=== PATIENT | female | born 1945 | race Caucasian/White ===

== ENCOUNTER → 2017-10-23 15:15 | Outpatient (CLI) | payer MEDICARE, SELFPAY ==
--- NOTE | 2017-10-23 15:27 | XR_ITS ---
XR chest 2V HISTORY: ITS.REASON: HTN ORDERING PHYSICIAN: DARSHAN Verduzco PATIENT AGE: 72 years COMPARISON: None available FINDINGS: The cardiomediastinal silhouette and pulmonary vascularity are within normal limits. Linear density is present in the left lower lobe consistent with an area of atelectasis or fibrosis. The lungs are otherwise clear. No acute bony anomalies. IMPRESSION: Mild left basilar atelectasis or fibrosis otherwise negative chest
== END ==
PROVIDERS: PCP Family Medicine; Visit Provider Physician Assistant
DX: Z01.818 Encounter for other preprocedural examination (principal)
CPT/HCPCS: 71046; 93005

== ENCOUNTER → 2017-12-09 16:06 | Outpatient (CLI) | payer MEDICARE, SELFPAY ==
--- NOTE | 2017-12-09 16:12 | NVE_ITS ---
Venous Exam Indications: 729.81 Swelling of limb. 782.3 Edema. Patient had a partial left knee replacement 1 month ago. Patient states she's done well until yesterday after physical therapy increased her exercises. She has had excessive swelling and pain since the therapy. She is currently taking 81 mg. Aspirin daily since the surgery. IMPRESSIONS 1. There is no evidence of significant Reflux. 2. Acute deep vein thrombosis involving the Left peroneal History: Swelling of the left lower extremity. Edema of the left leg. Risk factors: Hypertension. Left lower extremity venous duplex evaluation. Doppler flow study including spectral analysis, color and king scale imaging. Location: Vascular laboratory. Patient status: Outpatient. CRITICAL FINDINGS - Reported to: [facility] - Read back and verified. - 12/09/17 - 16:50 - Acute DVT seen in the PER Tables: Venous flow and imaging: + + + + Location Overall Flow properties + + + + Left common femoral Patent Normal phasicity; spontaneous; normal augmentation; compressible + + + + Left saphenofemoral Patent Compressible junction + + + + Left profunda femoral Patent Compressible + + + + Left femoral Patent Normal phasicity; spontaneous; normal augmentation; compressible + + + + Left greater saphenous Patent Normal phasicity; spontaneous; normal augmentation; compressible + + + + Left popliteal Patent Normal phasicity; spontaneous; normal augmentation; compressible + + + + Left posterior tibial Patent Compressible + + + + Left peroneal Totally occluded Noncompressible + + + + Left gastrocnemius Patent Compressible + + + + Left soleal Patent Compressible + + + + (Report amended ) Electronically signed by: Tutu Castellano [id number]
== END ==
PROVIDERS: PCP Family Medicine; Visit Provider Orthopaedic Surgery
DX: M79.605 Pain in left leg (principal); R60.0 Localized edema
CPT/HCPCS: 93971

== ENCOUNTER 2017-12-31 13:00 | Outpatient (RCR) | payer MEDICARE, SELFPAY | END 2017-12-31 13:01 | disposition home or self-care (01) | LOC: PT 13:00 | PROVIDERS: Family Provider Physician Assistant; PCP Family Medicine; Visit Provider Orthopaedic Surgery | DX: Z96.652 Presence of left artificial knee joint (principal); M25.562 Pain in left knee | CPT/HCPCS: 97010; 97014; 97016; 97033; 97110; 97140; G0283 ==

== ENCOUNTER → 2018-04-27 12:30 | Outpatient (CLI) | payer MEDICARE, SELFPAY ==
--- NOTE | 2018-04-27 12:38 | XR_ITS ---
XR chest 2V HISTORY: Chest pain and syncope ITS.REASON: SYNCOPE ORDERING PHYSICIAN: Mell Singh PATIENT AGE: 72 years COMPARISON: 10/23/2017 FINDINGS: The cardiomediastinal silhouette and pulmonary vascularity are within normal limits. The lungs are clear without infiltrates, suspicious nodules, or pleural effusions. Minimal atelectatic or fibrotic changes are present in the left lower lungs on No acute bony abnormalities. IMPRESSION: Minimal atelectasis or fibrosis in the left lower lung zone otherwise negative chest
== END ==
PROVIDERS: PCP Family Medicine; Visit Provider Nurse Practitioner Family
DX: R55 Syncope and collapse (principal)
CPT/HCPCS: 71046; 93005

== ENCOUNTER → 2018-04-28 15:51 | Outpatient (CLI) | payer MEDICARE, SELFPAY | PROVIDERS: PCP Family Medicine; Visit Provider Nurse Practitioner Family | DX: R55 Syncope and collapse (principal) | CPT/HCPCS: 93225; 93226 ==

== ENCOUNTER → 2018-05-07 09:32 | Outpatient (CLI) | payer MEDICARE, SELFPAY ==
--- NOTE | 2018-05-07 | CI_ITS ---
Cerebrovascular Exam IMPRESSIONS 1. The bilateral vertebral arteries are patent with normal antegrade flow. 2. The bilateral subclavian arteries reveal no evidence of significant stenosis. 3. Study suggests less than 20% stenosis involving the right internal carotid artery and the left internal carotid artery. 4. Tortuous internal carotid arteries, bilaterally. Carotid duplex study. Complete study and Doppler flow study including spectral analysis, color and king scale imaging. Height: Height: 160cm. Height: 63in. Weight: Weight: 68.5kg. Weight: 150.7lb. Body mass index: BMI: 26.7kg/m^2. Body surface area: BSA: 1.76m^2. Location: Vascular laboratory. Patient status: Outpatient. Findings: Right subclavian: Normal. Left subclavian: Normal. Tables: Arterial flow: + +--------+--------+ Location V sys V ed + +--------+--------+ Right CCA - proximal 79.8cm/s 20.7cm/s + +--------+--------+ Right CCA - distal 57.6cm/s 20.5cm/s + +--------+--------+ Right ECA 92.5cm/s 25.8cm/s + +--------+--------+ Right ICA - proximal 53.8cm/s 21.2cm/s + +--------+--------+ Right ICA - mid 76.6cm/s 31.8cm/s + +--------+--------+ Right ICA - distal 89.4cm/s 33.4cm/s + +--------+--------+ Right vertebral 58.4cm/s 18.7cm/s + +--------+--------+ Left CCA - proximal 102cm/s 22.1cm/s + +--------+--------+ Left CCA - distal 67.3cm/s 19.3cm/s + +--------+--------+ Left ECA 76.1cm/s 16.5cm/s + +--------+--------+ Left ICA - proximal 70cm/s 25.9cm/s + +--------+--------+ Left ICA - mid 88.8cm/s 32.5cm/s + +--------+--------+ Left ICA - distal 82.7cm/s 29.8cm/s + +--------+--------+ Left vertebral 43.2cm/s 11.4cm/s + +--------+--------+ Velocity ratios: + + + + + + Right, V sys Right, V ed Left, V sys Left, V ed + + + + + + Max ICA/dist CCA 1.55 1.63 1.32 1.68 + + + + + + (Report amended ) Electronically signed by: Tutu Castellano [id number]
--- NOTE | 2018-05-07 10:28 | CT_ITS ---
CT head/brain wo/w con HISTORY: ITS.REASON: SYNCOPE ORDERING PHYSICIAN: Sathish Velasquez MD PATIENT AGE: 72 years COMPARISON: None TECHNIQUE: Axial images obtained without and with 100 mL of Isovue-300. Brain and bone windows reviewed. All CT scans at the facility use one or more dose reduction, viz: automated exposure control, ma/kV adjustment per patient size (including targeted exams where dose is matched to indication, i.e. head), or iterative reconstruction technique. FINDINGS: No midline shift, mass effect, intracranial hemorrhage, hydrocephalus, or extra-axial fluid collection is evident. The calvarium has an unremarkable appearance. No mastoid effusion. No sinus air-fluid levels.. Bony hypertrophic changes are present at the atlantoaxial junction anteriorly IMPRESSION: Negative CT scan of the head without and with contrast. No acute intercranial findings
== END ==
PROVIDERS: Family Provider Physician Assistant; PCP Family Medicine; Visit Provider Family Medicine
DX: R55 Syncope and collapse (principal)
CPT/HCPCS: 70470; 93880; Q9967

== ENCOUNTER → 2018-05-29 06:19 | Outpatient (CLI) | payer MEDICARE, SELFPAY ==
--- NOTE | 2018-05-29 06:21 | NM_ITS ---
History and Indications: Hypertension, hyperlipidemia, chest pain, shortness of breath and fatigue Procedure: Patient received a 0.4 mg of intravenous Lexiscan, resting heart rate was 63 bpm resting blood pressure 165/83, with Lexiscan maximum heart rate achieved was entered and 116 bpm which is less than 85% of the maximum predicted heart rate and a blood pressure 129/64. With Lexiscan patient, shortness of breath and nausea requiring intravenous Aminophyllin to reverse symptoms Electrocardiogram: Resting electrocardiogram showed sinus rhythm, with Lexiscan there is 1.[address] segment depression noted from the baseline EKG. The EKG portion of the Lexiscan Myoview is nondiagnostic. Cardiac stress and resting SPECT images: Cardiac stress and rest SPECT images were obtained using technetium 99 Myoview 32.2 mCi at stress and 10.6 mCi at rest, gated SPECT further analysis of segmental wall motion and calculation of the ejection fraction also done. Cardiac stress and rest images show uniform myocardial activity without segmental perfusion abnormality, computer derived ejection fraction is over 65% with no regional wall motion abnormality, right ventricle is normal size and contractility. Conclusion: 1. The EKG portion of the Lexiscan Myoview is nondiagnostic. 2. No scintigraphic evidence of reversible ischemia seen, computer derived ejection fraction is over 65% with no regional wall motion abnormality, right ventricle is normal size and contractility. 3. Normal Lexiscan Myoview study.
--- NOTE | 2018-05-29 06:21 | CA_ITS ---
PROCEDURE: 2-D M-mode and color Doppler study INDICATIONS FOR THE TEST: Chest pain+ COPD Heart Murmur Tobacco Smoking Palpitations Fatigue Syncope+ Edema+ Hypertension+Diabetes Mellitus Rheumatic Fever SOB+VEGA Obesity Hyperlipidemia Family History HD Additional History syncope PATIENT INFORMATION HEIGHT: 64 WEIGHT: 149 GENDER: Female B/P: 130/68 2-D/M-MODE INTERPRETATION: 2-D MEASUREMENTS OBSERVED VALUES IN CMS Right Ventricular Dimension (RVDd) 2.7 Interventricular Septum (Thickness)(IVsd) 0.7 Left Ventricular Internal Dimensions(LVIDd) 4.6 Left Ventricular Posterior Wall (Thickness)(LVPWd) 0.7 Aortic Root 2.5 Aortic Cusp Separation 2.0 Left Atrial Dimensions (LAD) 2.8 2D 1. Left atrium is mildly enlarged, left ventricle is normal size, mild qualitative concentric left ventricular hypertrophy, visually estimated ejection fraction of 55% with no regional wall motion abnormality. 2. The right atrium and right ventricle are normal size and contractility. 3. The aortic valve is thickened and calcified, leaflet continue to display mobility. 4. The mitral and tricuspid valve are grossly normal. 5. The pulmonic valve is poorly visualized. 6. No significant pericardial effusion noted. DOPPLER INTERROGATION: Doppler interrogation of the aortic, mitral and tricuspid valvular presence of mild aortic, mild mitral and tricuspid regurgitation, tricuspid regurgitation jet velocity insufficient for calculation of the right ventricular systolic pressure, grade 1 diastolic dysfunction seen with tissue Doppler evidence of raised left atrial pressure. CONCLUSION: 1. Mildly enlarged left atrium, normal left ventricular size, mild concentric left ventricular hypertrophy, visually estimated ejection fraction 55% with no regional wall motion abnormality, grade 1 diastolic dysfunction seen with tissue Doppler evidence of raised left atrial pressure. 2. Mild aortic, mild mitral and tricuspid regurgitation 3. No significant pericardial effusion noted.
--- NOTE | 2018-05-29 08:29 | HMH.ITSHM ---
levothyroxine losartan prilosec pepcid miralax calcium
== END ==
PROVIDERS: Family Provider Physician Assistant; PCP Family Medicine; Visit Provider Internal Medicine
DX: I10 Essential (primary) hypertension (principal); R55 Syncope and collapse; R07.89 Other chest pain
CPT/HCPCS: 78452; 93017; 93306; A9502; J2785

== ENCOUNTER → 2019-03-05 08:26 | Outpatient (CLI) | payer MEDICARE, SELFPAY ==
--- NOTE | 2019-03-05 08:27 | CT_ITS ---
CT heart w calcium score INDICATION: Chest pain and fatigue ITS.REASON: d ORDERING PHYSICIAN: Kris Bethea MD PATIENT AGE: 73 years COMPARISON: None TECHNIQUE: Contrast Used: Oral Contrast: Axial images were obtained. Sagittal and coronal reformatted images are reviewed as well. All CT scans at the facility use one or more dose reduction, viz: automated exposure control, ma/kV adjustment per patient size (including targeted exams where dose is matched to indication, i.e. head), or iterative reconstruction technique. FINDINGS: Coronary artery calcium score is 0 indicating very low cardiovascular disease risk with no identifiable calcific plaque Pacemaker device is present. Atelectatic or fibrotic changes are present in both lower lobes IMPRESSION: Coronary artery calcium score 0
== END ==
PROVIDERS: PCP Family Medicine; Visit Provider Internal Medicine Cardiovascular Disease
DX: R06.02 Shortness of breath (principal)
CPT/HCPCS: 75571

== ENCOUNTER → 2019-03-18 11:39 | Outpatient (CLI) | payer MEDICARE, SELFPAY | PROVIDERS: Visit Provider Internal Medicine Cardiovascular Disease | DX: R00.2 Palpitations (principal); R42 Dizziness and giddiness; R53.83 Other fatigue | CPT/HCPCS: 36415; 83880 ==

== ENCOUNTER → 2019-08-03 11:40 | Outpatient (CLI) | payer MEDICARE, SELFPAY ==
--- NOTE | 2019-08-03 | CA_ITS ---
APPROVED REPORT Exam: Pharmacologic Technologist: Nancy Bradley Ht: 5 ft 3 in Wt: 156 lbs BSA: 1.74 m2 HR: 60 bpm BP: 135/59 mmHg Indications: Chest pain Medical History Medications: Levothyroxine,,,,, Premarin,,,,, Prilosec,,,,, BisOPROLOL,,,,, SpirOnolactone,,,,, PEPcid,,,,, Isosorb,,,,, Stress Test Details Test: LEXISCAN HR Resting HR: 67 bpm Max Heart Rate (APMHR): 148 bpm Max HR Achieved: 96 bpm Target HR (85% APMHR): 125 bpm % of APMHR: 64 Recovery HR: 72 bpm BP Resting BP: 135.0/59.0 mmHg Max BP: 135.0/59.0 mmHg Recovery BP: 121.0/63.0 mmHg ECG Clinical Exercise duration: 04:00 min Highest Stage Achieved: Exercise capacity: 1.0 METs Stress ECG Conclusion Resting ECG: Paced rhythm. Symptoms: Mild shortness of air, nausea, malaise. No chest pain. Arrhythmias/Ectopy: Occasional PAC. Occasional PVC. ST-T Changes: No significant changes. Conclusions: Unremarkable Lexiscan stress. Myoview images reported separately. Test Summary REST . . . . . . . Resting REST 03:42 . . 67 . 135/ 59 . . Stage 1 . . . . . . . Myoview Injected Stage 1 01:00 . . 77 . . . . Stage 2 01:00 . . 96 . 108/ 61 . . Stage 3 01:00 . . 86 . 121/ 61 . . Stage 4 01:00 . . 79 . 111/ 65 . Stop exercise at 04:00 RECOVERY 01:00 . . 83 . 117/ 63 . . RECOVERY 02:00 . . 78 . 135/ 66 . . RECOVERY . . . . . . . chest pressure RECOVERY 03:00 . . 74 . 135/ 66 . . RECOVERY 04:00 . . 71 . 135/ 66 . . RECOVERY 05:00 . . 71 . 121/ 63 . . RECOVERY 05:17 . . 73 . 121/ 63 . . Electronically signed by : Kris Bethea, 08/04/2019 05:53:16
--- NOTE | 2019-08-03 11:43 | NM_ITS ---
APPROVED REPORT Exam: Nuclear Stress Test Indication: chest pain, short of breath, fatigue Patient Location: Outpatient Stress Tech: Nancy Bradley NM Tech:Silvia Hutton, ARRT, RT (R)(N) Ht: 5 ft 3 in Wt: 156 lbs Bra Size: 34d HR: 60 bpm BP: 135/59 mmHg BSA: 1.74 m2 BMI: 27.6 History: chest pain, short of breath, fatigue Procedure: Patient received a 0.4 mg of intravenous Lexiscan, resting heart rate 60 bpm, resting blood pressure 135/59 mmHg, with Lexiscan maximum heart rate achived was 96 bpm which is Less than 85 % of the maximum predicted heart rate and blood pressure was 108/61 mmHg. With Lexiscan, patient denied any complaint of chest pain. Electrocardiogram Resting electrocardiogram showed sinus rhythm, with Lexiscan there is less than 1.[address] segment depression noted from the baseline EKG. The EKG portion of the Lexiscan Myoview is nondiagnostic. Cardiac Stress and Resting SPECT Images: Cardiac Stress and Resting SPECT images were obtained using technetium 99m Myoview 29.6 mCi stress and 10.66 mCi at rest. Gated SPECT with analysis of segmental wall motion and calculation of the ejection fraction also done. Cardiac stress and resting SPECT images show uniform myocardial activity without segmental perfusion abnormality, computer derived ejection fraction is over 65% with no regional wall motion abnormality, right ventricle is normal size and contractility. Conclusion: 1. The EKG portion of the Lexiscan Myoview is nondiagnostic. 2. No scintigraphic evidence of reversible ischemia seen, computer derived ejection fraction is over 65% with no regional wall motion abnormality, right ventricle is normal size and contractility. 3. Normal Lexiscan Myoview study. Electronically signed by : Kris Bethea, 08/04/2019 05:55:24
--- NOTE | 2019-08-03 12:32 | HMH.ITSHM ---
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 []SPIRONOLACTONE LEVOTHYROXINE PREMARIN BISOPROLOL ISOSORB PEPCID PRILOSEC
== END ==
PROVIDERS: PCP Family Medicine; Visit Provider Urology
DX: R07.9 Chest pain, unspecified; R06.00 Dyspnea, unspecified; I10 Essential (primary) hypertension; I48.0 Paroxysmal atrial fibrillation; Z95.0 Presence of cardiac pacemaker
CPT/HCPCS: 78452; 93017; A9502; J2785

== ENCOUNTER → 2020-03-21 16:54 | Outpatient (CLI) | payer MEDICARE, SELFPAY ==
--- NOTE | 2020-03-21 16:59 | XR_ITS ---
PROCEDURE: XR SHOULDER RT MIN 2V CLINICAL INDICATION: PAIN IN RT SHOULDER COMPARISON: [id number] VIEWS from 01/19/2013 FINDINGS: No fracture or dislocation. No lytic or blastic change. There is normal mineralization. The joint spaces are well-preserved. No significant degenerative/arthritic changes. No erosive changes evident. Other findings:There is an old right 4th rib fracture. IMPRESSION: Negative right shoulder Dictated by: Tutu Castellano MD 03/21/2020 17:47 Electronically signed by Tutu Castellano MD in [place] 03/21/2020 17:47
== END ==
PROVIDERS: PCP Family Medicine; Visit Provider Family Medicine
DX: M25.511 Pain in right shoulder (principal)
CPT/HCPCS: 73030

== ENCOUNTER → 2020-05-19 12:01 | Outpatient (CLI) | payer MEDICARE, SELFPAY ==
[2020-05-19 13:49] LABS: Chloride 103 mmol/L (98-107)
[2020-05-19 13:50] LABS: Potassium 5.1 mmoL/L (3.5-5.1); Sodium 139 mmol/L (136-145)
[2020-05-19 13:52] LABS: Blood Urea Nitrogen 25 mg/dl (7-17); Estimated Glomerular Filt Rate 61 ml/min (>60); GFR (African American) 74 ML/MIN (>60)
[2020-05-19 13:53] LABS: Anion Gap 12.1 mEq/L (5-15); Calcium 10.1 mg/dl (8.4-10.2); Carbon Dioxide 29 mmol/L (22.0-30.0); Glucose 116 mg/dl (74-100)
== END ==
PROVIDERS: Visit Provider Nurse Practitioner Family
DX: I10 Essential (primary) hypertension (principal); I48.0 Paroxysmal atrial fibrillation; I83.93 Asymptomatic varicose veins of bilateral lower extremities; R06.02 Shortness of breath; R60.9 Edema, unspecified; Z95.0 Presence of cardiac pacemaker
CPT/HCPCS: 36415; 80048

== ENCOUNTER 2020-06-19 09:00 | Outpatient (RCR) | payer MEDICARE, SELFPAY ==
--- NOTE | 2020-04-10 13:48 | HMH.OTEV ---
PHYSICIAN CERTIFICATION: I certify the specified therapy services for Bing Carol Lee are required, authorized, and reviewed every 30 days.
== END 2020-06-19 09:05 | disposition home or self-care (01) ==
LOC: OT 09:00
PROVIDERS: PCP Family Medicine; Visit Provider Family Medicine
DX: M25.511 Pain in right shoulder (principal)
CPT/HCPCS: 97010; 97034; 97110; 97140; 97164; 97165; 97530

== ENCOUNTER → 2020-07-03 11:30 | Outpatient (POV) | payer MEDICARE, SELFPAY | PROVIDERS: Visit Provider Nurse Practitioner Family | DX: Z00.00 Encounter for general adult medical examination without abnormal findings (principal) ==

== ENCOUNTER → 2020-08-05 10:23 | Outpatient (CLI) | payer MEDICARE, SELFPAY ==
[2020-08-05 12:45] LABS: Coronavirus 19 IgG Antibody Negative (Negative); Coronavirus 19 IgM Antibody Negative (Negative)
== END ==
PROVIDERS: Visit Provider Internal Medicine Gastroenterology
DX: Z01.818 Encounter for other preprocedural examination (principal); Z12.11 Encounter for screening for malignant neoplasm of colon; K59.00 Constipation, unspecified; Z13.810 Encounter for screening for upper gastrointestinal disorder; K21.9 Gastro-esophageal reflux disease without esophagitis
CPT/HCPCS: 36415; 86328

== ENCOUNTER 2020-08-07 08:50 | Day surgery (SDC) | payer MEDICARE, SELFPAY ==
[2020-08-01 11:07] VITALS: BMI 30.1
[2020-08-07] VITALS (8 sets, daily range): BP systolic 102–150; BP diastolic 59–85; PULSE 60–79; RESP 18; TEMP 36.3–36.4; O2SAT 97–99
--- NOTE | 2020-08-07 09:34 | HMH.ANESCL ---
[facility] Anesthesia Checklist - Patient Identification Patient Identification: Arm Band - Structural Data Admitted From: Home Planned Operative Procedure/s: egd/colonoscopy Consent for Planned Operative Procedure(s) Verified: Yes Verified Documents: Surgical Consent, History and Physical - NPO Status Verified Time NPO: 00:00 - Additional verifications Anesthesia Reactions: No - Airway Assessment C-Spine Mobility Assessed: Yes (mp2) TMJ Mobility Assessed: Yes Dentition: Good Dentition - Neurological Assessment Level of Consciousness: Awake, Alert - Anesthesia Plan Anesthesia Risk discussed: Yes Anesthesia Plan: Verified ASA Class: III Anesthesia Type: MAC [facility] History I have reviewed the patient's past medical history: Yes Medical History: Reports:: Anxiety, Atrial Fibrillation, Gastroesophageal Reflux Disease(GERD), Hyperlipidemia, Hypertension, Internal Pacemaker, Palpitations Denies:: Cancer, Diabetes Mellitus Type 1, Diabetes Mellitus Type 2, Lung Disease, MRSA, Seizures *Have you ever received a pneumonia vaccine?: No *Have you received a flu vaccine this season?: Yes Other Medical History: Reports: Hypothyroidism Anesthesia experience/problems:: nac Laterality Cases: Left: Arthroscopy Knee, Bilateral: Lumpectomy Other Surgeries: Yes: Appendectomy, Cancer Surgery, , Hernia Repair, Pacemaker, Other Amputation: No Fractures: No - *Social History Last grade of school completed: High school graduate Smoking Status: Never smoker Alcohol Intake: never Alcohol Intake Frequency:: holidays/special occasions only Substance Use Type: denies use *Occupational Status:: retired Housing: house Household Members: spouse *Travel in the last 8 weeks: None Family Hx:: Cancer
--- NOTE | 2020-08-07 10:05 | HMH.PROC ---
[facility] Procedure Note Procedure Note:: Upper Endoscopy Procedure Report: Esophagogastroduodenoscopy with cold biopsies Endoscopost: Crow Burden II, MD Referring Physician: Zeke Echevarria MD Date of Procedure: August 07, 2020 Equipment: Olympus GIF 180 standard upper endoscope Sedation: MAC sedation Indications: Mrs. Howard is a 74-year-old female with a long history of functional dyspepsia. She continues to have some bloating, belching, gassiness and right upper quadrant abdominal pain. She has some generalized abdominal discomfort. She was placed on Reglan and did have improvement but not complete resolution. The patient does take Pepcid and esomeprazole. Her ultrasound of the gallbladder in April 2019 was unremarkable. Procedure: Prior to the procedure, a history and physical exam was performed, and patient's medications and allergies were reviewed. The risks, benefits and alternatives of the sedation and procedure were discussed with the patient. All questions were answered and informed consent was obtained. The patient was brought to the procedure room. Patient identification and proposed procedure were verified by the physician and the nurse. The patient was placed in a left lateral decubitus position and the scope was passed under direct vision. Throughout the procedure, the patient's blood pressure, pulse, and oxygen saturations were monitored continuously. The upper GI endoscopy was accomplished without difficulty. The patient tolerated the procedure well. Findings: The scope was passed directly into the upper esophagus and advanced to the third portion of the duodenum. The post bulbar duodenum and duodenal bulb were normal with normal mucosa and conniventes. The scope was withdrawn through a normal duodenal bulb and pylorus into the stomach. There was mild reactive gastropathy of the antrum and mild chronic gastritis of the body and fundus of the stomach. The remainder of the antrum, body and fundus of the stomach were grossly normal. Upon retroflexion there was a very small 1 to 2 cm hiatal hernia. 2 biopsies were taken in the antrum and along the lesser curvature for histology to rule out gastritis and/or H pylori. The scope was then withdrawn into the esophagus. There was no evidence of reflux esophagitis or Schatzki's ring. There was a serrated Z-line and biopsies were taken at the GE junction. The remainder of the esophageal mucosa was normal. Impression: 1. Nonerosive GERD 2. Mild linear reactive gastropathy and mild chronic gastritis Plan: I will follow-up the biopsies. I do feel that she has chronic functional dyspepsia and functional bowel disease. We will discuss additional treatment options. I will proceed with colonoscopy.
--- NOTE | 2020-08-07 10:09 | P.PCN_ITS ---
[facility] Procedure Note Procedure Note:: Colonoscopy Procedure Report: Colonoscopy Endoscopist: Crow Burden II, MD Referring physician: Zeke Echevarria MD Date of Procedure: August 07, 2020 Equipment: Olympus 180 variable stiffness pediatric colonoscope Sedation: MAC sedation Indication: Mrs. Howard is a 74-year-old female with pencil thin bowel movements and obstipation/incomplete defecation. She also has some right upper quadrant abdominal pain. The patient has had some chronic bloating and dyspepsia. Both her mother and father had colon cancer. Her last colonoscopy was between 5 and 10 years ago. She reports no rectal bleeding or weight loss. Her ultrasound of the gallbladder was essentially normal. She does take combined MiraLAX plus Metamucil. Procedure: Prior to the procedure, a history and physical exam was performed, and patient's medications and allergies were reviewed. The risks, benefits and alternatives of the sedation and procedure were discussed with the patient. All questions were answered and informed consent was obtained. The patient was brought to the procedure room. Patient identification and proposed procedure were verified by the physician and the nurse. The patient was placed in a left lateral decubitus position and the scope was passed under direct vision. Throughout the procedure, the patient's blood pressure, pulse, and oxygen saturations were monitored continuously. The colonoscopy was accomplished without difficulty. The patient tolerated the procedure well. Findings: On digital rectal examination there was normal rectal tone. There were no external hemorrhoids. The colonoscope was introduced through the anal canal to the rectum and advanced to the cecum. The ileocecal valve and appendiceal orifice were identified. The scope was advanced a short distance into the ileum which appeared grossly normal. The scope was then withdrawn into the colon. The cecum, ascending and transverse colon and mucosa were grossly normal. There appeared to be some angulation at the hepatic flexure suggestive of a hepatic flexure syndrome. There were scattered diverticuli throughout the descending and sigmoid colon (LEFT colon). The rectum itself was normal. Upon retroflexion within the rectum there were grade 1 internal hemorrhoids. The preparation was excellent throughout with [place] Preparation Score of 9. The cecal time was 10 minutes. Impression: 1. Left-sided diverticulosis 2. Grade 1 internal hemorrhoids 3. 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 We will discuss additional treatment options. I would also consider doing a HIDA scan of the gallbladder. Based upon her strong family history of colon cancer, I would recommend repeat surveillance colonoscopy again in 5 years.
== END 2020-08-07 11:31 | disposition home or self-care (01) ==
LOC: OUTP 08:51
PROVIDERS: PCP Family Medicine; Visit Provider Internal Medicine Gastroenterology
PROC: 0DJ08ZZ Inspection of Upper Intestinal Tract, Via Natural or Artificial Opening Endoscopic (ICD-10-PCS; CPT 43235; principal; 2020-08-07 10:00)
DX: K21.9 Gastro-esophageal reflux disease without esophagitis (principal); K31.9 Disease of stomach and duodenum, unspecified; K29.50 Unspecified chronic gastritis without bleeding; E03.9 Hypothyroidism, unspecified; I10 Essential (primary) hypertension; E78.5 Hyperlipidemia, unspecified; Z95.0 Presence of cardiac pacemaker; I48.91 Unspecified atrial fibrillation; R00.2 Palpitations
CPT/HCPCS: 43239; 88305

== ENCOUNTER 2021-01-05 11:30 | Inpatient (IN) | payer MEDICARE, SELFPAY ==
[2021-01-05] VITALS (26 sets, daily range): BP systolic 75–138; BP diastolic 45–83; PULSE 66–91; RESP 14–20; TEMP 35.9–36.8; O2SAT 92–100; BMI 29.2; BMI 30.1; BMI 31.6
--- NOTE | 2021-01-05 | IR_ITS ---
APPROVED REPORT Patient Location: Emergent Machine Heel Seat Laster: KARIS Jenkins RT (R) PROCEDURES Left heart catheterization Left ventriculogram Selective coronary INDICATION Acute anteroseptal ST elevation myocardial infarction Informed consent was obtained prior to the procedure. COMPLICATIONS NONE Estimated Blood Loss: LESS THAN 10 ML TECHNIQUE One percent lidocaine used to anesthetize the right anterior aspect of the wrist. The right radial artery was accessed via the Seldinger technique. A 6 Citizen Of [place] sheath was placed in the right radial artery. 2.5 mg of verapamil, 800 mcg of nitroglycerin, 1mg Lidocaine and 5000 U Heparin were given through the arterial sheath. The Poppa catheter was also used to perform left heart catheterization, left ventriculogram and selective coronary angiogram. At the end of the procedure the sheath was removed good hemostasis was achieved using Traclet band, patient was transferred to the postop holding area in stable condition. ANGIOGRAPHIC RESULTS The left main artery Normal The left anterior descending artery Is proximally normal and has a mid vessel myocardial bridge which compresses to 80% during systole with remaining vessel normal The circumflex artery Is dominant and gives rise to a large ramus intermedius which is widely patent. The circumflex artery itself is widely patent tortuous consistent with hypertensive heart disease but otherwise normal The right coronary artery Nondominant vestigial and normal The YEAGER ventriculogram reveals Normal 65% The left ventricular end-diastolic pressure 10 to 15 mmHg IMPRESSION Widely patent coronary arteries which are tortuous and consistent with hypertensive heart disease Myocardial bridge involving the mid LAD which is clinically irrelevant at this time and not contributing to patient's symptoms Normal ejection fraction Normal to borderline elevated LVEDP PLAN 1. Patient has an unusual EKG with ST elevation in 2 contiguous leads accompanied by reciprocal change. Given the normal LV gram and widely patent coronary arteries I see no ischemic myocardial process which explains the EKG abnormality. It is possible that a pulmonary embolism can produce RV strain and mimic similar EKG abnormalities. Because of this I would recommend obtaining a CT PA gram now to determine if pulmonary embolism is the etiology for the chest pain and the EKG abnormalities 2. While it is unusual for myocarditis to produce such EKG abnormalities it is nevertheless possible. I would recommend continued troponin levels to determine if these increase. If so this would be more suggestive of myocarditis 3. The myocardial bridge can be treated with beta-blockers or verapamil or diltiazem. 4. Patient should be admitted overnight and monitored for serial troponin levels to make sure myocarditis is not the etiology 5. Echocardiogram should be obtained today 6. I discussed the case with Dr. Echevarria and he agrees with the preliminary plan for CT-PA gram Electronically signed by : Capo Mckeon, 01/05/2021 12:22:11
--- NOTE | 2021-01-05 | IR_ITS ---
APPROVED REPORT Patient Location: Emergent Silver Brazer: KARIS Trent RT (R) PROCEDURES Right femoral venous access Catheter placement in the main pulmonary artery Bilateral pulmonary artery angiography Right mainstem pulmonary artery embolectomy/thrombectomy Post embolectomy/thrombectomy catheter placement in the right pulmonary artery Right pulmonary artery selective angiogram INDICATION Submassive pulmonary embolism, RV???LV ratio greater than 1.0, RV strain, Hypoxemia Informed consent was obtained prior to the procedure. COMPLICATIONS NONE TECHNIQUE 1% lidocaine used anesthetize the right groin the right femoral vein was accessed via the Salinger technique and a 6 Citizen Of [place] sheath was placed in the right femoral vein. A pigtail catheter was advanced into the pulmonary artery and pulmonary artery angiography was performed. Following this therapeutic heparin was administered giving a therapeutic ACT and the 6 Citizen [place] sheath was exchanged for a 100 cm 12 Citizen [place] sheath. With the wire in the right pulmonary artery the sheath was advanced into the main pulmonary artery and the pigtail catheter remained which allowed advancement of the sheath into the right mainstem pulmonary artery. A [employer] CAT 12 aspiration catheter was advanced and multiple large emboli were retrieved. Following this the 5 Citizen [place] pigtail catheter was placed back into the right mainstem pulmonary artery and angiography demonstrated significant improvement with less thrombus and better perfusion of the right pulmonary arterial tree. After achieving excellent angiographic results Z stitch was placed into the right groin and the sheath was removed combined with manual pressure. Patient was transferred to the postop holding area in stable condition ANGIOGRAPHIC RESULTS The right main pulmonary artery has a large thrombus impeding greater than 60% of the entire vessel. At the end of the procedure most of the thrombus has been removed with significant distal improvement in arterial flow IMPRESSION Submassive pulmonary embolism involving the right mainstem of the pulmonary artery Successful thrombectomy reducing the large thrombus burden to less than 10% PLAN 1. Xarelto 15 mg twice daily for 3 weeks then Xarelto 20 mg daily thereafter 2. Supportive care 3. Venous Dopplers will be obtained 4. Monitor patient on telemetry Electronically signed by : Capo Mckeon, 01/05/2021 16:33:55
--- NOTE | 2021-01-05 11:24 | ECG_ITS ---
APPROVED REPORT Exam: Resting ECG HR:85 bpm ECG Measurements Heart Rate 85 AXES TX 194 P 67 QRSd 94 QRS 13 QT 356 T 29 QTc 423 Conclusion Normal sinus rhythm Septal infarct, age undetermined Abnormal ECG Electronically signed by : Dane Thomas, 01/07/2021 20:31:30
--- NOTE | 2021-01-05 11:36 | PC.NURSE ---
stemi alert called
--- NOTE | 2021-01-05 11:44 | HMH.EDGENADL ---
ED Disposition Clinical Impression: STEMI (ST elevation myocardial infarction) Qualifiers: Involved coronary artery: unspecified coronary artery Qualified Code(s): I21.3 - ST elevation (STEMI) myocardial infarction of unspecified site Disposition: Still a Patient Condition on Discharge: Serious - Critical Care Critical Care Time: No Attestation: On , the high probability of a clinically significant, sudden or life threatening deterioration of the following system(s) required my full and direct attention, intervention and personal management. The time I documented below is in addition to time spent performing reported procedures but includes the following listed in this critical care notation. Medical Decision Making - Medical Records Medical records reviewed: Yes: I reviewed the patient's medical records. MR Comment: Reviewed prior stress test results x2, normal in 2018 in 2019 - Hermes Inquiry Pt receiving controlled substance: Yes Hermes was queried for this patient: Yes Risks and benefits of using a controlled substance: were not discussed with pt by me Vital Signs: 01/05/21 11:32 01/05/21 11:59 Temperature 98.2 F 98.3 F Temperature Source Oral Oral Pulse Rate 80 Pulse Rate [Right] 87 Respiratory Rate 16 16 Blood Pressure 138/83 Blood Pressure [Right Arm] 133/83 Blood Pressure Mean [Right Arm] 99 Blood Pressure Source Automatic Cuff Blood Pressure Source [Right Arm] Automatic Cuff Blood Pressure Position Sitting Blood Pressure Position [Right Arm] Sitting 02 Sat by Pulse Oximetry 97 Oxygen Delivery Method Room Air Room Air - Lab Data Lab Results 01/05/21 11:35: WBC 5.4, RBC 4.30, Hgb 13.6, Hct 42.1, MCV 97.8, MCH 31.6 H, MCHC 32.3, RDW 13.2, Plt Count 162, MPV 7.1 L, Neut % (Auto) 65.2, Lymph % (Auto) 27.5, [place]oux % (Auto) 5.9, Eos % (Auto) 0.7, Baso % (Auto) 0.7, Neut # (Auto) 3.5, Lymph # (Auto) 1.5, [place]oux # (Auto) 0.3, Eos # (Auto) 0.0, Baso # (Auto) 0.0 01/05/21 11:35: Sodium 139, Potassium 3.4 L, Chloride 104, Carbon Dioxide 25, Anion Gap 13.4, BUN 28 H, Creatinine 1.10 H, Estimated Creat Clear 55, Estimated GFR 49 L, Est GFR ( Amer) 59, Glucose 162 H, Calcium 10.1 Result diagrams: 01/05/21 11:35 01/05/21 11:35 Orders (Tests/Meds): ED MEDICATIONS Generic Name Dose Route Start Last Admin Trade Name Freq PRN Reason Stop Dose Admin Fentanyl Citrate 25 mcg 01/05/21 11:45 01/05/21 11:57 Fentanyl 100mcg/2ml Vial IV 01/06/21 11:45 75 mcg Q3MINP PRN Administration Moderate to Severe Pain Fentanyl Citrate 50 mcg 01/05/21 11:45 Fentanyl 100mcg/2ml Vial IV 01/06/21 11:45 Q3MINP PRN Moderate to Severe Pain Fentanyl Citrate 25 mcg 01/05/21 11:45 Fentanyl 250mcg/5ml Vial IV 01/06/21 11:45 Q3MINP PRN Moderate to Severe Pain Fentanyl Citrate 50 mcg 01/05/21 11:45 Fentanyl 250mcg/5ml Vial IV 01/06/21 11:45 Q3MINP PRN Moderate to Severe Pain Flumazenil 0.2 mg 01/05/21 11:45 Flumazenil 0.1mg/Ml 5ml Vial IV 01/05/21 23:00 NEEDED PRN Sedation Heparin Sodium (Porcine) 10,000 unit 01/05/21 11:45 01/05/21 11:56 Heparin 1,000 Units/Ml 10ml Vial (Nurse Midwife/Clinical Instructor) IV 01/05/21 15:45 8,000 unit NEEDED PRN Administration Emergency Box Caretaker Sodium Chloride 1,000 mls @ 25 mls/hr 01/05/21 11:45 01/05/21 11:55 Sod Chlor 0.9% 1000ml Bag IV 01/06/21 11:45 25 mls/hr .Q25H CHELSEA Administration Midazolam HCl 1 mg 01/05/21 11:45 Midazolam 2mg/2ml Vial IV 01/06/21 11:45 Q3MINP PRN Sedation Midazolam HCl 1 mg 01/05/21 11:45 01/05/21 11:57 Midazolam Hcl 1mg/1ml 5ml Vial IV 01/06/21 11:45 3 mg Q3MINP PRN Administration Sedation Naloxone HCl 0.4 mg 01/05/21 11:45 Naloxone 0.4mg/Ml Vial IV 01/06/21 11:45 Q5MINP PRN Decreased Respirations Nitroglycerin 800 mcg 01/05/21 11:45 01/05/21 11:55 Nitroglycerin 800mcg/8ml Syr (Nurse Midwife/Clinical Instructor) IV 01/06/21 11:45 8
--- NOTE | 2021-01-05 11:50 | HMH.CNCARD ---
History of Present Illness Consult date: 01/05/21 Requesting physician: Greg Echevarria Consult reason: chest pain Chief complaint: STEMI Additional Medical History:: 1. PPM, 12/2018, for symptomatic bradycardia 2. PAF, no A/C, monitoring by PPM 3. HTN A. Echo, 2018, 1. Mildly enlarged left atrium, normal left ventricular size, mild concentric left ventricular hypertrophy, visually estimated ejection fraction 55% with no regional wall motion abnormality, grade 1 diastolic dysfunction seen with tissue Doppler evidence of raised left atrial pressure. 2. Mild aortic, mild mitral and tricuspid regurgitation 3. No significant pericardial effusion noted 4. HLD, on statin 5. Anxiety 6. GERD 7. Chest pain, [address] coronary calcium score was 0, 03/2019. B. Reynaldo myoview, 08/2019, no ischemia, EF 65% C. EGD/colonoscopy, 08/2020, nonerosive GERD, diverticulosis, internal hemorrhoids. History of present illness: 75 yo WF seen in ER for onset of SS CP with radiation to left arm with SOA, Nausea and diaphoresis that started 30-40 mins ago [place] to first [place]. EKG in ER shows ST elevation in leads I and II that is new compared to prior EKG's dated 10/2019 and 07/2019. Pt taken to factory laborer after getting ASA, Brilinta and morphine. [facility] History Medical History: Reports:: Anxiety, Atrial Fibrillation, Gastroesophageal Reflux Disease(GERD), Hyperlipidemia, Hypertension, Internal Pacemaker, Palpitations Denies:: Cancer, Diabetes Mellitus Type 1, Diabetes Mellitus Type 2, Lung Disease, MRSA, Seizures *Have you ever received a pneumonia vaccine?: Yes *Have you received a flu vaccine this season?: Yes Other Medical History: Reports: Hypothyroidism Laterality Cases: Left: Arthroscopy Knee, Bilateral: Lumpectomy Other Surgeries: Yes: Appendectomy, Cancer Surgery, , Hernia Repair, Pacemaker, Other Amputation: No Fractures: No - *Social History Smoking Status: Never smoker Alcohol Intake: never Alcohol Intake Frequency:: holidays/special occasions only Substance Use Type: denies use *Occupational Status:: retired Housing: house Household Members: spouse *Travel in the last 8 weeks: [facility] - Psychiatric History Pschychiatric History:: Reports:: Anxiety Family Hx:: Cancer Meds Home Medications Medication Instructions Recorded Confirmed Type conjugated estrogens 0.625 mg/gram 1 applic VAGINAL WEEKLY g 05/18/18 08/01/20 History vaginal cream glucosamine-chondroitin 250 mg-200 1 tab PO DAILY tab 05/18/18 08/01/20 History mg tablet levothyroxine 75 mcg tablet 75 mcg PO DAILY 05/18/18 08/01/20 History polyethylene glycol 3350 17 1 dose PO DAILY g 05/18/18 08/01/20 History gram/dose oral powder psyllium husk 3.4 gram/5.4 gram 1 tbsp PO DAILY 05/18/18 08/01/20 History oral powder vitamin B complex 1 tab PO DAILY 05/18/18 08/01/20 History zgwbaushhfvc-qnkmepel-rniaaa tablet 1 tab PO DAILY 05/19/18 08/01/20 History calcium carbonate 600 mg calcium 600 mg PO DAILY tab 02/14/20 08/01/20 History (1,500 mg) tablet esomeprazole magnesium 40 mg 40 mg PO DAILY 05/22/20 08/01/20 History capsule,delayed release Celecoxib 200 mg PO DAILY 08/01/20 08/01/20 History Vit D3-Vit K/Berberine/Hops 1 each PO DAILY 08/01/20 08/01/20 History [Ostera Tablet] bisoprolol fumarate 5 mg tablet 5 mg PO DAILY #90 tab 08/22/20 Rx spironolactone 25 mg tablet See Rx Instructions .ROUTE 10/16/20 Rx .COMPLEX #90 tablet Allergies Allergy/AdvReac Type Severity Reaction Status Date / Time soybean Allergy Unknown CHEST PAIN Verified 08/21/20 13:24 [From SOYBEAN (FOOD/DRUG)] clarithromycin AdvReac Mild NA-NAUSEA/V Verified 08/21/20 13:24 OMITING From SOYBEAN (FOOD/DRUG) Allergy Unknown CHEST PAIN Uncoded 08/21/20 13:24 Exam Vital signs and Labs for Last 24 Hours: Temp Pulse Resp BP Pulse Ox 98.2 F 87 16 133/83 97 01/05/21 11:32 01/05/21 11:32 01/05/21 11:3
--- NOTE | 2021-01-05 11:50 | PC.NURSE ---
Pt presents to ED c/o left sided chest pain with pain radiating down into her left arm, advises it started around 11am. EKG obtained immediately and taken to Dr. Wells. Dr. Wells transmitted EKG to Dr. Mckeon who advised pt was a STEMI alert. STEMI alert called at [id number], crash cart moved to room 6 and pads placed on patient, clothing removed, STEMI report filled out and signed procedure consent. 20G IV in the left AC and pt medicated per Dr. Mckeon/ orders. Heike De Los Santos RN, Mariah Haile RN and DARSHAN Denis arrived at patient bedside and report was given to Heike Gonzalez RN. Pt taken to micro lab analyst by micro lab analyst staff @ [phone]
[2021-01-05 11:52] LABS: Basophils % 0.7 % (0.1-2.0); Eosinophils % 0.7 % (0.1-12.0); Hematocrit 42.1 % (37.0-47.0); Hemoglobin 13.6 g/dL (12.2-16.2); Lymphocytes # 1.5 K/mm3 (0.7-4.5); Lymphocytes % 27.5 % (10-50); Mean Corpuscular HGB Conc 32.3 g/dL (31.8-35.4); Mean Corpuscular Hemoglobin 31.6 pg (27.0-31.2); Mean Corpuscular Volume 97.8 fl (81-99); Mean Platelet Volume 7.1 fl (7.4-10.4); Monocytes # 0.3 K/mm3 (0.1-1.0); Monocytes % 5.9 % (1.7-9.3); Neutrophils # 3.5 K/mm3 (1.8-7.8); Neutrophils % 65.2 % (37.0-80.0); Platelet Count 162 K/mm3 (142-424); Red Cell Distribution Width 13.2 % (11.5-17.5); White Blood Count 5.4 K/mm3 (4.8-10.8)
[2021-01-05 11:55] LABS: Chloride 104 mmol/L (98-107); Sodium 139 mmol/L (136-145)
[2021-01-05 11:56] LABS: Potassium 3.4 mmoL/L (3.5-5.1)
[2021-01-05 11:58] LABS: Blood Urea Nitrogen 28 mg/dl (7-17); Creatinine Clearance Estimated 55 mL/min (50-200); Estimated Glomerular Filt Rate 49 ml/min (>60); GFR (African American) 59 ML/MIN (>60)
[2021-01-05 11:59] LABS: Anion Gap 13.4 mEq/L (5-15); Calcium 10.1 mg/dl (8.4-10.2); Carbon Dioxide 25 mmol/L (22.0-30.0); Glucose 162 mg/dl (74-100)
--- NOTE | 2021-01-05 12:10 | CT_ITS ---
PROCEDURE: CT ANGIO CHEST CLINCIAL INDICATION: chest pain, SOA COMPARISON: No exams were available for comparison TECHNIQUE: IV Contrast: 70ML Isovue 370 Axial images obtained with sagittal and coronal reformats. All CT scans at the facility use one or more dose reduction, viz: automated exposure control, ma/kV adjustment per patient size (including targeted exams where dose is matched to indication, i.e. head), or iterative reconstruction technique. FINDINGS: HEART AND MEDIASTINAL STRUCTURES: There is a large right pulmonary embolus beginning in the right main pulmonary artery distally extending into both upper and lower lobe branches with the large embolus burden. Smaller pulmonary emboli are present in the left upper lobe, lingula and left lower lobe. The RV/LV ratio is greater than 1. There is also mild prominence of the main pulmonary artery with a pulmonary artery aortic ratio greater than 1. No significant reflux of contrast into the inferior vena cava. LUNGS AND PLEURAL SPACES: There is biapical pleural thickening/scarring. Atelectatic changes are present in the lung bases and in the superior segment of the left lower lobe and left upper lobe posteriorly. 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 ADDITIONAL FINDINGS: 10 mm nodule in the right breast superiorly. Nonemergent mammogram and ultrasound suggested. IMPRESSION: 1. Large burden acute pulmonary embolus right more extensive than left with findings suggesting right ventricular strain. 2. Bilateral atelectatic changes. 3. 10 mm nodule of the right breast. Nonemergent mammogram and ultrasound suggested. 4. 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
[2021-01-05 12:32] LABS: Troponin I 0.01 ng/ml (0.00-0.034)
[2021-01-05 12:37] LABS: Coronavirus 19 IgG Antibody Positive (Negative); Coronavirus 19 IgM Antibody Negative (Negative)
[2021-01-05 13:07] LABS: CATHL Activated Clotting Time 287 SEC (74-125)
--- NOTE | 2021-01-05 14:33 | HMH.HP ---
*Admission Date: 01/05/21 *Chief complaint: Chest pain *History of present illness: Ms. Howard is a 75yo female with a history of HTN, HLP, Paroxysmal Afib, PPM, Hypothyroidism and GERD. She presented to the [facility] ED earlier today with substernal chest pain radiating into her left arm accompanied by shortness of breath, nausea, and diaphoresis that had begun while playing golf thirty minutes prior to her arrival. In the ER, she was seen by cardiology DARSHAN Amin and prior cardiac imaging was reviewed including CT of the coronary arteries done in 2019 with calcium score of 0 and Lexiscan Myoview from 2019 which showed no ischemia and EF of 65%. Nevertheless, her EKG showed new ST elevation in leads I and II when compared to old studies and she was transported emergently to the senior cytogenetics laboratory director after receiving ASA, Brilinta, and morphine. Left heart catheterization revealed widely patent coronaries with evidence of hypertensive heart disease and an insignificant myocardial bridge. After discussion with Dr. Echevarria, it was felt her symptoms may have been related to GERD, however, CT angio of the chest was ordered to evaluate for PE. Findings of the Chest CTA are as follows: 1. Large burden acute pulmonary embolus right more extensive than left with findings suggesting right ventricular strain. 2. Bilateral atelectatic changes. 3. 10 mm nodule of the right breast with nonemergent mammogram and ultrasound suggested. 4. 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 At the time of this writing, the patient is off the floor for emergent embolectomy. [facility] History I have reviewed the patient's past medical history: Yes Medical History: Reports:: Anxiety, Arrhythmia, Atrial Fibrillation, Gastroesophageal Reflux Disease(GERD), Hyperlipidemia, Hypertension, Internal Pacemaker, Palpitations Denies:: Cancer, Diabetes Mellitus Type 1, Diabetes Mellitus Type 2, Lung Disease, MRSA, Seizures *Have you ever received a pneumonia vaccine?: Yes *Have you received a flu vaccine this season?: Yes Other Medical History: Reports: Arthritis, Cataracts, Hypothyroidism Laterality Cases: Left: Arthroscopy Knee, Bilateral: Cataract (2013), Lumpectomy Other Surgeries: Yes: Appendectomy, Cancer Surgery, , Hernia Repair, Pacemaker, Other Amputation: No Fractures: No - *Social History Smoking Status: Never smoker Alcohol Intake: never Alcohol Intake Frequency:: holidays/special occasions only Substance Use Type: denies use *Occupational Status:: retired Housing: house Household Members: spouse *Travel in the last 8 weeks: Inside the [place] - Psychiatric History Pschychiatric History:: Reports:: Anxiety Family Hx:: Cancer Review of Systems - Review of Systems Review of systems:: unable to obtain per ED and cardiology reports as patient is currently off the floor - *Cardiovascular Reports chest pain, Reports excessive sweating, Reports shortness of breath, Reports radiating jaw, neck or arm pain - *Respiratory Reports shortness of breath - *Gastrointestinal Reports nausea Meds Home Medications Medication Instructions Recorded Confirmed Type conjugated estrogens 0.625 mg/gram 1 applic VAGINAL WEEKLY g 05/18/18 08/01/20 History vaginal cream glucosamine-chondroitin 250 mg-200 1 tab PO DAILY tab 05/18/18 08/01/20 History mg tablet levothyroxine 75 mcg tablet 75 mcg PO DAILY 05/18/18 08/01/20 History polyethylene glycol 3350 17 1 dose PO DAILY g 05/18/18 08/01/20 History gram/dose oral powder psyllium husk 3.4 gram/5.4 gram 1 tbsp PO DAILY 05/18/18 08/01/20 History oral powder vitamin B complex 1 tab PO DAILY 05/18/18 08/01/20 History flpgbsbwhevq-lkdrgnnp-jwzhlh tablet 1 tab PO DAILY 05/19/18 08/01/20 History calcium carbonate 600 mg calcium 600 mg PO DAILY tab 02/14/20 08/01/20 History (1,500 mg) tablet esomeprazole magnesium 40 mg 40 mg PO DAILY 05/22/20 08/01/20 History capsule,delayed release Celecoxib 200 mg PO DAILY
--- NOTE | 2021-01-05 15:32 | P.CONPHA_ITS ---
[facility] Pharmacy VTE Monitoring - Patient Demographics Admission date: 01/05/21 Report Date: 01/05/21 Time: 15:32 Allergies/Adverse Reactions: Patient Allergies soybean [From SOYBEAN (FOOD/DRUG)] Allergy (Unknown, Verified 08/21/20 13:24) CHEST PAIN clarithromycin Adverse Reaction (Mild, Verified 08/21/20 13:24) NA-NAUSEA/VOMITING From SOYBEAN (FOOD/DRUG) Allergy (Unknown, Uncoded 08/21/20 13:24) CHEST PAIN Height: 1.6 m Weight: 80.938 kg Patient Problems: Current Active Problems (Last Updated 05/13/19 @ 15:10 by Veronica Walters RN) STEMI (ST elevation myocardial infarction) (Acute) Hyperlipidemia (Acute) Chest pain (Acute) HTN (hypertension) (Chronic) Cardiac pacemaker in situ (Chronic) PAF (paroxysmal atrial fibrillation) (Chronic) - VTE Risk Labs: VTE Related Lab Results Hgb 13.6 g/dL (12.2-16.2) 01/05/21 11:35 Hct 42.1 % (37.0-47.0) 01/05/21 11:35 Plt Count 162 K/mm3 (142-424) 01/05/21 11:35 BUN 28 mg/dl (7-17) H 01/05/21 11:35 Creatinine 1.10 mg/dl (0.52-1.04) H 01/05/21 11:35 Estimated Creat Clear 55 mL/min (50-200) 01/05/21 11:35 Was VTE Risk Assessment Performed: Yes VTE Score: 2 VTE Risk Level: Very Low Risk Clinical Trial Participant: No - Prophylaxis VTE Prophylaxis Ordered?: Yes Types of VTE Prophylaxis: TEDS Knee High
--- NOTE | 2021-01-05 16:38 | SUR.PHASEII ---
silver dollar sized hematoma rt wrist. pushed out and pressure held. hemostasis achieved. tegaderm and gauze applied to wrist
--- NOTE | 2021-01-05 17:31 | XR_ITS ---
PROCEDURE INFORMATION: Exam: XR Chest Exam date and time: 01/05/2021 5:31 PM Age: 75 years old Clinical indication: Condition or disease; Prior surgery; Surgery date: Post-operative (0-2 days); Patient HX: Post pe, heart cath today; Additional info: Post pe, hemoptysis TECHNIQUE: Imaging protocol: XR of the chest. Views: 1 view. COMPARISON: CT ANGIO CHEST 01/05/2021 12:47 PM FINDINGS: Tubes, catheters and devices: Dual lead left-sided cardiac pacemaker. Lungs: There is consolidation in the superior right lower lobe concerning for pneumonia. In the left lower lobe there is atelectasis versus pneumonia. Pleural spaces: Unremarkable. No pleural effusion. No pneumothorax. Heart/Mediastinum: Unremarkable. No cardiomegaly. Bones/joints: Unremarkable. IMPRESSION: There is consolidation in the superior right lower lobe concerning for pneumonia.
--- NOTE | 2021-01-05 17:35 | CA_ITS ---
APPROVED REPORT Bilateral Lower Extremity Venous Study for DVT. Twisting Press Operator: DENISE Indications Venous Insufficiency PE Risk Factors S/p thrombectomy, PE Vein Imaging CFV (R): compressive, spontaneous, phasic, augmentation SFJ (R): compressive, spontaneous, phasic, augmentation FEM (R): compressive, spontaneous, phasic, augmentation POP (R): compressive, spontaneous, phasic, augmentation DFV (R): compressive, spontaneous, phasic, augmentation PTV (R): compressive, spontaneous, phasic, augmentation GSV (R): compressive, spontaneous, phasic, augmentation Peroneals (R):compressive, spontaneous, phasic, augmentation GAS (R): compressive, spontaneous, phasic, augmentation CFV (L): compressive, spontaneous, phasic, augmentation SFJ (L): compressive, spontaneous, phasic, augmentation FEM (L): compressive, spontaneous, phasic, augmentation POP (L): compressive, spontaneous, phasic, augmentation DFV (L): compressive, spontaneous, phasic, augmentation PTV (L): compressive, spontaneous, phasic, augmentation GSV (L): compressive, spontaneous, phasic, augmentation Peroneals (L):Non-Compressible, Absent Flow GAS (L): compressive, spontaneous, phasic, augmentation Findings The left Peroneal Veins are dilated with soft echoes and is non-compressible. Color flow duplex of the left lower extremity demonstrates acuteocclusive DVT involving the following Veins: Peroneal. No evidence of DVT or superficial thrombophlebitis in the veins scanned of the right lower extremity. Conclusion DVT of the left peroneal vein. Critical Notification Critical Value: Yes Physician Notified Date: 01/06/2021 Time: 10:20 Physician Name: Linda Response Time: 2min Report Read Back Electronically signed by : Jennifer Salas, 01/10/2021 16:48:07
--- NOTE | 2021-01-05 19:30 | PC.NURSE ---
RT groin catheterization site stich removed at 1814. Pt immediately started bleeding and manual pressure was applied. Manual pressure was held until 1919 and a new dressing was applied. Sandbag in place. Dressing is currently C/D/I.
[2021-01-06] VITALS (16 sets, daily range): BP systolic 80–152; BP diastolic 45–70; PULSE 60–87; RESP 14–23; TEMP 36.6–37; O2SAT 93–98; BMI 30.9
--- NOTE | 2021-01-06 01:26 | PC.NURSE ---
PT REQUESTING PAIN MEDICATION AT THIS TIME FOR PAIN IN HER R HAND AND WRIST. AREA BRUISED AND +2 EDEMA PRESENT. AREA ELEVATED. NO BLEEDING TO R WRIST. CHANGED PRESSURE DRESSING TO R GROIN SITE AT THIS TIME. 1 SAND BAG APPLIED. WILL CONTINUE TO MONITOR.
--- NOTE | 2021-01-06 03:55 | PC.NURSE ---
REMOVED SAND BAG AT THIS TIME. NO BLEEDING NOTED TO R GROIN SITE. PT REPORTING NO PAIN AT THIS TIME. RESTING IN BED, WILL CONTINUE TO MONITOR.
--- NOTE | 2021-01-06 04:22 | PC.NURSE ---
A&OX4. PT REMOVED FROM O2 EARLY ON IN SHIFT, BUT WAS PUT BACK ON AFTER FALLING ASLEEP. MOVING PT TO RA AT THIS TIME. 02 94%. PT ONLY C/O THIS SHIFT HAS BEEN PAIN IN R HAND/WRIST. TX WITH PRN MED PER OCT. ON REASSESSMENT, PT STATED SHE HAS NO MORE PAIN. R WRIST SITE HAS HAD NO MORE BLEEDING. NO MORE BLEEDING PRESENT TO R GROIN SITE AT THIS TIME. PRESSURE DX CDI. PT STAYED FLAT UNTIL AFTER 1999. PT HAS HAD NO C/O SOA/NA/VO. PT BP HAS REMAINED ON THE LOWER SIDE T/O SHIFT. PT IS ASYMPTOMATIC. NO OTHER C/O AT THIS TIME. VSS WILL CONTINUE TO MONITOR.
[2021-01-06 05:56] LABS: Basophils % 0.3 % (0.1-2.0); Eosinophils % 0.3 % (0.1-12.0); Hematocrit 30.4 % (37.0-47.0); Lymphocytes # 0.8 K/mm3 (0.7-4.5); Lymphocytes % 17.5 % (10-50); Mean Corpuscular Hemoglobin 30.6 pg (27.0-31.2); Mean Corpuscular Volume 98.4 fl (81-99); Mean Platelet Volume 7.8 fl (7.4-10.4); Monocytes # 0.3 K/mm3 (0.1-1.0); Monocytes % 5.9 % (1.7-9.3); Neutrophils # 3.4 K/mm3 (1.8-7.8); Neutrophils % 75.9 % (37.0-80.0); Platelet Count 130 K/mm3 (142-424); Red Blood Count 3.09 M/mm3 (4.20-5.40); Red Cell Distribution Width 13.4 % (11.5-17.5); White Blood Count 4.4 K/mm3 (4.8-10.8)
[2021-01-06 06:03] LABS: Hemoglobin 9.4 g/dL (12.2-16.2)
[2021-01-06 06:16] LABS: Anion Gap 4.3 mEq/L (5-15); Blood Urea Nitrogen 20 mg/dl (7-17); Carbon Dioxide 25 mmol/L (22.0-30.0); Chloride 112 mmol/L (98-107); Creatinine Clearance Estimated 62 mL/min (50-200); Estimated Glomerular Filt Rate 70 ml/min (>60); GFR (African American) 85 ML/MIN (>60); Glucose 124 mg/dl (74-100); Potassium 5.3 mmoL/L (3.5-5.1); Sodium 136 mmol/L (136-145)
[2021-01-06 06:40] LABS: Calcium 8.5 mg/dl (8.4-10.2)
--- NOTE | 2021-01-06 07:00 | CT_ITS ---
PROCEDURE INFORMATION: Exam: CT Pelvis Without Contrast Exam date and time: 01/06/2021 7:00 AM Age: 75 years old Clinical indication: Pain; Prior surgery; Surgery date: Post-operative (0-2 days); Surgery type: Heart cath to right groin; Patient HX: Pe. PT just had a heart cath and it was performed in the right groin TECHNIQUE: Imaging protocol: Computed tomography images of the pelvis without contrast. Radiation optimization: All CT scans at this facility use at least one of these dose optimization techniques: automated exposure control; mA and/or kV adjustment per patient size (includes targeted exams where dose is matched to clinical indication); or iterative reconstruction. COMPARISON: CR [id number] HIP LT 2-3V W/PELVIS IF PERFOR 10/04/2016 11:00 AM FINDINGS: Limitations: Absence of IV contrast decreases soft tissue differentiation and sensitivity for detecting soft tissue and vascular pathology. Stomach and bowel: Visualized small bowel and colon are unremarkable. Appendix: No evidence of appendicitis. Intraperitoneal space: Unremarkable. No free air. No significant fluid collection. Lymph nodes: Unremarkable. No enlarged lymph nodes. Urinary bladder: Excreted contrast is present within the urinary bladder which is unremarkable. Reproductive: Unremarkable as visualized. Bones/joints: Unremarkable. No acute fracture. No dislocation. Soft tissues: There is subcutaneous fat stranding of the right inguinal region which extends laterally. No evidence of focal collection. There are small fat containing umbilical and left inguinal hernias. IMPRESSION: Subcutaneous fat stranding in the right inguinal region which extends laterally. No evidence of focal collection.
--- NOTE | 2021-01-06 08:00 | PC.NURSE ---
BUE edematous, R>L. RUE is tight and bruised. Took right radial dressing off. No bleeding noted and radial pulse is a 2+. Right groin site is CDI. BP 103/54 (70). Pt is A&O. Reports dizziness with movement.
--- NOTE | 2021-01-06 08:15 | PC.NURSE ---
Pt to CT scan via wheelchair with myself and commodities trader (Nery).
--- NOTE | 2021-01-06 09:10 | PC.NURSE ---
spoke to Dr. Mckeon regarding pt's POC. Reviewed all labs and vitals. He ordered to STOP 1/2NS+20K @ 75ml/hr and START NS @ 125mL/hr. Order faxed to pharmacy. Dr. Mckeon would like to speak to Dr. Echevarria today. Will notify Dr. Echevarria during rounds.
--- NOTE | 2021-01-06 13:29 | HMH.ACPN2 ---
Internal Medicine - PN: Subj *Date: 01/06/21 *Time: 13:29 Interval history: She had somewhat of a difficult night. Her catheterization sites were oozing and required continuous pressure for hours. She has had swelling of the right hand as a result of the bleeding and the pressure. Her blood pressure remained low through most the night but has improved to where her systolic is greater than 100. She showed hyperkalemia this morning and the IV fluids were changed and the p.o. potassium was discontinued. The cough and congestion that she was experiencing postprocedural have resolved thankfully. She is not coughing up blood. She is not having chest congestion. There were wheezes and rhonchi in the right upper lobe on auscultation and a chest x-ray suggested evidence of pneumonia there. I discounted this from the standpoint of these changes likely being due to the pulmonary emboli. Plus she was afebrile and there was no elevation of white count. Today her lungs are much clearer. Her heart rate is regular. Her oxygen saturations 94% on room air. And her blood pressure has improved as I stated. Her family is with her in the room this morning. Exam Vital signs and Labs for Last 24 Hours: Temp Pulse Resp BP Pulse Ox 98.4 F 70 21 101/58 L 96 01/06/21 11:35 01/06/21 12:00 01/06/21 11:35 01/06/21 11:35 01/06/21 11:35 Laboratory Results - last 24 hr 01/06/21 05:50: WBC 4.4 L, RBC 3.09 L D, Hgb 9.4 L D, Hct 30.4 L, MCV 98.4, MCH 30.6, MCHC 31.0 L, RDW 13.4, Plt Count 130 L, MPV 7.8, Neut % (Auto) 75.9, Lymph % (Auto) 17.5, [place] % (Auto) 5.9, Eos % (Auto) 0.3, Baso % (Auto) 0.3, Neut # (Auto) 3.4, Lymph # (Auto) 0.8, [place] # (Auto) 0.3, Eos # (Auto) 0.0, Baso # (Auto) 0.0 01/06/21 05:50: Sodium 136, Potassium 5.3 H D, Chloride 112 H, Carbon Dioxide 25, Anion Gap 4.3 L, BUN 20 H D, Creatinine 0.80 D, Estimated Creat Clear 62, Estimated GFR 70, Est GFR ( Amer) 85 D, Glucose 124 H D, Calcium 8.5 D I & O for Last 24 hours: Intake & Output 01/04/21 01/05/21 01/06/21 01/07/21 11:59 11:59 11:59 11:59 Intake Total 814 / 814 Output Total 0 / 0 Balance 814 / 814 Weight 170 lb 174 lb 7 oz Microbiology Reports for the Last 24 Hours: Microbiology 01/05/21 12:22 Nasopharyngeal Coronavirus COVID-19 PCR - Final - Constitutional no acute distress - *Routine HEENT Exam Head: Present: normocephalic Eye: Present: PERRL ENT: Present: mucous membranes moist - *Routine Neck Exam Present: supple. Absent: JVD - *Routine Respiratory Exam Present: CTA bilaterally - *Routine Cardiovascular Exam Present: RRR - *Routine Abdominal Exam Present: soft, other (eccymosis of groin) - *Routine Extremities Exam Present: pulses intact. Absent: edema - *Routine Neurological Exam Present: alert, oriented X3 Assessment and Plan (1) STEMI (ST elevation myocardial infarction) Status: Acute Qualifiers: Involved coronary artery: unspecified coronary artery Qualified Code(s): I21.3 - ST elevation (STEMI) myocardial infarction of unspecified site Category: Medical Code(s): I21.3 - ST elevation (STEMI) myocardial infarction of unspecified site (2) Hyperlipidemia Status: Acute Category: Medical Code(s): E78.5 - Hyperlipidemia, unspecified (3) Chest pain Status: Acute Qualifiers: Chest pain type: unspecified Qualified Code(s): R07.9 - Chest pain, unspecified Category: Medical Code(s): R07.9 - Chest pain, unspecified (4) Cardiac pacemaker in situ Status: Chronic Category: Medical Code(s): Z95.0 - Presence of cardiac pacemaker (5) HTN (hypertension) Status: Chronic Qualifiers: Hypertension type: essential hypertension Qualified Code(s): I10 - Essential (primary) hypertension Category: Medical Code(s): I10 - Essential (primary) hypertension (6) PAF (paroxysmal atrial fibrillation) Status: Chronic Category: Medical Code(s): I48.0 -
--- NOTE | 2021-01-06 15:25 | P.CONPHA_ITS ---
[facility] VTE Monitoring - Patient Demographics Admission date: 01/06/21 Report Date: 01/06/21 Time: 15:25 Allergies/Adverse Reactions: Patient Allergies soybean [From SOYBEAN (FOOD/DRUG)] Allergy (Unknown, Verified 08/21/20 13:24) CHEST PAIN clarithromycin Adverse Reaction (Mild, Verified 08/21/20 13:24) NA-NAUSEA/VOMITING From SOYBEAN (FOOD/DRUG) Allergy (Unknown, Uncoded 08/21/20 13:24) CHEST PAIN Height: 1.6 m Weight: 79.124 kg Patient Problems: Current Active Problems (Last Updated 05/13/19 @ 15:10 by Veronica Walters RN) STEMI (ST elevation myocardial infarction) (Acute) Hyperlipidemia (Acute) Chest pain (Acute) HTN (hypertension) (Chronic) Cardiac pacemaker in situ (Chronic) PAF (paroxysmal atrial fibrillation) (Chronic) - VTE Risk Labs: VTE Related Lab Results Hgb 9.4 g/dL (12.2-16.2) L D 01/06/21 05:50 Hct 30.4 % (37.0-47.0) L 01/06/21 05:50 Plt Count 130 K/mm3 (142-424) L 01/06/21 05:50 BUN 20 mg/dl (7-17) H D 01/06/21 05:50 Creatinine 0.80 mg/dl (0.52-1.04) D 01/06/21 05:50 Estimated Creat Clear 62 mL/min (50-200) 01/06/21 05:50 Was VTE Risk Assessment Performed: Yes VTE Score: 2 VTE Risk Level: Very Low Risk Clinical Trial Participant: No - Prophylaxis Types of VTE Prophylaxis: Pharmacological (XARELTO) Location of Applied Device: Not Applicable
[2021-01-07] VITALS (8 sets, daily range): BP systolic 94–138; BP diastolic 52–68; PULSE 60–80; RESP 16–20; TEMP 36.6–36.9; O2SAT 94–99; BMI 30.9
[2021-01-07 06:13] LABS: Anion Gap 4.9 mEq/L (5-15); Blood Urea Nitrogen 14 mg/dl (7-17); Calcium 8.4 mg/dl (8.4-10.2); Carbon Dioxide 25 mmol/L (22.0-30.0); Chloride 113 mmol/L (98-107); Creatinine Clearance Estimated 62 mL/min (50-200); Estimated Glomerular Filt Rate 70 ml/min (>60); GFR (African American) 85 ML/MIN (>60); Glucose 113 mg/dl (74-100); Potassium 3.9 mmoL/L (3.5-5.1); Sodium 139 mmol/L (136-145)
[2021-01-07 06:14] LABS: Basophils % 0.2 % (0.1-2.0); Eosinophils # 0.1 K/mm3 (0.0-0.4); Eosinophils % 1.7 % (0.1-12.0); Hematocrit 26.5 % (37.0-47.0); Hemoglobin 8.9 g/dL (12.2-16.2); Lymphocytes # 1.2 K/mm3 (0.7-4.5); Lymphocytes % 33.3 % (10-50); Mean Corpuscular HGB Conc 33.6 g/dL (31.8-35.4); Mean Corpuscular Hemoglobin 32.4 pg (27.0-31.2); Mean Corpuscular Volume 96.4 fl (81-99); Mean Platelet Volume 7.9 fl (7.4-10.4); Monocytes # 0.2 K/mm3 (0.1-1.0); Monocytes % 6.4 % (1.7-9.3); Neutrophils # 2.1 K/mm3 (1.8-7.8); Neutrophils % 58.4 % (37.0-80.0); Platelet Count 118 K/mm3 (142-424); Red Blood Count 2.75 M/mm3 (4.20-5.40); Red Cell Distribution Width 14.1 % (11.5-17.5); White Blood Count 3.6 K/mm3 (4.8-10.8)
--- NOTE | 2021-01-07 07:27 | PC.NURSE ---
REPORT GIVEN TO SIMON.
--- NOTE | 2021-01-07 08:04 | PC.NURSE ---
Pt is A&Ox4 and has ambulated to the BR with staff SBA and tolerated well. She has denied any pain. DSG to R wrist and R groin is CDI. Swelling to BUE, R>L. Dense bruising from fingers to upper arm on Right, scattered bruising to left. SBP has been 94-114 and maps >65 t/o shift. Lungs CTA, sao2 93-97% on room air. IVF continue to PIV.
--- NOTE | 2021-01-07 08:33 | HMH.ACPN2 ---
Internal Medicine - PN: Subj *Date: 01/07/21 *Time: 08:44 Interval history: Patient apparently was admitted with a possible stemi but had an acute sub massive PE and underwent an embolectomy. No note is available for that procedure at this time. Patient has extensive swelling and bruising in both arms and her groin. She has not had a bowel movement during this admission. Exam Vital signs and Labs for Last 24 Hours: Temp Pulse Resp BP Pulse Ox 98.5 F 67 18 110/67 96 01/07/21 04:00 01/07/21 06:00 01/07/21 06:00 01/07/21 06:00 01/07/21 06:00 Laboratory Results - last 24 hr 01/07/21 05:25: WBC 3.6 L, RBC 2.75 L, Hgb 8.9 L, Hct 26.5 L, MCV 96.4, MCH 32.4 H, MCHC 33.6, RDW 14.1, Plt Count 118 L, MPV 7.9, Neut % (Auto) 58.4, Lymph % (Auto) 33.3, [place] % (Auto) 6.4, Eos % (Auto) 1.7, Baso % (Auto) 0.2, Neut # (Auto) 2.1, Lymph # (Auto) 1.2, [place] # (Auto) 0.2, Eos # (Auto) 0.1, Baso # (Auto) 0.0 01/07/21 05:25: Sodium 139, Potassium 3.9 D, Chloride 113 H, Carbon Dioxide 25, Anion Gap 4.9 L, BUN 14 D, Creatinine 0.80, Estimated Creat Clear 62, Estimated GFR 70, Est GFR ( Amer) 85, Glucose 113 H, Calcium 8.4 Vital Signs - 24 hr 01/06/21 10:00 01/06/21 11:35 01/06/21 12:00 Temperature 98.4 F Pulse Rate 70 Pulse Rate [Apical] Pulse Rate [Left Brachial] 67 68 Respiratory Rate 17 21 Blood Pressure [Left Arm] 106/59 L 101/58 L 02 Sat by Pulse Oximetry 96 96 01/06/21 14:00 01/06/21 16:00 01/06/21 18:00 Temperature 98 F Pulse Rate Pulse Rate [Apical] Pulse Rate [Left Brachial] 71 63 72 Respiratory Rate 23 23 18 Blood Pressure [Left Arm] 96/59 L 94/45 L 96/67 L 02 Sat by Pulse Oximetry 95 96 97 01/06/21 19:45 01/06/21 20:00 01/06/21 22:00 Temperature 98.1 F Pulse Rate 70 Pulse Rate [Apical] 87 Pulse Rate [Left Brachial] 68 Respiratory Rate 19 20 Blood Pressure [Left Arm] 105/55 L 114/45 L 02 Sat by Pulse Oximetry 95 95 01/07/21 00:00 01/07/21 02:00 01/07/21 02:06 Temperature 98.4 F Pulse Rate 70 Pulse Rate [Apical] Pulse Rate [Left Brachial] 68 64 Respiratory Rate 16 18 Blood Pressure [Left Arm] 108/54 L 110/56 L 02 Sat by Pulse Oximetry 94 L 94 L 94 L 01/07/21 04:00 01/07/21 06:00 Temperature 98.5 F Pulse Rate 60 Pulse Rate [Apical] Pulse Rate [Left Brachial] 63 67 Respiratory Rate 19 18 Blood Pressure [Left Arm] 94/53 L 110/67 02 Sat by Pulse Oximetry 94 L 96 I & O for Last 24 hours: Intake & Output 01/04/21 01/05/21 01/06/21 01/07/21 23:59 23:59 23:59 23:59 Intake Total 0 / 0 1963 Output Total 0 / 0 Balance 0 / 0 1963 Weight 178 lb 7 oz 174 lb 7 oz 174 lb 7.087 oz - Constitutional no acute distress - *Routine HEENT Exam Head: Present: normocephalic Eye: Present: EOMI ENT: Present: mucous membranes moist - *Routine Neck Exam Present: supple. Absent: lymphadenopathy - *Routine Respiratory Exam Present: CTA bilaterally - *Routine Cardiovascular Exam Present: RRR - *Routine Abdominal Exam Present: soft, normoactive bowel sounds. Absent: tenderness - *Routine Extremities Exam Present: edema, pulses intact, normal capillary refill. Absent: cyanosis, clubbing Comments: extensive edema and ecchymoses in both upper extremities, no lower leg edema - *Routine Skin Exam Present: warm. Absent: rash - *Routine Neurological Exam Present: alert, oriented X3 Assessment and Plan (1) Pulmonary embolism Status: Acute Category: Medical Code(s): I26.99 - Other pulmonary embolism without acute cor pulmonale (2) Hyperlipidemia Status: Acute Category: Medical Code(s): E78.5 - Hyperlipidemia, unspecified (3) Chest pain Status: Acute Qualifiers: Chest pain type: unspecified Qualified Code(s): R07.9 - Chest pain, unspecified Category: Medical Code(s): R07.9 - Chest pain, unspecified (4) Cardiac pacemaker in situ Status: Chronic Category: Medical Code(s
--- NOTE | 2021-01-07 09:15 | PC.NURSE ---
Pt taken out of step down and transferred to med surg per Dr. Acevedo. Dressing taken off of right radial cath site. No bleeding noted. Right hand continues with edema but better than yesterday. She is gaining more mobility with less pain of right hand. Right groin site with bruising. No dressing noted to right groin. Encouraged to increase mobility today. All monitors taken off. MIVF changed to D51/2NS+20K @ 75mL/hr per Dr. Acevedo. Pt states that she is not allergic to soy beans as stated in her chart. Notified dietary and will fix allergy section.
--- NOTE | 2021-01-07 10:42 | PC.NURSE ---
pt had small BM. Stool sample sent to lab for occult blood.
[2021-01-07 11:01] LABS: Occult Blood,Stool Negative (Negative)
--- NOTE | 2021-01-07 11:01 | PC.NURSE ---
pt coughed up what appears to be a blood clot. Specimen is about the size of a faraz, is dark red/maroon in color, and is sticky. No tiffanie red blood noted.
--- NOTE | 2021-01-07 22:46 | PC.NURSE ---
She is A&Ox4. She has 2+ edema in her right hand. Her right hand is bruised along with bruising on bilateral extremities. There are blisters present on her RFA. Right groin is bruised. She ambulates independently with steady gait. She denies pain. Voids per BR. Her urine is yellow, clear.
[2021-01-08 04:00] VITALS: BP 143/72; PULSE 76; RESP 17; TEMP 36.6; O2SAT 96
[2021-01-08 05:00] VITALS: BMI 30.7
[2021-01-08 07:24] LABS: Anion Gap 8.3 mEq/L (5-15); Blood Urea Nitrogen 8 mg/dl (7-17); Calcium 8.9 mg/dl (8.4-10.2); Carbon Dioxide 21 mmol/L (22.0-30.0); Chloride 114 mmol/L (98-107); Creatinine Clearance Estimated 61 mL/min (50-200); Estimated Glomerular Filt Rate 70 ml/min (>60); GFR (African American) 85 ML/MIN (>60); Glucose 136 mg/dl (74-100); Potassium 4.3 mmoL/L (3.5-5.1); Sodium 139 mmol/L (136-145)
--- NOTE | 2021-01-08 07:46 | HMH.PNCARD ---
Subjective Date: 01/08/21 Time: 07:46 Principal diagnosis: PE Interval history: 75-year-old white female in bed in no acute distress. The bruising and swelling of the arms of slowly improved. There are some blisters related to allergic reaction to the tape noted on the right forearm. Patient relates decrease in swelling of the right hand and is able to close her right hand around the cup today. She denies any chest pain, pressure or tightness. She is able to take deep breaths. Bilateral groins examined with good pulses with both wrists noted to have good pulses as well. Exam Vital signs and Labs for Last 24 Hours: Temp Pulse Resp BP Pulse Ox 97.9 F 76 17 143/72 H 96 01/08/21 04:00 01/08/21 04:00 01/08/21 04:00 01/08/21 04:00 01/08/21 04:00 Laboratory Results - last 24 hr 01/07/21 10:35: Stool Occult Blood Negative 01/08/21 06:58: Sodium 139, Potassium 4.3, Chloride 114 H, Carbon Dioxide 21 L, Anion Gap 8.3, BUN 8 D, Creatinine 0.80, Estimated Creat Clear 61, Estimated GFR 70, Est GFR ( Amer) 85, Glucose 136 H, Calcium 8.9 I & O for Last 24 hours: Intake & Output 01/05/21 01/06/21 01/07/21 01/08/21 11:59 11:59 11:59 11:59 Intake Total 814 / 814 2965 / 2965 2321 / 2321 Output Total 0 / 0 Balance 814 / 814 2965 / 2965 2321 / 2321 Weight 170 lb 174 lb 7 oz 174 lb 7.087 oz 173 lb - *Routine Respiratory Exam Present: CTA bilaterally - *Routine Cardiovascular Exam Present: RRR - *Routine Extremities Exam Absent: cyanosis, clubbing, edema - *Routine Neurological Exam Present: alert, oriented X3 Progress Note: A&P (1) Pulmonary embolism Status: Acute (2) Hyperlipidemia Status: Acute (3) Chest pain Status: Acute (4) Cardiac pacemaker in situ Status: Chronic (5) HTN (hypertension) Status: Chronic (6) PAF (paroxysmal atrial fibrillation) Status: Chronic (7) Anemia Status: Acute (8) Multiple ecchymoses of both upper arms Status: Acute (9) Low blood pressure Status: Acute (10) Constipation Status: Acute Assessment and Plan for All Diagnoses:: 1. Pulmonary embolism status post embolectomy. Patient reports DVT noted of the left leg on ultrasound. Continue Xarelto 15 mg twice daily for a total of 21 days and then switch to 20 mg daily thereafter lifelong. 2. Widely patent coronary arteries with insignificant myocardial bridge noted. Resume beta-lisy therapy when blood pressure stabilized. 3. Anemia related to multiple procedures and bruising. Hemoglobin trending down to 8.9 yesterday with this a.m.'s labs pending. 4. Permanent pacemaker in situ 5. Hypertension, controlled off medication over the weekend. With now blood pressure beginning to trend back up with plans to resume bisoprolol 5 mg daily. If hemoglobin remains stable and blood pressure tolerates resumption of bisoprolol then patient could be discharged home with follow-up in 1 to 2 weeks.
[2021-01-08 08:00] VITALS: BP 123/64; PULSE 79; RESP 17; TEMP 36.7; O2SAT 97
[2021-01-08 08:11] LABS: Basophils % 0.3 % (0.1-2.0); Eosinophils % 1.1 % (0.1-12.0); Hematocrit 29.7 % (37.0-47.0); Hemoglobin 9.8 g/dL (12.2-16.2); Lymphocytes # 1.1 K/mm3 (0.7-4.5); Lymphocytes % 29.9 % (10-50); Mean Corpuscular HGB Conc 33.1 g/dL (31.8-35.4); Mean Corpuscular Hemoglobin 32.1 pg (27.0-31.2); Mean Corpuscular Volume 96.8 fl (81-99); Mean Platelet Volume 7.6 fl (7.4-10.4); Monocytes # 0.2 K/mm3 (0.1-1.0); Monocytes % 6.2 % (1.7-9.3); Neutrophils # 2.2 K/mm3 (1.8-7.8); Neutrophils % 62.3 % (37.0-80.0); Platelet Count 131 K/mm3 (142-424); Red Blood Count 3.07 M/mm3 (4.20-5.40); White Blood Count 3.6 K/mm3 (4.8-10.8)
--- NOTE | 2021-01-08 08:12 | HMH.ACPN2 ---
Internal Medicine - PN: Subj *Date: 01/08/21 *Time: 08:12 Interval history: Had very little sleep last night due to moving her from one room to another. She denies chest pain and shortness of breath. She has been up to the bathroom. She is voiding QS. Bowels have moved. She is eating without difficulty. She states her right arm is better with less swelling and numbness. Right groin has had some discomfort. She is anxious to go home. 01/06/2021 CT of the abdomen and pelvis IMPRESSION: Subcutaneous fat stranding in the right inguinal region which extends laterally. No evidence of focal collection. Blood chemistries with a sodium of 139 potassium of 4.3 BUN is 8 creatinine 0.8. Venous Doppler study are pending Cardiac note for today: Status: Acute Assessment and Plan for All Diagnoses:: 1. Pulmonary embolism status post embolectomy. Patient reports DVT noted of the left leg on ultrasound. Continue Xarelto 15 mg twice daily for a total of 21 days and then switch to 20 mg daily thereafter lifelong. 2. Widely patent coronary arteries with insignificant myocardial bridge noted. Resume beta-lisy therapy when blood pressure stabilized. 3. Anemia related to multiple procedures and bruising. Hemoglobin trending down to 8.9 yesterday with this a.m.'s labs pending. 4. Permanent pacemaker in situ 5. Hypertension, controlled off medication over the weekend. With now blood pressure beginning to trend back up with plans to resume bisoprolol 5 mg daily. If hemoglobin remains stable and blood pressure tolerates resumption of bisoprolol then patient could be discharged home with follow-up in 1 to 2 weeks. Documented By: Issa Amin 01/08/21 0746 Signed By: <Electronically signed by Issa Amin> 01/08/21 0752 Exam Vital signs and Labs for Last 24 Hours: Temp Pulse Resp BP Pulse Ox 97.9 F 76 17 143/72 H 96 01/08/21 04:00 01/08/21 04:00 01/08/21 04:00 01/08/21 04:00 01/08/21 04:00 Laboratory Results - last 24 hr 01/07/21 10:35: Stool Occult Blood Negative 01/08/21 06:58: Sodium 139, Potassium 4.3, Chloride 114 H, Carbon Dioxide 21 L, Anion Gap 8.3, BUN 8 D, Creatinine 0.80, Estimated Creat Clear 61, Estimated GFR 70, Est GFR ( Amer) 85, Glucose 136 H, Calcium 8.9 I & O for Last 24 hours: Intake & Output 01/05/21 01/06/21 01/07/21 01/08/21 11:59 11:59 11:59 11:59 Intake Total 814 / 814 2965 / 2965 2321 / 2321 Output Total 0 / 0 Balance 814 / 814 2965 / 2965 2321 / 2321 Weight 170 lb 174 lb 7 oz 174 lb 7.087 oz 173 lb - Constitutional no acute distress Comments: Appears comfortable. - *Routine Respiratory Exam Present: CTA bilaterally (Anteriorly and posteriorly) - *Routine Cardiovascular Exam Present: RRR - *Routine Abdominal Exam Present: soft, normoactive bowel sounds. Absent: tenderness - *Routine Extremities Exam Present: pulses intact. Absent: edema, calf tenderness, palpable cord - *Routine Neurological Exam Present: alert, oriented X3 Assessment and Plan (1) Pulmonary embolism Status: Acute Category: Medical Code(s): I26.99 - Other pulmonary embolism without acute cor pulmonale (2) Hyperlipidemia Status: Acute Category: Medical Code(s): E78.5 - Hyperlipidemia, unspecified (3) Chest pain Status: Acute Qualifiers: Chest pain type: unspecified Qualified Code(s): R07.9 - Chest pain, unspecified Category: Medical Code(s): R07.9 - Chest pain, unspecified (4) Cardiac pacemaker in situ Status: Chronic Category: Medical Code(s): Z95.0 - Presence of cardiac pacemaker (5) HTN (hypertension) Status: Chronic Qualifiers: Hypertension type: essential hypertension Qualified Code(s): I10 - Essential (primary) hypertension Category: Medical Code(s): I10 - Essential (primary) hypertension (6) PAF (paroxysmal atrial fib
--- NOTE | 2021-01-08 08:39 | XR_ITS ---
PROCEDURE: XR CHEST 2V CLINICAL HISTORY: Pulmonary emboli post embolectomy COMPARISON: CR CXR2V XR chest 2V from 04/27/2018 CR XR CHEST 2V from 04/30/2019 CR XR CHEST PORTABLE from 01/05/[address] ANGIO CHEST from 01/05/2021 FINDINGS: Dual-chamber left subclavian transvenous pacemaker is noted. Atelectasis is noted in the left mid zone. Previously noted hazy opacity in the right mid zone persists but less distinct on the current study. No other lobar consolidation, pleural effusion pneumothorax. The cardiac size and central pulmonary vasculature within normal limits. Tortuous descending thoracic aorta is noted. Vascular calcification is noted. Visualized osseous structures are unremarkable. IMPRESSION: The right mid zone opacity is less distinct on the current study. Left mid zone atelectasis. Dictated by: Jennifer Salas 01/08/2021 12:48 Jennifer Salas in OV 01/08/2021 12:48
--- NOTE | 2021-01-08 11:18 | HMH.PHAINT ---
01/08/2021--XARELTO 15 MG BID ON MED DISCHARGE. MED WAS NOT SENT ANYWHERE PER NURSE. INSTRUCTED NURSE TO CALL DR. WYATT. NURSE DISCUSSED THIS WITH DR. WYATT'S OFFICE. OFFICE HAD GIVEN PATIENT XARELTO SAMPLES FOR THE FIRST MONTH. PATIENT WAS GIVEN A XARELTO DISCOUNT CARD WELL DURING DISCHARGE COUNSELING BY PHARMACY.
[2021-01-08 12:00] VITALS: BP 132/64; PULSE 68; RESP 17; TEMP 36.7; O2SAT 95
--- NOTE | 2021-01-09 14:32 | HMH.DCSUM ---
General - General Admission date:: 01/06/21 Discharge date: 01/08/21 HPI HPI: Ms. Howard is a 75yo female with a history of HTN, HLP, Paroxysmal Afib, PPM, Hypothyroidism and GERD. She presented to the [facility] ED earlier today with substernal chest pain radiating into her left arm accompanied by shortness of breath, nausea, and diaphoresis that had begun while playing golf thirty minutes prior to her arrival. In the ER, she was seen by cardiology DARSHAN Amin and prior cardiac imaging was reviewed including CT of the coronary arteries done in 2019 with calcium score of 0 and Lexiscan Myoview from 2019 which showed no ischemia and EF of 65%. 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 Left heart catheterization revealed widely patent coronaries with evidence of hypertensive heart disease and an insignificant myocardial bridge. After discussion with Dr. Echevarria, it was felt her symptoms may have been related to GERD, however, CT angio of the chest was ordered to evaluate for PE. Findings of the Chest CTA are as follows: 1. Large burden acute pulmonary embolus right more extensive than left with findings suggesting right ventricular strain. 2. Bilateral atelectatic changes. 3. 10 mm nodule of the right breast with nonemergent mammogram and ultrasound suggested. 4. 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 At the time of this writing, the patient is off the floor for emergent embolectomy. Hospital Course Hospital Course: After the CTA revealed pulmonary embolism, the patient underwent extraction of the pulmonary artery emboli. She was monitored on the floor and had no further chest pain. She did have a cough which was productive of bloody sputum. She was started on Xarelto and a venous duplex of the lower extremities as well as a CT of the pelvis were ordered. The pelvic CT showed subcutaneous fat stranding in the right inguinal region which extended laterally. There was no evidence of focal collection. The patient had a difficult night after her procedure. Her catheterization sites were oozing and required continuous pressure for hours. She had some swelling of the right hand as a result of the bleeding and the pressure. Her blood pressure remained low but did improve by 01/06/2021. The cough and congestion that she was experiencing post procedure did resolve. She was no longer coughing up any blood. She did have a chest x-ray which suggested a pneumonia in the right upper lobe, however this was discounted from the standpoint of the changes likely being due to her pulmonary emboli and the fact that she was afebrile with no elevated white blood cell count. Her oxygen saturations were 94% on room air. A pressure dressing was placed to the right dorsum of the hand. She continued to have extensive swelling and bruising in both arms and her groin. Her H&H was trending down, therefore this was monitored. There was a DVT noted of the left leg on ultrasound. She was continued on Xarelto 15 mg twice daily and will need this for a total of 21 days and then will need to switch to 20 mg daily thereafter lifelong. The swelling in her arm did improve and she was anxious to go home. Her H&H was repeated and her hemoglobin had improved. She was stable to be discharged home and will follow up in [address] Echevarria. Will also follow-up with cardiology. Objective Vital signs: Temp Pulse Resp BP Pulse Ox 98.0 F 68 17 132/64 95 01/08/21 12:00 01/08/21 12:00 01/08/21 12:00 01/08/21 12:00 01/08/21 12:00 Narrative: - Constitutional no acute distress - *Routine HEENT Exam Head: Present: normocephalic Eye: Present: PERRL ENT: Present: mucous membranes moist - *Routine Neck Exam Present: supple. Absent: JVD - *Routine Respiratory Exam Present: CTA bilaterally - *R
== END 2021-01-08 12:30 | disposition home or self-care (01) | DRG 164 ==
LOC: ER 11:44 → CATHLAB 11:46 → 2ND 12:29
PROVIDERS: Family Medicine; Internal Medicine; Admitting Provider Family Medicine; Emergency Provider Emergency Medicine; PCP Family Medicine; Visit Provider Family Medicine
DX: I26.99 Other pulmonary embolism without acute cor pulmonale (principal); I82.452 Acute embolism and thrombosis of left peroneal vein; I48.0 Paroxysmal atrial fibrillation; Z95.0 Presence of cardiac pacemaker; I10 Essential (primary) hypertension; Z88.8 Allergy status to other drugs, medicaments and biological substances; K59.00 Constipation, unspecified; Z79.899 Other long term (current) drug therapy; E78.5 Hyperlipidemia, unspecified; I49.5 Sick sinus syndrome
CPT/HCPCS: 36014; 36415; 37184; 71045; 71046; 71275; 72192; 75743; 80048; 82272; 84484; 85025; 85347; 86328; 93005; 93458; 93970; 96374; 99152; 99153; 99283; C1725; C1757; C1769; C1894; G0328; G0378; J1644; Q9967; U0003

== ENCOUNTER → 2021-01-31 13:54 | Outpatient (CLI) | payer MEDICARE, SELFPAY ==
--- NOTE | 2021-01-31 13:59 | US_ITS ---
PROCEDURE: US PELVIC CLINICAL INDICATION: DYSURIA COMPARISON: No exams were available for comparison FINDINGS: Transabdominal images are obtained. Uterus has an unremarkable appearance at 5 x 2 x 3 cm. Combined endometrial thickness is approximately 2 mm. The ovaries are not well demonstrated. No adnexal mass or abnormal cul-de-sacs fluid apparent. IMPRESSION: Unremarkable pelvic ultrasound. Dictated by: Tutu Castellano MD 01/31/2021 16:55 Tutu Castellano MD in OV 01/31/2021 16:55
== END ==
PROVIDERS: PCP Family Medicine; Visit Provider Family Medicine
DX: R30.0 Dysuria (principal)
CPT/HCPCS: 76856

== ENCOUNTER → 2021-03-28 09:54 | Outpatient (CLI) | payer MEDICARE, SELFPAY | PROVIDERS: PCP Family Medicine; Visit Provider Internal Medicine Pulmonary Disease | DX: R06.09 Other forms of dyspnea (principal) | CPT/HCPCS: 94060; 94618; 94726; 94729 ==

== ENCOUNTER → 2021-04-05 07:51 | Outpatient (CLI) | payer MEDICARE, SELFPAY ==
--- NOTE | 2021-04-05 07:52 | CA_ITS ---
APPROVED REPORT Bilateral Lower Extremity Venous Study for DVT. Stamping Bench Die Maker: Julieta Church RVT Indications Lower Extremity Pain: Bilateral Lower Extremity Edema: Bilateral DVT of Lower Extremity: Left Pulmonary Embolism hx of dvt/pe Past History DVT : Left Pulmonary Embolism Medications PT ON XARELTO Vein Imaging CFV (R): compressive, spontaneous, phasic, augmentation FEM (R): compressive, spontaneous, phasic, augmentation POP (R): compressive, spontaneous, phasic, augmentation PTV (R): Compressible GSV (R): Compressible Peroneals (R):Compressible GAS (R): Compressible CFV (L): compressive, spontaneous, phasic, augmentation FEM (L): compressive, spontaneous, phasic, augmentation POP (L): compressive, spontaneous, phasic, augmentation PTV (L): Compressible GSV (L): Compressible Peroneals (L):Non-Compressible GAS (L): Compressible Findings Study suggests no evidence of DVT or SVT of the right lower extremity. Study suggests DVT of the peroneal veins of the left lower extremity, unchanged from 01/06/21 study. Other deep veins of the left lower extremity are unremarkable. Conclusion Study suggests no evidence of DVT or SVT of the right lower extremity. Study suggests DVT of the peroneal veins of the left lower extremity, unchanged from 01/06/21 study. Other deep veins of the left lower extremity are unremarkable. Electronically signed by : Tutu Castellano MD 04/05/2021 16:23:04
--- NOTE | 2021-04-05 07:52 | CA_ITS ---
APPROVED REPORT EXAM: Comprehensive 2D, Doppler, and color-flow Echocardiogram Spray Drier: Julieta Church RVT Ht: 5 ft 3 in Wt: 173lbs BSA: 1.82 BP: 113/73 mmHg Indications: SOA,EDEMA,PACER,A-FIB,PALPS,GERD,HTN,HLD,HX PE 2D Dimensions LVOT 2.05 cm (M/F) 1.5-2.5 LA Volume 27.70 mL LA Volume Index 15.30 mL/m2 (M/F) 16-34 M-Mode Dimensions RVDd 2.91 cm (0.9-2.6) LA Diam 3.36 cm (1.9-4.0) LVDd 4.96 cm (3.5-5.7) Ao Diam 2.98 cm (2.0-3.7) LVDs 3.34 cm (3.5-5.7) IVSd 1.03 cm (0.6-1.1) PWd 0.89 cm (0.6-1.1) EF (Teich) 60.90% FS 32.70% EDV (Teich) 116.10 mL TAPSE 2.15 (<1.7) ESV (Teich) 45.40 mL LV Diastology E Decel Time 163.00 (160-240 msec) E/A Ratio 1.3 MED E' 7.90 (< 7 cm/sec) E'/MED E' Ratio 12.34 (>14) LAT E' 7.90 (<10 cm/sec) E/LAT E' Ratio 12.34 (>14) Aortic Valve AI PHT 580.00 ms AO Peak GR. 5.40 mmHg Mitral Valve MV E Max Yosvany. 98.00 (40-130 cm/s) MV A Velocity 77.00 (40-130 cm/s) E/A Ratio 1.26 MV Decel. Time 163.00 (160-240 ms) MV PHT 48.00 ms Pulmonary Valve PV Peak Velocity 64.00 (50-150 cm/s) Tricuspid Valve TR P. Velocity 240.00 cm/s RAP Estimate 10.00 mmHg RVSP 33.00 mmHg Left Ventricle Left atrium is mildly enlarged, left ventricle is normal size, mild concentric left ventricular hypertrophy, visually estimated ejection fraction 55% with no regional wall motion abnormality, grade 1 diastolic dysfunction seen without tissue Doppler evidence of raise left atrial pressure. Right Ventricle Right atrium and right ventricle are mildly enlarged with normal contractility, there is a pacemaker lead seen the right atrium and right ventricle. Aortic Valve Aortic valve is minimally thickened and fibrosed, there is no aortic stenosis, there is mild aortic insufficiency. Mitral Valve Mitral valve grossly normal, there is mild mitral regurgitation. Tricuspid Valve Tricuspid valve grossly normal, there is mild tricuspid regurgitation, calculated right ventricular systolic pressure is within normal range. Pulmonic Valve Pulmonic valve is poorly visualized. Great Vessels Aortic root is normal size. Inferior vena cava is normal size with normal inspiratory collapse. Pericardium No significant pericardial effusion noted. Conclusion 1. Normal left ventricular size, mild concentric left ventricular hypertrophy, visually estimated ejection fraction 55% with no regional wall motion abnormality, grade 1 diastolic dysfunction seen without tissue Doppler evidence of raise left atrial pressure. 2. Mild aortic, mild mitral and tricuspid regurgitation, calculated right ventricular systolic pressure within normal range. 3. No significant pericardial effusion noted, inferior vena cava is normal size with normal inspiratory collapse. Electronically signed by : Kris Bethea MD 04/06/2021 11:57:05
== END ==
PROVIDERS: PCP Family Medicine; Visit Provider Physician Assistant
DX: I10 Essential (primary) hypertension (principal); I26.09 Other pulmonary embolism with acute cor pulmonale; I48.0 Paroxysmal atrial fibrillation; I73.9 Peripheral vascular disease, unspecified; R06.02 Shortness of breath; R60.0 Localized edema; Z95.0 Presence of cardiac pacemaker
CPT/HCPCS: 93306; 93970

== ENCOUNTER → 2021-07-27 11:19 | Outpatient (CLI) | payer MEDICARE, SELFPAY ==
--- NOTE | 2021-07-31 13:02 | INFXCTL.NOTE ---
Notified patient via phone call, COVID-19 (+). Patient stated she was aware. Quarantine as instructed. HAI Easley
== END ==
PROVIDERS: Visit Provider Nurse Practitioner
DX: U07.1 COVID-19 (principal)
CPT/HCPCS: C9803; U0003; U0005

== ENCOUNTER → 2022-06-04 10:10 | Outpatient (CLI) | payer MEDICARE, SELFPAY ==
[2022-06-04 19:13] LABS: Alanine Aminotransferase 16 U/L (12-78); Albumin Level 3.6 g/dl (3.5-5.0); Albumin/Globulin Ratio 1.3 (1.1-1.8); Alkaline Phosphatase 98 U/L (38-126); Anion Gap 10.6 mEq/L (5-15); Aspartate Amino Transferase 25 U/L (14-36); Blood Urea Nitrogen 22 mg/dl (7-17); Carbon Dioxide 29 mmol/L (22.0-30.0); Chloride 105 mmol/L (98-107); Chol/HDL Ratio 2.5 (1-3.5); Cholesterol 187 mg/dl (140-200); Estimated Glomerular Filt Rate 70 ml/min (>60); GFR (African American) 85 ML/MIN (>60); Globulin 2.7 g/dL (1.3-3.2); Glucose 110 mg/dl (74-100); HDL Cholesterol 75 mg/dl (40-60); Potassium 4.6 mmoL/L (3.5-5.1); Sodium 140 mmol/L (136-145); Total Protein,Serum 6.3 g/dl (6.3-8.2); Triglycerides 87 mg/dl (30-150); VLDL Cholesterol 17 mg/dL (0-40)
[2022-06-04 19:22] LABS: Bilirubin,Total < 0.1 mg/dl (0.2-1.3)
[2022-06-04 19:24] LABS: Direct LDL Cholesterol 84.41 mg/dL (100-129)
== END ==
PROVIDERS: PCP Family Medicine; Visit Provider Family Medicine
DX: E78.5 Hyperlipidemia, unspecified (principal); I10 Essential (primary) hypertension
CPT/HCPCS: 80053; 80061; 84443

== ENCOUNTER → 2022-07-11 14:12 | Outpatient (CLI) | payer MEDICARE, SELFPAY ==
[2022-07-11 16:33] LABS: Blood Urea Nitrogen 21 mg/dl (7-17); Estimated Glomerular Filt Rate 61 ml/min (>60); GFR (African American) 74 ML/MIN (>60)
== END ==
PROVIDERS: PCP Family Medicine; Visit Provider Nurse Practitioner
DX: R06.02 Shortness of breath (principal)
CPT/HCPCS: 36415; 82565; 84520

== ENCOUNTER → 2022-07-12 08:15 | Outpatient (CLI) | payer MEDICARE, SELFPAY ==
--- NOTE | 2022-07-12 08:15 | CT_ITS ---
FINAL REPORT TECHNIQUE: Thin section axial CT images were performed from the lung apices to the upper abdomen after the administration of IV contrast. 3-D and MIP reconstructions performed. This study was performed with techniques to keep radiation doses as low as reasonably achievable (ALARA). Individualized dose reduction techniques using automated exposure control or adjustment of mA and/or kV according to the patient''s size were employed. CLINICAL HISTORY: near syncope/hx of PE/DVT (2020) COMPARISON: 01/05/2021 FINDINGS: The previously noted pulmonary emboli have resolved. There is no evidence for pulmonary embolism. The thoracic aorta is patent without evidence of dissection. There is no axillary adenopathy. There is no mediastinal or hilar adenopathy. The heart size is normal. There is no pleural or pericardial effusion. Lung window images demonstrate no suspicious pulmonary nodule or infiltrate. There is pleural and parenchymal scarring at the right apex well seen on images 41-44 of series 601. Limited images of the upper abdomen are unremarkable. IMPRESSION: No evidence of pulmonary embolism or aortic dissection. Reviewed, Interpreted and Dictated by Perfecto Davila MD Transcribed by Mell Gutierrez Authenticated and [facility]
== END ==
PROVIDERS: PCP Family Medicine; Visit Provider Nurse Practitioner
DX: E78.5 Hyperlipidemia, unspecified (principal); R06.02 Shortness of breath; R07.9 Chest pain, unspecified; R55 Syncope and collapse; Z86.711 Personal history of pulmonary embolism; Z86.718 Personal history of other venous thrombosis and embolism
CPT/HCPCS: 71275; Q9967

== ENCOUNTER → 2022-11-01 23:44 | Outpatient (CLI) | payer MEDICARE, SELFPAY ==
[2022-11-01 17:59] LABS: Eosinophils # 0.2 K/mm3 (0.0-0.4); Eosinophils % 4.5 % (0.1-12.0); Hematocrit 42.3 % (37.0-47.0); Hemoglobin 13.7 g/dL (12.2-16.2); Lymphocytes # 1.1 K/mm3 (0.7-4.5); Lymphocytes % 26.9 % (10-50); Mean Corpuscular HGB Conc 32.3 g/dL (31.8-35.4); Mean Corpuscular Hemoglobin 32.1 pg (27.0-31.2); Mean Corpuscular Volume 99.2 fl (81-99); Mean Platelet Volume 8.8 fl (7.4-10.4); Monocytes # 0.3 K/mm3 (0.1-1.0); Monocytes % 6.5 % (1.7-9.3); Neutrophils # 2.4 K/mm3 (1.8-7.8); Platelet Count 226 K/mm3 (142-424); Red Blood Count 4.26 M/mm3 (4.20-5.40); Red Cell Distribution Width 12.8 % (11.5-17.5)
[2022-11-01 18:46] LABS: Alanine Aminotransferase 17 U/L (12-78); Albumin Level 4.2 g/dl (3.5-5.0); Albumin/Globulin Ratio 1.6 (1.1-1.8); Alkaline Phosphatase 93 U/L (38-126); Anion Gap 10.3 mEq/L (5-15); Aspartate Amino Transferase 29 U/L (14-36); Bilirubin,Total 0.8 mg/dl (0.2-1.3); Blood Urea Nitrogen 20 mg/dl (7-17); Calcium 9.5 mg/dl (8.4-10.2); Carbon Dioxide 27 mmol/L (22.0-30.0); Chloride 105 mmol/L (98-107); Estimated Glomerular Filt Rate 54 ml/min (>60); GFR (African American) 65 ML/MIN (>60); Globulin 2.6 g/dL (1.3-3.2); Glucose 110 mg/dl (74-100); Potassium 4.3 mmoL/L (3.5-5.1); Sodium 138 mmol/L (136-145); Total Protein,Serum 6.8 g/dl (6.3-8.2)
[2022-11-01 19:16] LABS: Thyroid Stimulating Hormone 1.19 uIU/mL (0.465-4.68)
== END ==
PROVIDERS: PCP Family Medicine; Visit Provider Family Medicine
DX: I10 Essential (primary) hypertension (principal)
CPT/HCPCS: 80053; 84443; 85025

== ENCOUNTER 2023-12-01 12:45 | Outpatient (CLI) | payer MEDICARE, SELFPAY ==
--- NOTE | 2023-12-01 12:56 | XR_ITS ---
FINAL REPORT CLINICAL HISTORY: BRONCHITIS COMPARISON: 01/08/2021 FINDINGS: Two views of the chest were obtained. A left subclavian pacemaker is present. The heart size and pulmonary vascularity are within normal limits. The mediastinum is normal. There is atelectasis at the right lung base. There is no pneumothorax. The bony thorax is intact. IMPRESSION: Right lung base atelectasis. Reviewed, Interpreted and Dictated by Kush Humphreys III, MD Transcribed by Jaja Mike Authenticated and [facility]
== END 2023-12-01 23:59 ==
PROVIDERS: PCP Family Medicine; Visit Provider Family Medicine
DX: J40 Bronchitis, not specified as acute or chronic (principal)
CPT/HCPCS: 71046

== ENCOUNTER 2024-01-08 14:49 | Outpatient (CLI) | payer MEDICARE, SELFPAY ==
--- NOTE | 2024-01-08 15:03 | XR_ITS ---
FINAL REPORT CLINICAL HISTORY: PNEUMONIA COMPARISON: 12/01/2023 FINDINGS: Two views of the chest were obtained. Left subclavian pacer is present. The heart size and pulmonary vascularity are within normal limits. The mediastinum is normal. There is improved right base atelectasis. There is no pneumothorax. The bony thorax is intact. IMPRESSION: Improved right base atelectasis. Reviewed, Interpreted and Dictated by Kush Humphreys III, MD Transcribed by Bernarda Whiteside Authenticated and [facility]
== END 2024-01-08 23:59 | disposition home or self-care (01) ==
LOC: RAD 14:51
PROVIDERS: PCP Family Medicine; Visit Provider Family Medicine
DX: J18.9 Pneumonia, unspecified organism (principal)
CPT/HCPCS: 71046

== ENCOUNTER 2024-01-13 11:00 | Outpatient (RCR) | payer MEDICARE, SELFPAY ==
--- NOTE | 2023-12-10 12:12 | HMH.PTOPEV ---
PT Outpatient Evaluation Rehab PT Outpatient Evaluation Start: 12/10/23 08:01 Freq: Status: Active Protocol: Document 12/10/23 08:02 BETI (Rec: 12/10/23 09:46 BETI [id number]) E-signed By Silvia Bailey, PT Outpatient Therapy Subjective History Subjective History This is an initial evaluation for Bing Howard who presents with referral for low back strain after a bout of bronchitis. I threw out my back 2 weeks ago after a cough . Pt reports 10/10 pain with initial injury but reports she has improved significantly since (at worst 3/10). Pt reports she feels 80% better since initial injury. Pt denies having any LB imaging. Pain is right sided and extends down to R hip. Pt denies numbness or tingling down leg. Pt's goal for PT is to get rid of the pain and return to using her elliptical like she was prior to injury. PMH: Chronic GERD, Acquired hypothyroidism, History of cataract, History of vocal cord paralysis, Diastolic dysfunction, HTN (hypertension ), Cardiac pacemaker in situ, Tachycardia-bradycardia, PAF ( paroxysmal atrial fibrillation ). New diagnosis of cancer in past 12 No: 2 years cancer-free months? Chief Complaint Pain,Stiff Symptom Type Ache,Dull Symptoms Relieved By Rest/Positioning,OTC Meds, Prescription Meds Symptoms Aggravated By Sitting,Physical Activity, Walking,Sneeze/Coughing Current Functional Limitations Lifting,Housework,Standing, Sitting,Squatting,Recreation Activity,Walking Symptom Description Constant but Variable Level of pain today (0-10) 2 Pain scale - at its best (0-10) 1 Pain scale - at its worst (0-10) 3 Lumbopelvic Eval Posture Thoracic Spine Posture Standing Position Neutral Lumbar Spine Posture Standing Position Neutral Assistive device Assistive Devices None / NA Gait Observation General Gait Pattern Observation No Deviations/Normal Palapation tenderness left thoracic spinal tenderness No lumbar spinal tenderness No paraspinal tenderness No buttock tenderness No right thoracic spinal tenderness No lumbar spinal tenderness Yes: 3/4 paraspinal tenderness Yes: 3/4 buttock tenderness Yes: 3/4 Lumbar/Sacral Palpation Findings Tenderness Range of Motion Lumbar Spine Active Flexion Range of 50, tight Motion (degrees) Lumbar Spine Active Extension Range of 10, painful Motion (degrees) Left Lumbar Spine Lateral Flexion Active 15 Range of Motion (degrees) Right Lumbar Spine Lateral Flexion 15 Active Range of Motion (degrees) Lumbar Spine ROM Limitations Soft Tissue Tightness,Pain Manual Muscle Test Bilateral Knee Extension Strength Grade 4 Good Knee Flexion Strength Grade 4 Good Hip Flexion Strength Grade 4 Good Hip Abduction Strength Grade 4- Good- Hip External Rotation Strength Grade 4- Good- Special Tests Hip Piriformis Test Negative Left,Positive Right Sciatic Nerve Tension Test Negative Left,Negative Right Crossed Straight Leg Raise Test Negative Left,Negative Right True Leg Length Discrepency Test No discrepency visible Oswestry Index Section 1 Pain Intensity The pain comes and goes and is moderate Section 2 Personal Care (Washing,Dresing) change my way of washing or dressing in order to avoid pain Section 3 Lifting lifting heavy weights off the floor, but I can manage light to medium Section 4 Walking I have some pain when walking but it does not increase with distance Section 5 Sitting I can sit in my favorite chair for as long as I like Section 6 Standing I have some pain on standing, but it does not increase with time Section 7 Sleeping I get pain in bed, but it does not prevent me from sleeping well Section 8 Social Life Pain has no significant effect on my social life apart from limiting Section 9 Traveling I get extra pain while traveling, but it does not compel me to seek al Section 10 Changing Degreee of Pain My pain seems to be getting better, but improvement is slow Score and Risk Level Oswestry Sc 16 Oswestry Risk Level Moderate Disability Outpatient Therapy Assessment Impairments Problems/Impairmments Palpation Tenderness,Impaired Range of Motion,Impaired Strength,Impaired Standing, Impaired Sitting,Impaired Lifting,Impaired Bending, Subjective C/O Pain Prognosis Rehab Potential Good Clinical Impression Consistent with Diagnosis Yes Consistent with Lumbar strain Short Term Goals Number of Weeks 2 Decreased Palpation Tenderness Yes: 1/4 TTP R lumbar paraspinals Increase Range of Motion Yes: Lumbar AROM by 5 degrees in all planes (Min pain) Decrease Subjective C/O Pain Yes: 24 hour pain average of 2 /10 Patient to be Ind w/ HEP Yes Care Home Goals Number of Weeks 5 Decreased Palpation Tenderness Yes: 0/4 TTP Lumbar paraspinals (right) Increase Range of Motion Yes: WNL and painfree to improve daily functional ROM. Increase Strength Yes: BLE 5/5 to improve functional strength. Improve Oswestry Score Yes: Score reflecting minimal/ mild disability to improve QOL Decrease Subjective C/O Pain Yes: 0/10 at worst to return to PLOF without pain. Patient to be Ind w/ Advanced HEP Yes Outpatient Therapy Plan of Care Treatment Plan May Include Therapeutic Exercise Including Home Yes Exercise Program Manual Therapy Techniques Yes Neuromuscular Re-education Yes Therapeutic Activities to Return to Yes Previous Functional/Work Level ADL/Self Care Education Yes Mechanical Traction Yes Dry Needling Yes Thermal Modalities Yes Electrical Stimulation No: Pacemaker Orthotics/Bracing/Splinting Yes Massage Yes Eval/Re-Eval Yes Frequency Times per week 1-2 Duration Number of Weeks 5-6 Addendums This patient is a candidate for social No or vocational rehab? Patient/Guardian verbally acknowledges Yes understanding of treatment program and consents to further treatment? Patient/Guardian verbally acknowledges Yes understanding of diagnosis, prognosis and goals for treatment? Eval Complexity PT Charges 59984 - Moderate Complexity Shoulder/Elbow Eval Shoulder Objective Measurements Elbow Objective Measurements PHYSICIAN CERTIFICATION: I certify the specified therapy services for Bing Howard are required, authorized, and reviewed every 30 days.
== END 2024-01-13 12:05 | disposition home or self-care (01) ==
LOC: PT 11:00
PROVIDERS: Visit Provider Family Medicine
DX: M54.50 Low back pain, unspecified (principal)
CPT/HCPCS: 97010; 97110; 97140; 97163; 97164; 97535

== ENCOUNTER 2024-09-16 09:07 | Outpatient (CLI) | payer MEDICARE, SELFPAY ==
--- NOTE | 2024-09-16 09:11 | XR_ITS ---
FINAL REPORT TECHNIQUE: Bone densitometry calculations of the lumbar spine and left hip were obtained. CLINICAL HISTORY: SCREENING COMPARISON: None FINDINGS: Using L1-4, the bone mineral density of the spine is 0.850 g/cm2, corresponding to T-score of -1.8. Using the left hip, the bone mineral density of the femoral neck is 0.639 g/cm2, corresponding to a T-score of -2.5. Using the right hip, the bone mineral density of the femoral neck is 0.629 g/cm?, corresponding to a T-score of -2.0. NOTE: T-score: Standard deviation compared with peak bone mass of young adult mean. *Following the recommendations of the International Society of Bone densitometry, classification of hip BMD is based on the lower of two T-scores; total hip or femoral neck. IMPRESSION: Diminished bone mineral density of the lumbar spine and right hip consistent with osteopenia. Diminished bone mineral density of the left hip consistent with osteoporosis. Reviewed, Interpreted and Dictated by Marito Tomlinson MD Transcribed by Tena Phillips Authenticated and [facility]
== END 2024-09-16 23:59 | disposition home or self-care (01) ==
LOC: RAD 09:08
PROVIDERS: PCP Internal Medicine; Visit Provider Family Medicine
DX: M85.89 Other specified disorders of bone density and structure, multiple sites (principal)
CPT/HCPCS: 77080

== ENCOUNTER 2024-11-25 14:22 | Outpatient (CLI) | payer MEDICARE, SELFPAY ==
--- NOTE | 2024-11-25 14:27 | CA_ITS ---
APPROVED REPORT EXAM: Comprehensive 2D, Doppler, and color-flow Echocardiogram Electrical Technology Instructor: Denise Wagner, RT(R) Ht: 5 ft 3 in Wt: 149lbs BSA: 1.71 BP: 140/71 mmHg Indications: edema, HTN, palpitations, hyperlipidemia, afib, pacemaker 2D Dimensions Left Atrium 3.01 cm F: 2.7 - 3.8 LA Volume 33.10 mL LVOT 1.80 cm (M/F) 1.5-2.5 LA Volume Index 19.36 mL/m2 (M/F) 16-34 EF AP4 59.40 % GL Strain -22.0 % M-Mode Dimensions RVDd 2.86 cm (0.9-2.6) LVDd 4.79 cm (3.5-5.7) Ao Diam 2.55 cm (2.0-3.7) LVDs 3.57 cm (3.5-5.7) IVSd 0.54 cm (0.6-1.1) PWd 0.54 cm (0.6-1.1) EF (Teich) 50.20% FS 25.50% EDV (Teich) 107.00 mL ESV (Teich) 53.30 mL LV Diastology E Decel Time 178 (160-240 msec) E/A Ratio 1.0 MED E' 6.2 (>= 7 cm/sec) E'/MED E' Ratio 13.47 (<= 14) LAT E' 8.8 (>= 10 cm/sec) E/LAT E' Ratio 9.49 (<= 14) Aortic Valve LVOT Max 89.0 (70-110 cm/s) MALOU Index 0.98 cm2/m2 LVOT VTI 24.16 cm AoV Peak Yosvany. 143.0 (50-130 cm/s) AI PHT 570.00 ms AO Mean GR. 4.00 (<5 mmHg) AO VTI 36.6 (18-25 cm) MALOU (VTI) 1.68 (2.5-4.5 cm2) Mitral Valve MV E Max Yosvany. 84.0 (40-130 cm/s) MV A Velocity 85.0 (40-130 cm/s) E/A Ratio 0.98 MV Decel. Time 178 (160-240 ms) Tricuspid Valve TR P. Velocity 324.00 cm/s RAP Estimate 10.00 mmHg RVSP 51.90 mmHg Left Ventricle The left ventricle is normal size. The left ventricular systolic function is normal. The left ventricular ejection fraction is within the normal range. There is increased level thickness. There is normal LV segmental wall motion. Diastolic function is indeterminate. LVEF is 55%. Right Ventricle Right ventricle is mildly dilated. The right ventricular systolic function is normal. Atria Left atrium is mildly dilated. Right atrium is mildly dilated. There is no Doppler evidence of interatrial shunt. Aortic Valve The aortic valve is mildly thickened. Mild to moderate aortic regurgitation. There is no aortic valvular stenosis. Mitral Valve The mitral valve leaflets are mildly thickened. Mild mitral regurgitation. No evidence of mitral valve stenosis. Tricuspid Valve Tricuspid valve is grossly normal in structure and function. Mild tricuspid regurgitation. RVSP is 30-35 mmHg. Pulmonic Valve The pulmonary valve is normal in structure. Trace pulmonic regurgitation. Great Vessels The aortic root is normal in size. IVC is normal in size and collapses >50% with inspiration. Pericardium There is no pericardial effusion. Other Information Study Quality: Fair Conclusion Normal biventricular systolic function. Mild RV dilation. Mild biatrial dilation. Mild to moderate AI. Mild MR, mild TR. Electronically signed by : Kiah Hernandez MD 12/07/2024 12:23:01
== END 2024-11-25 23:59 | disposition home or self-care (01) ==
LOC: RT 14:22
PROVIDERS: PCP Internal Medicine; Visit Provider Nurse Practitioner Family
DX: I51.7 Cardiomegaly (principal); I34.0 Nonrheumatic mitral (valve) insufficiency; I35.1 Nonrheumatic aortic (valve) insufficiency; I36.1 Nonrheumatic tricuspid (valve) insufficiency; R60.0 Localized edema
CPT/HCPCS: 93306

== ENCOUNTER 2024-12-09 13:56 | Outpatient (CLI) | payer MEDICARE, SELFPAY ==
--- NOTE | 2024-12-09 14:01 | XR_ITS ---
FINAL REPORT CLINICAL HISTORY: cough, r/o pneumonia COMPARISON: 01/08/2024 FINDINGS: No acute pulmonary density is evident. There is no evidence of effusion or other pleural disease. The mediastinum has a normal appearance. A left-sided pacer is present. The cardiac silhouette is unremarkable. IMPRESSION: Unremarkable chest exam. Reviewed, Interpreted and Dictated by Marito Tomlinson MD Transcribed by Bernarda Whiteside Authenticated and [facility]
--- OUTSIDE RECORDS SUMMARY | 2024-12-09 23:31 | XMS_ITS | Continuity of Care Document ---
Author Organization [facility] GLORIA Francis HETTINGER Address [address] [place] [address] Care Team Providers Care Ship Rigger Apprentice Name Role Phone FLORA HAAS Special Education Inclusion Teacher Assessment No assessment recorded. Plan of Treatment Reminders Order Date Submit Date Provider Last Modified By Organization Details Last Modified Time Details Appointments FOLLOW UP [facility] 2024 10:30A M PATRICK HAAS PA-C Not available Not available Not available Lab None recorded . Referral None recorded . Procedures None recorded . Surgeries None recorded . Imaging None recorded . Medication Orders None recorded . Patient TargetsNo targets recorded. Patient InstructionsNo instructions recorded. Reason for Referral None Reported. Problems Name Problem SNOMED Code Status Onset Date Resolution Date Notes Provider Name and Address Organization Details Recorded Time Abdominal pain 64870553 Active 2015 From Automated Load;Provi kimi: Abena Teresa;Sta tus: Active Not Available [facility] 6 04:20:48 Gastrointe stinal tract finding Active 2015 From Automated Load;Provi kimi: Abena Teresa;Sta tus: Active Not Available [facility] 6 04:20:48 Constipati on 91028184 Active 2015 From Automated Load;Provi kimi: Abena Teresa;Sta tus: Active Not Available [facility] 6 04:20:48 Dyspareuni a 96396528 Active 2015 From Automated Load;Provi kimi: Abena Teresa;Sta tus: Active Not Available [facility] 6 04:20:48 Problem Notes None recorded. Procedures Surgical History Date Name Laterality Status Provider Name and Address Organization Details Recorded Time 10/28/19 25 DAK - Cryo AK completed [facility] 10/28/2024 11:33:12 04/22/20 24 DAK - Cryo AK completed [facility] 04/22/2024 11:24:29 04/22/20 24 Blade Biopsy w/ ED&C completed [facility] 04/22/2024 11:34:20 04/22/20 24 Destruction BN Lesions completed [facility] 04/22/2024 11:29:43 10/23/19 24 Destruction BN Lesions completed [facility] 10/23/2023 12:02:49 total knee replacement completed [facility] 10/23/2023 11:52:58 hernia repair completed [facility] 10/23/2023 11:53:06 Appendectomy completed [facility] 10/23/2023 11:53:20 resection of polyp completed [facility] 10/23/2023 11:53:29 section completed [facility] 10/23/2023 11:53:44 cataract surgery completed [facility] 10/23/2023 11:53:57 Imaging Results None recorded. Procedure Notes None recorded. Medical Equipment None Reported. Allergies Allergen ID Allergen Name Allergen Category Reaction Reaction Severity Criticality Documentation Date Start Date Code Code System Note Provider Name and Address Organization Details Recorded Time 321003 Biaxin medicatio n Not available Not available Not available 07/25/20162015 9 RxNorm Comme nt: Creat ed By: Elizabeth james Date: 2015 9:20: 52 AM; Not Available [facility] 11:15:58 787820 adhesive tape environme nt,medica tion Not available Not available Not available 10/23/2023 [address]4964 UNK [facility] 11:56:36 503466 latex environme nt,medica tion Not available Not available Not available 10/23/2023 90710 91 RxNorm Zachariah Quiñonez [facility] 11:56:40 Medications Name Sig Start Date Stop Date Status Note LastModified by Organization Details LastModified Time losartan 50 mg tablet Daily active Frequency : daily;Med ication Descripti on: losartan; Dosage:1; Route:ora l; refills:0 Not Available Not Available Not Available L-Lysine 500 mg tablet Daily active Frequency : daily;Med ication Descripti on: lysine; Dosage:1; Route:ora l; refills:0 Not Available Not Available Not Available triamcinol one acetonide 0.1 % topical cream APPLY A THIN LAYER TO THE AFFECTED AREA(S) BY TOPICAL ROUTE 2 TIMES PER DAY for 14 days then as needed for flares 2023 active Not Available Not Available Not Avai lable levothyrox ine 75 mcg tablet Daily active Frequency : daily;Med ication Descripti on: levothyro xine; Dosage:1; Route:ora l; refills:0 Not Available Not Available Not Available Idalia 180 mg tablet As needed active Duration: 30 days;Freq uency: prn;Medic ation Descripti on: fexofenad ine; Dosage:1; Route:ora l; refills:1 2; Quantity: 30 tablet Not Available Not Available Not Available omeprazole 20 mg capsule,de layed release Two times a day 2015 active Duration: 90 days;Freq uency: bid;Medic ation Descripti on: omeprazol e; Dosage:1; Route:ora l; refills:3 ; Quantity: 180 delayed release capsule Not Available Not Available Not Available hydrochlor othiazide 25 mg tablet As needed active Duration: 10 days;Freq uency: prn;Medic ation Descripti on: hydrochlo rothiazid e; Route:ora l; refills:0 ; Quantity: 30 tablet Not Available Not Available Not Available Beano tablet active Medicatio n Descripti on: alpha-D-g alactosid ase; Route:ora l; refills:0 Not Available Not Available Not Available Citrucel (sucrose) oral powder active Medicatio n Descripti on: methylcel lulose; Dosage:1 tablespoo n; Route:ora l; refills:0 Not Available Not Available Not Available New Life Vitamin For Hair tablet Daily active Frequency : daily;Med ication Descripti on: multivita min; Dosage:1; Route:ora l; refills:0 Not Available Not Available Not Available Premarin 0.625 mg/gram vaginal cream active Instructi ons: apply vaginally -weekly;A lt Frequency : as direct.;M edication Descripti on: conjugate d estrogens topical; Dosage:as directed; Route:vag inal; refills:0 ; Quantity: 1 cream with applicato r Not Available Not Available Not Available Vitamin C Daily active Frequency : daily;Med ication Descripti on: ascorbic acid; Dosage:1; Route:ora l; refills:0 Not Available Not Available Not Available Vitamin B-12 Daily active Frequency : daily;Med ication Descripti on: cyanocoba jose; Dosage:1; Route:sub lingual; refills:0 Not Available Not Available Not Available citalopram active Not Available Not Av ailable Not Available Metamucil active Not Available Not Kelly ilable Not Available bisoprolol fumarate active Not Available Not Available Not Available Miralax active Not Available Not Avail able Not Available Caltrate-6 00 Daily active Duration: 10 days;Freq uency: daily;Med ication Descripti on: calcium carbonate ; Dosage:1; Route:ora l; refills:0 ; Quantity: 30 tablet Not Available Not Available Not Available Restasis active Not Available Not Avai lable Not Available Premarin active Not Available Not Avai lable Not Available rosuvastat in active Not Available Not Available Not Available Probiotic Formula 10 billion cell(2 billion ea) capsule Daily active Frequency : daily;Med ication Descripti on: bifidobac terium-la ctobacill us; Dosage:1; Route:ora l; refills:0 Not Available Not Available Not Available Osteo Bi-Flex Daily active Frequency : daily;Med ication Descripti on: miscellan eous; Dosage:1; refills:0 Not Available Not Available Not Available Xarelto active Not Available Not Avail able Not Available Centrum Silver 0.4 mg-300 mcg-250 mcg tablet Daily active Duration: 10 days;Freq uency: daily;Med ication Descripti on: multivita min with minerals; Dosage:1; Route:ora l; refills:0 ; Quantity: 30 tablet Not Available Not Available Not Available Trelegy Ellipta active Not Available Not Available Not Available Vitals None Recorded Social History Question Answer Notes LastModified by Organizat ion Details LastModified Time Tobacco Smoking Status Never Smoker Zachariah Quiñonez [facility] 10/23/2023 11:51:19 What Is Your Level Of Alcohol Consumption? Occasional Information not available 10/23/2023 Sunscreen Use? Yes Informatio n not available 10/23/2023 Tanning Bed Use No Informati on not available 10/23/2023 What Was The Date Of Your Most Recent Tobacco Screening? 10/28/2024 [id number] Information not available 10/28/2024 Sex: Female Functional Status None recorded. Mental Status None recorded. Family History Relationship Description Onset Age of this Age Resolved Age Notes LastModified by Organization Details LastModified Time Father No current problems or disability Not available 10/03 11:51:13 Mother No current problems or disability Not available 10/03 11:51:13 Medical History Condition Response Squamous Cell Carcinoma Y Basal Cell Carcinoma Y Gynecological HistoryNo gynecological history recorded. Obstetrics History GPAL:G 0 P 0 0 0 0 Past Encounters Encounter ID Performer Location Encounter Start Date Encounter Closed Date Diagnosis/Indication Diagnosis SNOMED-CT Code Diagnosis ICD10 Code Diagnosis Note [id number] DARSHAN NEWBERRY [address] [place] [address] 10/28/2024 10:34:27 10/28/2024 11:48:38 Multiple benign melanocytic nevi [id number] D22.5 L81.4 D18.01 L82.1 The benign nature of keratoses and lentigines was discussed with the patient. Sun protection with SPF 30 broad spectrum sunscreen and protective gear discussed. Look for physical lisy sunscreens with at least SPF 30 containing zinc oxide or titanium dioxide as active ingredient . Recommend monthly self examinatio ns and yearly full skin examinatio n with a dermatolog y provider. Recommend yearly eye exam. Recommend OTC Vitamin D supplement . Patient instructed to call if any suspicious lesions are noted. History of malignant neoplasm of skin [id number] Z85.828 L90.5 The scar is clear with no evidence of recurrence .Cont to monitor for any changes. Actinic keratosis 007 L57.0 The nature of the diagnosis was explained. Pre-cancer ous.Will treat with LN2.F/u if treated lesions persist. 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 Due to a pinching of a nerve. Health Concerns Section Related Observation LastModified by Organization Detai ls LastModified Time None Recorded Concern Status LastModified by Organization Details LastModified Time None Recorded Payers Encounter Date Sequence Insurance Name Policy Number Policy Aparicio Covered Member ID Aparicio Member ID Guarantor Name 10/28/2024 1 MEDICARE-[place] (MEDICARE) Bing Howard [id number] Bing Howard 10/28/2024 2 [facility] (MEDICARE SUPPLEMENT) Bing Howard [id number] Bing Howard Notes Date Note Type Note Provider Name and Address Organization Details Recorded Time 10/28/2024 text/html FBSE6 monthshx [facility] (multiple sites)reports: Id like my back checked, and a place under my L arm. DARSHAN NEWBERRY [address], [place], [address], [facility] 10/28/2024 12:43:57 OBGyn Episode No OBEpisode recorded.
--- OUTSIDE RECORDS SUMMARY | 2024-12-09 23:31 | XMS_ITS ---
Author Organization Unknown TREATMENT PLAN [facility] Start Date Provider Encounter for Check-up [id number] [facility]
--- OUTSIDE RECORDS SUMMARY | 2024-12-09 23:31 | XMS_ITS | Data Portability ---
Author Organization [facility] DEISY FrancisS [place] CLOSED Address [address] [facility] [address] [place] [address] Care Team Providers Care Director Oracle Retail Name Role Phone FLORA HAAS Wire Stitcher Machine Assessment No assessment recorded. Plan of Treatment Reminders Order Date Submit Date Provider Last Modified By Organization Details Last Modified Time Details Appointments FOLLOW UP FORMERLY [facility], [facility] 2024 10:30A M PATRICK HAAS PA-C Not available Not available Not available Lab surgical pathology study 2023 024 [facility], [address] [place] [address], [id number], 04/23/2024 15:52:40 Referral None recorded. Procedures None recorded. Surgeries None recorded. Imaging None recorded. Medication Orders triamcino lone acetonide 0.1 % topical cream 2023 024 [id number], [address] [facility] [address] [place], [place], [id number], 10/23/2023 12:35:25 Patient TargetsNo targets recorded. Patient InstructionsNo instructions recorded. Reason for Referral None Reported. Results Created Date Observation Date Name Description Value Unit Range Abnormal Flag Note LastModifiedBy Organization Detail LastModifiedTime Result Notes None recorded. Problems Name Problem SNOMED Code Status Onset Date Resolution Date Notes Provider Name and Address Organization Details Recorded Time Abdominal pain 98590812 Active 2015 From Automated Load;Provi kimi: Abena Teresa;Sta tus: Active Not Available [facility] 6 04:20:48 Gastrointe stinal tract finding Active 2015 From Automated Load;Provi kimi: Abena Teresa;Sta tus: Active Not Available [facility] 6 04:20:48 Constipati on 59634856 Active 2015 From Automated Load;Provi kimi: Abena Teresa;Sta tus: Active Not Available [facility] 6 04:20:48 Dyspareuni a 53825038 Active 2015 From Automated Load;Provi kimi: Abena Teresa;Sta tus: Active Not Available [facility] 6 04:20:48 Problem Notes None recorded. Procedures Surgical History Date Name Laterality Status Provider Name and Address Organization Details Recorded Time 10/28/19 DAK - Cryo AK completed [facility] 10/28/2024 11:33:12 04/22/20 24 DAK - Cryo AK completed [facility] 04/22/2024 11:24:29 04/22/20 24 Blade Biopsy w/ ED&C completed [facility] 04/22/2024 11:34:20 04/22/20 24 Destruction BN Lesions [facility] 04/22/2024 11:29:43 10/23/19 24 Destruction BN Lesions completed Lisa Gale [facility] 10/23/2023 12:02:49 total knee replacement completed [facility] 10/23/2023 11:52:58 hernia repair completed [facility] 10/23/2023 11:53:06 Appendectomy completed [facility] 10/23/2023 11:53:20 resection of polyp completed [facility] 10/23/2023 11:53:29 section completed [facility] 10/23/2023 11:53:44 cataract surgery completed [facility] 10/23/2023 11:53:57 Imaging Results None recorded. Procedure Notes None recorded. Medical Equipment None Reported. Allergies Allergen ID Allergen Name Allergen Category Reaction Reaction Severity Criticality Documentation Date Start Date Code Code System Note Provider Name and Address Organization Details Recorded Time 562670 Biaxin medicatio n Not available Not available Not available 07/25/2016201572 9 RxNorm Comme nt: Creat ed By: Elizabeth Morales Ayaan erika Date: 2015 9:20: 52 AM; Not Available [facility] 6 11:15:58 443628 adhesive tape environme nt,medica tion Not available Not available Not available 10/23/2023 62084 UNK [facility] 11:56:36 190900 latex environme nt,medica tion Not available Not available Not available 10/23/2023 53335 91 RxNorm [facility] 11:56:40 Medications Name Sig Start Date Stop [...] Tobacco Smoking Status Never Smoker Zachariah Quiñonez [facility] 10/23/2023 11:51:19 What Is Your Level Of Alcohol Consumption? Occasional Information not available 10/23/2023 Sunscreen Use? Yes Informatio n not available 10/23/2023 Tanning Bed Use No Informati on not available 10/23/2023 What Was The Date Of Your Most Recent Tobacco Screening? 10/28/2024 [email or web address] Information not available 10/28/2024 Sex: Female Functional [...] SNOMED-CT Code Diagnosis ICD10 Code Diagnosis Note [id number] DARSHAN NEWBERRY [address] [address] [place] [address] 10/23/2023 11:11:50 10/23/2023 12:22:10 Multiple benign melanocytic nevi 186475345 D22.5 D18.01 L82.1 L81.4 The benign nature of keratoses and lentigines was discussed with the patient.Barreto n protection with SPF 30 broadspect rum sunscreen and protective gear discussed. Look for physical lisy sunscreens with at least SPF 30 containing zinc oxide or titanium dioxide as active ingredient .Recommend monthly self examinatio ns and yearly full skin examinatio n with a dermatolog y provider.R ecommend yearly eye exam.Recom mend OTC Vitamin D supplement .Patient instructed to call if any suspicious lesions are noted. Scar 007732645 L90.5 Z85.828 Scar(s) clear with no evidence recurrence . Continue to monitor for any changes. Raised mahesh orrheic keratosis 1411942939 70732 L82.1 L29.9 Benign.Lalo l tx with LN2 since bothersome . Itching of skin 11136770 0 L29.9 The nature of the diagnosis was discussed. Pt has been using Aveeno lotion.Rx prescribed TAC 0.1% topical cream BID to AA for 14 days then PRN for flares. SE reviewed. LT use discussed. Pt to call if flares/wor sens [id number] DARSHAN NEWBERRY [address] [address] 04/22/2024 11:12:59 04/22/2024 11:53:30 Multiple benign melanocytic nevi 351046639 D22.5 L81.4 D18.01 L82.1 The benign nature of keratoses and lentigines was discussed with the patient.Barreto n protection with SPF 30 broad spectrum sunscreen and protective gear discussed. Look for physical lisy sunscreens with at least SPF 30 containing zinc oxide or titanium dioxide as active ingredient .Recommend monthly self examinatio ns and yearly full skin examinatio n with a dermatolog y provider.R ecommend yearly eye exam.Recom mend OTC Vitamin D supplement .Patient instructed to call if any suspicious lesions are noted. History of malignant neoplasm of skin 205562231 Z85.828 L90.5 The scar is clear with no evidence of recurrence .Cont to monitor for any changes. Actinic keratosis L57.0 The nature of the diagnosis was explained. Pre-cancer ous.Will treat with LN2.F/u if treated lesions persist. Inflamed s eborrheic keratosis 645521709 L82.0 R58 Benign appearing lesions.Si nce bothersome and this lesion has bled previously , will treat with LN2.Lesion s treated today may persist.F/ u if treated lesions persist. Milia 760532933 L72.0 R52 The nature of the diagnosis was discussed. Benign clogged poreWill extract lesion since this lesion is painful per pt.F/u if treated lesion persist. Neoplasm o f uncertain behavior of skin 35439519 D48.5 The etiology of lesion(s) discussed. Biopsy recommende d. ED&C performed. Will call pt with results or post to portal if benign. [id number] DARSHAN NEWBERRY [address] [address] 10/28/2024 10:34:27 10/28/2024 11:48:38 Multiple benign melanocytic nevi 296811959 D22.5 L81.4 D18.01 L82.1 The benign nature [...] noted. History of malignant neoplasm of skin 486751000 Z85.828 L90.5 The scar is clear with no evidence of recurrence .Cont to monitor for any changes. Actinic keratosis L57.0 The nature of the diagnosis was explained. Pre-cancer ous.Will treat with LN2.F/u if treated lesions persist. Notalgia paresthetica 27 9744482 G54.8 The nature of the diagnosis was discussed. Due to a pinching of a nerve. Health Concerns Section Related Observation LastModified by Organization Detai ls LastModified Time None Recorded Concern Status LastModified by Organization Details LastModified Time None Recorded Advance Directives Directive None Recorded Payers Encounter Date Sequence Insurance Name Policy Number Policy Aparicio Covered Member ID Aparicio Member ID Guarantor Name 10/23/2023 1 [place] Bing Kang Lee [id number] Bing D Lee 10/23/2023 2 [employer] OPTIONS (MEDICARE SUPPLEMENT) Bing D Lee [id number] Bing D Lee 04/22/2024 1 [place] Bing D Lee [id number] Bing D Lee 04/22/2024 2 [employer] OPTIONS (MEDICARE SUPPLEMENT) Bing D Lee [id number] Bing D Lee 10/28/2024 1 [place] Bing D Lee [id number] Bing D Lee 10/28/2024 2 [employer] OPTIONS (MEDICARE SUPPLEMENT) Bing D Lee [id number] Bing Howard Notes Date Note Type Note Provider Name and Address Organization Details Recorded Time 10/23/2023 text/html 1. FBSE6 monthshx NMSC ( multiple sites)reports: areas of nehvhgy6J have a few spotslocation: backreports: they just feel different3. MY neck is itchylocation: anterior necktx: benadryl creamreports: itchy DARSHAN NEWBERRY [address] [place], [address], [facility] 10/24/2023 09:49:07 04/22/2024 text/html FBSE6 monthshx NMSC ( multiple sites)reports: spot on mid back, R axilla DARSHAN NEWBERRY [address] [place], [address], [facility] 04/22/2024 12:04:27 10/28/2024 text/html FBSE6 monthshx NMSC (multiple sites)reports: Id like my back checked, and a place under my L arm. DARSHAN NEWBERRY [address] [place], [address], [facility] 10/28/2024 12:43:57 OBGyn Episode No OBEpisode recorded.
== END 2024-12-09 23:59 | disposition home or self-care (01) ==
LOC: RAD 13:58
PROVIDERS: PCP Family Medicine; Visit Provider Physician Assistant
DX: J40 Bronchitis, not specified as acute or chronic (principal)
CPT/HCPCS: 71046; 87070; 87205

== ENCOUNTER 2025-02-14 12:58 | Outpatient (CLI) | payer MEDICARE, SELFPAY ==
--- OUTSIDE RECORDS SUMMARY | 2024-12-09 09:15 | XMS_ITS ---
Author Organization [facility] Address [address] [facility] [address] [facility] [address] [place] [id number] Care Team Providers Care Master Control Technician Name Role Phone Nemo Echevarria Primary Care Provider Rosa Underwood [phone] Allergies Allergen (clinical drug ingredient) Drug/Non Drug [...] MG as directed orally o nce a day for 30 day(s) 12/28/2021 Active Levothyroxine Sodium 50 MCG 1 tablet in the morning on an empty stomach Orally Once a day for 30 day(s) 09/14/2024 Active Calcium 600 + [...] Medrol 4 MG as directed orally d aily for 6 days 12/09/2024 Active Albuterol Sulfate HFA 108 (90 Base) MCG/ACT 1 puff as needed Inhalation every 4 hrs, prn 12/09/2024 Active Spironolactone 25 MG 1 tab(s) Orally Onc e a day for 90 days Active Rosuvastatin Calcium 5 MG 1 tab(s) orall y every other day for 90 days Active Albuterol Sulfate HFA 108 (90 Base) MCG/ACT 1-2 puffs Inhalation every 4 hrs, prn 11/21/2023 Active Promethazine-DM 6.25-15 MG/5ML 5 ml as needed Orally every 6 hrs prn 11/29/2024 Active Esomeprazole Magnesium 40 MG 1 cap(s) Orally Once a day for 90 days Active Bisoprolol Fumarate 5 MG 1/2 tab(s) oral ly once a day for 90 days Active Citalopram Hydrobromide 10 MG 1 tablet Orally Once a day for 90 days Active Xarelto 20 MG 1 tab(s) orally once a day for 90 days Active Vital Signs Blood pressure systolic 100 mm Hg 12/10/19 25 Blood pressure diastolic 64 mm Hg 025 Heart Rate 67 /min 12/09/2024 Height 64 in 12/09/2024 Weight 145.6 lbs 12/09/2024 BMI 24.99 kg/m2 12/09/2024 Encounters Encounter Location Date Provider Diagnosis [facility] [address], [place] [id number] 12/09/2024 Rosa Underwood Bronchitis J40 and B MN 24.0-24.9, adult Z68.24 Assessments Encounter Date Diagnosis (ICD Code) Assessment Notes Treatment Notes Treatment Clinical Notes Section Notes 12/09/2024 Bronchitis (ICD-10 - J40) 12/09/2024 BMI 24.0-24.9, adult (ICD-10 - Z68.24) Plan Of Treatment Medication Medication Name Sig Start Date Stop Date Notes Benzonatate 200 MG 1 capsule Orally Thr ee times a day 12/09/2024 Medrol 4 MG as directed orally d aily for 6 days 12/09/2024 Albuterol Sulfate HFA 108 (9 0 Base) MCG/ACT 1 puff as needed Inhalation every 4 hrs, prn 12/09/2024 Next Appt Details Follow Up: via phone to repo rt test results, Reason: Provider Name:Nemo Knight er, 05/30/2025 11:45:00 AM, [address], [address], [place], [id number], Progress Notes * RUY BLANCO DDOB:1945 (79 yo F)Acc No.[id number]:12/09/2024 Progress Notes Patient: RUY CHAVEZ Provider: DARSHAN Helm :1945 A ge:79 Y S ex:Female Date:12/09/2024 Address:[address] [place] [address] , [place] [facility] Pcp:Nemo Echevarria Subjective: * Chief Complaints: * [...] D oes not appear to feel well. Ears: a uditory canals normal bilaterally, TM's WNL. Nose : n ormal, no lesions, nares patent. Sinuses : non tender bilaterally. Oral cavity : erythema without exudate on pharynx. Neck : supple, no cervical lymphadenopathy. Heart : RRR. Lungs: expiratory wheezes, no rales. ? Assessment: * Assessment: 1. B ronchitis - J40 (Primary) 2 . B MN 24.0-24.9, adult - Z68.24 ? Plan: * [...] 146 100 - 400 * Maryanne Knott Serenity 12/09/2024 2:1 6:15 PM > Provider reviewed results while patient in office. ?Imaging: CXR (Performed Date - 12/09/2024)?Normal* JackKeturah 12/13/2024 04: 43:29 PM > pt has appt on 12/14. See TE * Procedure Codes: G 2211 Complex e/[place] [address] [place], [address] CAPILLARY BLOOD DRAW, 474[address] CBC WITH AUTO DIFF, 3074F SYST BP LT 130 MM HG, 3078F DIAST BP < 80 MM HG * Follow Up: v ia phone to report test results * Billing Information: * Visit Code: 33705 Office Visit, Est Pt., Level 3. * Procedure Codes: G2211 Complex e/[place] [address] [place] [address] CAPILLARY BLOOD DRAW. 85289 CBC WITH AUTO DIFF. 3074F SYST BP LT 130 MM HG. 3078F DIAST BP < 80 MM HG. * Electronic signature of DARSHAN Flores on 02/14/2025 at 01:02 PM EDT Sign off status: Pending * Provider: DARSHAN Helm Date: 0 12/09/2024 Generated for Lorenza chen/Octaviano/eTchinitting on: 0 02/14/2025 01:02 PM EDT History and Physical Notes * HPI (History [...]
--- OUTSIDE RECORDS SUMMARY | 2024-12-14 07:30 | XMS_ITS ---
Author Organization [facility] Address [address] [facility] [address] [facility] [address] [place] [phone] Care Team Providers Care Residential Interior Designer Name Role Phone Nemo Echevarria Primary Care Provider Mckenzie Singh [phone] Allergies Allergen (clinical drug ingredient) Drug/Non Drug Allergy documented on EMR Reaction Allergy Type Onset Date Status clarithromycin Clarithromycin stomach upset Drug Allergy Active REASON FOR VISIT fu from [facility] Medications Medication SIG (Take, Route, Frequency, Duration) Notes Start Date End Date Status Spironolactone 25 MG 1 tab(s) Orally Onc e a day for 90 days Active Esomeprazole Magnesium 40 MG 1 cap(s) Orally Once a day for 90 days Active Albuterol Sulfate HFA 108 (90 Base) MCG/ACT 1-2 puffs Inhalation every 4 hrs, prn 11/21/2023 Active Promethazine-DM 6.25-15 MG/5ML 5 ml as needed Orally every 6 hrs prn 11/29/2024 Active Rosuvastatin Calcium 5 MG 1 tab(s) orall y every other day for 90 days Active Citalopram Hydrobromide 10 MG 1 tablet Orally Once a day for 90 days Active Bisoprolol Fumarate 5 MG 1/2 tab(s) oral ly once a day for 90 days Active Xarelto 20 MG 1 tab(s) orally once a day for 90 days Active Prolia 60 MG/ML as directed Subcutaneous Active Levothyroxine Sodium 50 MCG 1 tablet in the morning on an empty stomach Orally Once a day for 30 day(s) 09/14/2024 Active B-12 2500 MCG 1 tab(s) sublinguall y once a day Active Centrum Silver - 1 tab(s) orally once a day Active MiraLax DIRECTED Active Calcium 600 + Minerals 600-200 MG-UNIT 1 tab(s) orally 3 times a day Active CoQ10 200 MG as directed orally o nce a day for 30 day(s) 12/28/2021 Active Medrol 4 MG as directed orally d aily for 6 days Active Benzonatate 200 MG 1 [...] 12/14/2024 Encounters Encounter Location Date Provider Diagnosis [facility] [facility] [address] [facility] [address], [place] [phone] 12/14/2024 Mckenzie Singh Bronchitis J40 ; Hyperlipidemia, [...] directed orally d aily for 6 days Benzonatate 200 MG 1 capsule [...] Next Appt Details Follow Up: prn, Reason: Provider Name:Nemo Knight er, 05/30/2025 11:45:00 AM, [address] [facility] [address], [place], [place], [phone], Progress Notes * RUY BLANCO DDOB:1945 (79 yo F)Acc No.[id number]:12/14/2024 Patient: Richi RUY AN Provider: JITENDRA Cardoza :1945 A ge:79 Y S ex:Female Date:12/14/2024 Address:[address] [place] [address] , [place], [place] Pcp:Nemo Echevarria Subjective: * Chief Complaints: * 1 . fu from [facility]. * HPI: E NT/respiratory: 79 year old [...] Appearance: well nourished and hydrated, NAD, alert. Eyes: sclera and conjunctiva clear. Heart : RRR. Lungs: CTAB A&P. r are cough while in the office. Assessment: * Assessment: 1. B ronchitis - J40 (Primary) 2 . H yperlipidemia, unspecified hyperlipidemia type - E78.5 3 . A nxiety - F41.9 4 . A cquired hypothyroidism - E03.9 5 . B [place] 24.0-24.9, adult - Z68.24 Plan: * Treatment: * Procedure Codes: G 2211 Complex e/m visit add on, 3074F SYST BP LT 130 MM HG, 3078F DIAST BP < 80 MM HG * Follow Up: p rn * Billing Information: * Visit Code: 56108 Office Visit, Est Pt., Level 3. * Procedure Codes: G2211 Complex e/m visit add on. 3074F SYST BP LT 130 MM HG. 3078F DIAST BP < 80 MM HG. * Electronic signature of Madonna Singh APRN on 02/14/2025 at 01:02 PM EDT Sign off status: Pending * Provider: JITENDRA Cardoza Date: 0 12/14/2024 Generated for Lorenza chen/Octaviano/Hieu on: 0 02/14/2025 01:02 PM EDT History and Physical Notes * HPI (History of Present Illness) Category Sub-Category Detail Notes Category Not es ENT/respiratory cough [facility]. Pt [...]
--- OUTSIDE RECORDS SUMMARY | 2025-01-27 10:45 | XMS_ITS ---
Author Organization [facility] Address [address] [facility] 36 [facility] [address] [place] [phone] Care Team Providers Care Ibm Mainframe Systems Programmer Name Role Phone Nemo Echevarria Primary Care Provider [phone] Allergies Allergen (clinical drug ingredient) Drug/Non Drug Allergy documented on EMR Reaction Allergy Type Onset Date Status clarithromycin Clarithromycin stomach upset Drug Allergy Active Results Component Value Reference Range Notes P-Comprehensive Metabolic Pa laura (CMP) (Not yet reviewed by provider) Interpretation:satisfactory Performing Lab: Notes/Report: Test performed by [facility], [facility] [address] [place] [address] , [address], [place] [address] Manny Fountain MD, Glassware Maker Demonstrator CLIA: [id number] Sodium 139 135-145 mmol/L Potassium 4.4 3.5-5.3 [...] <0.2-1.2 mg/dL A/G Ratio 2.5 1.1-2.5 P-TSH (Not yet reviewed by jane gutierrez) Interpretation: Normal Performing Lab: Notes/Report: Test performed by [facility] [address] [place] [address] , [address], [place] [address] Manny Fountain MD, Glassware Maker Demonstrator CLIA: [id number] TSH 4.41 0.43-5.25 mU/L REASON FOR VISIT 4 months, Needs labs Medications Medication SIG (Take, Route, Frequency, Duration) Notes Start Date End Date Status Citalopram Hydrobromide 10 MG 1 tablet Orally Once a day for 90 days Active Esomeprazole Magnesium 40 MG 1 cap(s) Orally Once a day for 90 days Active Spironolactone 25 MG 1 tab(s) Orally Onc e a day for 90 days Active Bisoprolol Fumarate 5 MG 1/2 tab(s) oral ly once a day for 90 days Active Prolia 60 MG/ML as directed Subcutaneous Active Xarelto 20 MG 1 tab(s) orally once a day for 90 days Active Calcium 600 + Minerals 600-200 MG-UNIT 1 tab(s) orally 3 times a day Active MiraLax DIRECTED Active CoQ10 200 MG as directed orally o nce a day for 30 day(s) 12/28/2021 Active B-12 2500 MCG 1 tab(s) sublinguall y once a day Active Rosuvastatin Calcium 5 MG TAKE 1 TABLET BY MOUTH EVERY OTHER DAY for 90 Active Centrum Silver - 1 tab(s) orally once a day Active Levothyroxine Sodium 50 MCG TAKE 1 TABLE T BY MOUTH IN THE MORNING ON AN EMPTY STOMACH for 30 days Active Albuterol Sulfate HFA 108 (90 Base) MCG/ACT 1-2 puffs Inhalation every 4 hrs, prn 11/21/2023 Active Vital Signs Blood pressure systolic 110 mm Hg 01/28/20 25 Blood pressure diastolic 70 mm Hg 025 Heart Rate 61 /min 01/27/2025 Height 64 in 01/27/2025 Weight 148.6 lbs 01/27/2025 BMI 25.5 kg/m2 01/27/2025 Encounters Encounter Location Date Provider Diagnosis [facility] 36 [facility] [address] [place] [id number] 01/27/2025 Nemo Echevarria Acquired hypothyroid ism E03.9 ; GERD without esophagitis K21.9 ; Chronic deep vein thrombosis (DVT) of popliteal vein of left lower extremity I82.532 ; History of pulmonary embolism Z86.711 ; 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 ; [...] of pulmonary embolism (ICD-10 - Z86.711) 01/27/2025 bed bug exterminator current use of anticoagulant (ICD-10 - Z79.01) 01/27/2025 Hx of breast cancer (ICD-10 - Z85.3) 01/27/2025 Osteoporosis (ICD-10 - M81.0) 01/27/2025 BMI 25.0-25.9,adult (ICD-10 - Z68.25) Plan Of Treatment Medication Medication Name Sig Start Date Stop Date Notes Esomeprazole Magnesium 40 MG 1 cap(s) Or ally Once a day for 90 days Levothyroxine Sodium 50 MCG TAKE 1 TABLE T BY MOUTH IN THE MORNING ON AN EMPTY STOMACH for 30 days Pending Test Test Name Order Date P-Comprehensive Metabolic Panel (CMP) P-TSH 01/27/2025 Next Appt Details Follow Up: 4 Months, Reason: Provider Name:Nemo Knight er, 05/30/2025 11:45:00 AM, [address], [address], [place], [id number], Progress Notes * RUY BLANCO DDOB:1945 (79 yo F)Acc No.[id number]:01/27/2025 Progress Notes Patient: Richi RUY AN Provider: Nemo Echevarria M.D. :1945 A ge:79 Y S ex:Female Date:01/27/2025 Address:[facility] [place] [address] [id number] Subjective: * Chief Complaints: * 1 . [...] 08/07/2020. * Hospitalization/Major Diagno stic Procedure: h rakeldaleslie , chest pain 01/05/2021. * Family History: [...] General Appearance: N AD, note weight loss. HEENT: u nremarkable. Oral cavity: n o lesions, mucosa moist and WNL, no erythema. Neck: s upple, no lymphadenopathy. Chest: n ormal shape and expansion. Heart: R SR, S4 present, no ectopics. Lungs: c lear to auscultation, wheeze right clears. Abdomen: soft and nontender. Neurologic Exam: I ntact, gait normal, subtle if any cogwheeling. Bilateral tremors of the hands. Skin: n ormal, no rash. Peripheral pulses: n ormal . Back: n ormal. Extremities: n o leg edema. [...] O steoporosis - M81.0 8 . B OR 25.0-25.9,adult - Z68.25 Plan: * Treatment: Value [...] GFR by Creatinine 61 >59 - mL/min/1.73m2 ?LAB: P-TSH (Collection Date & Time - 01/27/2025 03:14 PM)?Normal* Value Reference Range T SH 4.41 0.43-5.25 - mU/L 2.?GERD without esophagitis? Refill Esomeprazole Magnesium Capsule [...] HG * Follow Up: 4 Months * Billing Information: * Visit Code: 53604 Office Visit, Est Pt., Level 4. * Procedure Codes: G2211 Complex e/[place] on. 1036F TOBACCO NON-USER. G8420 BMI<30 AND >=22 CALC & DOCU. G8783 BP SCR PRFRM RCMDD DEFIND SCR INTVL. G8752 MOST RECENT SYSTOLIC BP < 140MM HG. G8754 MOST RECENT DIASTOLIC BP < 90MM HG. * Electronic signature of Nemo Echevarria MD on 02/14/2025 at 01:02 PM EDT Sign off status: Pending * Provider: Nemo Echevarria M.D. Date: 0 01/27/2025 Generated for Lorenza chen/Octaviano/Nirmalitting on: 0 02/14/2025 01:02 PM EDT History [...]
--- OUTSIDE RECORDS SUMMARY | 2025-01-28 09:30 | XMS_ITS ---
Author Organization [facility] Address [address] [place] [address] Care Team Providers Care Curtain Stretcher Assembler Name Role Phone Miriam Akhtar Unavailable [phone] Allergies Allergen (clinical drug ingredient) Drug/Non Drug Allergy documented on EMR Reaction Allergy Type Onset Date Status Latex latex (uncoded) blister Allergy Acti ve clarithromycin Clarithromycin nausea and vomiting Drug Allergy Active Results Component Value Reference Range Notes Nereyda/Bacterial Vaginosis, BENNETT (Aptima) Reviewed date:01/31/2025 01:04:10 PM Interpretation:Negative Performing Lab:Ang MEYERS [facility] - RANDAL CLIA ID [id number], [address] [place] [address], [address], [place] [address], Director - Cliff Gracia MD Notes/Report: Bacterial Vaginosis Negative Negative The Aptima BV assay is a real time NAAT TMA assay developed for use on the automated Ponce system that detects and discriminates RNA markers from the Lactobacillus species group (L. gasseri, L. crispatus and L. jensenii), Gardnerella vaginalis, and Atopobium vaginae. The Aptima BV assay uses an algorithm for bacterial vaginosis based on detection of target organisms. Nereyda species Negative Negative The CV Assay is a real time TMA assay developed for use on the automated Ponce system that detects following Nereyda species organisms (C. albicans, C. tropicalis, C. parapsilosis, C. dubliniensis), but the assay does not differentiate among C spp. Nereyda glabrata Negative Negative REASON FOR VISIT vaginal odor Medications Medication SIG (Take, Route, Frequency, Duration) Notes Start Date End Date Status Xarelto Active Vitamin D Active Clotrimazole-Betamethasone 1-0.05 % Cream 1 application Externally Twice a day; Duration: 14 days 01/28/2025 Active Vitamin B12 Active Osteo Bi-Flex Adv Double St Active MiraLax Active Levothyroxine Sodium 500 MCG/5ML Solution 1 ml Intravenous Once a day Active Konsyl Active Spironolactone Activ e Crestor 40 MG Tablet 1 tablet Orally Onc e a day Active Centrum Silver Activ e Esomeprazole Magnesium Active Caltrate 600+D Plus Active Bisoprolol Fumarate Active CeleXA Active AZO Bladder Control/Go-Less Active Probiotic Active Social History Tobacco Use: Social History Observation Description Date Details (start date - stop date) Never Smoker NA - NA Sex Assigned At : Social History Observation Description Sex Assigned At Female Social History Drugs/Alcohol: Social Info Question Answer Notes Drugs Have you used drugs other than those for medical reasons in the past 12 months? No Alcohol Screen Did you have a drink containing alcohol in the past year? No Points 0 Interpretation Negative Tobacco Use: Social Info Question Answer Notes Tobacco Use/Smoking Are you a nonsmoker Vital Signs Blood pressure systolic 130 mm Hg 01/29/20 25 Blood pressure diastolic 78 mm Hg 025 Height 63 in 01/28/2025 Weight 148.8 lbs 01/28/2025 BMI 26.36 kg/m2 01/28/2025 Encounters Encounter Location Date Provider Diagnosis [facility] [address] [place] [id number] 01/28/2025 Miriam Akhtar Vaginal odor N94.9 and Acute vulvitis N76.2 Assessments Encounter Date Diagnosis (ICD Code) Assessment Notes Treatment Notes Treatment Clinical Notes Section Notes 01/28/2025 Vaginal odor (ICD-10 - N94.9) 01/28/2025 Acute vulvitis (ICD-10 - N76.2) Plan Of Treatment Medication Medication Name Sig Start Date Stop Date Notes Clotrimazole-Betamethasone 1-0.05 % Cream 1 application Externally Twice a day; Duration: 14 days 01/28/2025 Next Appt Details Follow Up: 1 Year,prn, Reaso n: Annual Provider Name:Miriam Akhtar, 01/30/2026 01:45:00 PM, [address] [facility] [address], [place], [address], History and Physical Notes * HPI (History of Present Illness) Category Sub-Category Detail Notes Category Not es General Health Maintenance Returns with complai nts of vaginal odor. She also complains of vulvar pruritus and irritation. She states she had antibiotics this spring for bronchitis. Examination Category Sub-Category Detail Notes Category Not es Gynecological VAGINA: atrophic, no les ions, minimal white discharge with swab obtained for BV and fungal check EXTERNAL GENITALIA: Bilateral labial mechelle thema, no lesions URETHRAL MEATUS: normal in appearance Collator Hand Collator Hand Status Collator Hand prese nt during physical exam. Name: Nemo Bro Title: MUCKER COFFERDAM Progress Notes * Bing BLANCO DDOB:1945 (79 yo F)Acc No.[id number]:01/28/2025 Progress Note Patient: Bing CHAVEZ Provider: Nancy Akhtar MD :1945 A ge:79 Y S ex:Female Date:01/28/2025 Address:[address] [place], [place] [address] Subjective: * Chief Complaints: * 1 . Vaginal odor. * HPI: G eneral Health Maintenance: Returns with complaints of vaginal odor. She also complains of vulvar pruritus and irritation. She states she had antibiotics this spring for bronchitis. 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 N o R lauro for No Menses: P erimenopausal/Menopausal * OB History: P regnancy History (GPA) Total Pregnancies 2 Vaginal Deliveries 2 G P : 2 Para: 2 * Surgical History: * Hospitalization/Major Diagno stic Procedure: * Family History: S on(s): lung cancerbasal cell cancer. M other: diagnosed with Colon cancer. F ather: diagnosed with Colon cancer. aunt-breast cancer niece, breast cancer- pos gene testing. * Social History: T obacco Use: T obacco Use/Smoking A re you a n onsmoker D rugs/Alcohol: D rugs H ave you used drugs other than those for medical reasons in the past 12 months? N o Alcohol Screen D id you have a drink containing alcohol in the past year? N o P oints 0 I nterpretation N egative * Medications: T aking AZO Bladder Control/Go-Less , Taking Bisoprolol Fumarate , Taking Caltrate 600+D Plus , Taking CeleXA , Taking Centrum Silver , Taking Crestor(Rosuvastatin Calcium) 40 MG Tablet 1 tablet Orally Once a day , Taking Esomeprazole Magnesium , Taking Konsyl , Taking Levothyroxine Sodium 500 MCG/5ML Solution 1 ml Intravenous Once a day , Taking MiraLax , Taking Osteo Bi-Flex Adv Double St , Taking Probiotic , Taking Spironolactone , Taking Vitamin B12 , Taking Vitamin D , Taking Xarelto , Discontinued Trelegy Ellipta(Ciiugyhdekz-Vztbvkxjh-Vyrdmw) 100-62.5-25 MCG/ACT Aerosol Powder Breath Activated 1 puff Inhalation Once a day , Medication List reviewed and reconciled with the patient * Allergies: C larithromycin: nausea and vomiting, latex: blister - Allergy. Objective: * Vitals: B P:130/78mm Hg, Ht: 63 in, Wt: 148.8 lbs, BMI:26.36Index. * Examination: G ynecological: EXTERNAL GENITALIA: B ilateral labial erythema, no lesions.? URETHRAL MEATUS: n ormal in appearance. VAGINA: a trophic, no lesions, minimal white discharge with swab obtained for BV and fungal check. C haperone: Collator Hand Status C haperone present during physical exam. Name: Nemo Crabtree Title: DAHLIA. Assessment: * Assessment: 1. V aginal odor - N94.9 (Primary) 2 . A cute vulvitis - N76.2 ? Plan: * Treatment: 2. O thers Start Clotrimazole-Betamethasone Cream, 1-0.05 %, 1 application, Externally, Twice a day, 14 days, 45, Refills 1. * Follow Up: 1 Year,prn (Reason: Annual) * Billing Information: * Visit Code: 18551 Office/Outpatient visit, est patient. * Procedure Codes: * Sign off status: Completed Visit Status: C HK (Check Out) true * Provider: Nancy Akhtar MD Date: 0 01/28/2025 Generated for Lorenza chen/Octaviano/Monsesmitting on: 0 02/14/2025 01:02 PM EDT
--- OUTSIDE RECORDS SUMMARY | 2025-02-14 13:03 | XMS_ITS | Data Portability ---
Author Organization [facility] Gabo gregory [facility] Address [address] [place] [address] Care Team Providers Care Client Coordinator Name Role Phone FLORA HAAS Book Publisher Assessment No assessment recorded. Plan of Treatment Reminders Order Date Submit Date Provider Last Modified By Organization Details Last Modified Time Details Appointments FOLLOW UP [facility] 2024 10:30A M PATRICK HAAS PA-C Not available Not available Not available Lab surgical pathology study 2023 024 [facility], [address] [place] [address], [phone], 04/23/2024 15:52:40 Referral None recorded. Procedures None recorded. Surgeries None recorded. Imaging None recorded. Medication Orders triamcino lone acetonide 0.1 % topical cream 2023 024 [id number], [address] [facility] [address] [place], [place], [id number], 10/23/2023 12:35:25 Patient TargetsNo targets recorded. Patient InstructionsNo instructions recorded. Reason for Referral None Reported. Results Created Date Observation Date Name Description Value Unit Range Abnormal Flag Note LastModifiedBy Organization Detail LastModifiedTime Result Notes None recorded. Problems Name Problem SNOMED Code Status Onset Date Resolution Date Notes Provider Name and Address Organization Details Recorded Time Abdominal pain 11235521 Active 2015 From Automated Load;Provi kimi: Abena Teresa;Sta tus: Active Not Available [facility] 6 04:20:48 Gastrointe stinal tract finding Active 2015 From Automated Load;Provi kimi: Abena Teresa;Sta tus: Active Not Available [facility] 6 04:20:48 Constipati on 57594478 Active 2015 From Automated Load;Provi kimi: Abena Teresa;Sta tus: Active Not Available [facility] 6 04:20:48 Dyspareuni a 70204250 Active 2015 From Automated Load;Provi kimi: Abena Teresa;Sta tus: Active Not Available [facility] 6 04:20:48 Problem Notes None recorded. Procedures Surgical History Date Name Laterality Status Provider Name and Address Organization Details Recorded Time 10/28/19 DAK - Cryo [place] [facility] 10/28/2024 11:33:12 04/22/20 24 DAK - Cryo AK completed [facility] 04/22/2024 11:24:29 04/22/20 24 Blade Biopsy w/ ED&C [place] [facility] 04/22/2024 11:34:20 04/22/20 24 Destruction BN [facility] 04/22/2024 11:29:43 10/23/19 24 Destruction BN Lesions completed Lisa Gale [facility] 10/23/2023 12:02:49 total knee replacement completed [facility] 10/23/2023 11:52:58 hernia repair completed [facility] 10/23/2023 11:53:06 Appendectomy completed [facility] 10/23/2023 11:53:20 resection of polyp completed [facility] 10/23/2023 11:53:29 section completed [facility] 10/23/2023 11:53:44 cataract surgery completed [facility] 10/23/2023 11:53:57 Imaging Results None recorded. Procedure Notes None recorded. Medical Equipment None Reported. Allergies Allergen ID Allergen Name Allergen Category Reaction Reaction Severity Criticality Documentation Date Start Date Code Code System Note Provider Name and Address Organization Details Recorded Time 815157 Biaxin medicatio n Not available Not available Not available 07/25/2016201572 9 RxNorm Comme nt: Creat ed By: Elizabeth Morales Ayaan erika Date: 2015 9:20: 52 AM; Not Available [facility] 6 11:15:58 663651 adhesive tape environme nt,medica tion Not available Not available Not available 10/23/2023 42458 UNK [facility] 11:56:36 210610 latex environme nt,medica tion Not available Not available Not available 10/23/2023 18788 91 RxNorm [facility] 11:56:40 Medications Name Sig Start Date [...] Status Never Smoker Zachariah Quiñonez [facility] 10/23/2023 11:51:19 Sunscreen Use? Yes Informatio n not available 10/23/2023 Tanning Bed Use No Informati on not available 10/23/2023 What Was The Date Of Your Most Recent Tobacco Screening? 10/28/2024 [email or web address] Information not available 10/28/2024 Sex: Female Functional Status Question Answer Note LastModified by Organizat ion Details LastModified Time What is your level of alcohol consumption? Occasional Information not available 10/23/2023 Mental Status None recorded. Family History Relationship [...] SNOMED-CT Code Diagnosis ICD10 Code Diagnosis Note [id number] [place] [place] [address] [place] [address] 10/23/2023 11:11:50 10/23/2023 12:22:10 Multiple benign melanocytic nevi 889745653 D22.5 D18.01 L82.1 L81.4 The benign nature [...] if any suspicious lesions are noted. Scar 628922358 L90.5 Z85.828 Scar(s) clear with no evidence recurrence . Continue to monitor for any changes. Raised mahesh orrheic keratosis [id number] 35123 L82.1 L29.9 Benign.Lalo l tx with LN2 since bothersome . Itching of skin 77277666 0 L29.9 The nature of the diagnosis was discussed. Pt has been using Aveeno lotion.Rx prescribed TAC 0.1% topical cream BID to AA for 14 days then PRN for flares. SE reviewed. LT use discussed. Pt to call if flares/wor sens [id number] DARSHAN [place] [address] [address] 04/22/2024 11:12:59 04/22/2024 11:53:30 Multiple benign melanocytic nevi 381933173 D22.5 L81.4 D18.01 L82.1 The benign nature [...] noted. History of malignant neoplasm of skin 318315024 Z85.828 L90.5 The scar is clear with no evidence of recurrence .Cont to monitor for any changes. Actinic keratosis 007 L57.0 The nature of the diagnosis was explained. Pre-cancer ous.Will treat with LN2.F/u if treated lesions persist. Inflamed s eborrheic keratosis 584916441 L82.0 R58 Benign appearing lesions.Si nce bothersome and this lesion has bled previously , will treat with LN2.Lesion s treated today may persist.F/ u if treated lesions persist. Milia 959216966 L72.0 R52 The nature of the diagnosis was discussed. Benign clogged poreWill extract lesion since this lesion is painful per pt.F/u if treated lesion persist. Neoplasm o f uncertain behavior of skin 17316586 D48.5 The etiology of lesion(s) discussed. Biopsy recommende d. ED&C performed. Will call pt with results or post to portal if benign. [id number] DARSHAN NEWBERRY [address] [address] 10/28/2024 10:34:27 10/28/2024 11:48:38 Multiple benign melanocytic nevi 593349549 D22.5 L81.4 D18.01 L82.1 The benign nature [...] noted. History of malignant neoplasm of skin 779622412 Z85.828 L90.5 The scar is clear with no evidence of recurrence .Cont to monitor for any changes. Actinic keratosis L57.0 The nature of the diagnosis was explained. Pre-cancer ous.Will treat with LN2.F/u if treated lesions persist. 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 Due to a pinching of a nerve. Health Concerns Section Related Observation LastModified by Organization Detai ls LastModified Time None Recorded Concern Status LastModified by Organization Details LastModified Time None Recorded Advance Directives Directive None Recorded Payers Insurance Date Sequence Insurance Name Policy Number Policy Aparicio Covered Member ID Aparicio Member ID Guarantor Name 11/01/2024 2 [employer] (MEDICARE SUPPLEMENT) Bing Howard [id number] Bing Howard 10/28/2024 1 [place] Bing Kang Lee [id number] Bing Howard Notes Date Note Type Note Provider Name and Address Organization Details Recorded Time 10/23/2023 text/html 1. FBSE6 monthshx NMSC ( multiple sites)reports: areas of bkqiiop1S have a few spotslocation: backreports: they just feel different3. MY neck is itchylocation: anterior necktx: benadryl creamreports: itchy DARSHAN NEWBERRY [address] [place], [address], [facility] 10/24/2023 09:49:07 04/22/2024 text/html FBSE6 monthshx NMSC ( multiple sites)reports: spot on mid back, R axilla DARSHAN NEWBERRY [address] [place], [address], [facility] 04/22/2024 12:04:27 10/28/2024 text/html FBSE6 monthshx NMSC (multiple sites)reports: Id like my back checked, and a place under my L arm. DARSHAN NEWBERRY [address] [place], [address], [facility] 10/28/2024 12:43:57 OBGyn Episode No OBEpisode recorded.
--- OUTSIDE RECORDS SUMMARY | 2025-02-14 13:03 | XMS_ITS | Patient Health Record ---
Author Organization [facility] Address [address] [facility] [address] [facility] [address] AARON Andrew [id number] Care Team Providers Care [employer] Clerk Name Role Phone Nemo Echevarria Primary Care Provider [phone] Mckenzie Singh Unavailable [phone] Rosa Underwood Unavailable [phone] Allergies Allergen (clinical drug ingredient) Drug/Non Drug Allergy documented on EMR Reaction Allergy Type Onset Date Status clarithromycin Clarithromycin stomach upset Drug Allergy Active Results Component Value Reference Range Notes P-TSH (Not yet reviewed by jane gutierrez) Interpretation: Normal Performing Lab: Notes/Report: Test performed by [facility] [address] [place] [address] , [address], [place] [address] Manny Fountain MD, Furnace Loader CLIA: [id number] TSH 4.41 0.43-5.25 mU/L P-Comprehensive Metabolic Pa laura (CMP) (Not yet reviewed by provider) Interpretation:satisfactory Performing Lab: Notes/Report: Test performed by [facility] [address] [place] [address] , [address], [place] [address] Manny Fountain MD, Furnace Loader CLIA: [id number] Sodium 139 135-145 mmol/L Potassium 4.4 3.5-5.3 [...] 0.7 <0.2-1.2 mg/dL A/G Ratio 2.5 1.1-2.5 Covid test (in house) Reviewed date:11/29/2024 02:51:58 PM Interpretation:neg Performing Lab: Notes/Report: neg Result: neg CBC Fingerstick (in house) Reviewed date:11/29/2024 [...] - 38 plat 104 100 - 400 Influenza Screen (in house) Reviewed date:11/29/2024 02:51:41 PM Interpretation:neg Performing Lab: Notes/Report: neg results neg CXR Reviewed date:12/13/2024 04:44:51 PM Interpretation:Normal Performing Lab: Notes/Report: Normal H-Sputum Culture with Gram Daniel juan Reviewed date:12/13/2024 11:30:27 AM Interpretation:Rare Gram Positive Cocci Performing Lab: Notes/Report: GS Gram Stain: GS <10 White Blood Cells/LPF GS <10 Epithelial Cells / LPF GS Rare Gram Positive Cocci CUSPU Normal Respiratory Cheryle CBC Fingerstick (in house) Reviewed date:12/09/2024 02:54:58 [...] - 38 plat 146 100 - 400 Antinuclear Antibodies (HANNAH) Screen Reviewed date:09/03/2024 03:16:47 PM Interpretation: Normal Performing Lab: Notes/Report: Test performed by [facility] [address] [place] [address] , [address], [place] [address] Manny Fountain MD, Furnace Loader CLIA: [id number] Antinuclear Antibodies (HANNAH) Screen Negative Negative This test is performed by Multiplex Bead Immunoassay methodology. P-Comprehensive Metabolic Pa laura (CMP) Reviewed date:09/03/2024 03:16:47 PM Interpretation:bun 25 Performing Lab: Notes/Report: Test performed by [facility] [address] , [address], [place] [address] Manny Fountain MD, Furnace Loader CLIA: [id number] Sodium 142 135-145 mmol/L Potassium 4.3 3.5-5.3 [...] Normal Performing Lab: Notes/Report: Test performed by [facility] [address] [place] [address] , [address], [place] [address] Manny Fountain MD, Furnace Loader CLIA: [id number] Creatine Kinase 66 20-180 U/L P-Sed Rate (ESR) Reviewed date:09/03/2024 03:16:47 PM Interpretation: Normal Performing Lab: Notes/Report: Test performed by [facility] [address] , [address], [place] [address] Manny Fountain MD, Furnace Loader CLIA: [id number] Erythrocyte Sedimentation Rate (ESR), Automated 14 <31 mm/hr P-TSH Reviewed date:09/03/2024 03:16:47 PM Interpretation:0.11 Performing Lab: Notes/Report: Test performed by [facility] [address] , [address], [place] [address] Manny Fountain MD, Furnace Loader CLIA: [id number] TSH 0.11 0.43-5.25 mU/L P-HANNAH Reviewed date:09/03/2024 03:16:01 PM Interpretation: Performing Lab: Notes/Report: [facility] Hip and Spine Reviewed date:09/17/2024 09:03:24 AM Interpretation:osteopenia of spine and right hip, osteoporosis left hip Performing Lab: Notes/Report: osteopenia of spine and right hip, osteoporosis left hip Dexa results osteopenia of spine and right hip, osteoporosis left hip P-Comprehensive Metabolic Pa laura (CMP) Reviewed date:03/24/2024 09:37:54 AM Interpretation:Normal Performing Lab: Notes/Report: Test performed by [facility] [address] [place] [address] , [address], [place] [address] Manny Fountain MD, Furnace Loader CLIA: [id number] Sodium 140 135-145 mmol/L Potassium 4.4 3.5-5.3 [...] <0.2-1.2 mg/dL A/G Ratio 2.4 1.1-2.5 mg/dL Medications Medication SIG (Take, Route, Frequency, Duration) Notes Start Date End Date Status Citalopram Hydrobromide 10 MG 1 tablet Orally Once a day for 90 days Active Esomeprazole Magnesium 40 MG 1 cap(s) Orally Once a day for 90 days Active Spironolactone 25 MG 1 tab(s) Orally Onc e a day for 90 days Active B-12 2500 MCG 1 tab(s) sublinguall y once a day Active Rosuvastatin Calcium 5 MG TAKE 1 TABLET BY MOUTH EVERY OTHER DAY for 90 Active Prolia 60 MG/ML as directed Subcutaneous Active Xarelto 20 MG 1 tab(s) orally once a day for 90 days Active Bisoprolol Fumarate 5 MG 1/2 tab(s) oral ly once a day for 90 days Active Levothyroxine Sodium 50 MCG TAKE 1 TABLE T BY MOUTH IN THE MORNING ON AN EMPTY STOMACH for 30 days Active Centrum Silver - 1 tab(s) orally once a day Active Albuterol Sulfate HFA 108 (90 Base) MCG/ACT 1-2 puffs Inhalation every 4 hrs, prn 11/21/2023 Active Calcium 600 + Minerals 600-200 MG-UNIT 1 tab(s) orally 3 times a day Active MiraLax DIRECTED Active CoQ10 200 MG as directed orally o nce a day for 30 day(s) 12/28/2021 Active Immunizations Vaccine Route Administration Date Status Comme nts xFluzone High Dose-private (65yr&older) Unknown 06/09/2019 Administered Prevnar (PCV13) IM Intramuscular 04/21/2020 Administered PNEUMOVAX 23 VACCINE IM Intramuscular 06/01/2012 Administe red PNEUMOVAX 23 VACCINE IM Intramuscular 10/19/2021 Administe red Hepatitis A (adult) IM Intramuscular 05/06/2019 Administer ed Fluzone High Dose (65yr and older) IM Intramuscular 06/01/2012 Administered Fluzone High Dose (65yr and older) IM Intramuscular 05/12/2014 Administered Fluzone High Dose (65yr and older) IM Intramuscular 07/06/2015 Administered Fluzone High Dose (65yr and older) Unknown 06/12/2021 Administered Fluzone High Dose (65yr and older) Unknown 05/29/2022 Administered Fluzone High Dose (65yr and older) IM Intramuscular 06/06/2023 Administered DT, 7 YEARS OR OLDER Unknown 11/03/1996 Administered COVID 19 Moderna Unknown 09/06/2020 Administered COVID 19 Moderna Unknown 10/04/2020 Administered COVID 19 Moderna Unknown 07/02/2021 Administered Problems Problem Type SNOMED Code ICD Code Onset Dates Problem Status W/U Status Risk Notes Problem Raynaud's disease (disorder) (706754553) Raynaud's syndrome (443.0) Active confirmed Problem Pain of right shoulder region (finding) (3530110615) Pain in right shoulder (M25.511) Active confirmed Problem 684565924 History of pulmo nary embolism (Z86.711) Active confirmed Problem 202244902 Hypothyroidism (acquired) (E03.9) Active confirmed Problem 16738683 Anxiety (F41.9) Active confirmed Problem 51260278 Dysuria (R30.0) Active confirmed Problem 912563841 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.01) Active confirmed Problem 11364934 Other chronic pa in (G89.29) Active confirmed Problem 3619499 Supraventricular tachycardia (I47.1) Active confirmed Problem 748797611 Encounter for immunization (Z23) Active confirmed Problem 739540029 GERD without esophagitis (K21.9) Active confirmed Problem 796487110 Acquired hypothyroidism (E03.9) Active confirmed Problem Osteoporosis (76737746) Osteoporosis (M81.0) Active confirmed Problem 74105505 Hyperlipidemia, unspecified hyperlipidemia type (E78.5) Active confirmed Problem 900361830 Hx of breast can cer (Z85.3) Active confirmed Problem 900005177 Pure hypercholesterolemia (E78.00) Active confirmed Problem Osteopenia of sondra mbar spine (M85.88) Active confirmed Problem 435934419 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) Active confirmed Problem 775566194 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 confirmed Problem 869256402 Acute saddle pul monary embolism with acute cor pulmonale (I26.02) Active confirmed Problem Osteopenia (disorder) (740138297) Osteopenia of right hip (M85.851) Active confirmed Problem 125112226 Multiple ecchymo ses of both upper arms (R58) Active confirmed Problem 709195253050434 Chronic deep vei n thrombosis (DVT) of popliteal vein of left lower extremity (I82.532) Active confirmed Problem 895197127 Carcinoma of rig ht female breast, unspecified estrogen receptor status, unspecified site of breast (C50.911) Active confirmed Vital Signs Heart Rate 61 /min 01/27/2025 Blood pressure diastolic 70 mm Hg 01/27/2025 Height 64 in 01/27/2025 Blood pressure systolic 110 mm Hg 01/27/2025 Weight 148.6 lbs 01/27/2025 BMI 25.5 kg/m2 01/27/2025 Encounters Encounter Location Date Provider Diagnosis [facility] [address] [id number] 03/22/2024 Nemo Echevarria Hypothyroidism (acqu ired) E03.9 ; History of pulmonary embolism Z86.711 ; [facility] current use of anticoagulant Z79.01 ; Hx of breast cancer Z85.3 and Anxiety F41.9 [facility] [address] [id number] 05/13/2024 Nemo Echevarria History of cardiac dysrhythmia Z86.79 ; History of pulmonary embolism Z86.711 ; [facility] current use of anticoagulant Z79.01 and Anxiety F41.9 [facility] [address] [id number] 09/02/2024 Nemo Echevarria History of pulmonary embolism Z86.711 ; [facility] current use of anticoagulant Z79.01 ; Hx of breast cancer Z85.3 ; Acquired hypothyroidism E03.9 ; Pure hypercholesterolemia E78.00 ; Generalized body aches R52 and Osteopenia, unspecified location M85.80 [facility] [address] [id number] 11/29/2024 Mckenziegraeme Singh URI (upper respiratory infection) J06.9 [facility] [address] [id number] 12/09/2024 Rosa Crowdy Bronchitis J40 and B SC 24.0-24.9, adult Z68.24 [facility] [address] [place], [place] [id number] 12/14/2024 Mckenzie Singh Bronchitis J40 ; Hyperlipidemia, unspecified hyperlipidemia type E78.5 ; Anxiety F41.9 ; Acquired hypothyroidism E03.9 and BMI 24.0-24.9, adult Z68.24 [facility] [address] [place], [place] [id number] 01/27/2025 Nemo Echevarria Acquired hypothyroid ism E03.9 ; GERD without esophagitis K21.9 ; Chronic deep vein thrombosis (DVT) of popliteal vein of left lower extremity I82.532 ; History of pulmonary embolism Z86.711 ; [facility] current use of anticoagulant Z79.01 ; Hx of breast cancer Z85.3 ; Osteoporosis M81.0 and BMI 25.0-25.9,adult Z68.25 [facility] [address] [place], [place] [id number] 09/03/2024 Nemo Echevarria [facility] [address] [place], [place] [id number] 09/16/2024 Nemo Echevarria [facility] [address] [place], [place] [id number] 09/17/2024 Nemo Echevarria [facility] [address] [place], [place] [id number] 10/20/2024 Nemo Echevarria [facility] [address] [place], [place] [id number] 10/22/2024 Nemo Echevarria [facility] [address] [place], [place] [id number] 11/09/2024 Nemo Echevarria [facility] [address] [place], [place] [id number] 11/26/2024 Nemo Echevarria [facility] [address] [place], [place] [id number] 12/13/2024 Rosa Underwood [facility] [address] [place], [place] [id number] 01/28/2025 Nemo Echevarria Assessments Encounter Date Diagnosis (ICD Code) Assessment Notes Treatment Notes Treatment Clinical Notes Section Notes 03/22/2024 History of pulmonary embolism (ICD-10 - Z86.711) 03/22/2024 Hypothyroidism (acquired) (ICD-10 - E03.9) 09/02/2024 History of pulmonary embolism (ICD-10 - Z86.711) continue current therapy 09/02/2024 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 current us e of anticoagulant (ICD-10 - Z79.01) 11/29/2024 URI (upper respirato ry infection) (ICD-10 - J06.9) WBC low but neutrophils high; will add ABX; albuterol qid until cough mush improved and q2h prn, fluids, rest, supportive measures for fever/symptom relief 12/09/2024 Bronchitis (ICD-10 - J40) 12/09/2024 BMI 24.0-24.9, adult (ICD-10 - Z68.24) 12/14/2024 Bronchitis (ICD-10 - J40) fluids, rest, supportive measures for fever/symptom relief; overall pt is better with less cough; cautioned about increasing activities around the holiday; to continue with inhaler qid for the next few days until cough is noticed to be better 12/14/2024 Hyperlipidemia, unspecified hyperlipidemia type (ICD-10 - E78.5) 01/27/2025 Acquired hypothyroid ism (ICD-10 - E03.9) 05/13/2024 History of pulmonary embolism (ICD-10 - Z86.711) 05/13/2024 History of cardiac dysrhythmia (ICD-10 - Z86.79) Emphasized hydrating before any heat exposure 05/13/2024 [facility] current us e of anticoagulant (ICD-10 - Z79.01) 01/27/2025 GERD without esophagitis (ICD-10 - K21.9) 12/14/2024 Anxiety (ICD-10 - F41.9) 03/22/2024 [facility] current us e of anticoagulant (ICD-10 - Z79.01) 09/02/2024 Hx of breast cancer (ICD-10 - Z85.3) 03/22/2024 Hx of breast cancer (ICD-10 - Z85.3) 09/02/2024 Acquired hypothyroid ism (ICD-10 - E03.9) 12/14/2024 Acquired hypothyroid ism (ICD-10 - E03.9) 01/27/2025 Chronic deep vein thrombosis (DVT) of popliteal vein of left lower extremity (ICD-10 - I82.532) 05/13/2024 Anxiety (ICD-10 - F41.9) 12/14/2024 BMI 24.0-24.9, adult (ICD-10 - Z68.24) 01/27/2025 History of pulmonary embolism (ICD-10 - Z86.711) 09/02/2024 Pure hypercholesterolemia (ICD-10 - E78.00) 03/22/2024 Anxiety (ICD-10 - F41.9) 09/02/2024 Generalized body ach es (ICD-10 - R52) 01/27/2025 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 current us e of anticoagulant (ICD-10 - Z79.01) 01/27/2025 Hx of breast cancer (ICD-10 - Z85.3) 09/02/2024 Osteopenia, unspecif ied location (ICD-10 - M85.80) 01/27/2025 Osteoporosis (ICD-10 - M81.0) 01/27/2025 BMI 25.0-25.9,adult (ICD-10 - Z68.25) Plan Of Treatment Pending Test Test Name Order Date Mammogram 03/24/2024 P-Comprehensive Metabolic Panel (CMP) P-TSH 01/27/2025 Next Appt Details Provider Name:Nemo Knight er, 05/30/2025 11:45:00 AM, [address] [facility], [address], [place], [place], [id number], Insurance Providers Payer Name Payer Address Payer Phone Subscriber Number Group Number Insured Name Patient Relationship to Insured Coverage Start Date Coverage End Date MEDICARE PART B [address] [address] A[place] Schrad[place] [id number] [phone] [id number] RUY BLANCO Self - patient is the insured [facility] [address] [place] [id number] RUY BLANCO Self - patient is the insured Medications Administered Medication Instructions Date of Administration Dosage Notes Depo- Medrol 40 mg/ml 10/04/2016 1.5 mL Dexamethasone 05/22/2005 1 mL Dexamethasone 10/21/2011 1 mL Dexamethasone 05/30/2016 1 mL Dexamethasone 10/19/2018 1 mL Dexamethasone 11/24/2023 1 mL Medical (General) History Medical History History ICD Code Hypothyroidism allergic rhinitis EGD bile gastritis, Dr. Burden 2003 Esophageal dysmotility/Functional Dyspep garrett - Dr. Burden 2010 Holter 04/2014 with variabil ity and PAC's. Subsequently saw Dr. Ballard, had 30 day monitor. No treatment recommended. Cardiolyte GXT 04/2014 without evidence o f ischemia HTN COVID 19 Pfizer vaccine Oct 2020 ArniCare cream for bruises breast cancer rt COVID 19 pos 2020 Surgical History Surgery Date(Month/Year) x2 hernia repair appendectomy lumpectomy lung inflation steroid shots in her back 12/2005 polyp removed from vocal cord 12/2007 polyp removed from vocal cord 09/2013 cataract, both eyes in JUN, 2014 Left knee meniscus repair cardiac pacemeker- 01/26/19 rt breast carcinoma resection 08/15/2021 Colonoscopy and EGD, Dr. Burden 08/07/20 20 Hospitalization History Reason Date(Month/Year) chest pain 01/05/2021 headaches
--- OUTSIDE RECORDS SUMMARY | 2025-02-14 13:04 | XMS_ITS | Patient Health Record ---
Author Organization [facility] Address [address] [place] [address] Care Team Providers Care Gym Teacher Name Role Phone Miriam Akhtar Unavailable [phone] Allergies Allergen (clinical drug ingredient) Drug/Non Drug Allergy documented on EMR Reaction Allergy Type Onset Date Status Latex latex (uncoded) blister Allergy Acti ve clarithromycin Clarithromycin nausea and vomiting Drug Allergy Active Results Component Value Reference Range Notes Nereyda/Bacterial Vaginosis, BENNETT (Aptima) Reviewed date:01/31/2025 01:04:10 PM Interpretation:Negative Performing Lab:[facility] CLIA ID [id number], [address], [address], [address] [address], Director - Cliff Gracia MD Notes/Report: Bacterial Vaginosis Negative Negative The Aptima BV assay is a real time NAAT TMA assay developed for use on the automated [place] system that detects and discriminates RNA markers from the Lactobacillus species group (L. gasseri, L. crispatus and L. jensenii), Gardnerella vaginalis, and Atopobium vaginae. The Aptima BV assay uses an algorithm for bacterial vaginosis based on detection of target organisms. Nereyda species Negative Negative The CV Assay is a real time TMA assay developed for use on the automated [place] system that detects following Nereyda species organisms (C. albicans, C. tropicalis, C. parapsilosis, C. dubliniensis), but the assay does not differentiate among C spp. Nereyda glabrata Negative Negative Reason For Referral No Information Medications Medication SIG (Take, Route, Frequency, Duration) Notes Start Date End Date Status MiraLax Active Levothyroxine Sodium 500 MCG/5ML Solution 1 ml Intravenous Once a day Active CeleXA Active Osteo Bi-Flex Adv Double St Active Crestor 40 MG Tablet 1 tablet Orally Onc e a day Active Centrum Silver Activ e Xarelto Active Konsyl Active Esomeprazole Magnesium Active AZO Bladder Control/Go-Less Active Probiotic Active Spironolactone Activ e Caltrate 600+D Plus Active Vitamin D Active Clotrimazole-Betamethasone 1-0.05 % Cream 1 application Externally Twice a day; Duration: 14 days 01/28/2025 Active Bisoprolol Fumarate Active Vitamin B12 Active Social History Tobacco Use: Social History [...] Notes Tobacco Use/Smoking Are you a nonsmoker Problems Problem Type SNOMED Code ICD Code Onset Dates Problem Status W/U Status Risk Notes Problem Heart murmur (81159250) Cardiac murmur (R01.1) 4 Active confirmed Undiagnosed cardiac murmurs Problem Personal history of primary malignant neoplasm of breast (587108416) Personal history of breast cancer (Z85.3) Active confirmed Problem Vaginal odor (735028418) Vaginal odor (N94.9) Active confirmed Vital Signs Blood pressure diastolic 78 mm Hg 01/28/2025 Height 63 in 01/28/2025 Blood pressure systolic 130 mm Hg 01/28/2025 Weight 148.8 lbs 01/28/2025 BMI 26.36 kg/m2 01/28/2025 Encounters Encounter Location Date Provider Diagnosis [facility] [address] [address] 01/28/2025 Miriam Giovana Vaginal odor N94.9 and Acute vulvitis N76.2 Assessments Encounter Date Diagnosis (ICD Code) Assessment Notes Treatment Notes Treatment Clinical Notes Section Notes 01/28/2025 Vaginal odor (ICD-10 - N94.9) 01/28/2025 Acute vulvitis (ICD-10 - N76.2) Plan Of Treatment Next Appt Details Provider Name:Miriam Akhtar, 01/30/2026 01:45:00 PM, [address], [place], [address], Insurance Providers Payer Name Payer Address Payer Phone Subscriber Number Group Number Insured Name Patient Relationship to Insured Coverage Start Date Coverage End Date [place] [address] [place] [address] [id number] Dot Howardlis Self - patient is the insured 2 AAR [address] [place], [place] [id number] Dot Howardlis Self - patient is the insured 2 Medical (General) History Medical History History ICD Code hypercholeterolemia asthma osteoporosis breast cancer 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
[2025-02-14 13:10] VITALS: BP 125/83; PULSE 67; RESP 16; TEMP 36.9; O2SAT 98
[2025-02-14] MEDS: DENOSUMAB 60 MG/ML SYRINGE SUBCUT (13:10)
== END 2025-02-14 23:59 | disposition home or self-care (01) ==
LOC: INF 12:59
PROVIDERS: PCP Family Medicine; Visit Provider Family Medicine
DX: M81.0 Age-related osteoporosis without current pathological fracture (principal)
CPT/HCPCS: 96372; J0897

== ENCOUNTER 2025-08-15 11:00 | Outpatient (CLI) | payer MEDICARE, SELFPAY ==
--- OUTSIDE RECORDS SUMMARY | 2024-03-22 08:45 | XMS_ITS ---
Author Organization [facility] Address [address] [facility] [address] [place] [id number] Care Team Providers Care Tile Inspector Name Role Phone Nemo Echevarria Primary Care Provider Allergies Allergen (clinical drug ingredient) Drug/Non Drug Allergy documented on EMR Reaction Allergy Type Onset Date Status clarithromycin Clarithromycin stomach upset Drug Allergy Active Results Component Value Reference Range Notes P-Comprehensive Metabolic Pa laura (CMP) Reviewed date:03/24/2024 09:37:54 AM Interpretation:Normal Performing Lab: Notes/Report: Test performed by [employer], [facility] [address] [place] [address] , [address], [place] [address] Manny Fountain MD, Audio Visual Aids Director CLIA: [id number] Sodium 140 135-145 mmol/L Potassium 4.4 3.5-5.3 mmol/L Chloride 104 97-108 mmol/L CO2 26 22-32 mmol/L Glucose 96 65-99 mg/dL BUN 18 8-23 mg/dL Creatinine 0.88 0.50-1.00 mg/dL Calcium 10.1 8.6-10.4 mg/dL eGFR by Creatinine 67 >59 mL/min/1.73m2 Protein 6.5 6.0-8.3 g/dL Albumin 4.6 3.5-5.3 g/dL Alkaline Phosphatase 77 35-121 IU/L ALT (SGPT) 13 <5-47 IU/L AST (SGOT) 22 <5-40 IU/L Bilirubin, Total 0.6 <0.2-1.2 mg/dL A/G Ratio 2.4 1.1-2.5 mg/dL REASON FOR VISIT 3 month check up, Needs labs, mammogram, bone density screening, & colon cancer screening Medications Medication SIG (Take, Route, Frequency, Duration) Notes Start Date End Date Status Esomeprazole Magnesium 40 MG 1 cap(s) orally once a day; Duration: 90 days Active Levothyroxine Sodium 75 MCG 1 tab(s) ora lly once a day; Duration: 90 days Active Spironolactone 25 MG 1 tab(s) Orally Onc e a day; Duration: 90 days Active Albuterol Sulfate HFA 108 (90 Base) MCG/ACT 1-2 puffs Inhalation every 4 hrs, prn 11/21/2023 Active Rosuvastatin Calcium 5 MG 1 tab(s) orall y every other day; Duration: 90 days Active MiraLax DIRECTED Active CBD OIL ORALLY Active Xarelto 20 MG 1 tab(s) orally once a day; Duration: 90 days Active CoQ10 200 MG as directed orally o nce a day; Duration: 30 day(s) 12/28/2021 Active Citalopram Hydrobromide 10 MG 1 tablet Orally Once a day; Duration: 30 day(s) 03/22/2024 Active Centrum Silver - 1 tab(s) orally once a day Active Calcium 600 + Minerals 600-200 MG-UNIT 1 tab(s) orally 3 times a day Active Bisoprolol Fumarate 5 MG 1 tab(s) orally once a day; Duration: 90 days Active B-12 2500 MCG 1 tab(s) sublinguall y once a day Active levoFLOXacin 750 MG 1 tablet Orally Once a day 01/08/2024 Active Benzonatate 200 MG 1 capsule Orally Thr ee times a day prn 11/21/2023 Active Promethazine-DM 6.25-15 MG/5ML 5 ml as needed Orally every 6 hrs as needed 11/24/2023 Active Problems Problem Type SNOMED Code ICD Code Onset Dates Problem Status W/U Status Risk Notes Problem History of malignant neoplasm of breast (121596919) Hx of breast cancer (Z85.3) Active confirmed Problem Anxiety (86364260) Anxiety (F41.9) Active confirmed Vital Signs Blood pressure systolic 110 mm Hg 03/22/20 24 Blood pressure diastolic 64 mm Hg 024 Heart Rate 66 /min 03/22/2024 Height 64 in 03/22/2024 Weight 160.6 lbs 03/22/2024 BMI 27.56 kg/m2 03/22/2024 Encounters Encounter Location Date Provider Diagnosis [facility] [address] [facility] [address] [place] [phone] 03/22/2024 Nemo Echevarria Hypothyroidism (acquired) E03.9 ; History of pulmonary embolism Z86.711 ; 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 ; Hx of breast cancer Z85.3 and Anxiety F41.9 Assessments Encounter Date Diagnosis (ICD Code) Assessment Notes Treatment Notes Treatment Clinical Notes Section Notes 03/22/2024 Hypothyroidism (acquired) (ICD-10 - E03.9) 03/22/2024 History of pulmonary embolism (ICD-10 - Z86.711) 03/22/2024 group home current use of anticoagulant (ICD-10 - Z79.01) 03/22/2024 Hx of breast cancer (ICD-10 - Z85.3) 03/22/2024 Anxiety (ICD-10 - F41.9) Plan Of Treatment Medication Medication Name Sig Start Date Stop Date Notes Citalopram Hydrobromide 10 MG 1 tablet O rally Once a day; Duration: 30 day(s) 03/22/2024 Next Appt Details Follow Up: 6 Weeks, Reason: Progress Notes * RUY BLANCO DDOB:1945 (79 yo F)Acc No.[id number]:03/22/2024 Progress Notes Patient: Richi RUY AN Provider: Nemo Echevarria M.D. :1945 A ge:78 Y S ex:Female Date:03/22/2024 Address:[address] [place] [address] [id number] Subjective: * Chief Complaints: * 1 . 3 month check up. 2. Needs labs, mammogram, bone density screening, & colon cancer screening. * HPI: E NT/respiratory: The patient is here for a follow up on Bronchitis. Pt states the cough has resolved but she does still have shortness of breath with exertion. 78 year old female presents with c/o Short of Breath. Denies : sore throat. D enies : cough. D enies : Fever.?Denies : Chest Pain. G YN: She is followed at [facility] s/p breast cancer, and has yearly check ups and mammogram. P sychology: Anxious, especially when in a car. * ROS: D ERMATOLOGY: no R fide. n o H maksim. G ASTROENTEROLOGY: no N ausea. n o V omiting. n o D iarrhea.? U ROLOGY: no D ifficulty urinating. n o B lood in urine. * Medical History: H ypothyroidism, Allergic rhinitis, EGD bile gastritis, Dr. Burden 2003, Esophageal dysmotility/Functional Dyspepsia - Dr. Burden 2010, Holter 04/2014 with variability and PAC's. Subsequently saw Dr. Ballard, had 30 day monitor. No treatment recommended., Cardiolyte GXT 04/2014 without evidence of ischemia, HTN, COVID 19 Pfizer vaccine Oct 2020, ArniCare cream for bruises, Breast cancer rt, COVID 19 pos 2020. * Surgical History: C -section x2 , hernia repair , appendectomy , lumpectomy , lung inflation , steroid shots in her back 12/2005, polyp removed from vocal cord 12/2007, polyp removed from vocal cord 09/2013, cataract, both eyes in JUN, 2014 , Left knee meniscus repair , cardiac pacemeker- 01/26/19, rt breast carcinoma resection 08/15/2021. * Hospitalization/Major Diagno stic Procedure: h eadaches , chest pain 01/05/2021. * Family History: F ather: , diagnosed with Cancer. M other: , diagnosed with Cancer. M aternal Grand Father: diagnosed with Diabetes. 3 brother(s) . 1 son(s) , 1 daughter(s) - healthy. . * Social History: C URRENT TOBACCO USE S moking Status: Patient does NOT smoke. C affeine: no. Exercise: no. Home smoke detector use: yes. Marital Status: . New since last visit: none. Occupation: yes. Past smoking status: no, Smoking status: Does not smoke. Occup. exposure: none. Recreational drug use: no. Alcohol: no. Sexually active: yes. Travel ouside [place]: yes. * Medications: T aking Benzonatate 200 MG Capsule 1 capsule Orally Three times a day prn , Taking Promethazine-DM 6.25-15 MG/5ML Syrup 5 ml as needed Orally every 6 hrs as needed , Taking levoFLOXacin 750 MG Tablet 1 tablet Orally Once a day , Taking Bisoprolol Fumarate 5 MG Tablet 1 tab(s) orally once a day , Taking B-12 2500 MCG Tablet 1 tab(s) sublingually once a day , Taking Centrum Silver - Tablet 1 tab(s) orally once a day , Taking Calcium 600 + Minerals 600-200 MG-UNIT Tablet 1 tab(s) orally 3 times a day , Taking MiraLax DIRECTED , Taking CBD OIL ORALLY , Taking CoQ10 200 MG Capsule as directed orally once a day , Taking Xarelto 20 MG Tablet 1 tab(s) orally once a day , Taking Esomeprazole Magnesium 40 MG Capsule Delayed Release 1 cap(s) orally once a day , Taking Albuterol Sulfate HFA 108 (90 Base) MCG/ACT Aerosol Solution 1-2 puffs Inhalation every 4 hrs, prn , Taking Rosuvastatin Calcium 5 MG Tablet 1 tab(s) orally every other day , Taking Levothyroxine Sodium 75 MCG Tablet 1 tab(s) orally once a day , Taking Spironolactone 25 MG Tablet 1 tab(s) Orally Once a day , Medication List reviewed and reconciled with the patient * Allergies: C larithromycin: stomach upset - Side Effects. Objective: * Vitals: W t:160.6, Temp:97.4, BP:110/64, HR:66, O2 Sat:97% on RA, Nurse:SHADY, Ht: 64, BMI:27.56. * Examination: G eneral Examination: General Appearance: N AD. H EENT: u nremarkable.?Oral cavity: n o lesions, mucosa moist and WNL, no erythema. N kellie: s upple, no lymphadenopathy. C hest: n ormal shape and expansion. H eart: R SR, S4 present. L ungs: c lear to auscultation. A bdomen: soft and nontender. N eurologic Exam: I ntact, gait normal. S kin: n ormal, no rash. P eripheral pulses: n ormal . B ack: n ormal. E xtremities: n o leg edema. Assessment: * Assessment: 1. H ypothyroidism (acquired) - E03.9 (Primary) 2 . H istory of pulmonary embolism - Z86.711 3 . L zachery term current use of anticoagulant - Z79.01 ? 4 . H x of breast cancer - Z85.3 5 . A nxiety - F41.9 ? Plan: * Treatment: Value Reference Range A /G Ratio 2.4 1.1-2.5 - mg/dL * A lbumin 4.6 3.5-5.3 - g/dL * A lkaline Phosphatase 77 35-121 - IU/L * A LT (SGPT) 13 <5-47 - IU/L * A ST (SGOT) 22 <5-40 - IU/L * B ilirubin, Total 0.6 <0.2-1.2 - mg/dL * B UN 18 8-23 - mg/dL * C alcium 10.1 8.6-10.4 - mg/dL * C hloride 104 97-108 - mmol/L * C O2 26 22-32 - mmol/L * C reatinine 0.88 0.50-1.00 - mg/dL * G lucose 96 65-99 - mg/dL * P otassium 4.4 3.5-5.3 - mmol/L * S odium 140 135-145 - mmol/L * P rotein 6.5 6.0-8.3 - g/dL * e GFR by Creatinine 67 >59 - mL/min/1.73m2 * Maryanne Knott 03/24/2024 9:3 7:44 AM > , Patient informed of normal results. 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?LAB: P-Comprehensive Metabolic Panel (CMP) (Collection Date & Time - 03/22/2024 02:00 PM)?Normal* Value Reference Range A /G Ratio 2.4 1.1-2.5 - mg/dL * A lbumin 4.6 3.5-5.3 - g/dL * A lkaline Phosphatase 77 35-121 - IU/L * A LT (SGPT) 13 <5-47 - IU/L * A ST (SGOT) 22 <5-40 - IU/L * B ilirubin, Total 0.6 <0.2-1.2 - mg/dL * B UN 18 8-23 - mg/dL * C alcium 10.1 8.6-10.4 - mg/dL * C hloride 104 97-108 - mmol/L * C O2 26 22-32 - mmol/L * C reatinine 0.88 0.50-1.00 - mg/dL * G lucose 96 65-99 - mg/dL * P otassium 4.4 3.5-5.3 - mmol/L * S odium 140 135-145 - mmol/L * P rotein 6.5 6.0-8.3 - g/dL * e GFR by Creatinine 67 >59 - mL/min/1.73m2 * Maryanne Knott 03/24/2024 9:3 7:44 AM > , Patient informed of normal results. 3.?Anxiety? Start Citalopram Hydrobromide Tablet, 10 MG, 1 tablet, Orally, Once a day, 30 day(s), 30, Refills 3.?? * Procedure Codes: 9 4760 PULSE OX * Follow Up: 6 Weeks * Images: Billing Information: * Visit Code: 74193 Office Visit, Est Pt., Level 4. * Procedure Codes: 09433 PULSE OX. * Electronic signature of Nemo Echevarria MD on 08/16/2025 at 04:56 PM EST Sign off status: Pending * Provider: Nemo Echevarria M.D. Date: 0 03/22/2024 Generated for Lorenza chen/Octaviano/eTransmitting on: 1 10/17/2024 04:56 PM EST History and Physical Notes * HPI (History of Present Illness) Category Sub-Category Detail Notes Category Not es ENT/respiratory sore throat Short of Breath Chest Pain cough Fever Examination Category Sub-Category Detail Notes Category Not es General Examination HEENT: unremarkable Heart: RSR, S4 present Lungs: clear to auscultatio n Abdomen: soft and nontender Extremities: no leg edema General Appearance: NAD Skin: normal, no rash Neurologic Exam: Intact, gait normal Neck: supple, no lymphaden opathy Oral cavity: no lesions, mucosa m oist and WNL, no erythema Peripheral pulses: normal Back: normal Chest: normal shape and exp ansion
--- OUTSIDE RECORDS SUMMARY | 2024-05-13 09:45 | XMS_ITS ---
[facility] [address] [facility] [address] [facility] [address] [place] [phone] Care Team Providers Care Motor Overhauler Name Role Phone Nemo Echevarria Primary Care Provider Allergies Allergen (clinical drug ingredient) Drug/Non Drug Allergy documented on EMR Reaction Allergy Type Onset Date Status clarithromycin Clarithromycin stomach upset Drug Allergy Active REASON FOR VISIT 6 week f/u Medications Medication SIG (Take, Route, Frequency, Duration) Notes Start Date End Date Status Xarelto 20 MG 1 tab(s) orally once a day; Duration: 90 days Active Esomeprazole Magnesium 40 MG 1 cap(s) orally once a day; Duration: 90 days Active Levothyroxine Sodium 75 MCG 1 tab(s) ora lly once a day; Duration: 90 days Active Albuterol Sulfate HFA 108 (90 Base) MCG/ACT 1-2 puffs Inhalation every 4 hrs, prn 11/21/2023 Active Rosuvastatin Calcium 5 MG 1 tab(s) orall y every other day; Duration: 90 days Active MiraLax DIRECTED Active CoQ10 200 MG as directed orally o nce a day; Duration: 30 day(s) 12/28/2021 Active Calcium 600 + Minerals 600-200 MG-UNIT 1 tab(s) orally 3 times a day Active B-12 2500 MCG 1 tab(s) sublinguall y once a day Active Centrum Silver - 1 tab(s) orally once a day Active Restasis 0.05 % 1 drop into affected eye Ophthalmic Twice a day Active Bisoprolol Fumarate 5 MG 1 tab(s) orally once a day; Duration: 90 days Active Citalopram Hydrobromide 10 MG 1 tablet Orally Once a day; Duration: 30 day(s) 03/22/2024 Active Spironolactone 25 MG 1 tab(s) Orally Onc e a day; Duration: 90 days Active Vital Signs Blood pressure systolic 112 mm Hg 05/13/20 24 Blood pressure diastolic 70 mm Hg 024 Heart Rate 63 /min 05/13/2024 Height 64 in 05/13/2024 Weight 154.6 lbs 05/13/2024 BMI 26.53 kg/m2 05/13/2024 Encounters Encounter Location Date Provider Diagnosis [facility] [address] [facility] [address] [facility] [address] [place] [id number] 05/13/2024 Nemo Echevarria History of cardiac dysrhythmia Z86.79 ; History of pulmonary embolism Z86.711 ; snf current use of anticoagulant Z79.01 and Anxiety F41.9 Assessments Encounter Date Diagnosis (ICD Code) Assessment Notes Treatment Notes Treatment Clinical Notes Section Notes 05/13/2024 History of cardiac dysrhythmia (ICD-10 - Z86.79) Emphasized hydrating before any heat exposure 05/13/2024 History of pulmonary embolism (ICD-10 - Z86.711) 05/13/2024 snf current use of anticoagulant (ICD-10 - Z79.01) 05/13/2024 Anxiety (ICD-10 - F41.9) Plan Of Treatment Treatment Notes Assessment Notes History of cardiac dysrhythmia Emphasize d hydrating before any heat exposure Next Appt Details Follow Up: 3 Months, Reason: Progress Notes * RUY BLANCO DDOB:1945 (79 yo F)Acc No.[id number]:05/13/2024 Progress Notes Patient: Richi RUY AN Provider: Nemo Echevarria M.D. :1945 A ge:78 Y S ex:Female Date:05/13/2024 Address:[address] [place] [address] , [id number] Subjective: * Chief Complaints: * 1 . 6 week f/u. * HPI: P sychology: The pt is here for a follow up on Anxiety. Pt states the citalopram is helping. Pt states her hands shake more than they used to. Pt states she has had some episodes of near syncope. C ardiology: Has cardiology appointment coming up. Still has episodes of lightheadedness. Orthostatic and also with heat. * ROS: D ERMATOLOGY: no R fide. [...] ouside [place]: yes. * Medications: T aking Restasis 0.05 % Emulsion 1 drop into affected eye Ophthalmic Twice a day , Taking Bisoprolol Fumarate 5 MG Tablet 1 tab(s) orally once a day , Taking B-12 2500 MCG Tablet 1 tab(s) sublingually once a day , Taking Centrum Silver - Tablet 1 tab(s) orally once a day , Taking Calcium 600 + Minerals 600-200 MG-UNIT Tablet 1 tab(s) orally 3 times a day , Taking MiraLax DIRECTED , Taking CoQ10 200 MG Capsule as [...] 1 tab(s) Orally Once a day , Taking Citalopram Hydrobromide 10 MG Tablet 1 tablet Orally Once a day , Discontinued Benzonatate 200 MG Capsule 1 capsule Orally Three times a day prn , Discontinued Promethazine-DM 6.25-15 MG/5ML Syrup 5 ml as needed Orally every 6 hrs as needed , Discontinued levoFLOXacin 750 MG Tablet 1 tablet Orally Once a day , Discontinued CBD OIL ORALLY , Medication List reviewed and reconciled with the patient * Allergies: C larithromycin: stomach upset - Side Effects. Objective: * Vitals: W t:154.6, Temp:97.7, BP:112/70, HR:63, Nurse:SHADY, Ht: 64, BMI:26.53. * Examination: G eneral Examination: General Appearance: N AD. H EENT: u nremarkable.?Oral cavity: n o lesions, mucosa moist and WNL, no erythema. N kellie: s upple, no lymphadenopathy. C hest: n ormal shape and expansion. H eart: R SR, S4 present, no ectopics. L ungs: c lear to auscultation. A bdomen: soft and nontender. N eurologic Exam: I ntact, gait normal, subtle if any cogwheeling. Bilateral tremors of the hands.?Skin: n ormal, no rash. P eripheral pulses: n ormal . B ack: n ormal. Extremities: n o leg edema. Assessment: * Assessment: 1. H istory of cardiac dysrhythmia - Z86.79 (Primary) 2 . H istory of pulmonary embolism - Z86.711 3 . L zachery term current use of anticoagulant - Z79.01? 4. A nxiety - F41.9 Plan: * Treatment: * Follow Up: 3 Months * Images: Billing Information: * Visit Code: 44796 Office Visit, Est Pt., Level 4. * Procedure Codes: * Electronic signature of Nemo Echevarria MD on 08/16/2025 at 04:57 PM EST Sign off status: Pending * Provider: Nemo Echevarria M.D. Date: 0 05/13/2024 Generated for Lorenza chen/Octaviano/eTransmitting on: 1 10/17/2024 04:57 PM EST History and Physical Notes * Examination Category Sub-Category Detail Notes Category Not es General Examination HEENT: unremarkable Heart: RSR, S4 present, no ectopics Lungs: clear to auscultatio n Abdomen: soft and nontender Extremities: no leg edema General Appearance: NAD Skin: normal, no rash Neurologic Exam: Intact, gait normal, subtle if any cogwheeling. Bilateral tremors of the hands Neck: supple, no lymphaden opathy Oral cavity: no lesions, mucosa m oist and WNL, no erythema Peripheral pulses: normal Back: normal Chest: normal shape and exp ansion
--- OUTSIDE RECORDS SUMMARY | 2024-09-02 09:15 | XMS_ITS ---
Author Organization [facility] Address [address] [facility] [address] [facility] [address] [place] [id number] Care Team Providers Care Brake Repairer Air Name Role Phone Nemo Echevarria Primary Care Provider Allergies Allergen (clinical drug ingredient) Drug/Non Drug Allergy documented on EMR Reaction Allergy Type Onset Date Status clarithromycin Clarithromycin stomach upset Drug Allergy Active Results Component Value Reference Range Notes P-Antinuclear Antibodies (AN A) Screen Reviewed date:09/03/2024 03:16:47 PM Interpretation: Normal Performing Lab: Notes/Report: Test performed by [facility] [address] [place], [place] [address] [place] , [address], [place] [address] Manny Fountain MD, Channel Process Plant Operator CLIA: [id number] Antinuclear Antibodies (HANNAH) Screen Negative Negative This test is performed by Multiplex Bead Immunoassay methodology. P-Comprehensive Metabolic Pa laura (CMP) Reviewed date:09/03/2024 03:16:47 PM Interpretation:bun 25 Performing Lab: Notes/Report: Test performed by [facility] [employer] [place] , [address], [place] [address] Manny Fountain MD, Channel Process Plant Operator CLIA: [id number] Sodium 142 135-145 mmol/L Potassium 4.3 3.5-5.3 [...] Normal Performing Lab: Notes/Report: Test performed by [facility] [address] [place] [address] , [place] [address] Manny Fountain MD, Channel Process Plant Operator CLIA: [id number] Creatine Kinase 66 20-180 U/L P-Sed Rate (ESR) Reviewed date:09/03/2024 03:16:47 PM Interpretation: Normal Performing Lab: Notes/Report: Test performed by [facility] [address] [place] [address] , [address], [place] [address] Manny Fountain MD, Channel Process Plant Operator CLIA: [id number] Erythrocyte Sedimentation Rate (ESR), Automated 14 <31 mm/hr P-TSH Reviewed date:09/03/2024 03:16:47 PM Interpretation:0.11 Performing Lab: Notes/Report: Test performed by [facility] [address] [place] [address] , [address], [place] [address] Manny Fountain MD, Channel Process Plant Operator CLIA: [id number] TSH 0.11 0.43-5.25 mU/L P-HANNAH Reviewed date:09/03/2024 [...] 4 hrs, prn 11/21/2023 Active Vital Signs Blood pressure systolic 130 mm Hg 09/02/19 25 Blood pressure diastolic 72 mm Hg 025 Heart Rate 61 /min 09/02/2024 Height 64 in 09/02/2024 Weight 149.2 lbs 09/02/2024 BMI 25.61 kg/m2 09/02/2024 Encounters Encounter Location Date Provider Diagnosis [facility] [address] [facility] [address] [place], [place] [id number] 09/02/2024 Nemo Echevarria History of pulmonary embolism Z86.711 ; 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 :1945 A ge:78 Y S ex:Female Date:09/02/2024 Address:[address] [place] [address] , [id number] Subjective: * Chief Complaints: * 1 . [...] hip, osteo porosis left hip * Virgie Hdz 09/03/2024 11:37: 33 AM > faxed to [facility] SchedulingMarta Christian 09/17/2024 9:03:20 AM > , See phone encounter * Labs: * L ab: P-Antinuclear Antibodies (HANNAH) Screen (Collection Date & Time - 09/02/2024 02:18 PM) N ormal Value Reference Range A ntinuclear Antibodies (HANNAH) Screen Negative Negat cece - * [facility], IT support 09/03/2024 01:10:05 : This order was created by the Interface. Marta Christian 09/03/2024 3:16:42 PM >See phone encounter * Procedure Codes: G 2211 Complex e/m visit add on * Follow Up: 4 Months * Images: Billing Information: * Visit Code: 73228 Office Visit, Est Pt., Level 4. * Procedure Codes: G2211 Complex e/m visit add on. * Electronic signature of Nemo Echevarria MD on 08/16/2025 at 04:57 PM EST Sign off status: Pending * Provider: Nemo Echevarria M.D. Date: 0 09/02/2024 Generated for Lorenza chen/Octaviano/eTransmitting on: 1 10/17/2024 [...]
--- OUTSIDE RECORDS SUMMARY | 2024-11-29 09:00 | XMS_ITS ---
Author Organization [facility] Address [address] [facility] 36 [facility] [address] [place] [id number] Care Team Providers Care Dock Attendant Name Role Phone Nemo Echevarria Primary Care Provider Mckenzie Singh [phone] Allergies Allergen (clinical drug ingredient) Drug/Non Drug Allergy documented on EMR Reaction Allergy Type Onset Date Status clarithromycin Clarithromycin stomach upset Drug Allergy Active Results Component Value Reference Range Notes Influenza Screen (in house) Reviewed date:11/29/2024 02:51:41 PM Interpretation:neg Performing Lab: Notes/Report: neg results neg CBC Fingerstick (in house) Reviewed date:11/29/2024 02:52:18 PM Interpretation: Performing Lab: Notes/Report: wbc 3.4 3.5 - 10 lym 12.5 15 - 50 mid 3.0 2 - 15 gran 84.5 35 - 80 rbc 3.80 3.5 - 5.5 hgb 12.5 11.5 - 16.5 hct 36.8 35 - 55 mcv 96.6 75 - 100 mch 32.8 25 - 35 mchc 34.0 31 - 38 plat 104 100 - 400 Covid test (in house) Reviewed date:11/29/2024 02:51:58 PM Interpretation:neg Performing Lab: Notes/Report: neg Result: neg REASON FOR VISIT possible bronchitis Medications Medication SIG (Take, Route, Frequency, Duration) Notes Start Date End Date Status Rosuvastatin Calcium 5 MG 1 tab(s) orall y every other day; Duration: 90 days Active Centrum Silver - 1 tab(s) orally once a day Active Spironolactone 25 MG 1 tab(s) Orally Onc e a day; Duration: 90 days Active B-12 2500 MCG 1 tab(s) sublinguall y once a day Active Albuterol Sulfate HFA 108 (90 Base) MCG/ACT 1-2 puffs Inhalation every 4 hrs, prn 11/21/2023 Active Zithromax Z-Jose Eduardo 250 MG 2 tab today and t hen 1 tab qd x 4 days Orally daily; Duration: 5 days 11/29/2024 Active Esomeprazole Magnesium 40 MG 1 cap(s) Orally Once a day; Duration: 90 days Active Citalopram Hydrobromide 10 MG 1 tablet Orally Once a day; Duration: 90 days Active Promethazine-DM 6.25-15 MG/5ML 5 ml as needed Orally every 6 hrs prn 11/29/2024 Active Bisoprolol Fumarate 5 MG 1/2 tab(s) oral ly once a day; Duration: 90 days Active MiraLax DIRECTED Active CoQ10 200 MG as directed orally o nce a day; Duration: 30 day(s) 12/28/2021 Active Prolia 60 MG/ML as directed Subcutaneous Active Levothyroxine Sodium 50 MCG 1 tablet in the morning on an empty stomach Orally Once a day; Duration: 30 day(s) 09/14/2024 Active Xarelto 20 MG 1 tab(s) orally once a day; Duration: 90 days Active Calcium 600 + Minerals 600-200 MG-UNIT 1 tab(s) orally 3 times a day Active Vital Signs Blood pressure systolic 90 mm Hg 11/30/19 25 Blood pressure diastolic 60 mm Hg 025 Heart Rate 154 /min 11/29/2024 Height 64 in 11/29/2024 Weight 147.8 lbs 11/29/2024 BMI 25.37 kg/m2 11/29/2024 Encounters Encounter Location Date Provider Diagnosis [facility] [address] [place] [id number] 11/29/2024 Mckenzie Singh URI (upper respirato ry infection) J06.9 Assessments Encounter Date Diagnosis (ICD Code) Assessment Notes Treatment Notes Treatment Clinical Notes Section Notes 11/29/2024 URI (upper respiratory infection) (ICD-10 - J06.9) WBC low but neutrophils high; will add ABX; albuterol qid until cough mush improved and q2h prn, fluids, rest, supportive measures for fever/symptom relief Plan Of Treatment Medication Medication Name Sig Start Date Stop Date Notes Albuterol Sulfate HFA 108 (9 0 Base) MCG/ACT 1-2 puffs Inhalation every 4 hrs, prn 11/21/2023 Zithromax Z-Jose Eduardo 250 MG 2 tab today and t hen 1 tab qd x 4 days Orally daily; Duration: 5 days 11/29/2024 Promethazine-DM 6.25-15 MG/5ML 5 ml as needed Orally every 6 hrs prn 11/29/2024 Treatment Notes Assessment Notes URI (upper respiratory infection) WBC lo w but neutrophils high; will add ABX; albuterol qid until cough mush improved and q2h prn, fluids, rest, supportive measures for fever/symptom relief Next Appt Details Follow Up: prn, Reason: Progress Notes * RUY BLANCO DDOB:1945 (79 yo F)Acc No.[id number]:11/29/2024 Progress Notes Patient: Richi RUY AN Provider: JITENDRA Cardoza :1945 A ge:79 Y S ex:Female Date:11/29/2024 Address:[address] [place] [address] Pcp:Nemo Echevarria Subjective: * Chief Complaints: * 1 . Possible bronchitis. * HPI: E NT/respiratory: 79 year old female presents with c/o sore throat. c/o cough P t is here with c/o cough and thinks she may have bronchitis. Pt sts her cough started on Friday night. c/o Fever. c/o ear pain. c/o rhinorrhea. c/o headache P t sts she has a bad headache. c/o body aches. Denies : chest congestion. D enies : smoking. eating less and drinking ; sick x 2 days. * ROS: D ERMATOLOGY: no R fide. [...] ouside US: yes. * Medications: T aking B-12 2500 MCG Tablet 1 tab(s) sublingually once a day , Taking Centrum Silver - Tablet 1 tab(s) orally once a day , Taking Calcium 600 + Minerals 600-200 MG- UNIT Tablet 1 tab(s) orally 3 times a day , Taking MiraLax DIRECTED , Taking CoQ10 200 MG Capsule as directed orally once a day , Taking Albuterol Sulfate HFA 108 (90 Base) MCG/ACT Aerosol Solution 1-2 puffs Inhalation every 4 hrs, prn , Taking Levothyroxine Sodium 50 MCG Tablet 1 tablet in the morning on an empty stomach Orally Once a day , Taking Prolia 60 MG/ML Solution Prefilled Syringe as directed Subcutaneous , Taking Xarelto 20 MG Tablet 1 tab(s) orally once a day , Taking Bisoprolol Fumarate 5 MG Tablet 1/2 tab(s) orally once a day , Taking Citalopram Hydrobromide 10 MG Tablet 1 tablet Orally Once a day , Taking Esomeprazole Magnesium 40 MG Capsule Delayed Release 1 cap(s) Orally Once a day , Taking Spironolactone 25 MG Tablet 1 tab(s) Orally Once a day , Taking Rosuvastatin Calcium 5 MG Tablet 1 tab(s) orally every other day , Medication List reviewed and reconciled with the patient * Allergies: C larithromycin: stomach upset - Side Effects. Objective: * Vitals: W t: 147.8, Temp: 99.1, BP: 90/60, HR: 154, Nurse: epifanio, Ht: 64, Repeat BP:120/80, BMI:25.37. * Examination: E NT/Respiratory: General Appearance: well nourished and hydrated, NAD, alert; appears not to feel well. E yes: sclera and conjunctiva clear. E ars: auditory canals normal bilaterally, tympanic membranes normal bilaterally. N ose : nares patent. Oral cavity : no erythema or exudate seen on pharynx. N kellie : supple, no cervical lymphadenopathy. H eart : RRR. L ungs: CTAB A&P. A bdomen : BS present, soft, nontender. Assessment: * Assessment: 1. U RI (upper respiratory infection) - J06.9 (Primary) Plan: * Treatment: * Labs: * L ab: CBC Fingerstick (in house) (Collection Date & Time - 11/29/2024) Value Reference Range w bc 3.4 3.5 - 10 * l ym 12.5 15 - 50 * m id 3.0 2 - 15 * g ran 84.5 35 - 80 * r bc 3.80 3.5 - 5.5 * h gb 12.5 11.5 - 16.5 * h ct 36.8 35 - 55 * m cv 96.6 75 - 100 * m ch 32.8 25 - 35 * m chc 34.0 31 - 38 * p lat 104 100 - 400 * Vicky Hunter 11/29/2024 02:1 9:52 PM > Provider reviewed results while patient in office.Mckenzie Singh 11/29/2024 2:52:15 PM > ?Lab: Covid test (in house) (Collection Date & Time - 11/29/2024)?neg* Value Reference Range R esult: neg * Vicky Hunter 11/29/2024 02:3 9:36 PM > Provider reviewed results while patient in office.Mckenzie Singh 11/29/2024 2:51:56 PM > ?Lab: Influenza Screen (in house) (Collection Date & Time - 11/29/2024)?neg * Value Reference Range r esults neg * Vicky Hunter 11/29/2024 02:3 9:14 PM > Provider reviewed results while patient in office.FranciscoMckenzie 11/29/2024 2:51:39 PM > * Procedure Codes: G 2211 Complex e/[place], [address] CAPILLARY BLOOD DRAW, 38321 CBC WITH AUTO DIFF, 70663 Flu Test- Nasal Swab, Modifiers: QW , 79564 COVID TEST IN HOUSE, Modifiers: QW , 3074F SYST BP LT 130 MM HG, 3079F DIAST BP 80-89 MM HG * Follow Up: p rn * Images: Billing Information: * Visit Code: 57386 Office Visit, Est Pt., Level 3. * Procedure Codes: G2211 Complex e/[place]. [address] CAPILLARY BLOOD DRAW. 87456 CBC WITH AUTO DIFF. 51067 Flu Test- Nasal Swab. Modifiers: QW 31411 COVID TEST IN HOUSE. Modifiers: QW 3074F SYST BP LT 130 MM HG. 3079F DIAST BP 80-89 MM HG. * Electronic signature of Madonna Singh APRN on 08/16/2025 at 04:55 PM EST Sign off status: Pending * Provider: JITENDRA Cardoza Date: 0 11/29/2024 Generated for Lorenza chen/Octaviano/eTransmitting on: 1 10/17/2024 04:55 PM EST History and Physical Notes * HPI (History of Present Illness) Category Sub-Category Detail Notes Category Not es ENT/respiratory sore throat eating less and drinking ; sick x 2 days ear pain cough Pt is here with c/o cough and thinks she may have bronchitis. Pt sts her cough started on Friday night Fever headache Pt sts she has a bad headache chest congestion rhinorrhea smoking body aches Examination Category Sub-Category Detail Notes Category Not es ENT/Respiratory Oral cavity : no erythema or exudate s een on pharynx Ears: auditory canals norm al bilaterally, tympanic membranes normal bilaterally Neck : supple, no cervical lymphadenopathy Heart : RRR Lungs: CTAB A&P Abdomen : BS present, soft, no ntender General Appearance: well nourished and h ydrated, NAD, alert; appears not to feel well Nose : nares patent Eyes: sclera and conjuncti va clear
--- OUTSIDE RECORDS SUMMARY | 2024-12-09 08:15 | XMS_ITS ---
Author Organization [facility] Address [address] [facility] 36 [facility] [address] [place] [phone] Care Team Providers Care Spare Hand Carding Name Role Phone Nemo Echevarria Primary Care Provider Rosa Underwood [phone] Allergies Allergen (clinical drug ingredient) Drug/Non Drug [...] days Active Vital Signs Blood pressure systolic 100 mm Hg 12/10/19 25 Blood pressure diastolic 64 mm Hg 025 Heart Rate 67 /min 12/09/2024 Height 64 in 12/09/2024 Weight 145.6 lbs 12/09/2024 BMI 24.99 kg/m2 12/09/2024 Encounters Encounter Location Date Provider Diagnosis [facility] [address] [place] [phone] 12/09/2024 Rosa Underwood Bronchitis J40 and B [place] 24.0-24.9, adult Z68.24 Assessments Encounter Date Diagnosis [...] * RUY BLANCO DDOB:1945 (79 yo F)Acc No.[id number]:12/09/2024 Progress Notes Patient: BENITO CHAVEZLIDaniel Kang Provider: DARSHAN Helm :1945 A ge:79 Y S ex:Female Date:12/09/2024 Address:[address] [place] [address] [id number] Pcp:Nemo Echevarria Subjective: * Chief Complaints: * [...] ronchitis - J40 (Primary) 2 . B VT 24.0-24.9, adult - Z68.24 ? Plan: * [...] G 2211 Complex e/[place], [address] [place], [address] CAPILLARY BLOOD DRAW, 80911 CBC WITH AUTO DIFF, 3074F SYST BP LT 130 MM HG, 3078F DIAST BP < 80 MM HG * Follow Up: v ia phone to report test results * Images: Billing Information: * Visit Code: 28058 Office Visit, Est Pt., Level 3. * Procedure Codes: G2211 Complex e/[place]. [address] [place] [address] CAPILLARY BLOOD DRAW. 84074 CBC WITH AUTO DIFF. 3074F SYST BP LT 130 MM HG. 3078F DIAST BP < 80 MM HG. * Electronic signature of DARSHAN Flores on 08/16/2025 at 04:56 PM EST Sign off status: Pending * Provider: DARSHAN Helm Date: 0 12/09/2024 Generated for Printi ng/Faisidrag/eTransmitting on: 1 10/17/2024 04:56 PM EST History [...]
--- OUTSIDE RECORDS SUMMARY | 2024-12-14 06:30 | XMS_ITS ---
Author Organization [facility] Address [address] [facility] [address] [facility] [address] [place] [id number] Care Team Providers Care Bridal Service Sales And Management Name Role Phone Nemo Echevarria Primary Care Provider [phone] Mckenzie Singh [phone] Allergies Allergen (clinical drug ingredient) Drug/Non Drug [...] every 4 hrs, prn Active Vital Signs Blood pressure systolic 112 mm Hg 12/15/19 25 Blood pressure diastolic 64 mm Hg 025 Heart Rate 76 /min 12/14/2024 Height 64 in 12/14/2024 Weight 143.6 lbs 12/14/2024 BMI 24.65 kg/m2 12/14/2024 Encounters Encounter Location Date Provider Diagnosis [facility] [address] [facility] [address] [place] [address], [place] [id number] 12/14/2024 Mckenzie Singh Bronchitis J40 ; Hyperlipidemia, [...] * RUY BLANCO DDOB:1945 (79 yo F)Acc No.[id number]:12/14/2024 Patient: Richi CLARKERUY Hinds Provider: JITENDRA Cardoza :1945 A ge:79 Y S ex:Female Date:12/14/2024 Address:[address] [place], [place] [id number] Pcp:Nemo Echevarria Subjective: * Chief Complaints: * 1 . fu from [facility]. * HPI: E NT/respiratory: 79 year old [...] cquired hypothyroidism - E03.[address] 24.0-24.9, adult - Z68.24 Plan: * Treatment: * Procedure Codes: G 2211 Complex e/m visit add on, 3074F SYST BP LT 130 MM HG, 3078F DIAST BP < 80 MM HG * Follow Up: p rn * Images: Billing Information: * Visit Code: 74441 Office Visit, Est Pt., Level 3. * Procedure Codes: G2211 Complex e/m visit add on. 3074F SYST BP LT 130 MM HG. 3078F DIAST BP < 80 MM HG. * Electronic signature of Madonna Singh APRN on 08/16/2025 at 04:56 PM EST Sign off status: Pending * Provider: JITENDRA Cardoza Date: 0 12/14/2024 Generated for Lorenza chen/Octaviano/Hieu on: 1 10/17/2024 04:56 PM EST History [...]
--- OUTSIDE RECORDS SUMMARY | 2025-01-27 09:45 | XMS_ITS ---
Author Organization [facility] Address 1210 [facility] 36 [facility] [address] [place] [phone] Care Team Providers Care Wing Mailer Machine Operator Name Role Phone Nemo Echevarria Primary Care Provider [phone] Allergies Allergen (clinical drug ingredient) Drug/Non Drug Allergy documented on EMR Reaction Allergy Type Onset Date Status clarithromycin Clarithromycin stomach upset Drug Allergy Active Results Component Value Reference Range Notes P-Comprehensive Metabolic Pa laura (CMP) Reviewed date:02/16/2025 04:30:12 PM Interpretation:satisfactory Performing Lab: Notes/Report: Test performed by [facility], [place] [address] [place] [address] , [address], [place] [address] Manny Fountain MD, Ranch Hand Livestock CLIA: [id number] Sodium 139 135-145 mmol/L Potassium 4.4 3.5-5.3 [...] Interpretation:Normal Performing Lab: Notes/Report: Test performed by [facility], [place] [address] [place] [address] , [address], [place] [address] Manny Fountain MD, Ranch [employer] CLIA: [id number] TSH 4.41 0.43-5.25 mU/L REASON FOR VISIT [...] 11/21/2023 Active Vital Signs Blood pressure systolic 110 mm Hg 01/28/20 25 Blood pressure diastolic 70 mm Hg 025 Heart Rate 61 /min 01/27/2025 Height 64 in 01/27/2025 Weight 148.6 lbs 01/27/2025 BMI 25.5 kg/m2 01/27/2025 Encounters Encounter Location Date Provider Diagnosis [facility] [address] [facility] 36 [facility] [address] [place] [phone] 01/27/2025 Nemo Echevarria Acquired hypothyroid ism E03.9 ; GERD without esophagitis K21.9 ; Chronic deep vein thrombosis (DVT) of popliteal vein of left lower extremity I82.532 ; History of pulmonary embolism Z86.711 ; publicity manager 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 :1945 A ge:79 Y S ex:Female Date:01/27/2025 Address:[address] [place] [address] [id number] Subjective: * Chief Complaints: * 1 . [...] O steoporosis - M81.0 8 . B VA 25.0-25.9,adult - Z68.25 Plan: * Treatment: Value [...] * Images: Billing Information: * Visit Code: 16995 Office Visit, Est Pt., Level 4. * [...] M.D. Date: 0 01/27/2025 Generated for Lorenza chen/Octaviano/eTransmitting on: 1 10/17/2024 [...]
--- OUTSIDE RECORDS SUMMARY | 2025-05-26 10:15 | XMS_ITS ---
Author Organization [facility] Address [address] [facility] 36 [facility] [address] [place] [phone] Care Team Providers Care Irrigation Specialist Name Role Phone Nemo Echevarria Primary Care [...] 55 Performing Lab: Notes/Report: Test performed by [facility], [facility] [address] [facility] , [address], [place] [address] Manny Fountain MD, Quality Assurance Clerk CLIA: [id number] Sodium 139 135-145 mmol/L Potassium 4.4 3.5-5.3 [...] Interpretation:Normal Performing Lab: Notes/Report: Test performed by [facility] [address] , [address], [place] [address] Manny Fountain MD, Quality Assurance Clerk CLIA: [id number] TSH 3.81 0.43-5.25 mU/L Covid test (in [...] MG/ML as directed Subcutaneous Active Vital Signs Blood pressure systolic 102 mm Hg 05/26/20 Blood pressure diastolic 60 mm Hg 025 Heart Rate 71 /min 05/26/2025 Height 64 in 05/26/2025 Weight 146.0 lbs 05/26/2025 BMI 25.06 kg/m2 05/26/2025 Encounters Encounter Location Date Provider Diagnosis [facility] [address] [facility] [address] [phone] 05/26/2025 Nemo Echevarria Upper respiratory tract infection, [...] * RUY BLANCO DDOB:1945 (79 yo F)Acc No.[id number]:05/26/2025 Progress Notes Patient: RUY CHAVEZ Provider: Nemo Echevarria M.D. :1945 A ge:79 Y S ex:Female Date:05/26/2025 Address:[address] [place] [address] [id number] Subjective: * Chief Complaints: * 1 . [...] G 2211 Complex e/[place], [address] CBC WITH AUTO DIFF, 01945 VENIPUNCT, ROUTINE*, 45778 Flu Test- Nasal Swab, Modifiers: QW , 70034 COVID TEST IN HOUSE, Modifiers: QW , 1036F TOBACCO NON-USER, 3074F SYST BP LT 130 MM HG, 3078F DIAST BP < 80 MM HG, G8399 PT W/DXA DOCUMENT OR ORDER * Preventive Medicine: Screening / Special Tests: B one mineral Density . * Follow Up: 2 Months * Images: Billing Information: * Visit Code: 23743 Office Visit, Est Pt., Level 4. * Procedure Codes: G2211 Complex e/[place]. [address] CBC WITH AUTO DIFF. 10358 VENIPUNCT, ROUTINE*. 15870 Flu Test- Nasal Swab. Modifiers: QW 45368 COVID TEST IN HOUSE. Modifiers: QW 1036F TOBACCO NON-USER. 3074F SYST BP LT 130 MM HG. 3078F DIAST BP < 80 MM HG. G8399 PT W/DXA DOCUMENT OR ORDER. * Electronic signature of Nemo Echevarria MD on 08/16/2025 at 04:57 PM EST Sign off status: Pending * Provider: Nemo Echevarria M.D. Date: 0 05/26/2025 Generated for Printi ng/Octaviano/eTransmitting on: 1 10/17/2024 04:57 PM EST History [...]
--- OUTSIDE RECORDS SUMMARY | 2025-07-22 06:15 | XMS_ITS ---
[facility] Organization [facility] Address 1210 [facility] 36 [facility] [address] [place] [phone] Care Team Providers Care Flight Kitchen Manager Name Role Phone Nemo Echevarria Primary Care Provider [phone] Allergies Allergen (clinical drug ingredient) Drug/Non Drug [...] Risk Notes Problem Chronic obstructive pulmonary disease (99785828) COPD, mild (J44.9) Active confirmed Vital Signs Blood pressure systolic 104 mm Hg 07/22/20 25 Blood pressure diastolic 70 mm Hg 025 Heart Rate 64 /min 07/22/2025 Height 64 in 07/22/2025 Weight 150.8 lbs 07/22/2025 BMI 25.88 kg/m2 07/22/2025 Encounters Encounter Location Date Provider [facility] [address] [phone] 07/22/2025 Nemo Echevarria retirement current us e [...] Notes * BELLABENITORUY DDOB:1945 (79 yo F)Acc No.[id number]:07/22/2025 Progress Notes Patient: RUY CHAVEZ Provider: Nemo Echevarria M.D. :1945 A ge:79 Y S ex:Female Date:07/22/2025 Address:[address] [place] [address] , [place] [address] Subjective: * Chief Complaints: * 1 . [...] OPD, mild - J44.9 1 0. B MN 25.0-25.9,adult - Z68.25 Plan: * Treatment: * [...] * Images: Billing Information: * Visit Code: 86424 Office Visit, Est Pt., Level 3. * [...] Date: 09/21/2024 Generated for Indirai april/Octaviano/eTransmitting on: 10/17/2024 04:57 PM EST History and Physical [...]
--- OUTSIDE RECORDS SUMMARY | 2025-08-16 16:55 | XMS_ITS | Data Portability ---
Author Organization [facility] DEISY FrnacisS VILLAS CLOSED Address [address] [facility] [address] [place] [address] Care Team Providers Care Career Services Officer Name Role Phone FLORA HAAS Vehicle Operator ZITA WYATT Primary Care Provider Assessment No assessment recorded. Plan of Treatment Reminders Order Date Submit Date Provider Last Modified By Organization Details Last Modified Time Details Appointments DERM ESTABLISH ED 2025 10:40A Dona HAAS PA-C Not available Not available Not available Lab surgical pathology study 2023 024 [facility], [address] [place], [address], 04/23/2024 15:52:40 Referral None recorded. Procedures None recorded. Surgeries None recorded. Imaging None recorded. Medication Orders triamcino lone acetonide 0.1 % topical cream 2023 024 [id number], [address] [facility] [address] [place], [place], [phone], 10/23/2023 12:35:25 Patient TargetsNo targets recorded. Patient InstructionsNo instructions recorded. Reason for Referral None Reported. Results Created Date Observation Date Name Description Value Unit Range Abnormal Flag Note LastModifiedBy Organization Detail LastModifiedTime Result Notes None recorded. Problems Name Problem SNOMED Code Status Onset Date Resolution Date Notes Provider Name and Address Organization Details Recorded Time Abdominal pain 26711408 Active 2015 From Automated Load;Provi kimi: Abena Teresa;Sta tus: Active Not Available [facility] 6 04:20:48 Gastrointe stinal tract finding Active 2015 From Automated Load;Provi kimi: Abena Teresa;Sta tus: Active Not Available [facility] 6 04:20:48 Constipati on 58211918 Active 2015 From Automated Load;Provi kimi: Abena Teresa;Sta tus: Active Not Available [facility] 6 04:20:48 Dyspareuni a 73999024 Active 2015 From Automated Load;Provi kimi: Abena Teresa;Sta tus: Active Not Available [facility] 6 04:20:48 Problem Notes None recorded. Procedures Surgical History Date Name Laterality Status Provider Name and Address Organization Details Recorded Time 10/28/19 25 DAK - [place]o [place] [facility] [place] [facility] [place]/28/2024 11:33:12 04/22/20 24 DAK - Cryo [place] [facility] [place] 04/22/2024 11:24:29 04/22/20 24 Blade Biopsy w/ ED&C [place] [facility] [place] 04/22/2024 11:34:20 04/22/20 24 Destruction BN Lesions completed [facility] 04/22/2024 11:29:43 10/23/19 24 Destruction BN Lesions completed [facility] 10/23/2023 12:02:49 total knee replacement completed [facility] 10/23/2023 11:52:58 hernia repair completed [facility] 10/23/2023 11:53:06 Appendectomy completed [facility] 10/23/2023 11:53:20 resection of polyp completed [facility] 10/23/2023 11:53:29 section completed [facility] 10/23/2023 11:53:44 cataract surgery completed [facility] 10/23/2023 11:53:57 Imaging Results None recorded. Procedure Notes None recorded. Medical Equipment None Reported. Allergies Allergen ID Allergen Name Allergen Category Reaction Reaction Severity Criticality Documentation Date Start Date Code Code System Note Provider Name and Address Organization Details Recorded Time 362218 Biaxin medicatio n Not available Not available Not available 07/25/20162015 20946 9 RxNorm Comme nt: Creat ed By: Elizabeth Bhaktaattila Kuo erika Date: 2015 9:20: 52 AM; Not Available [facility] 6 11:15:58 016870 adhesive tape environme nt,medica tion Not available Not available Not available 10/23/2023 [facility] 11:56:36 498744 latex environme nt,medica tion Not available Not available Not available 10/23/2023 83716 91 RxNorm [facility] 11:56:40 Medications Name Sig Start Date [...] Social History Question Answer Notes LastModified by [address] [employer] Details LastModified Time Tobacco Smoking Status Never Smoker Zachariah Quiñonez [facility] 10/23/2023 11:51:19 Sunscreen Use? Yes Informatio n not available 10/23/2023 Tanning Bed Use No Informati on not available 10/23/2023 What Was The Date Of Your Most Recent Tobacco Screening? 05/19/2025 Information not available 05/19/2025 Sex: Female Functional Status Question Answer Note LastModified by [employer] Details LastModified Time What is your level [...] Diagnosis SNOMED-CT Code Diagnosis ICD10 Code Diagnosis IMO Codes Diagnosis Note [id number] DARSHAN NEWBERRY [address] [address] 10/23/2023 11:11:50 10/23/2023 12:22:10 Multiple benign melanocytic nevi 957704501 D22.5 D18.01 L82.1 L81.4 The benign nature [...] if any suspicious lesions are noted. Scar 228978962 L90.5 Z85.828 Scar(s) clear with no evidence recurrence . Continue to monitor for any changes. Raised mahesh orrheic keratosis 3516758533 64031 L82.1 L29.9 Benign.Lalo l tx with LN2 since bothersome . Itching of skin 01766048 0 L29.9 The nature of the diagnosis was discussed. Pt has been using Aveeno lotion.Rx prescribed TAC 0.1% topical cream BID to AA for 14 days then PRN for flares. SE reviewed. LT use discussed. Pt to call if flares/wor sens [id number] DARSHAN NEWBERRY [address] [address] 04/22/2024 11:12:59 04/22/2024 11:53:30 Multiple benign melanocytic nevi 778342137 D22.5 L81.4 D18.01 L82.1 The benign nature [...] noted. History of malignant neoplasm of skin 697390120 Z85.828 L90.5 The scar is clear with no evidence of recurrence .Cont to monitor for any changes. Actinic keratosis 007 L57.0 The nature of the diagnosis was explained. Pre-cancer ous.Will treat with LN2.F/u if treated lesions persist. Inflamed s eborrheic keratosis 172718116 L82.0 R58 Benign appearing lesions.Si nce bothersome and this lesion has bled previously , will treat with LN2.Lesion s treated today may persist.F/ u if treated lesions persist. Milia 126644490 L72.0 R52 The nature of the diagnosis was discussed. Benign clogged poreWill extract lesion since this lesion is painful per pt.F/u if treated lesion persist. Neoplasm o f uncertain behavior of skin 97662701 D48.5 The etiology of lesion(s) discussed. Biopsy recommende d. ED&C performed. Will call pt with results or post to portal if benign. [id number] DARSHAN NEWBERRY [address] [address] 10/28/2024 10:34:27 10/28/2024 11:48:38 Multiple benign melanocytic nevi 195309889 D22.5 L81.4 D18.01 L82.1 The benign nature [...] noted. History of malignant neoplasm of skin 967855408 Z85.828 L90.5 The scar is clear with no evidence of recurrence .Cont to monitor for any changes. Actinic keratosis L57.0 The nature of the diagnosis was explained. Pre-cancer ous.Will treat with LN2.F/u if treated lesions persist. 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 Due to a pinching of a nerve. [id number] DARSHAN NEWBERRY [facility] [address] [place] [address] 05/19/2025 10:01:17 05/19/2025 11:09:11 Multiple benign melanocytic nevi 012382120 D22.5 L81.4 D18.01 L82.1 The benign nature [...] noted. History of malignant neoplasm of skin excluding melanoma 290079953 Z85.035 3840623 The scar is clear with no evidence of recurrence . Cont. to monitor for any changes. Sebaceous cyst of skin 329023711 L72.3 73212 The nature of the diagnosis was discussed. Benign clogged pore.Since bothersome , will extract lesion. Health Concerns Section Related Observation LastModified by Organization Detai ls LastModified Time None Recorded Concern Status LastModified by Organization Details LastModified Time None Recorded Advance Directives Directive None Recorded Payers Insurance Date Sequence Insurance Name Policy Number Policy Aparicio Covered Member ID Aparicio Member ID Guarantor Name 05/25/2025 2 A[employer] (MEDICARE SUPPLEMENT) Bing Howard [id number] Bing Howard 05/19/2025 1 MED[place]ARE[place] Bing Howard [id number] Bing Howard Notes Date Note Type Note Provider Name and Address Organization Details Recorded Time 10/23/2023 text/html ROS as noted in the HPI 1. FBSE6 monthshx [facility] ( multiple sites)reports: areas of daubclg0P have a few spotslocation: backreports: they just feel different3. MY neck is itchylocation: anterior necktx: benadryl creamreports: itchy DARSHAN NEWBERRY [address] [place], [address], [facility] 10/24/2023 09:49:07 04/22/2024 text/html ROS as noted in the [facility] ( multiple sites)reports: spot on mid back, R axilla DARSHAN NEWBERRY [address] [place], [address], [facility] 04/22/2024 12:04:27 10/28/2024 text/html ROS as noted in the [address] [facility] (multiple sites)reports: Id like my back checked, and a place under my L arm. DARSHAN NEWBERRY [address] [place], [address], [facility] 10/28/2024 12:43:57 05/19/2025 text/html ROS as noted in the [address] [facility] (multiple sites)spots of concern: back DARSHAN NEWBERRY [address] [place], [address], [facility] 05/19/2025 12:32:45 OBGyn Episode No OBEpisode recorded.
--- OUTSIDE RECORDS SUMMARY | 2025-08-16 16:56 | XMS_ITS | Encounter Summary ---
Author Organization [employer] ([place], [place], [place], [place], [place]) Address [address] [place] [address] Care Team Providers Care Motion Picture Cameraman Name Role Phone Greg Echevarria MD Primary Care Provider + [phone] Encounter Details Date Type Department Care Team (Late st Contact Info) Description 08/15/2021 Transcribed Document [facility] [address] [place] [address] ProviderEmma MD [address] [place] [address] Social History Tobacco Use Types Packs/Day Years Used Date Smoking Tobacco: Never Assessed Comments Unknown Sex and Gender Information Value Date Recorded Sex Assigned at Not on file Legal Sex Female 4:56 PM CDT Gender Identity Not on file Sexual Orientation Not on file documented as of this encounter Miscellaneous Notes * Cerner Conversion Note - Emam ProviderMD - 08/15/2021 8:09 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 Name: BELLA BING EVAN Cherry/Sex: 1945 Female Med Rec #: [id number] Physician: ZITA MOBLEY MD-SUR Financial #: [id number] Pt. Type: O Room/Bed: [facility] Admit/Disch: 08/15/21 05:49:00 - Institution: [facility] Main OR PACU Case Times Entry 1 In PACU I 08/15/21 08:50:00 Ready for PACU 08/15/21 09:31:00 Discharge Discharge from PACU 08/15/21 09:31:00 I Last Modified By: ZULEIKA VAN 08/15/21 09:36:18 [facility] Main OR PACU Case Times Audit 08/15/21 09:36:18 Memory Care Program Resident: ANTHONY Modifier: COLEMAM <+> 1 Ready for PACU Discharge <+> 1 Discharge from PACU I Finalized By: ZULEIKA VAN Document Signatures Signed By: ZULEIKA AVN 08/15/21 09:36 Electronically signed by Sumit Espitia Conversion Produce Department Supervisor Cerner at 12/19/2022 5:59 PM CDT documented in this encounter Plan of Treatment Upcoming Encounters Date Type Department Care Team (Late st Contact Info) Description 09/26/2025 10:30 AM EST Appointment [facility] [address] [place] [address] [address] [place] [phone] Zita Mobley MD [address] [facility] [address] [place] [address] 09/26/2025 11:30 AM EST Office Visit [facility] [address] [facility] [address] [place] [address] Zita Mobley MD [address] [place] [address] [address] [place] [address] 09/26/2025 1:30 PM EST Office Visit [facility] [address] [facility] [address] [place] [address] Porsche Sutton MD [address] [place] [address] documented as of this encounter Visit Diagnoses Not on filedocumented in this encounter Care Teams Motion Picture Cameraman Relationship Specialty Start Date End Date Greg Echevarria MD [address] [facility] [address] [place] [address] PCP - General Neurology 08/15/22 documented as of this encounter
--- OUTSIDE RECORDS SUMMARY | 2025-08-16 16:56 | XMS_ITS | Patient Health Record ---
Author Organization [facility] Address [address] [facility] [address] [place] [address] Care Team Providers Care Homicide Squad Commanding Officer Name Role Phone Miriam Akhtar Unavailable [phone] Allergies Allergen (clinical drug ingredient) Drug/Non Drug Allergy documented on EMR Reaction Allergy Type Onset Date Status Latex latex (uncoded) blister Allergy Acti ve clarithromycin Clarithromycin nausea and vomiting Drug Allergy Active Results Component Value Reference Range Notes Nereyda/Bacterial Vaginosis, BENNETT (Aptima) Reviewed date:01/31/2025 01:04:10 PM Interpretation:Negative Performing Lab:[facility] - [facility] CLIA ID [id number], [address] [facility], [address], [place] [address], Director - Cliff Gracia MD Notes/Report: Bacterial Vaginosis Negative Negative The Aptima BV assay is a real time NAAT TMA assay developed for use on the automated [place] detection of target organisms. The Aptima BV assay uses an algorithm for bacterial vaginosis based on system that detects and discriminates RNA markers from the Lactobacillus species group (L. gasseri, L. crispatus and L. jensenii), Gardnerella vaginalis, and Atopobium vaginae. Nereyda species Negative Negative The CV Assay is a real time TMA assay developed for use on the automated [place] system that detects following Nereyda species organisms [...] Problem Status W/U Status Risk Notes Problem Personal history of primary malignant neoplasm of breast (722222887) Personal history of breast cancer (Z85.3) Active confirmed Problem Vaginal odor (091254285) Vaginal odor (N94.9) Active confirmed Problem Heart murmur (79257464) Cardiac murmur (R01.1) 4 Active confirmed Undiagnosed cardiac murmurs Vital Signs Blood pressure diastolic 78 mm Hg 01/28/2025 Height 63 in 01/28/2025 Blood pressure systolic 130 mm Hg 01/28/2025 Weight 148.8 lbs 01/28/2025 BMI 26.36 kg/m2 01/28/2025 Encounters Encounter Location Date Provider Diagnosis [facility] [address] [address] 01/28/2025 Miriam Giovana Vaginal odor N94.9 and Acute vulvitis N76.2 Assessments Encounter Date Diagnosis (ICD Code) Assessment Notes Treatment Notes Treatment Clinical Notes Section Notes 01/28/2025 Vaginal odor (ICD-10 - N94.9) 01/28/2025 Acute vulvitis (ICD-10 - N76.2) Plan Of Treatment Next Appt Details Provider Name:Miriam Akhtar, 01/30/2026 01:45:00 PM, [address], [place], [address], Insurance Providers Payer Name Payer Address Payer Phone Subscriber Number Group Number Insured Name Patient Relationship to Insured Coverage Start Date Coverage End Date [place] [address] [place] [address] [id number] Dot Howardlis Self - patient is the insured 2 AAR [address] [place], [place] [id number] Dot Howardlis Self - patient is the insured 2 Medical (General) History Medical History History ICD Code hypercholeterolemia asthma osteoporosis breast cancer invasive poorl y differentiated ductal adenocarcinoma ER/NH/HER2 positive gerdI IBS hyporthyroid anxiety PE/DVT Surgical History Surgery Date(Month/Year) x 2 inflate lung hernia breast bx appendectomy polyp of vocal cord cataract bilaterally torn meniscus partial knee replacement mohs surgery pacemaker PE right lumpectomy Hospitalization History Reason Date(Month/Year) PE?DVT partial knee replacement appendectomy inflate lung childbirth
--- OUTSIDE RECORDS SUMMARY | 2025-08-16 16:56 | XMS_ITS | Referral Summary ---
Author Organization [employer] ([place], [place], [place], [place], [place]) Address [address] [place] [address] Care Team Providers Care Tub Rider Name Role Phone Greg Echevarria MD Primary Care Provider + [phone] Allergies Active Allergy Reactions Criticality Noted Date Comments Clarithromycin Nausea And Vomiting Low 08/15/2022 Latex Low 07/09/2022 Other reaction(s): Blister Tape, Occlusive Adhesive Rash Low 08/15/2022 Medications bisoprolol (ZEBETA) 5 MG tablet Take 1 tablet (5 mg total) by mouth daily. 2 Active levothyroxine (SYNTHROID, LEVOTHROID) 75 MCG tablet Take 1 tablet (75 mcg total) by mouth daily. 2 Active esomeprazole (NexIUM) 40 MG capsule Take 1 capsule (40 mg total) by mouth daily. 2 Active Xarelto 20 mg tablet Take 1 tablet (20 mg total) by mouth daily. 2 Active rosuvastatin (CRESTOR) 5 MG tablet Take 1 tablet (5 mg total) by mouth every other day. 2 Active spironolactone (ALDACTONE) 25 MG tablet Take 1 tablet (25 mg total) by mouth daily. 2 Active calcium carbonate/vitamin D3 (CALTRATE 600 + D ORAL) Take 1 tablet by mouth daily. 1 Active polyethylene glycol (GLYCOLAX) 17 gram/dose powder Take 17 g by mouth daily. 1 Active CYANOCOBALAMIN, VITAMIN B-12, ORAL Take 5,000 mcg by mouth daily. 1 Active calcium polycarbophil (KONSYL FIBER ORAL) Take by mouth daily. 1 Active Lactobacillus acidophilus (PROBIOTIC ORAL) Take 1 capsule by mouth daily. 1 Active furosemide (LASIX) 20 MG tablet Take 1 tablet (20 mg total) by mouth daily as needed. 3 Active citalopram (CeleXA) 10 MG tablet Take 1 tablet (10 mg total) by mouth daily Look-alike /Sound-alike medication . Active denosumab (Prolia) 60 mg/mL syrg Inject under the skin. 5 Active Active Problems Problem Noted Date Diagnosed Date Malignant neoplasm of upper- outer quadrant of right breast in female, estrogen receptor negative 09/27/2022 Cancer Staging:Clinical stage from 07/02/2021:Stage IIB(cT2, cN0, cM0, G3, ER-, DC-, HER2-) - Unsigned Pathologic stage from 08/15/2021:Stage IIA(pT2, pN0(sn), cM0, G3, ER-, DC-, HER2-) - Signed by Krunal Cash MD on 09/15/2023 Anxiety 08/15/2022 Asthma 08/15/2022 At risk for sleep apnea 08/15/2022 Chronic back pain 08/15/2022 Deep vein thrombosis 08/15/2022 Encounter for general adult medical examination without abnormal findings 08/15/2022 High cholesterol 08/15/2022 Hypertension 08/15/2022 Pulmonary embolus 08/15/2022 Heart murmur 02/15/2014 Immunizations Immunization Administration Dates Next Due Influenza High Dose Preservative Free IM ([id number] ) 05/29/2022,06/12/2021 Influenza, High Dose 06/09/2019 Pneumococcal Conjugate (Prevnar) 13-Valent 04/21 Pneumococcal Polysaccharide (Pneumovax) 10/19/19 22 Td 7+ years, (TDVAX) 2 Lf te tanus toxoid preservative free 11/03/1996 Social History Tobacco Use Types Packs/Day Years Used Date Smoking Tobacco: Never Passive Smoke Exposure: Never Smokeless Tobacco: Never Tobacco Cessation:Counseling Given: Not Answered Alcohol Use Standard Drinks/Week Comments Not Currently 0 (1 standard drink = 0.6 oz pur e alcohol) occassionally Social Connection and Isolation Panel Answer Date Recorded In a typical week, how many times do you talk on the phone with family, friends, or neighbors? More than three times a week 09/27/2022 How often do you get togethe r with friends or relatives? More than three times a week 09/27/2022 How often do you attend chur ch or sabianist services? 1 to 4 times per year 09/27/2022 Do you belong to any clubs o r organizations such as taoist groups, unions, fraternal or athletic groups, or school groups? No 09/27/2022 How often do you attend meet ings of the clubs or organizations you belong to? Never 09/27/2022 Are you , , di vorced, , never , or living with a partner? 09/27/2022 Overall Financial Resource Strain (CARDIA) Answe r Date Recorded How hard is it for you to pa y for the very basics like food, housing, medical care, and heating? Not hard at all 09/27/2022 Exercise Vital Sign Answer Date Recorde d On average, how many days pe r week do you engage in moderate to strenuous exercise (like a brisk walk)? 2 days 09/27/2022 On average, how many minutes do you engage in exercise at this level? 30 min 09/27/2022 Hunger Vital Sign Answer Date Recorded Within the past 12 months, y ou worried that your food would run out before you got the money to buy more. Never true 09/27/19 23 Within the past 12 months, t he food you bought just didn't last and you didn't have money to get more. Never true 09/27/2022 PRAPARE - Transportation Answer Date Re corded In the past 12 months, has l ack of transportation kept you from medical appointments or from getting medications? No 09/02 In the past 12 months, has l ack of transportation kept you from meetings, work, or from getting things needed for daily living? No 09/27/2022 Family and Community Support Answer Duglas e Recorded Help with Day to Day Activities Not on file 09/12/2023 Feeling Lonely or Isolated Not on file 09/12 Educational Attainment Answer Date Freddy rded Speak language other than Andorran at home Not on file 09/12/2023 Want help with school or training Not on file 09/12/2023 Substance Use Answer Date Recorded Used prescription meds for non-medical reasons N ot on file 09/12/2023 Used illegal drugs past 12 months Not on file 09/12/2023 Education Answer Date Recorded What is the highest level of school you have completed or the highest degree you have received? High school graduate 09/27/2022 Comments No Sex and Gender Information Value Date Recorded Sex Assigned at Not on file Legal Sex Female 4:56 PM CDT Gender Identity Not on file Sexual Orientation Not on file Occupation Industry Job Start Date Job End Date Retired Not on file Not on file Not on file Last Filed Vital Signs Vital Sign Reading Time Taken Comments Blood Pressure 119/61 03/31/2025 1:08 PM EDT Pulse 61 03/31/2025 1:08 PM EDT Temperature 36.3 C (97.4 F) 03/31/2025 1:08 PM EDT Respiratory Rate 18 03/31/2025 1:08 PM EDT Oxygen Saturation 99% 03/31/2025 1:08 PM EDT Inhaled Oxygen Concentration - - Weight 64.8 kg (142 lb 12.8 oz) 03/31/2025 1:08 PM EDT Height 160 cm (5' 3 ) 03/31/2025 1:08 PM EDT Body Mass Index 25.3 03/31/2025 1:08 PM EDT Plan of Treatment Upcoming Encounters Date Type Department Care Team (Late st Contact Info) Description 09/26/2025 10:30 AM EST Appointment [facility] [address] [place] [address] Steve Jeffery MD [address] [place] [address] [facility] [address] [place] [address] 09/26/2025 11:30 AM EST Office Visit [facility] [address] [facility] [address] [place] [address] Steve Jeffery MD [address] [place] [address] 09/26/2025 1:30 PM EST Office Visit [facility] [address] [place] [address] Porsche Sutton MD [address] [place] [address] [address] [place] [address] [place] [address] [place] [phone] Care Teams Tub Rider Relationship Specialty Start Date End Date Greg Echevarria MD [address] [facility] [address] [place] [address] PCP - General Neurology 08/15/22
--- OUTSIDE RECORDS SUMMARY | 2025-08-16 16:56 | XMS_ITS | Clinical Summary ---
Author Organization [employer] ([place], [place], [place], [place], [place]) Address [address] [place] [address] Care Team Providers Care Chestnut Tanner Name Role Phone Greg Echevarria MD Primary Care Provider + [phone] Allergies Active Allergy Reactions Criticality Noted Date [...] from 07/02/2021:Stage IIB(cT2, cN0, cM0, G3, ER-, NE-, HER2-) - Unsigned Pathologic stage from 08/15/2021:Stage IIA(pT2, pN0(sn), cM0, G3, ER-, NE-, HER2-) - Signed by Krunal Cash MD on 09/15/2023 Anxiety 08/15/2022 Asthma 08/15/2022 At risk for sleep apnea 08/15/2022 Chronic back pain 08/15/2022 Deep vein thrombosis 08/15/2022 Encounter for general adult medical examination without abnormal findings 08/15/2022 High cholesterol 08/15/2022 Hypertension 08/15/2022 Pulmonary embolus 08/15/2022 Heart murmur 02/15/2014 Immunizations Immunization Administration Dates Next Due Influenza High Dose Preservative Free IM ([id number] ) 05/29/2022,06/12/2021 Influenza, High Dose 06/09/2019 Pneumococcal Conjugate (Prevnar) 13-Valent 04/21 Pneumococcal Polysaccharide (Pneumovax) 10/19/19 22 Td 7+ years, (TDVAX) 2 Lf te tanus toxoid preservative free 11/03/1996 Family History Medical History Relation Name Comments Heart disease Brother 1 Surya Skin cancer Brother 1 Surya Arthritis Brother 2 Edvin Lung cancer Brother 3 James No Known Problem Daughter Colon cancer Father Breast cancer Maternal Aunt Cancer Maternal Grandmother Colon cancer Mother Diabetes Son Kidney cancer Son Relation Name Status Comments Brother 1 Surya Alive Brother 2 Edvin Alive Brother 3 James Daughter Alive Father Maternal Aunt Maternal Grandmother Mother Son Alive Social History Tobacco Use Types Packs/Day Years [...] often do you attend chur ch or amish services? 1 to 4 times per year 09/27/2022 Do you belong to any clubs o r organizations such as zoroastrianism groups, unions, fraternal or athletic groups, or [...] Date Freddy rded Speak language other than [place] Islander at home Not on file 09/12/2023 Want [...] Info) Description 09/26/2025 10:30 AM EST Appointment [address] [address] Steve Jeffery MD [address] [place] [address] 09/26/2025 11:30 AM EST Office Visit [facility] [address] [facility] [address] [place] [address] Steve Jeffery MD [address] [place] [address] 09/26/2025 1:30 PM EST Office Visit [facility] [address] [facility] [address] [place] [phone] Porsche Sutton MD [address] [facility] [address] [place], [place] [id number] Health Maintenance Due Date Last Done Comments Medicare Initial AWV G0438 DXA SCAN 1945 Depression Screening (12+) 1958 Hepatitis C Screening 1964 Shingles Vaccine (Zoster) (1 of 2) 1996 DTAP/TDAP/TD VACCINES (2 - T d or Tdap) 11/03/2006 11/03/1996 Respiratory Syncytial Virus (RSV) Adult or (1 - 1-dose 75+ series) 2021 Falls Risk Screening 09/01/2024 COVID-19 VACCINE ( season) 2025 07/02/2021, 10/04/2020, 09/06/2020 Influenza Vaccine (#1) 2025 2, 06/12/2021, 06/09/2019 Tobacco Cessation Counseling and Screening (12+) 03/31/2026 03/31/2025 Pneumococcal 50+ years Completed 10/19/2021, 2019 Insurance MEDICARE PART A B [facility] Care Teams Chestnut Tanner Relationship Specialty Start Date End Date Greg Echevarria MD [address] [address] PCP - General Neurology 08/15/22
--- OUTSIDE RECORDS SUMMARY | 2025-08-16 16:56 | XMS_ITS | Encounter Summary ---
Author Organization [employer] ([place], [place], [place], [place], [place]) Address [address] [place] [address] Care Team Providers Care Senior Project Controls Specialist Name Role Phone Greg Echevarria MD Primary Care Provider + [phone] Encounter Details Date Type Department Care Team (Late st Contact Info) Description 08/15/2021 Transcribed Document [facility] [address] [place] [address] ProviderEmma MD [address] [place] [address] Social History Tobacco Use Types Packs/Day Years Used Date Smoking Tobacco: Never Assessed Comments Unknown Sex and Gender Information Value Date Recorded Sex Assigned at Not on file Legal Sex Female 4:56 PM CDT Gender Identity Not on file Sexual Orientation Not on file documented as of this encounter Miscellaneous Notes * Cerner Conversion Note - Emma ProviderMD - 08/15/2021 8:09 AM CANVAS CUTTER HAND [facility]IME[facility] Main OR IntraOp Summary Primary Physician: ZITA JEFFERY MD-SUR Finalized Date/Time: 08/15/21 10:14:30 Pt. Name: BING HOWARD EVAN Cherry/Sex: 1945 Female Med Rec #: [id number] Physician: ZITA JEFFERY MD-SUR Financial #: [id number] Pt. Type: O Room/Bed: [facility] Admit/Disch: 08/15/21 05:49:00 - 08/15/21 10:02:00 Institution: [facility] [place]Op Case Attendance Entry 1 Entry 2 Entry 3 Case Attendee ZITA JEFFERY THOMAS, ELLEN, MIRIAM LOVELL PA MD-SUR Role Performed Surgeon/Proceduralist, AUGER MILL OPERATOR/Nurse Nutritional Services Host Physician payroll administrative assistant First Time In 08/15/21 07:46:00 08/15/21 07:46:00 08/15/21 07:46:00 Time Out 08/15/21 08:50:00 08/15/21 08:50:00 08/15/21 08:50:00 Procedure Breast Lumpectomy Breast Lumpectomy Breast Lumpectomy Low Moor Node Map Biop Low Moor Node Map Biop Low Moor Node Map Biop Other Attendee Superficial Wound Closed By: Last Modified By: Charmaine Schmidt RN Wellnitz, Sara, Charmaine Andrews RN 08/15/21 08:49:31 08/15/21 08:49:31 08/15/21 08:49:31 Entry 4 Entry 5 Entry 6 Case Attendee Charmaine Schmidt RN ANTROBUS, MONICA, Cat Bhatti RN TECH Role Performed Superintendent [employer], First SENIOR STRUCTURAL ENGINEER Superintendent [employer], First Time In 08/15/21 08:00:00 08/15/21 07:46:00 08/15/21 07:46:00 Time Out 08/15/21 08:50:00 08/15/21 08:50:00 08/15/21 08:00:00 Procedure Breast Lumpectomy Breast Lumpectomy Breast Lumpectomy Low Moor Node Map Biop Low Moor Node Map Biop Low Moor Node Map Biop Other Attendee BREAK Superficial Wound Closed By: Last Modified By: Charmaine Schmidt RN Wellnitz, Sara, Charmaine Andrews, NI 08/15/21 08:49:31 08/15/21 08:49:31 08/15/21 08:49:31 [facility] IntraOp Case Attendance Audit 08/15/21 08:49:31 Surgical Product Sales Consultant: STUART Modifier: STUART 1 <+> Time Out 1 <*> Procedure Breast Lumpectomy Low Moor Node Map Biop 2 <+> Time Out 2 <*> Procedure Breast Lumpectomy [place] Node Map Biop 3 <+> Time Out 3 <*> Procedure Breast Lumpectomy Low [place] Node Map Biop 4 <+> Time Out 4 <*> Procedure Breast Lumpectomy Low [place] Node Map Biop 5 <+> Time Out 5 <*> Procedure Breast Lumpectomy [place] Node Map Biop 6 <*> Procedure Breast Lumpectomy Low Moor Node Map Biop 08/15/21 08:28:19 Surgical Product Sales Consultant: STUART Modifier: STUART 4 <*> Time In 08/15/21 07:46:00 4 <*> Procedure Breast Lumpectomy Low Moor Node Map Biop <+> 6 Case Attendee <+> 6 Role Performed <+> 6 Time In <+> 6 Time Out <+> 6 Procedure <+> 6 Other Attendee 08/15/21 08:20:43 Surgical Product Sales Consultant: STUART Modifier: STUART 1 <+> Time In 1 <*> Procedure Breast Lumpectomy Low Moor Node Map Biop 2 <+> Time In 2 <*> Procedure Breast Lumpectomy Low Moor Node Map Biop 3 <+> Time In 3 <*> Procedure Breast Lumpectomy [place] Node Map Biop 4 <+> Time In 4 <*> Procedure Breast Lumpectomy [place] Node Map Biop 5 <+> Time In 5 <*> Procedure Breast Lumpectomy Low Moor Node Map Biop [facility] IntraOp Case Times Entry 1 Patient In Room Time 08/15/21 07:46:00 Out Room Time 08/15/21 08:50:00 Anesthesia Start Time 08/15/21 07:46:00 Stop Time 08/15/21 08:50:00 Anesthesia Ready 08/15/21 07:46:00 Surgery / Procedure Times Start Time 08/15/21 08:09:00 Stop Time 08/15/21 08:45:00 Last Modified By: Charmaine Schmidt RN 08/15/21 08:49:26 [facility] IntraOp Case Times Audit 08/15/21 08:49:26 Surgical Product Sales Consultant: STUART Modifier: STUART <+> 1 Out Room Time <+> 1 Stop Time 08/15/21 08:46:44 Surgical Product Sales Consultant: STUART Modifier: STUART <+> 1 Stop Time [facility] IntraOp Cautery Entry 1 ESU Identification Cautery Type Monopolar ESU ID Number [id number] ID Type Hospital Number Cautery Settings Cut Setting 30 Coag Setting 30 ESU Grounding Pad Ground Pad Type Adult Grounding Pad Site Left thigh Grounding Pad Cat Andrade RN Applied By Grounding Pad Site Intact Skin Condition Before Cautery Grounding Pad Site Unchanged Skin Condition After Cautery Last Modified By: Charmaine Schmidt RN 08/15/21 08:43:32 [facility] IntraOp Communication Entry 1 Entry 2 Communication To Family/Significant other Family/Significant other Comment porcedure start CLOSING Communication By Charmaine Schmidt RN STRIFLING, JOHN R, MD-MICHELLE Date and Time 08/15/21 08:15:00 08/15/21 08:49:00 Last Modified By: Charmaine Schmidt RN Wellnitz, Sara, RN 08/15/21 08:15:22 08/15/21 08:49:15 [facility] IntraOp Communication Audit 08/15/21 08:49:15 Surgical Product Sales Consultant: STUART Modifier: STUART <+> 2 Communication By <+> 2 Date and Time <+> 2 Communication To <+> 2 Comment [facility] IntraOp Counts Verification Entry 1 Procedure Breast Lumpectomy Low Moor Node Map Biop Count Info Count Type Sponge, Sharps Counts Verification Baseline/pre-procedure Sequence Count Results Not Applicable Counts Performed By Count Performed By ERWIN FANG, OR (Scrub) TECH Count Performed By Charmaine Schmidt, RN (RN) Last Modified By: Charmaine Schmidt RN 08/15/21 08:15:46 [facility] IntraOp Counts Final Entry 1 Procedure Breast Lumpectomy Low Moor Node Map Biop Final Count Info Count Type Sponge, Sharps Counts Verification Skin Closure/end of Sequence procedure Count Results Correct, surgeon notified Counts Performed By Count Performed By ERWIN FANG, OR (Scrub) TECH Count Performed By Charmaine Schmidt, RN (RN) Last Modified By: Charmaine Schmidt RN 08/15/21 08:41:29 [facility] IntraOp Cultures and Spec Summary Entry 1 Cultrures and Specimens Specimen Ordered: Yes Test(s) Routine/Path-Lab Requested/Final Disposition Last Modified By: Charmaine Schmidt RN 08/15/21 08:15:56 [facility] IntraOp Departure from OR Entry 1 Integumentary Assessment Integumentary WDL Assessment WDL Transfer/Handoff Transfer to PACU Phase I Handoff Method Bedside/Face to face Post-op Transport Stretcher/Gurney Via Patient Transport Charmaine Schmidt RN, Accompanied by ANUM RIGGINS CRNA Last Modified By: Charmaine Schmidt RN 08/15/21 08:42:51 [facility] IntraOp Dressing and Packing Entry 1 Type Dressing Location BREAST,RIGHT Wound Dressing Item Skin Closure Glue Applied By MIRIAM WINTER PA Last Modified By: Charmaine Schmidt RN 08/15/21 08:27:39 [facility] IntraOp Fire Risk Assessment Entry 1 Fire Info Surgical Site or 1- Yes Incision Above the Xyphoid Open O2 Source 0- No (Mask or Cannula) Available Ignition 1- Yes (ESU, Laser, Light Source) Fire Risk 2 Assessment Score Fire Score Fire Risk Yes Assessment Complete Fire Risk Charmaine Schmidt RN Assessment Verified By Fire Risk 08/15/21 08:17:00 Assessment Verified Date/Time Fire Risk High Risk Protocol Yes Implemented Standard Fire Yes Safety Precautions Followed Last Modified By: Charmaine Schmidt RN 08/15/21 08:17:24 [facility] IntraOp General Case Hat Band Attacher 1 Case Information OR OR 03 SJE Case Level 1 Room Verified Yes Wound Class 1 - Clean Specialty General Anesthesia Type General ASA Class 4 Diagnosis Preop Diagnosis RIGHT BREAST CANCER Postop Same As Preop Yes Postop Diagnosis RIGHT BREAST CANCER Wound Class Definitions Last Modified By: Charmaine Schmidt RN 08/15/21 08:17:45 [facility] IntraOp Intraoperative Assessment Entry 1 Handoff Method Bedside/Face to face Valid History / Yes Physical in Chart Preoperative Yes Checklist Reviewed/Evaluated Allergies Reviewed Yes Patient is Latex No Sensitive Isolation Not applicable Precautions Noted Level of WDL Consciousness (WDL = Alert, Oriented to Person, Place, and Time) Skin Assessment Yes Verified Present Upon IVs Arrival to OR Last Modified By: Charmaine Schmidt RN 08/15/21 08:17:54 [facility] IntraOp Intraoperative Equipment Entry 1 Type Equipment Equipment Equipment Kolby Suction System ID Number [id number] Setting HIGH Intraop Monitoring Electrocardiogram Three lead placement (ECG) Electrode Placement Blood Pressure Non-Invasive BP Device Source Blood Pressure Arm, left upper Location Pulse Oximeter Hand, left Probe Site Antiembolic Devices Antiembolic Devices Sequential compression device, knee high Antiembolic Device Bilateral Location Scopes Photo/Video Documentation Photo No Video No Last Modified By: Charmaine Schmidt RN 08/15/21 08:46:36 [facility] IntraOp Intraoperative Equipment Audit 08/15/21 08:46:36 Surgical Product Sales Consultant: STUART Modifier: STUART <+> 1 ID Number [facility] IntraOp Medication Admin Entry 1 Medication/Irrigant lidocaine 1% w/ epinephrine 1:100,000 20ml vial - [id number] Route of LOCAL Administration Dose Dose 20 Unit of Measure ml Administered By ZITA JEFFERY MD-SUR Procedure Irrigation Last Modified By: Charmaine Schmidt RN 08/15/21 10:14:28 [facility] IntraOp Medication Admin Audit 08/15/21 10:14:28 Surgical Product Sales Consultant: STUART Modifier: STUART 1 <*> Medication/Irrigant lidocaine 1% w/ epinephrine 1:100,000 20ml vial - [id number] 1 <+> Dose [facility] IntraOp Patient Positioning Entry 1 Procedure Breast Lumpectomy Low Moor Node Map Biop Body Position Supine Left Arm Position Secured on padded arm board Right Arm Position Secured on padded arm board Left Leg Position Uncrossed, parallel Right Leg Position Uncrossed, parallel Feet Uncrossed Yes Pressure Points Yes Checked Positioning Devices Arm Board, Safety Strap, Thighs, Safety Strap, Arm(s) Positioned By ANUM RIGGINS, SKYE, ZITA JEFFERY MD-SUR, MIRIAM WINTER, DARSHAN, Cat Andrade, RN Position Verified Positioning Yes Verified by Anesthesia Positioning Yes Verified by Surgeon Last Modified By: Charmaine Schmidt RN 08/15/21 08:28:40 [facility] IntraOp Patient Positioning Audit 08/15/21 08:28:40 Surgical Product Sales Consultant: STUART Modifier: [email or web address] 1 <*> Procedure Breast Lumpectomy [place] Moor Node Map Biop 1 <*> Positioned By Charmaine Schmidt RN [facility] IntraOp Sign In Entry 1 Patient, Site, Yes Procedure Identified Surgical Consent Yes Confirmed Relevant Surgical Yes Documents Available Surgical Site Yes Marked by person performing procedure Anesthesia Machine Yes Check Completed Medication Checks Yes Completed Allergies Yes Airway Difficult No Airway/Aspiration Risk Difficult Yes Airway/Aspiration Intervention Equipment Available Blood Loss Risk No Blood Loss Yes Intervention Equipment Prepared and Ready Blood Identifiers Not applicable Verified Per Policy Hypothermia Risk Yes Warming Measures Yes Taken Last Modified By: Charmaine Schmidt RN 08/15/21 08:20:41 [facility] Intra Op Sign Out Entry 1 RN Confirmation Surgical Yes Procedure(s) Identified Instrument, Sponge Yes and Sharps Counts Correct/Documented Equipment Problems N/A Documented Specimen Labeled Yes Correctly Urinary Catheter N/A Documented in IView Wound Yes classification reviewed, verified and updated post case in both the General Case Data and Procedure segments Monroe Patient Yes Recovery Concerns Reviewed with Anesthesia Provider, Surgeon and RN Monroe Patient Yes Management Concerns Reviewed with Anesthesia Provider, Surgeon and RN Safety Checklist Yes Elements Complete? RN Sign Out Charmaine Schmidt RN Signature RN Sign Out 08/15/21 08:41:00 Signature Date/Time Plan of Care Outcome - Fire Risk OUTCOME STATEMENT: Goal met Patient is free from injury related to surgical fire Plan of Care Outcome - Pt Positioning OUTCOME STATEMENT: Goal met Absence of signs and symptoms of positioning injury. Plan of Care Outcome - Skin Prep OUTCOME STATEMENT: Goal met Intraoperative care is consistent with measures to prevent infection Plan of Care Outcome - Xray/Images OUTCOME STATEMENT: Goal met Absence of observable signs or symptoms of radiation injury Plan of Care Outcome - Counts OUTCOME STATEMENT: Goal met Absence of signs and symptoms of injury related to extraneous objects Last Modified By: Charmaine Schmidt RN 08/15/21 08:42:48 [facility] Intra Op Sign Out Audit 08/15/21 08:42:48 Surgical Product Sales Consultant: STUART Modifier: STUART 1 <*> OUTCOME STATEMENT: Absence of N/A observable signs or symptoms of radiation injury 1 <+> Wound classification reviewed, verified and updated post case in both the General Case Data and Procedure segments [facility] IntraOp Skin Prep Entry 1 Procedure Breast Lumpectomy Low Moor Node Map Biop Prescribed Yes Pre-Surgical Prep Completed Prep Area CHEST/BREASTS SHEET TO SHEET, NECK TO MID ABDOMEN. Intraop Prep Integumentary WDL Assessment WDL Prep Agents Chlorhexadine gluconate Prep by Cat Andrade, RN Hair Removal Methods No hair removal performed Last Modified By: Charmaine Schmidt RN 08/15/21 08:41:09 [facility] IntraOp Skin Prep Audit 08/15/21 08:41:09 Surgical Product Sales Consultant: STUART Modifier: STUART 1 <*> Procedure Breast Lumpectomy [place] Node Map Biop 1 <*> Prep by Charmaine Schmidt RN [facility] IntraOp Surgical Procedures Entry 1 Procedure Breast Lumpectomy Low [place] Node Map Biopsy Additional RIGHT BREAST LUMPECTOMY Procedure WITH SENTINEL NODE Description BIOPSY Primary Procedure Yes Primary Surgeon ZITA JEFFERY MD-MICHELLE Start 08/15/21 08:09:00 Stop 08/15/21 08:45:00 Anesthesia Type General Specialty General Wound Class 1 - Clean Last Modified By: Charmaine Schmidt RN 08/15/21 08:49:00 [facility] IntraOp Surgical Procedures Audit 08/15/21 08:49:00 Surgical Product Sales Consultant: STUART Modifier: [email or web address] 1 <*> Procedure Breast Lumpectomy [place] Node Map Biopsy 1 <+> Wound Class [facility] IntraOp Time Out Entry 1 Procedure to be Breast Lumpectomy Performed [place] Node Map Biop Time Out Time Out Pause Time 08/15/21 08:07:00 All activity Yes suspended (unless life threatening emergency) Team Verbally Correct patient Confirms Information identity, Correct side and site are marked, Consent form is present and accurate, Agreement on the procedure to be done, Correct patient position, Relevant images/results properly labeled/appropriately displayed, Confirm antibiotics have been administered, Confirm the skin prep has dried, Confirm prosthesis/implant/devic e is present, Performed in location of procedure after prepped/draped Antibiotic Yes Prophylaxis Administered Or In Progress Within the Last 60 Minutes Beta Andreea Yes Administered Venous Yes Thromboembolism Prophylaxis Required Anticipated Critical Events Surgeon None expected Anesthesia Provider Patient specific concerns Nursing Assures Sterility of instruments, Equipment concerns or issues Essential Imaging Yes Labeled and Displayed Anticipated PT. HAS HISTORY OF PE, Critical Event DVT Comment Last Modified By: Charmaine Schmidt RN 08/15/21 08:22:10 Case Comments <None> Finalized By: Charmaine Schmidt, RN Document Signatures Signed By: Charmaine Schmidt RN 08/15/21 08:53 Charmaine Schmidt RN 08/15/21 10:14 Unfinalized History Date/Time Username Reason for Unfinalizing Freetext Reason for Unfinalizing 08/15/21 10:13 STUART Chart Audit documented in this encounter Plan of Treatment Upcoming Encounters Date Type Department Care Team (Late st Contact Info) Description 09/26/2025 10:30 AM EST [facility]ment [facility] [address] [facility] [address] [place] [address] Zita Jeffery MD [address] [place] [address] 09/26/2025 11:30 AM EST [facility] [address] [facility] [address] [place] [address] Zita Jeffery MD [address] [place], [place] [id number] 09/26/2025 1:30 PM EST Office Visit [facility] [address] [facility] [address] [place] [phone] Porsche Sutton MD [address] [place] [address] documented as of this encounter Visit Diagnoses Not on filedocumented in this encounter Care Teams Senior Project Controls Specialist Relationship Specialty Start Date End Date Greg Echevarria MD [address] [facility] [address] [place] [phone] PCP - General Neurology 08/15/22 documented as of this encounter
--- OUTSIDE RECORDS SUMMARY | 2025-08-16 16:56 | XMS_ITS | Encounter Summary ---
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 Name Role Phone Greg Echevarria MD Primary Care Provider + [phone] Encounter Details Date Type Department Care Team (Late st Contact Info) Description 08/15/2021 Transcribed Document [facility] [facility] [address] [place] [address] ProviderEmma MD [address] [place] [address] Social History Tobacco Use Types Packs/Day Years Used Date Smoking Tobacco: Never Assessed Comments Unknown Sex and Gender Information Value Date Recorded Sex Assigned at Not on file Legal Sex Female 4:56 PM CDT Gender Identity Not on file Sexual Orientation Not on file documented as of this encounter Miscellaneous Notes * Cerner Conversion Note - Emma ProviderMD - 08/15/2021 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 Your next dose will be due at 130pm today Follow-Up Appointments Follow Up with ZITA MOBLEY MD-MICHELLE When 08/27/2021 10:00 AM EST Comments @ [facility] Where: [address] [place] [id number]- Medications What How Much When Instructions Next Dose calcium-vitamin D (Caltrate 600 + D) Oral Every Day cyanocobalamin (Vitamin B12) 5,000 Microgram(s) Oral Every Day levothyroxine 75 Microgram(s) Oral Every Day albuterol (Albuterol (Eqv-ProAir HFA) 90 mcg/ inh inhalation aerosol) Inhalation Every 6 Hours bifidobacterium-lactobacillus ([employer]'s Bounty Probiotic oral tablet) Oral Every Day bisoprolol (bisoprolol 5 mg oral tablet) Oral Every Day chondroitin-glucosamine (Osteo Bi-Flex) 2 tablets Oral Every Day esomeprazole 40 Milligram(s) Oral Every Day multivitamin with minerals (Centrum Silver) Every Day polyethylene glycol 3350 (MiraLax) Oral Every Day psyllium (Konsyl 3.4 g/ 6.5 g oral powder for reconstitution) Oral Every Day rivaroxaban (Xarelto 20 mg oral tablet) 1 Tablet(s) Oral Every Evening spironolactone (spironolactone 25 mg oral tablet) 1 Tablet(s) Oral Every Day Take your medications faithfully. Do NOT skip medication. Do NOT stop taking medications without the direction of a physician. Carry a list of your medications with you at all times, and take this medication list with you to your first follow up visit. Report any side effects. Avoid herbal remedies unless discussed with your physician. As part of your treatment plan, your physician may have prescribed a limited course of a controlled substance. This medication may be given to help people with moderate or severe pain or for other medical conditions, but there are risks involved with treatment. Common side effects may include nausea, constipation, drowsiness, sweating, itching, dry mouth, and rash. More serious side effects may include cognitive and motor impairment, like problems with thinking, concentrating, alertness, and movement (e.g. slowed reflexes), and driving and operating heavy machinery can be dangerous. It is important for you to talk to your physician if you have these side effects or questions. These controlled substances can produce physical dependence and be habit-forming if taken for an extended period of time, which means that the body has gotten used to them and may experience withdrawal symptoms if they are abruptly stopped. Withdrawal symptoms can include runny nose, sweating, goose bumps, diarrhea, abdominal cramping, rapid heartbeat, difficulty sleeping, and nervousness. Please dispose of unused and medications per pharmacy guidance. Education Materials Lumpectomy, Care After This sheet gives you information about how to care for yourself after your procedure. Your health care provider may also give you more specific instructions. If you have problems or questions, contact your health care provider. What can I expect after the procedure? After the procedure, it is common to have: ??? Breast swelling. ??? Breast tenderness. ??? Stiffness in your arm or shoulder. ??? A change in the shape and feel of your breast. ??? Scar tissue that feels hard to the touch in the area where the lump was removed. Follow these instructions at home: Medicines ??? Take mkso-sde-tyxwupd and prescription medicines only as told by your health care provider. ??? If you were prescribed an antibiotic medicine, take it as told by your health care provider. Do not stop taking the antibiotic even if you start to feel better. ??? Ask your health care provider if the medicine prescribed to you: ? Requires you to avoid driving or using heavy machinery. ? Can cause constipation. You may need to take these actions to prevent or treat constipation: ? Drink enough fluid to keep your urine pale yellow. ? Take vban-hup-nsqsvmi or prescription medicines. ? Eat foods that are high in fiber, such as beans, whole grains, and fresh fruits and vegetables. ? Limit foods that are high in fat and processed sugars, such as fried or sweet foods. Incision care ??? Follow instructions from your health care provider about how to take care of your incision. Make sure you: ? Wash your hands with soap and water before and after you change your bandage (dressing). If soap and water are not available, use hand cook cashier food prep. ? Change your dressing as told by your health care provider. ? Leave stitches (sutures), skin glue, or adhesive strips in place. These skin closures may need to stay in place for 2 weeks or longer. If adhesive strip edges start to loosen and curl up, you may trim the loose edges. Do not remove adhesive strips completely unless your health care provider tells you to do that. ??? Check your incision area every day for signs of infection. Check for: ? More redness, swelling, or pain. ? Fluid or blood. ? Warmth. ? Pus or a bad smell. ??? Keep your dressing clean and dry. ??? If you were sent home with a surgical drain in place, follow instructions from your health care provider about emptying it. Bathing ??? Do not take baths, swim, or use a hot tub until your health care provider approves. ??? Ask your health care provider if you may take showers. You may only be allowed to take sponge baths. Activity ??? Rest as told by your health care provider. ??? Avoid sitting for a long time without moving. Get up to take short walks every 1???2 hours. This is important to improve blood flow and breathing. Ask for help if you feel weak or unsteady. ??? Return to your normal activities as told by your health care provider. Ask your health care provider what activities are safe for you. ??? Be careful to avoid any activities that could cause an injury to your arm on the side of your surgery. ??? Do not lift anything that is heavier than 10 lb (4.5 kg), or the limit that you are told, until your health care provider says that it is safe. Avoid lifting with the arm that is on the side of your surgery. ??? Do not carry heavy objects on your shoulder on the side of your surgery. ??? Do exercises to keep your shoulder and arm from getting stiff and swollen. Talk with your health care provider about which exercises are safe for you. General instructions ??? Wear a supportive bra as told by your health care provider. ??? Raise (elevate) your arm above the level of your heart while you are sitting or lying down. ??? Do not wear tight jewelry on your arm, wrist, or fingers on the side of your surgery. ??? Keep all follow-up visits as told by your health care provider. This is important. ? You may need to be screened for extra fluid around the lymph nodes and swelling in the breast and arm (lymphedema). Follow instructions from your health care provider about how often you should be checked. ??? If you had any lymph nodes removed during your procedure, be sure to tell all of your health care providers. This is important information to share before you are involved in certain procedures, such as having blood tests or having your blood pressure taken. Contact a health care provider if: ??? You develop a rash. ??? You have a fever. ??? Your pain medicine is not working. ??? You have swelling, weakness, or numbness in your arm that does not improve after a few weeks. ??? You have new swelling in your breast. ??? You have any of these signs of infection: ? More redness, swelling, or pain in your incision area. ? Fluid or blood coming from your incision. ? Warmth coming from the incision area. ? Pus or a bad smell coming from your incision. Get help right away if you have: ??? Very bad pain in your breast or arm. ??? Swelling in your legs or arms. ??? Redness, warmth, or pain in your leg or arm. ??? Chest pain. ??? Difficulty breathing. Summary ??? After the procedure, it is common to have breast tenderness, swelling in your breast, and stiffness in your arm and shoulder. ??? Follow instructions from your health care provider about how to take care of your incision. ??? Do not lift anything that is heavier than 10 lb (4.5 kg), or the limit that you are told, until your health care provider says that it is safe. Avoid lifting with the arm that is on the side of your surgery. ??? If you had any lymph nodes removed during your procedure, be sure to tell all of your health care providers. This is important information to share before you are involved in certain procedures, such as having blood tests or having your blood pressure taken. This information is not intended to replace advice given to you by your health care provider. Make sure you discuss any questions you have with your health care provider. Document Revised: 02/21/2020 Document Reviewed: 02/21/2020 [employer] Patient Education ?? 2020 [employer] [place] Lymph Node Biopsy, Care After This sheet gives you information about how to care for yourself after your procedure. Your health care provider may also give you more specific instructions. If you have problems or questions, contact your health care provider. What can I expect after the procedure? After the procedure, it is common to have: ??? Blue urine or stool for the next 24???48 hours. This is normal. It is caused by the dye used during the procedure. ??? Blue skin at the injection site. This may last for up to 8 weeks. ??? Numbness, tingling, or pain near your incision site. ??? Swelling or bruising near your incision. Follow these instructions at home: Incision care ??? Follow instructions from your health care provider about how to take care of your incision. Make sure you: ? Wash your hands with soap and water before you change your bandage (dressing). If soap and water are not available, use hand cook cashier food prep. ? Change your dressing as told by your health care provider. ? Leave stitches (sutures), skin glue, or adhesive strips in place. These skin closures may need to stay in place for 2 weeks or longer. If adhesive strip edges start to loosen and curl up, you may trim the loose edges. Do not remove adhesive strips completely unless your health care provider tells you to do that. ??? Check your incision area every day for signs of infection. Check for: ? Redness, swelling, or pain. ? Fluid or blood. ? Warmth. ? Pus or a bad smell. ??? Do not take baths, swim, or use a hot tub until your health care provider approves. Ask your health care provider if you can take showers. You may be able to shower 24 hours after your procedure. After a shower, pat the incision area dry with a clean towel. Do not rub the incision. That could cause bleeding. Activity ??? Avoid activities that take a lot of effort. ??? Return to your normal activities as told by your health care provider. Ask your health care provider what activities are safe for you. General instructions ??? Take xixn-ils-tpvxnxr and prescription medicines only as told by your health care provider. ??? You may resume your regular diet. ??? If the procedure was done on or near the lymph nodes under your arm (axillary lymph nodes), do not have your blood pressure taken or have blood drawn from the arm on the side of the biopsy until your health care provider says it is okay. ??? You may need to be screened for extra fluid around the lymph nodes (lymphedema). Follow instructions from your health care provider about how often you should be checked. ??? Keep all follow-up visits as told by your health care provider. This is important. Contact a health care provider if: ??? Your pain medicine is not helping. ??? You have more redness, swelling, or pain around your biopsy site. ??? You have more fluid or blood coming from your incision. ??? Your incision feels warm to the touch. ??? You have pus or a bad smell coming from your incision. ??? You have nausea and vomiting. ??? You have any new bruising. ??? You have chills or a fever. Get help right away if: ??? You have pain that is getting worse, and your medicine is not helping. ??? You have vomiting that will not stop. ??? You have chest pain or trouble breathing. Summary ??? After the procedure, it is common to have blue urine or stool for the next 24???48 hours. ??? Follow instructions from your health care provider about how to take care of your incision. Check your incision area every day for signs of infection. ??? Take tpjm-hzx-kncmjpd and prescription medicines only as told by your health care provider. ??? Ask your health care provider when you can return to your normal activities. This information is not intended to replace advice given to you by your health care provider. Make sure you discuss any questions you have with your health care provider. Document Revised: 09/04/2018 Document Reviewed: 08/31/2018 [employer] Patient Education ?? 202 [employer] General Anesthesia, Adult, Care After This sheet gives you information about how to care for yourself after your procedure. Your health care provider may also give you more specific instructions. If you have problems or questions, contact your health care provider. What can I expect after the procedure? After the procedure, the following side effects are common: ??? Pain or discomfort at the IV site. ??? Nausea. ??? Vomiting. ??? Sore throat. ??? Trouble concentrating. ??? Feeling cold or chills. ??? Weak or tired. ??? Sleepiness and fatigue. ??? Soreness and body aches. These side effects can affect parts of the body that were not involved in surgery. Follow these instructions at home: For at least 24 hours after the procedure: ??? Have a responsible adult stay with you. It is important to have someone help care for you until you are awake and alert. ??? Rest as needed. ??? Do not: ? Participate in activities in which you could fall or become injured. ? Drive. ? Use heavy machinery. ? Drink alcohol. ? Take sleeping pills or medicines that cause drowsiness. ? Make important decisions or sign legal documents. ? Take care of children on your own. Eating and drinking ??? Follow any instructions from your health care provider about eating or drinking restrictions. ??? When you feel hungry, start by eating small amounts of foods that are soft and easy to digest (bland), such as toast. Gradually return to your regular diet. ??? Drink enough fluid to keep your urine pale yellow. ??? If you vomit, rehydrate by drinking water, juice, or clear broth. General instructions ??? If you have sleep apnea, surgery and certain medicines can increase your risk for breathing problems. Follow instructions from your health care provider about wearing your sleep device: ? Anytime you are sleeping, including during daytime naps. ? While taking prescription pain medicines, sleeping medicines, or medicines that make you drowsy. ??? Return to your normal activities as told by your health care provider. Ask your health care provider what activities are safe for you. ??? Take jsyf-iat-izplkam and prescription medicines only as told by your health care provider. ??? If you smoke, do not smoke without supervision. ??? Keep all follow-up visits as told by your health care provider. This is important. Contact a health care provider if: ??? You have nausea or vomiting that does not get better with medicine. ??? You cannot eat or drink without vomiting. ??? You have pain that does not get better with medicine. ??? You are unable to pass urine. ??? You develop a skin rash. ??? You have a fever. ??? You have redness around your IV site that gets worse. Get help right away if: ??? You have difficulty breathing. ??? You have chest pain. ??? You have blood in your urine or stool, or you vomit blood. Summary ??? After the procedure, it is common to have a sore throat or nausea. It is also common to feel tired. ??? Have a responsible adult stay with you for the first 24 hours after general anesthesia. It is important to have someone help care for you until you are awake and alert. ??? When you feel hungry, start by eating small amounts of foods that are soft and easy to digest (bland), such as toast. Gradually return to your regular diet. ??? Drink enough fluid to keep your urine pale yellow. ??? Return to your normal activities as told by your health care provider. Ask your health care provider what activities are safe for you. This information is not intended to replace advice given to you by your health care provider. Make sure you discuss any questions you have with your health care provider. Document Revised: 08/21/2018 Document Reviewed: 04/03/2018 [employer] Patient Education ?? 2020 [employer]. acetaminophen and oxycodone (a SEET a MIN oh fen and OX i KOE done) Endocet 10/325, Endocet 2.5/325, Endocet 5/325, Endocet 7.5/325, Nalocet, Percocet, Primlev What is the most important information I should know about acetaminophen and oxycodone? MISUSE OF OPIOID MEDICINE CAN CAUSE ADDICTION, OVERDOSE, OR . Keep the medication in a place where others cannot get to it. Taking opioid medicine during may cause life-threatening withdrawal symptoms in the . Fatal side effects can occur if you use opioid medicine with alcohol, or with other drugs that cause drowsiness or slow your breathing. Stop taking this medicine and call your doctor right away if you have skin redness or a rash that spreads and causes blistering and peeling. What is acetaminophen and oxycodone? Acetaminophen and oxycodone is a combination medicine used to relieve moderate to severe pain. Acetaminophen and oxycodone contains an opioide medicine and may be habit-forming. Acetaminophen and oxycodone may also be used for purposes not listed in this medication guide. What should I discuss with my healthcare provider before taking acetaminophen and oxycodone? You should not use this medicine if you are allergic to acetaminophen or oxycodone, or if you have: ?? severe asthma or breathing problems; or ?? a blockage in your stomach or intestines. Tell your doctor if you have ever had: ?? breathing problems, sleep apnea; ?? liver disease; ?? a drug or alcohol addiction; ?? kidney disease; ?? a head injury or seizures; ?? urination problems; or ?? problems with your thyroid, pancreas, or gallbladder. If you use opioid medicine while you are , your baby could become dependent on the drug. This can cause life-threatening withdrawal symptoms in the baby after it is born. Babies born dependent on opioids may need medical treatment for several weeks. Ask a doctor before using opioid medicine if you are . Tell your doctor if you notice severe drowsiness or slow breathing in the nursing baby. How should I take acetaminophen and oxycodone? Follow all directions on your prescription label. Never take this medicine in larger amounts, or for longer than prescribed. An overdose can damage your liver or cause . Tell your doctor if you feel an increased urge to use more of this medicine. Never share opioid medicine with another person, especially someone with a history of drug abuse or addiction. MISUSE CAN CAUSE ADDICTION, OVERDOSE, OR . Keep the medicine in a place where others cannot get to it. Selling or giving away opioid medicine is against the law. Measure liquid medicine carefully. Use the dosing syringe provided, or use a medicine dose-measuring device (not a kitchen spoon). If you need surgery or medical tests, tell the doctor ahead of time that you are using this medicine. You should not stop using this medicine suddenly. Follow your doctor's instructions about tapering your dose. Store at room temperature away from moisture and heat. Keep track of your medicine. You should be aware if anyone is using it improperly or without a prescription. Do not keep leftover opioid medication. Just one dose can cause in someone using this medicine accidentally or improperly. Ask your pharmacist where to locate a drug take-back disposal program. If there is no take-back program, flush the unused medicine down the toilet. What happens if I miss a dose? Since this medicine is used for pain, you are not likely to miss a dose. Skip any missed dose if it is almost time for your next dose. Do not use two doses at one time. What happens if I overdose? Seek emergency medical attention or call the Poison Help line at . An overdose of this medicine can be fatal, especially in a child or other person using the medicine without a prescription. Overdose symptoms may include nausea, vomiting, sweating, severe drowsiness, pinpoint pupils, slow breathing, or no breathing. Your doctor may recommend you get naloxone (a medicine to reverse an opioid overdose) and keep it with you at all times. A person caring for you can give the naloxone if you stop breathing or don't wake up. Your caregiver must still get emergency medical help and may need to perform CPR (cardiopulmonary resuscitation) on you while waiting for help to arrive. Anyone can buy naloxone from a pharmacy or local health department. Make sure any person caring for you knows where you keep naloxone and how to use it. What should I avoid while taking acetaminophen and oxycodone? Avoid driving or operating machinery until you know how this medicine will affect you. Dizziness or drowsiness can cause falls, accidents, or severe injuries. Do not drink alcohol. Dangerous side effects or could occur. Ask a doctor or pharmacist before using any other medicine that may contain acetaminophen (sometimes abbreviated as APAP). Taking certain medications together can lead to a fatal overdose. What are the possible side effects of acetaminophen and oxycodone? Get emergency medical help if you have signs of an allergic reaction: hives; difficulty breathing; swelling of your face, lips, tongue, or throat. Opioid medicine can slow or stop your breathing, and may occur. A person caring for you should give naloxone and/or seek emergency medical attention if you have slow breathing with long pauses, blue colored lips, or if you are hard to wake up. In rare cases, acetaminophen may cause a severe skin reaction that can be fatal. This could occur even if you have taken acetaminophen in the past and had no reaction. Stop taking this medicine and call your doctor right away if you have skin redness or a rash that spreads and causes blistering and peeling. Call your doctor at once if you have: ?? noisy breathing, sighing, shallow breathing, breathing that stops; ?? a light-headed feeling, like you might pass out; ?? weakness, tiredness, fever, unusual bruising or bleeding; ?? confusion, unusual thoughts or behavior; ?? problems with urination; ?? liver problems--nausea, upper stomach pain, tiredness, loss of appetite, dark urine, alvarez-colored stools, jaundice (yellowing of the skin or eyes); ?? low cortisol levels-- nausea, vomiting, loss of appetite, dizziness, worsening tiredness or weakness; or ?? high levels of serotonin in the body--agitation, hallucinations, fever, sweating, shivering, fast heart rate, muscle stiffness, twitching, loss of coordination, nausea, vomiting, diarrhea. Serious breathing problems may be more likely in older adults and in those who are debilitated or have wasting syndrome or chronic breathing disorders. Common side effects include: ?? dizziness, drowsiness, feeling tired; ?? feelings of extreme happiness or sadness; ?? nausea, vomiting, stomach pain; ?? constipation; or ?? headache. This is not a complete list of side effects and others may occur. Call your doctor for medical advice about side effects. You may report side effects to FDA at 9-445-SYD-7747. What other drugs will affect acetaminophen and oxycodone? You may have breathing problems or withdrawal symptoms if you start or stop taking certain other medicines. Tell your doctor if you also use an antibiotic, antifungal medication, heart or blood pressure medication, seizure medication, or medicine to treat HIV or hepatitis C. Opioid medication can interact with many other drugs and cause dangerous side effects or . Be sure your doctor knows if you also use: ?? cold or allergy medicines, bronchodilator asthma/COPD medication, or a diuretic ('water pill'); ?? medicines for motion sickness, irritable bowel syndrome, or overactive bladder; ?? other opioids--opioid pain medicine or prescription cough medicine; ?? a sedative like Valium--diazepam, alprazolam, lorazepam, Xanax, Klonopin, Versed, and others; ?? drugs that make you sleepy or slow your breathing--a sleeping pill, muscle relaxer, medicine to treat mood disorders or mental illness; ?? drugs that affect serotonin levels in your body--a stimulant, or medicine for depression, Parkinson's disease, migraine headaches, serious infections, or nausea and vomiting. This list is not complete. Other drugs may affect acetaminophen and oxycodone, including prescription and gwyo-fqf-wsgaysh medicines, vitamins, and herbal products. Not all possible interactions are listed here. Where can I get more information? Your doctor or pharmacist can provide more information about acetaminophen and oxycodone. Remember, keep this and all other medicines out of the reach of children, never share your medicines with others, and use this medication only for the indication prescribed. Every effort has been made to ensure that the information provided by [employer]. ('[employer]') is accurate, up-to-date, and complete, but no guarantee is made to that effect. Drug information contained herein may be time sensitive. [employer] information has been compiled for use by healthcare practitioners and consumers in the [place] and therefore [employer] does not warrant that uses outside of the [place] are appropriate, unless specifically indicated otherwise. [employer] drug information does not endorse drugs, diagnose patients or recommend therapy. [employer] drug information is an informational resource designed to assist licensed healthcare practitioners in caring for their patients and/or to serve consumers viewing this service as a supplement to, and not a substitute for, the expertise, skill, knowledge and judgment of healthcare practitioners. The absence of a warning for a given drug or drug combination in no way should be construed to indicate that the drug or drug combination is safe, effective or appropriate for any given patient. [employer] does not assume any responsibility for any aspect of healthcare administered with the aid of information [employer] provides. The information contained herein is not intended to cover all possible uses, directions, precautions, warnings, drug interactions, allergic reactions, or adverse effects. If you have questions about the drugs you are taking, check with your doctor, nurse or pharmacist. Copyright 5914-6053 [employer]. Version: 20.03. Revision Date: 10/06/2020. Emergency Awareness and Preventative Care STROKE is an EMERGENCY Every Minute Counts Act FAST and Check for these signs: FACE Does the face look uneven? ARM Does one arm drift down? SPEECH Does their speech sound strange? TIME Call at any sign of stroke Stroke Risk Factors Atrial Fibrillation (irregular heartbeat) Diabetes Family history of stroke Heart Disease Heavy alcohol use High Blood Pressure High Cholesterol Physical inactivity and obesity Smoking Cigarette Smoking The facts are clear, cigarette smoking will shorten your life. Smoking can cause many illnesses along the way. As a healthcare provider, we recommend that you stop smoking. Assistance with quitting is available by contacting 1-802-AWKS-NOW. This is a free resource providing counseling, support, and referral. Or you may contact your personal physician. National Suicide Prevention Lifeline: The National Suicide Prevention Lifeline is a national network of local crisis centers that provides free and confidential emotional support to people in suicidal crisis or emotional distress 24 hours a day, 7 days a week. Don't Wait! Stop a Heart Attack Before it Starts What is a heart attack? A heart attack is damage or to a part of the heart from severely decreased or lack of blood flow to the heart. Over time, arteries can become narrow from the buildup of fat and cholesterol, which is called plaque. The plaque can rupture causing a blood clot to form. When the blood clot forms, the artery can become severely narrowed or completely blocked, causing a heart attack. Heart attack is the leading cause of in the [place]. 85% of muscle damage occurs within the first 2 hours. Delay in the recognition of heart attack symptoms increases the chances of . Know the early symptoms of a heart attack: Nausea Feeling of fullness in chest Jaw Pain Pain that travels down one or both arms Fatigue/being tired Anxiety Back Pain Chest pressure, squeezing, or discomfort Shortness of breath Sweating, or a cold sweat Feeling of impending doom There are unusual signs of a heart attack, too! Women, the elderly, and diabetics may present with atypical symptoms: Fainting/dizziness Weakness Confusion Risk Factors for a Heart Attack Some heart disease risk factors, such as age and family history, cannot be changed. Others, like smoking and lack of exercise, can be changed. Smoking High Cholesterol High Blood Pressure Family History Obesity Age Gender (Males are at higher risk) Lack of Exercise Diabetes Diet Stress Excessive Alcohol Intake If you or someone you know is experiencing the signs and symptoms of a heart attack, DON???T DELAY. Call immediately and seek help. If someone collapses, perform CPR! Do not attempt to drive if you are having symptoms of heart attack. Hands-Only CPR Why Hands-Only CPR? Hands-Only CPR has been shown to be as effective as conventional CPR for cardiac arrests that occur outside of a hospital. Survival depends on immediately receiving CPR from someone nearby. How do you perform Hands-Only CPR? There are two easy steps: Call if you see a teen or adult collapse Push hard and fast in the center of the chest at a beat of 100 beats per minute. Save a life! 4 WAYS TO GET AHEAD OF SEPSIS SEPSIS is a MEDICAL EMERGENCY. Time matters! Infections put you and your family at risk for a life-threatening condition called sepsis. Sepsis is the body's extreme response to an infection. It is life-threatening, and without timely treatment, sepsis can rapidly lead to tissue damage, organ failure, and . Sepsis happens when an infection you already have-in your skin, lungs, urinary tract or somewhere else-triggers a chain reaction throughout your body. 1 PREVENT INFECTIONS Take good care of chronic conditions. Talk to your doctor about getting the recommended vaccines. 2 PRACTICE GOOD HYGIENE Wash your hands frequently. Keep cuts or open sores clean and covered until they are healed. 3 KNOW THE SYMPTOMS Confusion or disorientation Shortness of breath High heart rate Fever, shivering, or feeling very cold Extreme pain or discomfort Clammy or sweaty skin 4 ACT FAST Get medical care IMMEDIATELY if you suspect sepsis or if you have an infection that is not getting better or is getting worse. To learn more about sepsis and how to prevent infections, visit www.cdc.gov/sepsis. Test Results Laboratory or Other Results This Visit (last charted value for your 08/15/2021 visit) Nuclear Medicine 08/15/2021 7:47 AM [place] Node Inj: [place] Node Inj Patient Name:BING BLANCO I have received this information and was given the opportunity to ask questions. Patient/Solderer Dipper Name: Patient/Solderer Dipper Signature: Relationship to Patient: Clinician/Hospital Solderer Dipper Signature: Date: Electronically signed by Sumit Espitia Conversion Internal Combustion Engine Subassembler Cerner at 12/19/2022 6:05 PM CDT documented in this encounter Plan of Treatment Upcoming Encounters Date Type Department Care Team (Late st Contact Info) Description 09/26/2025 10:30 AM EST Appointment [facility] Breast Care [address] [facility] [address] [place] [address] Zita Mobley MD [address] [place] [address] [address] [place], [place] [id number] 09/26/2025 11:30 AM EST Office Visit [facility] [address] [facility] [address] [place] [address] Zita Mobley MD [address] [facility] [address] [place], [place] [id number] 09/26/2025 1:30 PM EST Office Visit [facility] - [facility] [address] [place] [address] Porsche Sutton MD [address] [place] [address] documented as of this encounter Visit Diagnoses Not on filedocumented in this encounter Care Teams Lacquer Pin Press Operator Relationship Specialty Start Date End Date Greg Echevarria MD [address] [facility] [address] [place] [phone] PCP - General Neurology 08/15/22 documented as of this encounter
--- OUTSIDE RECORDS SUMMARY | 2025-08-16 16:56 | XMS_ITS | Encounter Summary ---
Author Organization [employer] ([place], [place], [place], [place], [place]) Address [address] [place] [address] Care Team Providers Care Cylinder Block Hole Reliner Name Role Phone Greg Echevarria MD Primary Care Provider + [phone] Encounter Details Date Type Department Care Team (Late st Contact Info) Description 08/15/2021 Transcribed Document [facility] [address] [place] [address] ProviderEmma MD [address] [place] [address] Social History Tobacco Use Types [...] - Emma ProviderMD - 08/15/2021 8:09 AM CENTRAL SUPPLY TECHNICIAN SUPERVISOR [facility] Main OR PostOp Summary Primary Physician: ZITA MOBLEY MD-SUR Finalized Date/Time: 08/15/21 10:02:12 Pt. Name: BELLA BING EVAN Cherry/Sex: 1945 Female Med Rec #: [id number] Physician: ZITA MOBLEY MD-SUR Financial #: [id number] Pt. Type: O Room/Bed: [facility] Admit/Disch: 08/15/21 05:49:00 - Institution: [facility] PostOp Case Times Entry 1 In PACU II 08/15/21 09:33:00 Ready for PACU II 08/15/21 10:02:00 Discharge Discharge from PACU 08/15/21 10:02:00 II Last Modified By: Renea Zendejas RN 08/15/21 10:02:10 Finalized By: Renea Zendejas, RN Document Signatures Signed By: Renea Zendejas RN 08/15/21 10:02 documented in this encounter Plan of Treatment Upcoming Encounters Date Type Department Care Team (Late st Contact Info) Description 09/26/2025 10:30 AM EST Appointment [facility] Breast Care [address] [place] [address] [address] [place] [phone] Zita Mobley MD [address] [facility] [address] [place] [address] 09/26/2025 11:30 AM EST Office Visit [facility] [address] [facility] [address] [place] [phone] Zita Mobley MD [address] [facility] [address] [place] [address] 09/26/2025 1:30 PM EST Office Visit [facility] [place] [address] [facility] [address] [place] [address] Porsche Sutton MD [address] [place] [address] documented as of this encounter Visit Diagnoses Not on filedocumented in this encounter Care Teams Cylinder Block Hole Reliner Relationship Specialty Start Date End Date Greg Echevarria MD [address] [place] [phone] PCP - General Neurology 08/15/22 documented as of this encounter
--- OUTSIDE RECORDS SUMMARY | 2025-08-16 16:56 | XMS_ITS | Encounter Summary ---
Author Organization [employer] ([place], [place], [place], [place], [place]) Address [address] [place] [address] Care Team Providers Care Driver Guard Name Role Phone Greg Echevarria MD Primary Care Provider + [phone] Encounter Details Date Type Department Care Team (Late st Contact Info) Description 08/15/2021 Transcribed Document [facility] [place] Family Medicine [address] [place] [address] ProviderEmma MD [address] [place] [address] Social History Tobacco Use Types Packs/Day Years Used Date Smoking Tobacco: Never Assessed Comments Unknown Sex and Gender Information Value Date Recorded Sex Assigned at Not on file Legal Sex Female 4:56 PM CDT Gender Identity Not on file Sexual Orientation Not on file documented as of this encounter Miscellaneous Notes * Cerner Conversion Note - Emma Fernandez MD - 08/15/2021 8:58 AM ASSISTANT COMMISSIONER Procedural Documentation Entered On: 08/15/2021 9:01 EST Performed On: 08/15/2021 8:58 EST by Sofia Soria Rn Procedure Documentation Procedure to be Performed : sentinel node injections-right breast Time Out Pause Time : 08/15/2021 7:33 EST All Activity Suspended : Yes Team Verbally Confirms Information : Correct patient identity, Correct side and site are marked, Consent form is present and accurate, Agreement on the procedure to be done, Correct patient position, Relevant images/results properly labeled/appropriately displayed, Confirm antibiotics have been administered, Confirm the skin prep has dried, Confirm prosthesis/implant/device is present, Performed in location of procedure after prepped/draped, Performed before each procedure if multiple procedures, Reconcile problems if responses among team members differ Procedure Performed : sentinel node injections- right breast Proper Use of Sterile Apparel per Policy : Yes Procedure Case Attendee Role 2 : interventional radiology technologist Procedure Case Attendee 2 : ADELA DIMAS Procedure Case Attendee Role 3 : reproductive endocrinologist Case Attendee 3 : Sofia Soria Rn Coffey, Jennifer, Rn - 08/15/2021 8:58 EST Postprocedure Documentation Current Time : 7:36 EST Patient Identifiers : Yes Medication Reconciliation : Yes Discharge Instructions : Not applicable Education Completed : Yes Belongings Returned : Not applicable IV Discontinued : No Dressing, Procedure : N/A Sofia Soria Rn - 08/15/2021 8:58 EST Carey Level I Post Anesthesia Assessment Carey I Activity Status : Moves 4 extremities voluntarily or on command Carey l Respiratory Component : Able to deep breathe and cough freely Carey I Circulation Component : BP 20% of preanesthetic level Carey I Consciousness : Fully awake Carey l Oxygen Saturation : Can maintain > 92% on room air Carey l Score : 10 Sofia Soria Rn - 08/15/2021 8:58 EST Carey Level II Assessment Carey ll Dressing : Dry and clean Carey ll Pain : Pain free Carey ll Ambulation : Able to stand up and walk straight Carey ll Fasting and Feeding : Able to drink fluids Carey ll Urine Output : Unable to void but comfortable Carey II Score : 9 Sofia Soria Rn - 08/15/2021 8:58 EST Oxygen Therapy Oxygen Titrated : No Oxygen Therapy Mode : Nasal cannula Oxygen Flow Rate : 2 Liter/Min O2 Saturation Monitoring Frequency : Continuous Oxygen Saturation : 90 % (LOW) Sofia Soria Rn - 08/15/2021 8:58 EST documented in this encounter Plan of Treatment Upcoming Encounters Date Type Department Care Team (Late st Contact Info) Description 09/26/2025 10:30 AM EST Appointment [address] [phone] Steve Jeffery MD [address] [place] [address] 09/26/2025 11:30 AM EST Office Visit [facility] Breast Surgery [facility] [address] [facility] [address] [place] [phone] Steve Jeffery MD [address] [place], [place] [phone] 09/26/2025 1:30 PM EST Office Visit [facility] - [facility] [address] [facility] [address] [place] [phone] Porsche Sutton MD [address] [facility] [address] [place] [address] documented as of this encounter Visit Diagnoses Not on filedocumented in this encounter Care Teams Driver Guard Relationship Specialty Start Date End Date Greg Echevarria MD [address] [facility] [address] [place] [phone] PCP - General Neurology 08/15/22 documented as of this encounter
--- OUTSIDE RECORDS SUMMARY | 2025-08-16 16:56 | XMS_ITS | Encounter Summary ---
Author Organization [employer] ([place], [place], [place], [place], [place]) Address [address] [place] [address] Care Team Providers Care Photographic Specialist Name Role Phone Greg Echevarria MD Primary Care Provider + [phone] Encounter Details Date Type Department Care Team (Late st Contact Info) Description 08/15/2021 Transcribed Document [facility] [place] Family Medicine [address] [place] [address] ProviderEmma MD [address] [place], [place] [id number] Social History Tobacco Use Types Packs/Day Years Used Date Smoking Tobacco: Never Assessed Comments Unknown Sex and Gender Information Value Date Recorded Sex Assigned at Not on file Legal Sex Female 4:56 PM CDT Gender Identity Not on file Sexual Orientation Not on file documented as of this encounter Miscellaneous Notes * Cerner Conversion Note - Historical ProviderMD - 08/15/2021 6:52 AM CROSSCUTTER PAT Adult Entered On: 08/15/2021 6:56 EST Performed On: 08/15/2021 6:52 EST by Sofia Soria Rn Height and Weight, Clinical Dosing Height Source : Measured Height Entry Format : [place] Height, Feet : 5 ft(Converted to: 152 cm, 60 Inch) Height, Inches : 3 Inch(Converted to: 0 ft 3 Inch, 7.62 cm) Clinical Height : 160.02 cm Weight Source : Standing scale Weight Entry Format : [place] Clinical Dosing Weight : 80 kg Weight, Pounds : 176 lb Body Surface Area (BSA) : 1.83 m2 Body Mass Index : 31.2 kg/m2 (HI) [place] Body Weight : 52 kg Sofia Soria Rn - 08/15/2021 6:52 EST Health Histories Smoking Status : Never (less than 100 in lifetime; none in last 30 days) Smokeless Tobacco Status : Never Sofia Soria Rn - 08/15/2021 6:52 EST Social History (As Of: 08/15/2021 06:56:54 EST) Tobacco: Never (less than 100 in lifetime) Smoking Status. Never Smokeless Tobacco Status. (Last Updated: 08/15/2021 06:52:29 EST by Sofia Soria, Rn) Alcohol: Use in Last 12 Months: Yes. Date/Time of Last Drink: occassional drink. (Last Updated: 07/26/2014 14:28:03 EST by MIGUEL ROSA RN) Substance Abuse: Drug Use Hx: No. Use in Last 12 Months: No. (Last Updated: 08/15/2021 06:52:33 EST by Sofia Soria, Jair) Infectious Disease History Does patient have symptoms of COVID-19? : No Has the Patient Been Tested for COVID-19 in the last 14 days? : Yes, Patient stated results Negative Does the Patient state known exposure to a COVID-19 positive case in the last 14 days? : No Patient Vaccinated for COVID-19 : Fully vaccinated Sofia Soria Rn - 08/15/2021 6:52 EST Infectious Disease Risk Screening Grid Cough < 2 wks of unknown origin : NO Cough > 2 weeks : NO Blood in Sputum : NO Fever or self-reported Fever : NO Rash of unknown origin : NO Headache : NO Stiff neck : NO Night Sweats : NO Unexplained Weight Loss : NO Diarrhea (3 episode per day) : NO Sofia Soria Rn - 08/15/2021 6:52 EST Physical contact outside [place] in the last 30 days : No Hospitalized in Foreign Country : No Infectious Disease History : Measles INF Disease TB Screening Calc : 0 INF Disease Recent Travel Calc : 0 Sofia Soria Rn - 08/15/2021 6:52 EST COVID19 PreProcedure Screening Is this an Emergent or Add on Procedure? : No Date PreProcedure COVID-19 test known? : Yes Date of PreProcedure COVID-19 : 08/13/2021 EST Has patient been isolated since the test : Yes Exposed to COVID19 symptoms since test? : No Sofia Soria Rn - 08/15/2021 6:52 EST Anesthesia/Transfusion History Family History of Anesthesia Reaction : Prior transfusion without reaction Blood Transfusion Acceptable to Patient : Yes Transfusion History : Prior anesthesia reaction Type of Anesthesia Reaction : Excessive nausea/vomiting Family History of Anesthesia Reaction : None Sofia Soria Rn - 08/15/2021 6:52 EST Advance Directive Patient has Advance Directive *Q : No, patient refuses Advance Directive information Sofia Soria Rn - 08/15/2021 6:52 EST [place] Suicide Severity Rating Scale (C-SSRS) CSSRS Past Month Wish to be : No CSSRS Past Month Suicidal Thoughts : No CSSRS Lifetime Suicide Behavior : No Suicide Severity Rating Score : 0 Suicide Severity Rating : No Additional Care Required at this time Sofia Soria Rn - 08/15/2021 6:52 EST Psychosocial History Currently in Unsafe Situation : No Sofia Soria Rn - 08/15/2021 6:52 EST General Info Want Family/Rep/Phys Notified of Admit : No Emergency Contact #1 : Steve Emergency Contact #1 Emergency Contact #1 Relationship : spouse Emergency Contact #2 : Emergency Contact #2 Phone Number : Emergency Contact #2 Relationship : Primary Language : Thai Communication Barrier : None Operator Electronic Warfare Needed : No Sofia Soria Rn - 08/15/2021 6:52 EST Naldo Scale Naldo Sensory Perception : No impairment Naldo Moisture : Rarely moist Naldo Activity : Walks frequently Naldo Mobility : No limitation Naldo Nutrition : Excellent Naldo Friction and Shear : No apparent problem Naldo Score : 23 Sofia Soria Rn - 08/15/2021 6:52 EST Sleep Apnea Risk Assmt Hx of Obstructive Sleep Apnea Diagnosis : No Snore Loudly : No Tired, Fatigued, or Sleepy During Day : No Observed Stopping Breathing During Sleep : No Have/Are Being Treated for Hypertension : Yes BMI Greater Than 35 kg/m2 : No Age over 50 Years Old : Yes Neck Circumference Greater Than 40 cm : No Gender Male : No STOP-BANG Sleep Apnea Risk Level Score : 2 Sofia Soria, Rn - 08/15/2021 6:52 EST Electronically signed by Omkar [facility] Conversion Actuarial Technician Cerner at 12/19/2022 6:06 PM CDT documented in this encounter Plan of Treatment Upcoming Encounters Date Type Department Care Team (Late st Contact Info) Description 09/26/2025 10:30 AM EST Appointment [facility] [address] [facility] [address] [place] [phone] Steve Jeffery MD [address] [place] [address] 09/26/2025 11:30 AM EST Office Visit [facility] [address] [facility] [address] [place] [phone] Steve Jeffery MD [address] [facility] [address] [place], [place] [id number] 09/26/2025 1:30 PM EST Office Visit [facility] - [address] [facility] [address] [place] [phone] Porsche Sutton MD [address] [facility] [address] [place] [address] documented as of this encounter Visit Diagnoses Not on filedocumented in this encounter Care Teams Photographic Specialist Relationship Specialty Start Date End Date Greg Echevarria MD [address] [facility] [address] [place] [phone] PCP - General Neurology 08/15/22 documented as of this encounter
--- OUTSIDE RECORDS SUMMARY | 2025-08-16 16:56 | XMS_ITS | Encounter Summary ---
Author Organization [facility] ([place], [place], [place], [place], [place]) Address [address] [place] [address] Care Team Providers Care Fans Clerk Name Role Phone Greg Echevarria MD Primary Care Provider [phone] Encounter Details Date Type Department Care Team (Late st Contact Info) Description 08/17/2021 Transcribed Document [facility] - [place] [address] [facility] [address] [place] [address] Steve Jeffery MD [address] [place] [address] Social History Tobacco Use Types Packs/Day Years Used Date Smoking Tobacco: Never Assessed Comments Unknown Sex and Gender Information Value Date Recorded Sex Assigned at Not on file Legal Sex Female 4:56 PM CDT Gender Identity Not on file Sexual Orientation Not on file documented as of this encounter Miscellaneous Notes * Cerner Conversion Note - Steve Jeffery MD - 08/17/2021 10:31 AM EST DATE OF PROCEDURE: 08/15/2021 SURGEON: Steve Jeffery MD PREOPERATIVE DIAGNOSIS: Right breast cancer. POSTOPERATIVE DIAGNOSIS: Right breast cancer. PROCEDURES PERFORMED: 1. Right partial mastectomy. 2. Right axillary sentinel lymph node biopsy. ACADEMIC AFFAIRS DIRECTOR: Sav Pappas PA-C. ANESTHESIA: General. ESTIMATED BLOOD LOSS: Minimal. COMPLICATIONS: None. OPERATIVE INDICATIONS: Ms. Howard is a 75-year-old female patient, who was recently diagnosed with a palpable right breast cancer. She requested breast conserving surgery and after risks and benefits of this operative intervention were explained to her, she wished to proceed. OPERATIVE FINDINGS: 1. She had an approximately 3 cm palpable breast cancer in the upper inner quadrant of the right breast. This was excised also with a portion of the overlying skin as this breast cancer appeared to be very superficial. 2. A single deep axillary sentinel lymph node was removed and sent to Pathology. DESCRIPTION OF PROCEDURE: After obtaining informed consent, Ms. Howard was taken to the operating room and placed in supine position. General anesthesia was induced. Her right breast was prepped and draped in usual sterile fashion. Attention was turned to the palpable breast cancer. A small skin incision was made to include a small ellipse of overlying skin as this large tumor was very superficial to the skin. Electrocautery was then used to excise the palpable breast cancer circumferentially and with adequate margins. The cancer was removed and marked with a short stitch superiorly and a long stitch laterally. It was further marked with black ink deep. It was passed off and sent to the pathologist. Meticulous hemostasis was ensured using electrocautery. Attention was then turned to the right axilla. The gamma probe was used to identify a single deep axillary sentinel lymph node. This lymph node was able to be accessed through the upper outer quadrant skin incision. Dissection into the axillary tissue was achieved using electrocautery. The single axillary sentinel lymph node was removed using electrocautery and surgical clips. It was passed off and sent to Pathology. Meticulous hemostasis was ensured throughout using electrocautery. The single skin incision was then closed in 2 layers followed by Dermabond. All sponge, needle, and instrument counts were correct at the end of the procedure. There were no complications. Ms. Howard tolerated the procedure well. Finally, Ms. Howard was extubated and taken to PACU in stable condition. /[id number] MD GEMA Izquierdo/ISA / GEMA / MODL /[id number] CC: [facility] documented in this encounter Plan of Treatment Upcoming Encounters Date Type Department Care Team (Late st Contact Info) Description 09/26/2025 10:30 AM EST Appointment [facility] Breast Care [address] [facility] [address] [place] [phone] Steve Jeffery MD [address] [facility] [address] [facility] [place] [address] 09/26/2025 11:30 AM EST Office Visit [facility] [address] [facility] [address] [place] [phone] Steve Jeffery MD [address] [facility] [address] [place], [place] [id number] 09/26/2025 1:30 PM EST Office Visit [facility] [place] [address] [facility] [address] [place] [address] Porsche Sutton MD [address] [facility] [address] [place] [address] documented as of this encounter Visit Diagnoses Not on filedocumented in this encounter Care Teams Fans Clerk Relationship Specialty Start Date End Date Greg Echevarria MD [address] [facility] [address] [place] [phone] PCP - General Neurology 08/15/22 documented as of this encounter
--- OUTSIDE RECORDS SUMMARY | 2025-08-16 16:57 | XMS_ITS | Encounter Summary ---
Author Organization [facility] ([place], [place], [place], [place], [place]) Address [address] [place] [address] Care Team Providers Care Sexual Health Physician Name Role Phone Greg Echevarria MD Primary Care Provider + [phone] Encounter Details Date Type Department Care Team (Late st Contact Info) Description 08/15/2021 Transcribed Document [facility] [place] [address] Emma Fernandez MD [address] [place], [place] [id number] Social History Tobacco Use Types Packs/Day Years Used Date Smoking Tobacco: Never Assessed Comments Unknown Sex and Gender Information Value Date Recorded Sex Assigned at Not on file Legal Sex Female 4:56 PM CDT Gender Identity Not on file Sexual Orientation Not on file documented as of this encounter Miscellaneous Notes * Cerner Conversion Note - Emma Fernandez MD - 08/15/2021 9:08 AM SOLDER MAKING SUPERVISOR Patient Education Materials Follows:and Gynecology Lumpectomy, Care After This sheet gives you [...] these instructions at home: Medicines ??? Take anww-xaw-savykom and prescription medicines only as told by [...] keep your urine pale yellow. ? Take ayrw-jzj-qfynvue or prescription medicines. ? Eat foods that [...] and water are not available, use hand sandwich peddler. ? Change your dressing as told by [...] Get up to take short walks every 1?2 hours. This is important to improve blood [...] provider. Document Revised: 02/21/2020 Document Reviewed: 02/21/2020 [employer] Patient Education ? 2020 [employer]. Oncology [place] Lymph Node Biopsy, Care After This sheet [...] Blue urine or stool for the next 24?48 hours. This is normal. It is caused [...] and water are not available, use hand sandwich peddler. ? Change your dressing as told by [...] safe for you. General instructions ??? Take fudn-mai-evcvnbx and prescription medicines only as told by [...] blue urine or stool for the next 24?48 hours. ??? Follow instructions from your health care provider about how to take care of your incision. Check your incision area every day for signs of infection. ??? Take mmca-gwg-bfamdej and prescription medicines only as told by your health care provider. ??? Ask your health care provider when you can return to your normal activities. This information is not intended to replace advice given to you by your health care provider. Make sure you discuss any questions you have with your health care provider. Document Revised: 09/04/2018 Document Reviewed: 08/31/2018 [employer] Patient Education ? 2020 [employer] Pharmacology General Anesthesia, Adult, Care After This sheet [...] activities are safe for you. ??? Take pgbh-oqf-vbcrvbf and prescription medicines only as told by [...] provider. Document Revised: 08/21/2018 Document Reviewed: 04/03/2018 Elsevier Patient Education ? 2020 [employer] Electronically signed by Sumit Espitia Conversion Curator [employer] Ruddy at 12/19/2022 5:53 PM CDT documented in this encounter Plan of Treatment Upcoming Encounters Date Type Department Care Team (Late st Contact Info) Description 09/26/2025 10:30 AM EST Appointment [facility] [address] [facility] [address] [place] [phone] Steve Jeffery MD [address] [place] [address] 09/26/2025 11:30 AM EST Office Visit [facility] [address] [facility] [address] [place] [phone] Steve Jeffery MD [address] [facility] [address] [place], [place] [id number] 09/26/2025 1:30 PM EST [facility] [address] [facility] [address] [place] [phone] Porsche Sutton MD [address] [facility] [address] [place] [address] documented as of this encounter Visit Diagnoses Not on filedocumented in this encounter Care Teams Sexual Health Physician Relationship Specialty Start Date End Date Greg Echevarria MD [address] [facility] [address] [place] [address] PCP - General Neurology 08/15/22 documented as of this encounter
--- OUTSIDE RECORDS SUMMARY | 2025-08-16 16:57 | XMS_ITS | Encounter Summary ---
Author Organization [facility] ([place], [place], [place], [place], [place]) Address [address] [place] [address] Care Team Providers Care Diver'S Tender Name Role Phone Greg Echevarria MD Primary Care Provider + [phone] Encounter Details Date Type Department Care Team (Late st Contact Info) Description 08/15/2021 Transcribed Document [facility] [address] [place] [address] ProviderEmma MD [address] [place] [address] Social History Tobacco Use Types Packs/Day Years Used Date Smoking Tobacco: Never Assessed Comments Unknown Sex and Gender Information Value Date Recorded Sex Assigned at Not on file Legal Sex Female 4:56 PM CDT Gender Identity Not on file Sexual Orientation Not on file documented as of this encounter Miscellaneous Notes * Cerner Conversion Note - Emma Fernandez MD - 08/15/2021 7:33 AM BILINGUAL SPEECH LANGUAGE PATHOLOGIST Time Out Documentation Entered On: 08/15/2021 8:58 EST Performed On: 08/15/2021 7:33 EST by Sofia Soria Rn Time Out Documentation Procedure to be Performed : sentinel node injections Time Out Pause Time : 08/15/2021 7:33 [...] problems if responses among team members differ Sofia Soria Rn - 08/15/2021 8:57 EST Electronically signed by [facility], [facility] Conversion Ppap Coordinator Cerner at 12/19/2022 5:52 PM CDT documented in this encounter Plan of Treatment Upcoming Encounters Date Type Department Care Team (Late st Contact Info) Description 09/26/2025 10:30 AM EST Appointment [facility] Breast [facility] Department [address] [facility] [address] [place] [phone] Steve Jeffery MD [address] [place] [address] 09/26/2025 11:30 AM EST Office Visit [facility] Surgery Clinic [address] [facility] [address] [place] [phone] Steve Jeffery MD [address] [place], [place] [id number] 09/26/2025 1:30 PM EST Office Visit [facility] - [place] [address] [facility] [address] [place] [phone] Porsche Sutton MD [address] [place] [address] documented as of this encounter Visit Diagnoses Not on filedocumented in this encounter Care Teams Diver'S Tender Relationship Specialty Start Date End Date Greg Echevarria MD [address] [place] [phone] PCP - General Neurology 08/15/22 documented as of this encounter
--- OUTSIDE RECORDS SUMMARY | 2025-08-16 16:57 | XMS_ITS | Patient Health Record ---
Author Organization [facility] Address [address] [facility] [address] [place] [id number] Care Team Providers Care Family Medicine Chair Name Role Phone Nemo Echevarria Primary Care Provider Mckenzie Singh Unavailable [phone] Rosa Underwood Unavailable [phone] Allergies Allergen (clinical drug ingredient) Drug/Non Drug [...] Result: neg CBC Fingerstick (in house) Reviewed date:12/09/2024 02:54:58 [...] 100 - 400 H-Sputum Culture with Gram S drake Reviewed date:12/13/2024 11:30:27 AM Interpretation:Rare Gram Positive Cocci Performing Lab: Notes/Report: GS Gram Stain: GS <10 White Blood Cells/LPF GS <10 Epithelial Cells / LPF GS Rare Gram Positive Cocci CUSPU Normal Respiratory Cheryle CXR Reviewed date:12/13/2024 04:44:51 PM Interpretation:Normal Performing Lab: Notes/Report: Normal P-Comprehensive Metabolic Pa laura (CMP) Reviewed date:02/16/2025 04:30:12 PM Interpretation:satisfactory Performing Lab: Notes/Report: Test performed by [facility] [address] [place], [place] [address] [address] , [address], [place] [address] Manny Fountain MD, Clamp Truck Driver CLIA: [id number] Sodium 139 135-145 mmol/L Potassium 4.4 3.5-5.3 [...] Interpretation:Normal Performing Lab: Notes/Report: Test performed by [facility] [address] [place] [address] , [address], [place] [address] Manny Fountain MD, Clamp Truck Driver CLIA: [id number] TSH 4.41 0.43-5.25 mU/L P-CPK Reviewed date:09/03/2024 03:16:47 PM Interpretation: Normal Performing Lab: Notes/Report: CLIA: [id number] Manny Fountain MD, Clamp Truck Driver [address] [place] [address] [place] [address] Test performed by [employer] [facility] Creatine Kinase 66 20-180 U/L P-Comprehensive Metabolic Pa laura (CMP) Reviewed date:09/03/2024 03:16:47 PM Interpretation:bun 25 Performing Lab: Notes/Report: Test performed by [facility] [address] [place] [address] , [place] [address] Manny Fountain MD, Clamp Truck Driver CLIA: [id number] Sodium 142 135-145 mmol/L Potassium 4.3 3.5-5.3 [...] 0.5 <0.2-1.2 mg/dL A/G Ratio 2.0 1.1-2.5 P-Antinuclear Antibodies (AN A) Screen Reviewed date:09/03/2024 03:16:47 PM Interpretation: Normal Performing Lab: Notes/Report: Test performed by [facility] [address] [place] [address] , [place] [address] Manny Fountain MD, Clamp Truck Driver CLIA: [id number] Antinuclear Antibodies (HANNAH) Screen Negative Negative This test is performed by Multiplex Bead Immunoassay methodology. Influenza Screen (in house) Reviewed date:05/27/2025 12:38:34 [...] Cr 1.04, gfr 55 Performing Lab: Notes/Report: CLIA: [id number] Manny Fountain MD, Clamp Truck Driver [address] [place] [address] , [place] [address] Test performed by [facility] Sodium 139 135-145 mmol/L Potassium 4.4 3.5-5.3 [...] Interpretation:Normal Performing Lab: Notes/Report: Test performed by [facility] [address] [place] [address] , [address], [place] [address] Manny Fountain MD, Clamp Truck Driver CLIA: [id number] TSH 3.81 0.43-5.25 mU/L Covid test (in house) Reviewed date:05/27/2025 12:38:45 PM Interpretation: Performing Lab: Notes/Report: Result: neg DEXA Hip and Spine Reviewed date:09/17/2024 09:03:24 AM Interpretation:osteopenia of spine and right hip, osteoporosis left hip Performing Lab: Notes/Report: osteopenia of spine and right hip, osteoporosis left hip Dexa results osteopenia of spine and right hip, osteoporosis left hip P-HANNAH Reviewed date:09/03/2024 03:16:01 PM Interpretation: Performing Lab: Notes/Report: P-TSH Reviewed date:09/03/2024 03:16:47 PM Interpretation:0.11 Performing Lab: Notes/Report: Test performed by [facility] [address] [place], [place] [address] [address] , [facility] [place] [address] Manny Fountain MD, Clamp Truck Driver CLIA: [id number] TSH 0.11 0.43-5.25 mU/L P-Sed Rate (ESR) Reviewed date:09/03/2024 03:16:47 PM Interpretation: Normal Performing Lab: Notes/Report: Test performed by [facility] [address] [place] [address] , [facility] C, [place] [address] Manny Fountain MD, Clamp Truck Driver CLIA: [id number] Erythrocyte Sedimentation Rate (ESR), Automated 14 <31 mm/hr Medications Medication SIG (Take, Route, Frequency, Duration) Notes Start Date End Date Status Citalopram Hydrobromide 10 MG 1 tablet Orally Once a day; Duration: 90 days Active Levothyroxine Sodium 50 MCG 1 tablet in the morning on an empty stomach Orally Once a day; Duration: 90 days Active Prolia 60 MG/ML as directed Subcutaneous Active Albuterol Sulfate HFA 108 (90 Base) MCG/ACT 1-2 puffs Inhalation every 4 hrs, prn 11/21/2023 Active Centrum Silver - 1 tab(s) orally once a day Active B-12 2500 MCG 1 tab(s) sublinguall y once a day Active Xarelto 20 MG 1 tablet with food O rally Once a day; Duration: 90 days Active Bisoprolol Fumarate 5 MG TAKE ONE-HALF T ABLET BY MOUTH ONCE DAILY; Duration: 90 Active CoQ10 200 MG as directed orally o nce a day; Duration: 30 day(s) 12/28/2021 Active MiraLax DIRECTED Active Spironolactone 25 MG 1 tab(s) Orally Onc e a day; Duration: 90 days Active Calcium 600 + Minerals 600-200 MG-UNIT 1 tab(s) orally 3 times a day Active Rosuvastatin Calcium 5 MG 1 tablet Orall y Once a day; Duration: 90 days Active Esomeprazole Magnesium 40 MG 1 cap(s) Orally Once a day; Duration: 90 days Active Immunizations Vaccine Route Administration Date Status Comme nts COVID 19 Moderna Unknown 09/06/2020 Administered COVID 19 Moderna Unknown 10/04/2020 Administered COVID 19 Moderna Unknown 07/02/2021 Administered DT, 7 YEARS OR OLDER Unknown 11/03/1996 Administered Fluzone High Dose (65yr and older) IM Intramuscular 06/01/2012 Administered Fluzone High Dose (65yr and older) IM Intramuscular 05/12/2014 Administered Fluzone High Dose (65yr and older) IM Intramuscular 07/06/2015 Administered Fluzone High Dose (65yr and older) Unknown 06/12/2021 Administered Fluzone High Dose (65yr and older) Unknown 05/29/2022 Administered Fluzone High Dose (65yr and older) IM Intramuscular 06/06/2023 Administered Fluzone High Dose (65yr and older) IM Intramuscular 07/22/2025 Administered Hepatitis A (adult) IM Intramuscular 05/06/2019 Administer ed PNEUMOVAX 23 VACCINE IM Intramuscular 06/01/2012 Administe red PNEUMOVAX 23 VACCINE IM Intramuscular 10/19/2021 Administe red Prevnar (PCV13) IM Intramuscular 04/21/2020 Administered xFluzone High Dose-private (65yr&older) Unknown 06/09/2019 Administered Problems Problem Type SNOMED Code ICD Code Onset Dates Problem Status W/U Status Risk Notes Problem Raynaud's disease (disorder) (992466512) Raynaud's syndrome (443.0) Active confirmed Problem Pain of right shoulder region (finding) (0257049975) Pain in right shoulder (M25.511) Active confirmed Problem History of pulmonary embolus (548649173) History of pulmonary embolism (Z86.711) Active confirmed Problem Hypothyroidism (87100388) Hypothyroidism (acquired) (E03.9) Active confirmed Problem Anxiety (08140513) Anxiety (F41.9) Active confi rmed Problem Dysuria (94061388) Dysuria (R30.0) Active confi rmed Problem Long-term current us e of anticoagulant (792047194) 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) Active confirmed Problem Chronic pain (48359698) Other chronic pain (G89.29) Active confirmed Problem Supraventricular tachycardia (7551360) Supraventricular tachycardia (I47.1) Active confirmed Problem Vaccination given (892196965) Encounter for immunization (Z23) Active confirmed Problem Gastroesophageal reflux disease (559192986) GERD without esophagitis (K21.9) Active confirmed Problem Acquired hypothyroidism (825931450) Acquired hypothyroidism (E03.9) Active confirmed Problem Osteoporosis (64252457) Osteoporosis (M81.0) Active confirmed Problem Hyperlipidaemia (40144610) Hyperlipidemia, unspecified hyperlipidemia type (E78.5) Active confirmed Problem History of malignant neoplasm of breast (333975114) Hx of breast cancer (Z85.3) Active confirmed Problem Pure hypercholesterolemia (386681217) Pure hypercholesterolemia (E78.00) Active confirmed Problem Osteopenia of sondra mbar spine (M85.88) Active confirmed Problem Localized, primary osteoarthritis of the hand (365972393) Arthropathy of hand (M19.049) Active confirmed Problem 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 Problem Acute cor pulmonale co-occurrent and due to saddle embolus of pulmonary artery (disorder) (80989381592915014) Acute saddle pulmonary embolism with acute cor pulmonale (I26.02) Active confirmed Problem Osteopenia (disorder ) (851102338) Osteopenia of right hip (M85.851) Active confirmed Problem Bleeding (089018933) Multiple ec chymoses of both upper arms (R58) Active confirmed Problem Chronic deep venous thrombosis of popliteal vein (075128472833976) Chronic deep vein thrombosis (DVT) of popliteal vein of left lower extremity (I82.532) Active confirmed Problem Malignant neoplasm o f female breast (099139987) Carcinoma of right female breast, unspecified estrogen receptor status, unspecified site of breast (C50.911) Active confirmed Problem Chronic obstructive pulmonary disease (25369256) COPD, mild (J44.9) Active confirmed Vital Signs Heart Rate 64 /min 07/22/2025 Blood pressure diastolic 70 mm Hg 07/22/2025 Height 64 in 07/22/2025 Blood pressure systolic 104 mm Hg 07/22/2025 Weight 150.8 lbs 07/22/2025 BMI 25.88 kg/m2 07/22/2025 Encounters Encounter Location Date Provider [facility] [address] [place], [place] [id number] 09/02/2024 Nemo Echevarria History of pulmonary embolism Z86.711 ; detention current use of anticoagulant Z79.01 ; Hx of breast cancer Z85.3 ; Acquired hypothyroidism E03.9 ; Pure hypercholesterolemia E78.00 ; Generalized body aches R52 and Osteopenia, unspecified location M85.80 [facility] [address] [place], [place] [id number] 11/29/2024 Mckenzie Singh URI (upper respiratory infection) J06.9 [facility] [address] [place], [place] [id number] 12/09/2024 Rosa Crowdy Bronchitis J40 and B W[place] 24.0-24.9, adult Z68.24 [facility] [address] [place], [place] [id number] 12/14/2024 Mckenzie Singh Bronchitis J40 ; Hyperlipidemia, unspecified hyperlipidemia type E78.5 ; Anxiety F41.9 ; Acquired hypothyroidism E03.9 and BMI 24.0-24.9, adult Z68.24 [facility] [address] [place], [place] [id number] 01/27/2025 Nemo Echevarria Acquired hypothyroid ism E03.9 ; GERD without esophagitis K21.9 ; Chronic deep vein thrombosis (DVT) of popliteal vein of left lower extremity I82.532 ; History of pulmonary embolism Z86.711 ; detention current use of anticoagulant Z79.01 ; Hx of breast cancer Z85.3 ; Osteoporosis M81.0 and BMI 25.0-25.9,adult Z68.25 [facility] [address] [place], [place] [id number] 05/26/2025 Nemo Echevarria Upper respiratory tr act infection, unspecified type J06.9 ; Bronchitis J40 and Dizziness R42 [facility] [address] [place], [place] [id number] 07/22/2025 Nemo Echevarria detention current us e of anticoagulant Z79.01 ; History of pulmonary embolism Z86.711 ; GERD without esophagitis K21.9 ; Hx of breast cancer Z85.3 ; Osteoporosis M81.0 ; Toenail deformity L60.8 ; Immunization due Z23 ; Carcinoma of right female breast, unspecified estrogen receptor status, unspecified site of breast C50.911 ; COPD, mild J44.9 and BMI 25.0-25.9,adult Z68.25 [facility] [address] [place], [place] [id number] 09/03/2024 Nemo Echevarria [facility] [address] [place], [place] [id number] 09/16/2024 Nemo Echevarria [facility] [address] [place], [place] [id number] 09/17/2024 Nemo Echevarria [facility] [address] [place], [place] [id number] 10/20/2024 Nemo Echevarria [facility] [address] [place], [place] [id number] 10/22/2024 Nemo Echevarria [facility] [address] [place], [place] [id number] 11/09/2024 Nemo Echevarria [facility] [address] [place] [id number] 11/26/2024 Nemo Echevarria [facility] [address] [place] [id number] 12/13/2024 Rosa Underwood [facility] [address] [place], [place] [id number] 01/28/2025 Nemo Garza Wale [facility] [address] [place] [id number] 02/17/2025 Nemo Echevarria [facility] [address] [place], [place] [id number] 03/11/2025 Nemo Echevarria [facility] [address] [place], [place] [id number] 05/31/2025 Nemo Greg Echevarria [facility] [address] [place], [place] [id number] 07/14/2025 Nemo AlanisGregmyles Echevarria [facility] [address] [place], [place] [id number] 08/11/2025 Nemo Garza Wale GERD without esophag itis K21.9 Assessments Encounter Date Diagnosis (ICD Code) Assessment [...] 01/27/2025 Acquired hypothyroid ism (ICD-10 - E03.9) 05/26/2025 Bronchitis (ICD-10 - J40) 05/26/2025 Upper respiratory tr act infection, unspecified type (ICD-10 - J06.9) 07/22/2025 History of pulmonary embolism (ICD-10 - Z86.711) 07/22/2025 detention current us e of anticoagulant (ICD-10 - Z79.01) 08/11/2025 GERD without esophagitis (ICD-10 - K21.9) 07/22/2025 GERD without esophagitis (ICD-10 - K21.9) 01/27/2025 GERD without esophagitis (ICD-10 - K21.9) 05/26/2025 Dizziness (ICD-10 - R42) 12/14/2024 Anxiety (ICD-10 - F41.9) 09/02/2024 Hx of breast cancer (ICD-10 - Z85.3) 09/02/2024 Acquired hypothyroid ism (ICD-10 - E03.9) 12/14/2024 Acquired hypothyroid ism (ICD-10 - E03.9) 01/27/2025 Chronic deep vein thrombosis (DVT) of popliteal vein of left lower extremity (ICD-10 - I82.532) 07/22/2025 Hx of breast cancer (ICD-10 - Z85.3) 07/22/2025 Osteoporosis (ICD-10 - M81.0) 12/14/2024 BMI 24.0-24.9, adult (ICD-10 - Z68.24) 01/27/2025 History of pulmonary embolism (ICD-10 - Z86.711) 09/02/2024 Pure hypercholesterolemia (ICD-10 - E78.00) 01/27/2025 termite control technician current us e of anticoagulant (ICD-10 - Z79.01) 09/02/2024 Generalized body ach es (ICD-10 - R52) 07/22/2025 Toenail deformity (ICD-10 - L60.8) 07/22/2025 Immunization due (ICD-10 - Z23) 01/27/2025 Hx of breast cancer (ICD-10 - Z85.3) 09/02/2024 Osteopenia, unspecif ied location (ICD-10 - M85.80) 01/27/2025 Osteoporosis (ICD-10 - M81.0) 07/22/2025 Carcinoma of right female breast, unspecified estrogen receptor status, unspecified site of breast (ICD-10 - C50.911) 07/22/2025 COPD, mild (ICD-10 - J44.9) 01/27/2025 BMI 25.0-25.9,adult (ICD-10 - Z68.25) 07/22/2025 BMI 25.0-25.9,adult (ICD-10 - Z68.25) Plan Of Treatment Pending Test Test Name Order Date Mammogram 03/24/2024 Insurance Providers Payer Name Payer Address Payer Phone Subscriber Number Group Number Insured Name Patient Relationship to Insured Coverage Start Date Coverage End Date MEDICARE PART B [address] [address] [place] [id number] [phone] [id number] RUY BLANCO Self - patient is the insured [employer] [address] [place] [id number] RUY BLANCO Self - patient is the [...] Burden 08/07/20 20 Hospitalization History Reason Date(Month/Year) headaches chest pain 01/05/2021
--- OUTSIDE RECORDS SUMMARY | 2025-08-16 16:58 | XMS_ITS | Continuity of Care Document ---
Author Organization [facility] GLORIA Francis [place] Address [address] [facility] [place] [address] Care Team Providers Care Gum Machine Operator Name Role Phone FLORA HAAS Front Line Supervisor ZITA WYATT Primary Care Provider Assessment No assessment recorded. Plan of Treatment Reminders Order Date Submit Date Provider Last Modified By Organization Details Last Modified Time Details Appointments DERM ESTABLISH ED 2025 10:40A M PATRICK HAAS PA-C Not available Not available Not available Lab None recorded. Referral None recorded. Procedures None recorded. Surgeries None recorded. Imaging None recorded. Medication Orders None recorded. Patient TargetsNo targets recorded. Patient InstructionsNo instructions recorded. Reason for Referral None Reported. Problems Name Problem SNOMED Code Status Onset Date Resolution Date Notes Provider Name and Address Organization Details Recorded Time Abdominal pain 29615495 Active 2015 From Automated Load;Provi kimi: Abena Teresa;Sta tus: Active Not Available [employer] 6 04:20:48 Gastrointe stinal tract finding Active 2015 From Automated Load;Provi kimi: Abena Teresa;Sta tus: Active Not Available [employer] 6 04:20:48 Constipati on 93403354 Active 2015 From Automated Load;Provi kimi: Abena Teresa;Sta tus: Active Not Available [employer] 6 04:20:48 Dyspareuni a 46978656 Active 2015 From Automated Load;Provi kimi: Abena Teresa;Sta tus: Active Not Available [employer] 6 04:20:48 Problem Notes None recorded. Procedures Surgical History Date Name Laterality Status Provider Name and Address Organization Details Recorded Time 10/28/19 DAK - Cryo [place] completed [facility] 10/28/2024 11:33:12 04/22/20 24 DAK - Cryo AK completed [facility] 04/22/2024 11:24:29 04/22/20 24 Blade Biopsy w/ ED&C completed [facility] 04/22/2024 11:34:20 04/22/20 24 Destruction BN Lesions completed Sanjuanita [facility] 04/22/2024 11:29:43 10/23/19 24 Destruction BN Lesions completed Lisa Gale [facility] 10/23/2023 12:02:49 total knee replacement completed [facility] 10/23/2023 11:52:58 hernia repair completed [facility] 10/23/2023 11:53:06 Appendectomy completed [facility] 10/23/2023 11:53:20 resection of polyp completed [facility] 10/23/2023 11:53:29 section completed [facility] 10/23/2023 11:53:44 cataract surgery completed [facility] 10/23/2023 11:53:57 Imaging Results None recorded. Procedure Notes None recorded. Medical Equipment None Reported. Allergies Allergen ID Allergen Name Allergen Category Reaction Reaction Severity Criticality Documentation Date Start Date Code Code System Note Provider Name and Address Organization Details Recorded Time 087848 Biaxin medicatio n Not available Not available Not available 07/25/2016201572 9 RxNorm Comme nt: Creat ed By: Elizabeth james Date: 2015 9:20: 52 AM; Not Available [facility] 6 11:15:58 156982 adhesive tape environme nt,medica tion Not available Not available Not available 10/23/2023 [facility] 11:56:36 467887 latex environme nt,medica tion Not available Not available Not available 10/23/2023 49663 91 RxNorm Zachariah Quiñonez [facility] 11:56:40 Medications Name Sig Start Date [...] Tobacco Smoking Status Never Smoker Zachariah Quiñonez [facility] 10/23/2023 11:51:19 Sunscreen Use? Yes Informatio [...] ICD10 Code Diagnosis IMO Codes Diagnosis Note [id number] DARSHAN [place] [address] [place] [address] 05/19/2025 10:01:17 05/19/2025 11:09:11 Multiple benign melanocytic nevi 358371683 D22.5 L81.4 D18.01 L82.1 The benign nature [...] of malignant neoplasm of skin excluding melanoma 307917317 Z85.019 2860289 The scar is clear with no evidence of recurrence . Cont. to monitor for any changes. Sebaceous cyst of skin 142229129 L72.3 57084 The nature of the diagnosis was discussed. Benign clogged pore.Since bothersome , will extract lesion. Health Concerns Section Related Observation LastModified by Organization Detai ls LastModified Time None Recorded Concern Status LastModified by Organization Details LastModified Time None Recorded Payers Encounter Date Sequence Insurance Name Policy Number Policy Aparicio Covered Member ID Aparicio Member ID Guarantor Name 05/19/2025 1 MEDICARE-[employer] (MEDICARE) Bing Howard [id number] Bing Howard 05/19/2025 2 [employer] (MEDICARE SUPPLEMENT) Bing Howard [id number] Bing Howard Notes Date Note Type Note Provider Name and Address Organization Details Recorded Time 05/19/2025 text/html ROS as noted in the HPI FBSE6 monthshx NMSC (multiple sites)spots of concern: back DARSHAN NEWBERRY [address] [place], [address], [facility] 05/19/2025 12:32:45 OBGyn Episode No OBEpisode recorded.
== END 2025-08-15 23:59 | disposition home or self-care (01) ==
LOC: LAB.DROPOF 08-16 16:52
PROVIDERS: PCP Family Medicine; Visit Provider Nurse Practitioner
DX: B35.1 Tinea unguium (principal)
CPT/HCPCS: 87101; 87220

== ENCOUNTER 2025-08-22 12:54 | Outpatient (CLI) | payer MEDICARE, SELFPAY ==
--- OUTSIDE RECORDS SUMMARY | 2024-03-22 08:45 | XMS_ITS ---
Author Organization [facility] Address [address] [facility] [address] [facility] [address] [place] [id number] Care Team Providers Care Warehouse Man Name Role Phone Nemo Echevarria Primary Care Provider [phone] Allergies Allergen (clinical drug ingredient) Drug/Non Drug Allergy documented on EMR Reaction Allergy Type Onset Date Status clarithromycin Clarithromycin stomach upset Drug Allergy Active Results Component Value Reference Range Notes P-Comprehensive Metabolic Pa laura (CMP) Reviewed date:03/24/2024 09:37:54 AM Interpretation:Normal Performing Lab: Notes/Report: Test performed by [facility] [address] [place] [address] , [address], [place] [address] Manny Fountain MD, Handkerchief Sample Clerk CLIA: [id number] Sodium 140 135-145 mmol/L Potassium 4.4 3.5-5.3 [...] Problem History of malignant neoplasm of breast (136358942) Hx of breast cancer (Z85.3) Active confirmed Problem Anxiety (12856186) Anxiety (F41.9) Active confirmed Vital Signs Weight 160.6 lbs 03/22/2024 Blood pressure systolic 110 mm Hg 03/22/20 24 Blood pressure diastolic 64 mm Hg 024 Heart Rate 66 /min 03/22/2024 Height 64 in 03/22/2024 BMI 27.56 kg/m2 03/22/2024 Encounters Encounter Location Date Provider Diagnosis Sana [address] [facility] [address] [facility] [address] [place] [id number] 03/22/2024 Nemo Echevarria Hypothyroidism (acquired) E03.9 ; History of pulmonary embolism Z86.711 ; 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 :1945 A ge:78 Y S ex:Female Date:03/22/2024 Address:[address] [place] [address] [id number] Subjective: * Chief Complaints: * 1 . [...] Pain. G YN: She is followed at [facility] s/p breast cancer, and has yearly [...] > , Patient informed of normal results. 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 * Procedure Codes: 91889 PULSE OX. * Electronic signature of Nemo Echevarria MD on 08/22/2025 at 01:00 PM EST Sign off status: Pending * Provider: Nemo Echevarria M.D. Date: 0 03/22/2024 Generated for Lorenza chen/Octaviano/eTransmitting on: 10/23/2024 01:00 PM EST History and Physical Notes * [...]
--- OUTSIDE RECORDS SUMMARY | 2024-05-13 09:45 | XMS_ITS ---
Author Organization [facility] Address [address] [facility] [address] [facility] [address] [place] [id number] Care Team Providers Care Engagement Mgr Name Role Phone Nemo Echevarria Primary Care [...] day; Duration: 90 days Active Vital Signs Weight 154.6 lbs 05/13/2024 Blood pressure systolic 112 mm Hg 05/13/20 24 Blood pressure diastolic 70 mm Hg 024 Heart Rate 63 /min 05/13/2024 Height 64 in 05/13/2024 BMI 26.53 kg/m2 05/13/2024 Encounters Encounter Location Date Provider Diagnosis [facility] [facility] [address] [facility] [address] [place] [phone] 05/13/2024 Nemo Echevarria History of cardiac dysrhythmia Z86.79 ; History of pulmonary embolism Z86.711 ; USP current use of anticoagulant Z79.01 and Anxiety F41.9 Assessments Encounter Date Diagnosis (ICD Code) Assessment Notes Treatment Notes Treatment Clinical Notes Section Notes 05/13/2024 History of cardiac dysrhythmia (ICD-10 - Z86.79) Emphasized hydrating before any heat exposure 05/13/2024 History of pulmonary embolism (ICD-10 - Z86.711) 05/13/2024 USP current use of anticoagulant (ICD-10 - Z79.01) 05/13/2024 Anxiety (ICD-10 - F41.9) Plan Of Treatment Treatment Notes Assessment Notes History of cardiac dysrhythmia Emphasize d hydrating before any heat exposure Next Appt Details Follow Up: 3 Months, Reason: Progress Notes * RUY BLANCO DDOB:1945 (79 yo F)Acc No.[id number]:05/13/2024 Progress Notes Patient: Richi RUY AN Provider: Nemo Echevarria M.D. :1945 A ge:78 Y S ex:Female Date:05/13/2024 Address:[address] [place] [address] , [id number] Subjective: * Chief Complaints: * 1 . [...] * Images: Billing Information: * Visit Code: 56670 Office Visit, Est Pt., Level 4. * Procedure Codes: * Electronic signature of Nemo Echevarria MD on 08/22/2025 at 01:02 PM EST Sign off status: Pending * Provider: Nemo Echevarria M.D. Date: 0 05/13/2024 Generated for Lorenza chen/Octaviano/eTransmitting on: 1 10/23/2024 01:02 PM EST History and Physical Notes * [...]
--- OUTSIDE RECORDS SUMMARY | 2024-09-02 09:15 | XMS_ITS ---
Author Organization [facility] Address [address] [facility] [address] [facility] [address] [place] [id number] Care Team Providers Care Hospital Unit Coordinator Name Role Phone Nemo Echevarria Primary Care Provider Allergies Allergen (clinical drug ingredient) Drug/Non Drug Allergy documented on EMR Reaction Allergy Type Onset Date Status clarithromycin Clarithromycin stomach upset Drug Allergy Active Results Component Value Reference Range Notes P-Antinuclear Antibodies (AN A) Screen Reviewed date:09/03/2024 03:16:47 PM Interpretation: Normal Performing Lab: Notes/Report: Test performed by [facility] [address] [place], [place] [address] [place] , [address], [place] [address] Manny Fountain MD, Salon Receptionist CLIA: [id number] Antinuclear Antibodies (HANNAH) Screen Negative Negative This test is performed by Multiplex Bead Immunoassay methodology. P-Comprehensive Metabolic Pa laura (CMP) Reviewed date:09/03/2024 03:16:47 PM Interpretation:bun 25 Performing Lab: Notes/Report: Test performed by [facility] [employer] [place] , [address], [place] [address] Manny Fountain MD, Salon Receptionist CLIA: [id number] Sodium 142 135-145 mmol/L Potassium 4.3 3.5-5.3 mmol/L Chloride 106 97-108 mmol/L CO2 26 22-32 mmol/L Glucose 90 65-99 mg/dL BUN 25 8-23 mg/dL Creatinine 0.80 0.50-1.00 mg/dL Calcium 9.9 8.6-10.4 mg/dL eGFR by Creatinine 75 >59 mL/min/1.73m2 Protein 6.8 6.0-8.3 g/dL Albumin 4.5 3.5-5.3 g/dL Alkaline Phosphatase 77 35-121 IU/L ALT (SGPT) 13 <5-47 IU/L AST (SGOT) 21 <5-40 IU/L Bilirubin, Total 0.5 <0.2-1.2 mg/dL A/G Ratio 2.0 1.1-2.5 P-CPK Reviewed date:09/03/2024 03:16:47 PM Interpretation: Normal Performing Lab: Notes/Report: Test performed by [facility] [address] [place] [address] , [place] [address] Manny Fountain MD, Salon Receptionist CLIA: [id number] Creatine Kinase 66 20-180 U/L P-Sed Rate (ESR) Reviewed date:09/03/2024 03:16:47 PM Interpretation: Normal Performing Lab: Notes/Report: Test performed by [facility] [address] [place] [address] , [address], [place] [address] Manny Fountain MD, Salon Receptionist CLIA: [id number] Erythrocyte Sedimentation Rate (ESR), Automated 14 <31 mm/hr P-TSH Reviewed date:09/03/2024 03:16:47 PM Interpretation:0.11 Performing Lab: Notes/Report: Test performed by [facility] [address] [place] [address] , [address], [place] [address] Manny Fountain MD, Salon Receptionist CLIA: [id number] TSH 0.11 0.43-5.25 mU/L P-HANNAH Reviewed date:09/03/2024 03:16:01 PM Interpretation: Performing Lab: Notes/Report: DEXA Hip and Spine Reviewed date:09/17/2024 09:03:24 AM Interpretation:osteopenia of spine and right hip, osteoporosis left hip Performing Lab: Notes/Report: osteopenia of spine and right hip, osteoporosis left hip Dexa results osteopenia of spine and right hip, osteoporosis left hip REASON FOR VISIT 3 months, Needs labs, mammogram ,bone density screening, colon cancer screening, & flu vaccine Medications Medication SIG (Take, Route, Frequency, Duration) Notes Start Date End Date Status B-12 2500 MCG 1 tab(s) sublinguall y once a day Active Bisoprolol Fumarate 5 MG 1/2 tab(s) oral ly once a day Active Calcium 600 + Minerals 600-200 MG-UNIT 1 tab(s) orally 3 times a day Active Centrum Silver - 1 tab(s) orally once a day Active MiraLax DIRECTED Active Citalopram Hydrobromide 10 MG 1 tablet Orally Once a day; Duration: 30 days Active Rosuvastatin Calcium 5 MG 1 tab(s) orall y every other day; Duration: 90 days Active Esomeprazole Magnesium 40 MG Take 1 capsule by mouth once daily for 90 days; Duration: 90 days Active Levothyroxine Sodium 75 MCG 1 tab(s) ora lly once a day; Duration: 90 days Active Xarelto 20 MG 1 tab(s) orally once a day; Duration: 90 days Active CoQ10 200 MG as directed orally o nce a day; Duration: 30 day(s) 12/28/2021 Active Spironolactone 25 MG 1 tab(s) Orally Onc e a day; Duration: 90 days Active Albuterol Sulfate HFA 108 (90 Base) MCG/ACT 1-2 puffs Inhalation every 4 hrs, prn 11/21/2023 Active Vital Signs Weight 149.2 lbs 09/02/2024 Blood pressure systolic 130 mm Hg 09/02/19 25 Blood pressure diastolic 72 mm Hg 025 Heart Rate 61 /min 09/02/2024 Height 64 in 09/02/2024 BMI 25.61 kg/m2 09/02/2024 Encounters Encounter Location Date Provider Diagnosis [facility] [address] [facility] [address] [place], [place] [id number] 09/02/2024 Nemo Echevarria History of pulmonary embolism Z86.711 ; 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 ; Hx of breast cancer Z85.3 ; Acquired hypothyroidism E03.9 ; Pure hypercholesterolemia E78.00 ; Generalized body aches R52 and Osteopenia, unspecified location M85.80 Assessments Encounter Date Diagnosis (ICD Code) Assessment Notes Treatment Notes Treatment Clinical Notes Section Notes 09/02/2024 History of pulmonary embolism (ICD-10 - Z86.711) continue current therapy 09/02/2024 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 :1945 A ge:78 Y S ex:Female Date:09/02/2024 Address:[address] [place] [address] , [facility] Subjective: * Chief Complaints: * 1 . 3 months. 2. Needs labs, mammogram ,bone density screening, colon cancer screening, & flu vaccine. * HPI: C ardiology: The patient is here today for a check up on Arrythmia. Pt states she saw Cardiology in May and they decreased the Bisoprolol to 2.5 mg daily. Pt states she having aches in her legs and arms over the past 2 months. 78 year old female presents with c/o Palpitations. Denies : Chest Pain. D enies : Short of Breath. D enies : Dizziness. G astroenterology: She gets regular colonoscopy. Has FHx colon cancer. States she is due for scope next year, Dr. Burden follows her. * ROS: D ERMATOLOGY: no R fide. 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 Burden 08/07/2020. * Hospitalization/Major Diagno stic Procedure: h eadaches [...] ouside US: yes. * Medications: T aking Bisoprolol Fumarate 5 MG Tablet 1/2 tab(s) orally once a day , Taking [...] tab(s) orally once a day , Taking Albuterol Sulfate HFA 108 (90 Base) MCG/ACT Aerosol Solution 1-2 puffs Inhalation every 4 hrs, prn , Taking Spironolactone 25 MG Tablet 1 tab(s) Orally Once a day , Taking Rosuvastatin Calcium 5 MG Tablet 1 tab(s) orally every other day , Taking Citalopram Hydrobromide 10 MG Tablet 1 tablet Orally Once a day , Taking Levothyroxine Sodium 75 MCG Tablet 1 tab(s) orally once a day , Taking Esomeprazole Magnesium 40 MG Capsule Delayed Release Take 1 capsule by mouth once daily for 90 days , Discontinued Restasis 0.05 % Emulsion 1 drop into affected eye Ophthalmic Twice a day , Medication List reviewed and reconciled with the patient * Allergies: C larithromycin: stomach upset - Side Effects. Objective: * Vitals: W t:149.2, Temp:97.9, BP:130/72, HR:61, Nurse:SHADY, Ht: 64, BMI:25.61. * Examination: G eneral Examination: General Appearance: N AD, note weight loss. H EENT:?unremarkable. O ral cavity: n o lesions, mucosa moist and WNL, no erythema. N kellie: ?supple, no lymphadenopathy. C hest: n ormal shape and expansion. H eart: R SR, S4 present, no ectopics. L ungs: c lear to auscultation, wheeze right clears. A bdomen:? soft and nontender. N eurologic Exam: I ntact, gait normal, subtle if any cogwheeling. Bilateral tremors of the hands. S kin: n ormal, no rash. P eripheral pulses: n ormal . B ack: n ormal. E xtremities: n o leg edema. Assessment: * Assessment: 1. H istory of pulmonary embolism - Z86.711 (Primary) 2 . L zachery term current use of anticoagulant - Z79.01 3 . H x of breast cancer - Z85.3 ?4. A cquired hypothyroidism - E03.9 5 . P ure hypercholesterolemia - E78.00 6 . G eneralized body aches - R52 7 . O steopenia, unspecified location - M85.80 Plan: * Treatment: 2. A cquired hypothyroidism L AB: P-TSH (Collection Date & Time - 09/02/2024 02:18 PM) 0 .11 Value Reference Range T SH 0.11 L 0.43-5.25 - mU/L * Marta Christian 09/03/2024 3:16:4 2 PM >See phone encounter 3.?Pure hypercholesterolemia?LAB: P-Comprehensive Metabolic Panel (CMP) (Collection Date & Time - 09/02/2024 02:18 PM)?bun 25* Value Reference Range A /G Ratio 2.0 1.1-2.5 - * A lbumin 4.5 3.5-5.3 - g/dL * A lkaline Phosphatase 77 35-121 - IU/L * A LT (SGPT) 13 <5-47 - IU/L * A ST (SGOT) 21 <5-40 - IU/L * B ilirubin, Total 0.5 <0.2-1.2 - mg/dL * B UN 25 H 8-23 - mg/dL * C alcium 9.9 8.6-10.4 - mg/dL * C hloride 106 97-108 - mmol/L * C O2 26 22-32 - mmol/L * C reatinine 0.80 0.50-1.00 - mg/dL * G lucose 90 65-99 - mg/dL * P otassium 4.3 3.5-5.3 - mmol/L * S odium 142 135-145 - mmol/L * P rotein 6.8 6.0-8.3 - g/dL * e GFR by Creatinine 75 >59 - mL/min/1.73m2 * Marta Christian 09/03/2024 3:16:4 2 PM >See phone encounter 4.?Generalized body aches?LAB: P-CPK (Collection Date & Time - 09/02/2024 02:18 PM)?Normal* Value Reference Range C reatine Kinase 66 20-180 - U/L * Marta Christian 09/03/2024 3:16:4 2 PM >See phone encounter ?LAB: P-Sed Rate (ESR) (Collection Date & Time - 09/02/2024 02:18 PM)?Normal * Value Reference Range E rythrocyte Sedimentation Rate (ESR), Automated 14 <31 - mm/hr * Marta Christian 09/03/2024 3:16:4 2 PM >See phone encounter ?LAB: P-HANNAH (Collection Date & Time - 09/03/2024)* see duplicate order 5.?Osteopenia, unspecified location?Imaging: DEXA Hip and Spine (Performed Date - 09/16/2024)?osteopenia of spine and right hip, osteoporosis left hip* Value Reference Range D exa results osteopenia of spine and right hip, osteo porosis left hip * Virgie dHz 09/03/2024 11:37: 33 AM > [facility] SchedulingMarta Christian 09/17/2024 9:03:20 AM > , See phone encounter * Labs: * L ab: P-Antinuclear Antibodies (HANNAH) Screen (Collection Date & Time - 09/02/2024 02:18 PM) N ormal Value Reference Range A ntinuclear Antibodies (HANNAH) Screen Negative Negat cece - * [facility], IT support 09/03/2024 01:10:05 : This order was created by the Interface. Marta Christian 09/03/2024 3:16:42 PM >See phone encounter * Procedure Codes: G 2211 Complex e/m visit add on * Follow Up: 4 Months * Images: Billing Information: * Visit Code: 95631 Office Visit, Est Pt., Level 4. * Procedure Codes: G2211 Complex e/m visit add on. * Electronic signature of Nemo Echevarria MD on 08/22/2025 at 01:02 PM EST Sign off status: Pending * Provider: Nemo Echevarria M.D. Date: 0 09/02/2024 Generated for Lorenza chen/Octaviano/eTransmitting on: 10/23/2024 01:02 PM EST History and Physical Notes * HPI (History of Present Illness) Category Sub-Category Detail Notes Category Not es Cardiology Short of Breath Chest Pain Palpitations Dizziness Examination Category Sub-Category Detail Notes Category Not es General Examination HEENT: unremarkable Heart: RSR, S4 present, no ectopics Lungs: clear to auscultatio n, wheeze right clears Abdomen: soft and nontender Extremities: no leg edema General Appearance: NAD, note weight los s Skin: normal, no rash Neurologic Exam: Intact, gait normal, subtle if any cogwheeling. Bilateral tremors of the hands Neck: supple, no lymphaden opathy Oral cavity: no lesions, mucosa m oist and WNL, no erythema Peripheral pulses: normal Back: normal Chest: normal shape and exp ansion
--- OUTSIDE RECORDS SUMMARY | 2024-11-29 09:00 | XMS_ITS ---
Author Organization [facility] Address [address] [facility] 36 [facility] [address] [place] [phone] Care Team Providers Care Vp Platforms Name Role Phone Nemo Ehcevarria Primary Care Provider Mckenzie Singh [phone] Allergies Allergen (clinical drug ingredient) Drug/Non Drug [...] 3 times a day Active Vital Signs Weight 147.8 lbs 11/29/2024 Blood pressure systolic 90 mm Hg 11/30/19 25 Blood pressure diastolic 60 mm Hg 025 Heart Rate 154 /min 11/29/2024 Height 64 in 11/29/2024 BMI 25.37 kg/m2 11/29/2024 Encounters Encounter Location Date Provider Diagnosis [facility] [address] [place] [id number] 11/29/2024 Mckenzie Singh URI (upper respirato ry [...] Up: prn, Reason: Progress Notes * RUY BLNACO DDOB:1945 (79 yo F)Acc No.[id number]:11/29/2024 Progress Notes Patient: Richi RUY AN Provider: JITENDRA Cardoza :1945 A ge:79 Y S ex:Female Date:11/29/2024 Address:[address] [place] [address] Pcp:Nemo Echevarria Subjective: * Chief Complaints: * [...] > Provider reviewed results while patient in office.Regla Singhharine 11/29/2024 2:51:39 PM > * Procedure Codes: G 2211 Complex e/[place], [address] CAPILLARY BLOOD DRAW, 14295 CBC WITH AUTO DIFF, 02199 Flu Test- Nasal Swab, Modifiers: QW , 7[address] COVID TEST IN HOUSE, Modifiers: QW , 3074F SYST BP LT 130 MM HG, 3079F DIAST BP 80-89 MM HG * Follow Up: p rn * Images: Billing Information: * Visit Code: 72159 Office Visit, Est Pt., Level 3. * Procedure Codes: G2211 Complex e/[place]. [address] CAPILLARY BLOOD DRAW. 77287 CBC WITH AUTO DIFF. 08125 Flu Test- Nasal Swab. Modifiers: QW 16736 COVID TEST IN HOUSE. Modifiers: QW 3074F SYST BP LT 130 MM HG. 3079F DIAST BP 80-89 MM HG. * Electronic signature of Madonna Singh APRN on 08/22/2025 at 01:00 PM EST Sign off status: Pending * Provider: JITENDRA Cardoza Date: 0 11/29/2024 Generated for Lorenza chen/Octaviano/eTransmitting on: 1 10/23/2024 01:00 PM EST History and Physical [...]
--- OUTSIDE RECORDS SUMMARY | 2024-12-09 08:15 | XMS_ITS ---
Author Organization [facility] Address [address] [facility] 36 [facility] [address] [place] [phone] Care Team Providers Care Upstream Biomanufacturing Technician Name Role Phone Nemo Echevarria Primary Care Provider Rosa Underwood [phone] Allergies Allergen (clinical drug ingredient) Drug/Non Drug Allergy documented on EMR Reaction Allergy Type Onset Date Status clarithromycin Clarithromycin stomach upset Drug Allergy Active Results Component Value Reference Range Notes CBC Fingerstick (in house) Reviewed date:12/09/2024 02:54:58 PM Interpretation: Performing Lab: Notes/Report: wbc 6.4 3.5 - 10 lym 22.9% 15 - 50 mid 5.6% 2 - 15 gran 71.5% 35 - 80 rbc 4.46 3.5 - 5.5 hgb 14.5 11.5 - 16.5 hct 42.8 35 - 55 mcv 95.9 75 - 100 mch 32.5 25 - 35 mchc 33.9 31 - 38 plat 146 100 - 400 H-Sputum Culture with Gram Daniel juan Reviewed date:12/13/2024 11:30:27 AM Interpretation:Rare Gram Positive Cocci Performing Lab: Notes/Report: GS Gram Stain: GS <10 White Blood Cells/LPF GS <10 Epithelial Cells / LPF GS Rare Gram Positive Cocci CUSPU Normal Respiratory Cheryle CXR Reviewed date:12/13/2024 04:44:51 PM Interpretation:Normal Performing Lab: Notes/Report: Normal REASON FOR VISIT coughing, drainage, nausea Medications Medication SIG (Take, Route, Frequency, Duration) Notes Start Date End Date Status CoQ10 200 MG as directed orally o nce a day; Duration: 30 day(s) 12/28/2021 Active Levothyroxine Sodium 50 MCG 1 tablet in the morning on an empty stomach Orally Once a day; Duration: 30 day(s) 09/14/2024 Active Calcium 600 + Minerals 600-200 MG-UNIT 1 tab(s) orally 3 times a day Active MiraLax DIRECTED Active Prolia 60 MG/ML as directed Subcutaneous Active Centrum Silver - 1 tab(s) orally once a day Active B-12 2500 MCG 1 tab(s) sublinguall y once a day Active Benzonatate 200 MG 1 capsule Orally Thr ee times a day 12/09/2024 Active Medrol 4 MG as directed orally d aily; Duration: 6 days 12/09/2024 Active Albuterol Sulfate HFA 108 (90 Base) MCG/ACT 1 puff as needed Inhalation every 4 hrs, prn 12/09/2024 Active Spironolactone 25 MG 1 tab(s) Orally Onc e a day; Duration: 90 days Active Rosuvastatin Calcium 5 MG 1 tab(s) orall y every other day; Duration: 90 days Active Albuterol Sulfate HFA 108 (90 Base) MCG/ACT 1-2 puffs Inhalation every 4 hrs, prn 11/21/2023 Active Promethazine-DM 6.25-15 MG/5ML 5 ml as needed Orally every 6 hrs prn 11/29/2024 Active Esomeprazole Magnesium 40 MG 1 cap(s) Orally Once a day; Duration: 90 days Active Bisoprolol Fumarate 5 MG 1/2 tab(s) oral ly once a day; Duration: 90 days Active Citalopram Hydrobromide 10 MG 1 tablet Orally Once a day; Duration: 90 days Active Xarelto 20 MG 1 tab(s) orally once a day; Duration: 90 days Active Vital Signs Weight 145.6 lbs 12/09/2024 Blood pressure systolic 100 mm Hg 12/10/19 25 Blood pressure diastolic 64 mm Hg 025 Heart Rate 67 /min 12/09/2024 Height 64 in 12/09/2024 BMI 24.99 kg/m2 12/09/2024 Encounters Encounter Location Date Provider Diagnosis [facility] [address] [place] [phone] 12/09/2024 Rosa Underwood Bronchitis J40 and B NJ 24.0-24.9, adult Z68.24 Assessments Encounter Date Diagnosis (ICD Code) Assessment Notes Treatment Notes Treatment Clinical Notes Section Notes 12/09/2024 Bronchitis (ICD-10 - J40) 12/09/2024 BMI 24.0-24.9, adult (ICD-10 - Z68.24) Plan Of Treatment Medication Medication Name Sig Start Date Stop Date Notes Benzonatate 200 MG 1 capsule Orally Thr ee times a day 12/09/2024 Medrol 4 MG as directed orally d aily; Duration: 6 days 12/09/2024 Albuterol Sulfate HFA 108 (9 0 Base) MCG/ACT 1 puff as needed Inhalation every 4 hrs, prn 12/09/2024 Next Appt Details Follow Up: via phone to repo rt test results, Reason: Progress Notes * RUY BLANCO DDOB:1945 (79 yo F)Acc No.[id number]:12/09/2024 Progress Notes Patient: BENITO CHAVEZLIDaniel Kang Provider: DARSHAN Helm :1945 A ge:79 Y S ex:Female Date:12/09/2024 Address:[address] [place] [address] [id number] Pcp:Nemo Echevarria Subjective: * Chief Complaints: * 1 . Coughing, drainage, nausea. * HPI: E NT/respiratory: The pt is here today with c/o continued productive cough that is clear/sometime yellow. Pt states she is having drainage down the back of her throat. Pt states she has finished the Z pack but still using the cough medication. 79 year old female presents with c/o cough. c/o post nasal drainage. c/o Chest Pain. c/o Short of Breath. Denies : Fever. * ROS: D ERMATOLOGY: no R fide. [...] directed orally once a day , Taking Levothyroxine Sodium 50 MCG Tablet [...] tab(s) orally every other day , Taking Promethazine-DM 6.25-15 MG/5ML Syrup 5 ml as needed Orally every 6 hrs prn , Taking Albuterol Sulfate HFA 108 (90 Base) MCG/ACT Aerosol Solution 1-2 puffs Inhalation every 4 hrs, prn , Discontinued Zithromax Z-Jose Eduardo 250 MG Tablet 2 tab today and then 1 tab qd x 4 days Orally daily , Medication List reviewed and reconciled with the patient * Allergies: C larithromycin: stomach upset - Side Effects. Objective: * Vitals: W t:145.6, Temp:98.4, BP:100/64, HR:67, O2 Sat:97% on RA, Nurse:SHADY, Ht: 64, BMI:24.99. * Examination: E NT/Respiratory: General Appearance: D oes not appear to feel well. E ars: a uditory canals normal bilaterally, TM's WNL. N ose : n ormal, no lesions, nares patent. S inuses : non tender bilaterally. O ral cavity : erythema without exudate on pharynx. N kellie : supple, no cervical lymphadenopathy. H eart : RRR. L ungs: expiratory wheezes, no rales. Assessment: * Assessment: 1. B ronchitis - J40 (Primary) 2 . B NJ 24.0-24.9, adult - Z68.24 ? Plan: * Treatment: Value Reference Range C USPU Normal Respiratory Cheryle - * Keturah Santiago 12/13/2024 11: 30:16 AM > see phone encounter ?LAB: CBC Fingerstick (in house) (Collection Date & Time - 12/09/2024)* Value Reference Range w bc 6.4 3.5 - 10 * l ym 22.9% 15 - 50 * m id 5.6% 2 - 15 * g ran 71.5% 35 - 80 * r bc 4.46 3.5 - 5.5 * h gb 14.5 11.5 - 16.5 * h ct 42.8 35 - 55 * m cv 95.9 75 - 100 * m ch 32.5 25 - 35 * m chc 33.9 31 - 38 * p lat 146 100 - 400 * Maryanne Knott 12/09/2024 2:1 6:15 PM > Provider reviewed results while patient in office. ?Imaging: CXR (Performed Date - 12/09/2024)?Normal* JackKeturah 12/13/2024 04: 43:29 PM > pt has appt on 12/14. See TE * Procedure Codes: G 2211 Complex e/[place], [address] [place] [address] CAPILLARY BLOOD DRAW, 03094 CBC WITH AUTO DIFF, 3074F SYST BP LT 130 MM HG, 3078F DIAST BP < 80 MM HG * Follow Up: v ia phone to report test results * Images: Billing Information: * Visit Code: 03050 Office Visit, Est Pt., Level 3. * Procedure Codes: G2211 Complex e/[place] [address] [place] [address] CAPILLARY BLOOD DRAW. 61325 CBC WITH AUTO DIFF. 3074F SYST BP LT 130 MM HG. 3078F DIAST BP < 80 MM HG. * Electronic signature of DARSHAN Flores on 08/22/2025 at 01:00 PM EST Sign off status: Pending * Provider: DARSHAN Helm Date: 0 12/09/2024 Generated for Indirai ng/Faisidrag/eTransmitting on: 1 10/23/2024 01:00 PM EST History and Physical Notes * HPI (History of Present Illness) Category Sub-Category Detail Notes Category Not es ENT/respiratory Short of Breath Chest Pain cough Fever post nasal drainage Examination Category Sub-Category Detail Notes Category Not es ENT/Respiratory Oral cavity : erythema without exudate on pharynx Sinuses : non tender bilateral ly Ears: auditory canals norm al bilaterally, TM's WNL Neck : supple, no cervical lymphadenopathy Heart : RRR Lungs: expiratory wheezes, no rales General Appearance: Does not appear to f eel well Nose : normal, no lesions, nares patent
--- OUTSIDE RECORDS SUMMARY | 2024-12-14 06:30 | XMS_ITS ---
Author Organization [facility] Address [address] [facility] [address] [facility] [address] [place] [id number] Care Team Providers Care Flatwork Supervisor Name Role Phone Nemo Echevarria Primary Care Provider Mckenzie Singh [phone] Allergies Allergen (clinical drug ingredient) Drug/Non Drug Allergy documented on EMR Reaction Allergy Type Onset Date Status clarithromycin Clarithromycin stomach upset Drug Allergy Active REASON FOR VISIT fu from [facility] Medications Medication SIG (Take, Route, Frequency, Duration) Notes Start Date End Date Status Spironolactone 25 MG 1 tab(s) Orally Onc e a day; Duration: 90 days Active Esomeprazole Magnesium 40 MG 1 cap(s) Orally Once a day; Duration: 90 days Active Albuterol Sulfate HFA 108 (90 Base) MCG/ACT 1-2 puffs Inhalation every 4 hrs, prn 11/21/2023 Active Promethazine-DM 6.25-15 MG/5ML 5 ml as needed Orally every 6 hrs prn 11/29/2024 Active Rosuvastatin Calcium 5 MG 1 tab(s) orall y every other day; Duration: 90 days Active Citalopram Hydrobromide 10 MG 1 tablet Orally Once a day; Duration: 90 days Active Bisoprolol Fumarate 5 MG 1/2 tab(s) oral ly once a day; Duration: 90 days Active Xarelto 20 MG 1 tab(s) orally once a day; Duration: 90 days Active Prolia 60 MG/ML as directed Subcutaneous Active Levothyroxine Sodium 50 MCG 1 tablet in the morning on an empty stomach Orally Once a day; Duration: 30 day(s) 09/14/2024 Active B-12 2500 MCG 1 tab(s) sublinguall y once a day Active Centrum Silver - 1 tab(s) orally once a day Active MiraLax DIRECTED Active Calcium 600 + Minerals 600-200 MG-UNIT 1 tab(s) orally 3 times a day Active CoQ10 200 MG as directed orally o nce a day; Duration: 30 day(s) 12/28/2021 Active Medrol 4 MG as directed orally d aily; Duration: 6 days Active Benzonatate 200 MG 1 capsule Orally Thr ee times a day Active Albuterol Sulfate HFA 108 (90 Base) MCG/ACT 1 puff as needed Inhalation every 4 hrs, prn Active Vital Signs Weight 143.6 lbs 12/14/2024 Blood pressure systolic 112 mm Hg 12/15/19 25 Blood pressure diastolic 64 mm Hg 025 Heart Rate 76 /min 12/14/2024 Height 64 in 12/14/2024 BMI 24.65 kg/m2 12/14/2024 Encounters Encounter Location Date Provider Diagnosis [facility] [address] [facility] [address] [place] [address], [place] [phone] 12/14/2024 Mckenzie Singh Bronchitis J40 ; Hyperlipidemia, unspecified hyperlipidemia type E78.5 ; Anxiety F41.9 ; Acquired hypothyroidism E03.9 and BMI 24.0-24.9, adult Z68.24 Assessments Encounter Date Diagnosis (ICD Code) Assessment Notes Treatment Notes Treatment Clinical Notes Section Notes 12/14/2024 Bronchitis (ICD-10 - J40) fluids, rest, supportive measures for fever/symptom relief; overall pt is better with less cough; cautioned about increasing activities around the holiday; to continue with inhaler qid for the next few days until cough is noticed to be better 12/14/2024 Hyperlipidemia, unspecified hyperlipidemia type (ICD-10 - E78.5) 12/14/2024 Anxiety (ICD-10 - F41.9) 12/14/2024 Acquired hypothyroidism (ICD-10 - E03.9) 12/14/2024 BMI 24.0-24.9, adult (ICD-10 - Z68.24) Plan Of Treatment Medication Medication Name Sig Start Date Stop Date Notes Medrol 4 MG as directed orally d aily; Duration: 6 days Benzonatate 200 MG 1 capsule Orally Thr ee times a day Albuterol Sulfate HFA 108 (9 0 Base) MCG/ACT 1 puff as needed Inhalation every 4 hrs, prn Treatment Notes Assessment Notes Bronchitis fluids, rest, suppor tive measures for fever/symptom relief; overall pt is better with less cough; cautioned about increasing activities around the holiday; to continue with inhaler qid for the next few days until cough is noticed to be better Next Appt Details Follow Up: prn, Reason: Progress Notes * RUY BLANCO DDOB:1945 (79 yo F)Acc No.[id number]:12/14/2024 Patient: Richi CLARKERUY Hinds Provider: JITENDRA Cardoza :1945 A ge:79 Y S ex:Female Date:12/14/2024 Address:[address] [place], [place] [address] Pcp:Nemo Echevarria Subjective: * Chief Complaints: * 1 . fu from [facility]. * HPI: E NT/respiratory: 79 year old female presents with c/o cough P t presents today for a follow up. Pt had a sputum culture done last week, she culture report. Pt has not been notified of results. Pt sts that she does feel like her cough is improving but c/o some heaviness in her chest. * ROS: D ERMATOLOGY: no R fide. [...] Inhalation every 4 hrs, prn , Taking Albuterol Sulfate HFA 108 (90 Base) MCG/ACT Aerosol Solution 1 puff as needed Inhalation every 4 hrs, prn , Taking Benzonatate 200 MG Capsule 1 capsule Orally Three times a day , Taking Medrol 4 MG Tablet Therapy Pack as directed orally daily , Medication List reviewed and reconciled with the patient * Allergies: C larithromycin: stomach upset - Side Effects. Objective: * Vitals: W t: 143.6, Temp: Not Taken - Collection Device Broken, BP: 112/64, HR: 76, Nurse: SANDY, Ht: 64, BMI:24.65. * Examination: E NT/Respiratory: General Appearance: well nourished and hydrated, NAD, alert. E yes: sclera and conjunctiva clear. H eart : RRR. L ungs: CTAB A&P. r are cough while in the office. Assessment: * Assessment: 1. B ronchitis - J40 (Primary) 2 . H yperlipidemia, unspecified hyperlipidemia type - E78.5 3 . A nxiety - F41.9 4 . A cquired hypothyroidism - E03.9 5 . B FL 24.0-24.9, adult - Z68.24 Plan: * Treatment: * Procedure Codes: G 2211 Complex e/m visit add on, 3074F SYST BP LT 130 MM HG, 3078F DIAST BP < 80 MM HG * Follow Up: p rn * Images: Billing Information: * Visit Code: 04220 Office Visit, Est Pt., Level 3. * Procedure Codes: G2211 Complex e/m visit add on. 3074F SYST BP LT 130 MM HG. 3078F DIAST BP < 80 MM HG. * Electronic signature of Madonna Singh APRN on 08/22/2025 at 01:01 PM EST Sign off status: Pending * Provider: JITENDRA Cardoza Date: 0 12/14/2024 Generated for Lorenza chen/Octaviano/Hieu on: 1 10/23/2024 01:01 PM EST History and Physical Notes * HPI (History of Present Illness) Category Sub-Category Detail Notes Category Not es [facility] Pt had a sputum culture done last week, she culture report. Pt has not been notified of results. Pt sts that she does feel like her cough is improving but c/o some heaviness in her chest Examination Category Sub-Category Detail Notes Category Not es ENT/Respiratory Heart : RRR rare cough w hile in the office Lungs: CTAB A&P General Appearance: well nourished and h ydrated, NAD, alert Eyes: sclera and conjuncti va clear
--- OUTSIDE RECORDS SUMMARY | 2025-01-27 09:45 | XMS_ITS ---
Author Organization [facility] Address [address] [facility] 36 [facility] [address] [place] [id number] Care Team Providers Care Field Automobile Adjuster Name Role Phone Nemo Echevarria Primary Care Provider Allergies Allergen (clinical drug ingredient) Drug/Non Drug Allergy documented on EMR Reaction Allergy Type Onset Date Status clarithromycin Clarithromycin stomach upset Drug Allergy Active Results Component Value Reference Range Notes P-Comprehensive Metabolic Pa laura (CMP) Reviewed date:02/16/2025 04:30:12 PM Interpretation:satisfactory Performing Lab: Notes/Report: Test performed by [email or web address], [facility] [address] [place] [address] , [address], [place] [address] Manny Fountain MD, Prospecting Driller CLIA: [id number] Sodium 139 135-145 mmol/L Potassium 4.4 3.5-5.3 mmol/L Chloride 102 97-108 mmol/L CO2 26 22-32 mmol/L Glucose 83 65-99 mg/dL BUN 32 8-23 mg/dL Creatinine 0.95 0.50-1.00 mg/dL Calcium 9.8 8.6-10.4 mg/dL eGFR by Creatinine 61 >59 mL/min/1.73m2 Protein 6.6 6.0-8.3 g/dL Albumin 4.7 3.5-5.3 g/dL Alkaline Phosphatase 67 35-121 IU/L ALT (SGPT) 11 <5-47 IU/L AST (SGOT) 19 <5-40 IU/L Bilirubin, Total 0.7 <0.2-1.2 mg/dL A/G Ratio 2.5 1.1-2.5 P-TSH Reviewed date:02/16/2025 04:30:12 PM Interpretation:Normal Performing Lab: Notes/Report: Test performed by [email or web address], [facility] , [address], [place] [address] Manny Fountain MD, Prospecting Driller CLIA: [id number] TSH 4.41 0.43-5.25 mU/L REASON FOR VISIT 4 months, Needs labs Medications Medication SIG (Take, Route, Frequency, Duration) Notes Start Date End Date Status Citalopram Hydrobromide 10 MG 1 tablet Orally Once a day; Duration: 90 days Active Esomeprazole Magnesium 40 MG 1 cap(s) Orally Once a day; Duration: 90 days Active Spironolactone 25 MG 1 tab(s) Orally Onc e a day; Duration: 90 days Active Bisoprolol Fumarate 5 MG 1/2 tab(s) oral ly once a day; Duration: 90 days Active Prolia 60 MG/ML as directed Subcutaneous Active Xarelto 20 MG 1 tab(s) orally once a day; Duration: 90 days Active Calcium 600 + Minerals 600-200 MG-UNIT 1 tab(s) orally 3 times a day Active MiraLax DIRECTED Active CoQ10 200 MG as directed orally o nce a day; Duration: 30 day(s) 12/28/2021 Active B-12 2500 MCG 1 tab(s) sublinguall y once a day Active Rosuvastatin Calcium 5 MG TAKE 1 TABLET BY MOUTH EVERY OTHER DAY; Duration: 90 Active Centrum Silver - 1 tab(s) orally once a day Active Levothyroxine Sodium 50 MCG TAKE 1 TABLE T BY MOUTH IN THE MORNING ON AN EMPTY STOMACH; Duration: 30 days Active Albuterol Sulfate HFA 108 (90 Base) MCG/ACT 1-2 puffs Inhalation every 4 hrs, prn 11/21/2023 Active Vital Signs Weight 148.6 lbs 01/27/2025 Blood pressure systolic 110 mm Hg 01/28/20 25 Blood pressure diastolic 70 mm Hg 025 Heart Rate 61 /min 01/27/2025 Height 64 in 01/27/2025 BMI 25.5 kg/m2 01/27/2025 Encounters Encounter Location Date Provider Diagnosis [facility] [address] [facility] 36 [facility] [address] [place] [id number] 01/27/2025 Nemo Echevarria Acquired hypothyroid ism E03.9 ; GERD without esophagitis K21.9 ; Chronic deep vein thrombosis (DVT) of popliteal vein of left lower extremity I82.532 ; History of pulmonary embolism Z86.711 ; intermediate frame tender current use of anticoagulant Z79.01 ; Hx of breast cancer Z85.3 ; Osteoporosis M81.0 and BMI 25.0-25.9,adult Z68.25 Assessments Encounter Date Diagnosis (ICD Code) Assessment Notes Treatment Notes Treatment Clinical Notes Section Notes 01/27/2025 Acquired hypothyroidism (ICD-10 - E03.9) 01/27/2025 GERD without esophagitis (ICD-10 - K21.9) 01/27/2025 Chronic deep vein thrombosis (DVT) of popliteal vein of left lower extremity (ICD-10 - I82.532) 01/27/2025 History of pulmonary embolism (ICD-10 - Z86.711) 01/27/2025 correction current use of anticoagulant (ICD-10 - Z79.01) 01/27/2025 Hx of breast cancer (ICD-10 - Z85.3) 01/27/2025 Osteoporosis (ICD-10 - M81.0) 01/27/2025 BMI 25.0-25.9,adult (ICD-10 - Z68.25) Plan Of Treatment Medication Medication Name Sig Start Date Stop Date Notes Esomeprazole Magnesium 40 MG 1 cap(s) Or ally Once a day; Duration: 90 days Levothyroxine Sodium 50 MCG TAKE 1 TABLE T BY MOUTH IN THE MORNING ON AN EMPTY STOMACH; Duration: 30 days Next Appt Details Follow Up: 4 Months, Reason: Progress Notes * RUY BLANCO DDOB:1945 (79 yo F)Acc No.[id number]:01/27/2025 Progress Notes Patient: BENITO CHAVEZLIDaniel Kang Provider: Nemo Echevarria M.D. :1945 A ge:79 Y S ex:Female Date:01/27/2025 Address:[address] [place] [address] [id number] Subjective: * Chief Complaints: * 1 . 4 months. 2. Needs labs. * HPI: C ardiology: The patient is here for a check up on Hyperlipidemia and Hypothyroidism. Pt states she is doing good and denies any new concerns. Pt is not fasting. 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 79 year old female presents with c/o Short of Breath w ith exertion. c/o Dizziness e pisodic. Denies : Chest Pain. D enies : Palpitations. E ndocrinology: See 09/17/24 note. She was to start on Prolia, but this was never accomplished. * ROS: D ERMATOLOGY: no R fide. [...] directed orally once a day , Taking Prolia 60 MG/ML [...] tab(s) Orally Once a day , Taking Albuterol Sulfate HFA 108 (90 Base) MCG/ACT Aerosol Solution 1-2 puffs Inhalation every 4 hrs, prn , Taking Levothyroxine Sodium 50 MCG Tablet TAKE 1 TABLET BY MOUTH IN THE MORNING ON AN EMPTY STOMACH , Taking Rosuvastatin Calcium 5 MG Tablet TAKE 1 TABLET BY MOUTH EVERY OTHER DAY , Discontinued Promethazine-DM 6.25-15 MG/5ML Syrup 5 ml as needed Orally every 6 hrs prn , Discontinued Benzonatate 200 MG Capsule 1 capsule Orally Three times a day , Discontinued Medrol 4 MG Tablet Therapy Pack as directed orally daily , Medication List reviewed and reconciled with the patient * Allergies: C larithromycin: stomach upset - Side Effects. Objective: * Vitals: W t: 148.6, Temp: 98.3, BP: 110/70, HR: 61, O2 Sat: 97% on RA, Nurse: SHADY, Ht: 64, BMI:25.5. * Examination: G eneral Examination: General Appearance: [...] o leg edema. Assessment: * Assessment: 1. A cquired hypothyroidism - E03.9 2 . G ERD without esophagitis - K21.9? 3. C hronic deep vein thrombosis (DVT) of popliteal vein of left lower extremity - I82.532 4 . H istory of pulmonary embolism - Z86.711 5 . L zachery term current use of anticoagulant - Z79.01 6 . H x of breast cancer - Z85.3 7 . O steoporosis - M81.0 8 . B ME 25.0-25.9,adult - Z68.25 Plan: * Treatment: Value Reference Range A /G Ratio 2.5 1.1-2.5 - * A lbumin 4.7 3.5-5.3 - g/dL * A lkaline Phosphatase 67 35-121 - IU/L * A LT (SGPT) 11 <5-47 - IU/L * A ST (SGOT) 19 <5-40 - IU/L * B ilirubin, Total 0.7 <0.2-1.2 - mg/dL * B UN 32 H 8-23 - mg/dL * C alcium 9.8 8.6-10.4 - mg/dL * C hloride 102 97-108 - mmol/L * C O2 26 22-32 - mmol/L * C reatinine 0.95 0.50-1.00 - mg/dL * G lucose 83 65-99 - mg/dL * P otassium 4.4 3.5-5.3 - mmol/L * S odium 139 135-145 - mmol/L * P rotein 6.6 6.0-8.3 - g/dL * e GFR by Creatinine 61 >59 - mL/min/1.73m2 * Maryanne Knott 02/16/2025 04 :30:02 PM EDT > Patient informed of normal results. ?LAB: P-TSH (Collection Date & Time - 01/27/2025 03:14 PM)?Normal* Value Reference Range T SH 4.41 0.43-5.25 - mU/L * Maryanne Knott 02/16/2025 04 :30:02 PM EDT > Patient informed of normal results. 2.?GERD without esophagitis? Refill Esomeprazole Magnesium Capsule Delayed Release, 40 MG, 1 cap(s), Orally, Once a day, 90 days, 90 Capsule, Refills 0.?? * Procedure Codes: G 2211 Complex e/m visit add on, 1036F TOBACCO NON-USER, G8420 BMI<30 AND >=22 CALC & DOCU, G8783 BP SCR PRFRM RCMDD DEFIND SCR INTVL, G8752 MOST RECENT SYSTOLIC BP < 140MM HG, G8754 MOST RECENT DIASTOLIC BP < 90MM HG * Follow Up: 4 Months * Images: Billing Information: * Visit Code: 00199 Office Visit, Est Pt., Level 4. * Procedure Codes: G2211 Complex e/m visit add on. 1036F TOBACCO NON-USER. G8420 BMI<30 AND >=22 CALC & DOCU. G8783 BP SCR PRFRM RCMDD DEFIND SCR INTVL. G8752 MOST RECENT SYSTOLIC BP < 140MM HG. G8754 MOST RECENT DIASTOLIC BP < 90MM HG. * Electronic signature of Nemo Echevarria MD on 08/22/2025 at 01:01 PM EST Sign off status: Pending * Provider: Nemo Echevarria M.D. Date: 0 01/27/2025 Generated for Lorenza chen/Octaviano/eTandrezsmitting on: 10/23/2024 01:01 PM EST History and Physical Notes * HPI (History of Present Illness) Category Sub-Category Detail Notes Category Not es Endocrinology See 09/17/24 no te. She was to start on Prolia, but this was never accomplished. Cardiology Short of Breath with exertion Chest Pain Palpitations Dizziness episodic Examination Category Sub-Category Detail Notes Category Not [...]
--- OUTSIDE RECORDS SUMMARY | 2025-05-26 10:15 | XMS_ITS ---
Author Organization [facility] Address [address] [facility] 36 [facility] [address] [place] [phone] Care Team Providers Care Supervisor Whipped Topping Name Role Phone Nemo Echevarria Primary Care Provider [phone] Allergies Allergen (clinical drug ingredient) Drug/Non Drug Allergy documented on EMR Reaction Allergy Type Onset Date Status clarithromycin Clarithromycin stomach upset Drug Allergy Active Results Component Value Reference Range Notes Influenza Screen (in house) Reviewed date:05/27/2025 12:38:34 PM Interpretation: Performing Lab: Notes/Report: results neg CBC Venipuncture (in house) Reviewed date:05/27/2025 12:38:24 PM Interpretation: Performing Lab: Notes/Report: wbc 6.4 3.5 - 10 lymph 21.9% 15 - 50 mid 7.2% 2 - 15 gran 70.9% 35 - 80 rbc 3.83 3.5 - 5.5 hgb 12.8 11.5 - 16.5 hct 37.3 35 - 55 mcv 97.4 75 - 100 mch 33.4 25 - 35 mchc 34.3 31 - 38 platlet 177 100 - 400 P-Comprehensive Metabolic Pa laura (CMP) Reviewed date:05/31/2025 05:02:10 PM Interpretation:bun 32, Cr 1.04, gfr 55 Performing Lab: Notes/Report: Test performed by [facility], [facility] [address] [facility] , [address], [place] [address] Manny Fountain MD, Mash Preparatory Operator CLIA: [id number] Sodium 139 135-145 mmol/L Potassium 4.4 3.5-5.3 mmol/L Chloride 102 97-108 mmol/L CO2 28 20-32 mmol/L Glucose 86 65-99 mg/dL BUN 32 8-23 mg/dL Creatinine 1.04 0.50-1.00 mg/dL Calcium 10.1 8.6-10.4 mg/dL eGFR by Creatinine 55 >59 mL/min/1.73m2 Protein 6.7 6.0-8.3 g/dL Albumin 4.6 3.5-5.3 g/dL Alkaline Phosphatase 64 35-121 IU/L ALT (SGPT) 16 <5-47 IU/L AST (SGOT) 20 <5-40 IU/L Bilirubin, Total 0.6 <0.2-1.2 mg/dL A/G Ratio 2.2 1.1-2.5 P-TSH Reviewed date:05/31/2025 05:02:10 PM Interpretation:Normal Performing Lab: Notes/Report: Test performed by [facility] [address] , [address], [place] [address] Manny Fountain MD, Mash Preparatory Operator CLIA: [id number] TSH 3.81 0.43-5.25 mU/L Covid test (in house) Reviewed date:05/27/2025 12:38:45 PM Interpretation: Performing Lab: Notes/Report: Result: neg REASON FOR VISIT 4 months, Needs labs & flu vaccine Medications Medication SIG (Take, Route, Frequency, Duration) Notes Start Date End Date Status CoQ10 200 MG as directed orally o nce a day; Duration: 30 day(s) 12/28/2021 Active MiraLax DIRECTED Active Calcium 600 + Minerals 600-200 MG-UNIT 1 tab(s) orally 3 times a day Active Centrum Silver - 1 tab(s) orally once a day Active B-12 2500 MCG 1 tab(s) sublinguall y once a day Active Azithromycin 500 MG 1 tablet Orally Once a day; Duration: 3 days 05/26/2025 Active Citalopram Hydrobromide 10 MG 1 tablet Orally Once a day; Duration: 90 days Active Bisoprolol Fumarate 5 MG TAKE ONE-HALF T ABLET BY MOUTH ONCE DAILY; Duration: 90 Active Xarelto 20 MG TAKE 1 TABLET BY SARANYA TH ONCE DAILY; Duration: 90 Active Spironolactone 25 MG 1 tab(s) Orally Onc e a day; Duration: 90 days Active Rosuvastatin Calcium 5 MG TAKE 1 TABLET BY MOUTH EVERY OTHER DAY; Duration: 90 Active Albuterol Sulfate HFA 108 (90 Base) MCG/ACT 1-2 puffs Inhalation every 4 hrs, prn 11/21/2023 Active Levothyroxine Sodium 50 MCG TAKE 1 TABLE T BY MOUTH IN THE MORNING ON AN EMPTY STOMACH; Duration: 30 days Active Esomeprazole Magnesium 40 MG 1 cap(s) Orally Once a day; Duration: 90 days Active Prolia 60 MG/ML as directed Subcutaneous Active Vital Signs Weight 146.0 lbs 05/26/2025 Blood pressure systolic 102 mm Hg 05/26/20 Blood pressure diastolic 60 mm Hg 025 Heart Rate 71 /min 05/26/2025 Height 64 in 05/26/2025 BMI 25.06 kg/m2 05/26/2025 Encounters Encounter Location Date Provider Diagnosis [facility] [address] [facility] [address] [phone] 05/26/2025 Nemo Echevarria Upper respiratory tract infection, unspecified type J06.9 ; Bronchitis J40 and Dizziness R42 Assessments Encounter Date Diagnosis (ICD Code) Assessment Notes Treatment Notes Treatment Clinical Notes Section Notes 05/26/2025 Upper respiratory tract infection, unspecified type (ICD-10 - J06.9) 05/26/2025 Bronchitis (ICD-10 - J40) 05/26/2025 Dizziness (ICD-10 - R42) Plan Of Treatment Medication Medication Name Sig Start Date Stop Date Notes Azithromycin 500 MG 1 tablet Orally Once a day; Duration: 3 days 05/26/2025 Next Appt Details Follow Up: 2 Months, Reason: Progress Notes * RUY BLANCO DDOB:1945 (79 yo F)Acc No.[id number]:05/26/2025 Progress Notes Patient: RUY CHAVEZ Provider: Nemo Echevarria M.D. :1945 A ge:79 Y S ex:Female Date:05/26/2025 Address:[address] [place] [address] [id number] Subjective: * Chief Complaints: * 1 . 4 months. 2. Needs labs & flu vaccine. * HPI: H PI: The pt is here today for a check up. Pt states she doing good and except for some sinus drainage and light yellow productive cough. Pt states she had this a week ago but it improved and then it started up again today with some diarrhea as well. C ardiology: c/o Dizziness l ightheaded. * ROS: C ONSTITUTIONAL: Positive for A anmolher physician seen since last visit? Yes Cardiology. See pt docs, Change in medication since last visit? No, Are you taking antibiotics?No, A re you taking steroids? No. D ERMATOLOGY: no R fide. n o [...] TABLET BY MOUTH EVERY OTHER DAY , Taking Esomeprazole Magnesium 40 MG Capsule Delayed Release 1 cap(s) Orally Once a day , Taking Levothyroxine Sodium 50 MCG Tablet TAKE 1 TABLET BY MOUTH IN THE MORNING ON AN EMPTY STOMACH , Taking Prolia 60 MG/ML Solution Prefilled Syringe as directed Subcutaneous , Taking Spironolactone 25 MG Tablet 1 tab(s) Orally Once a day , Taking Citalopram Hydrobromide 10 MG Tablet 1 tablet Orally Once a day , Taking Xarelto 20 MG Tablet TAKE 1 TABLET BY MOUTH ONCE DAILY , Taking Bisoprolol Fumarate 5 MG Tablet TAKE ONE-HALF TABLET BY MOUTH ONCE DAILY , Medication List reviewed and reconciled with the patient * Allergies: C larithromycin: stomach upset - Side Effects. Objective: * Vitals: W t: 146.0, Temp: 98.1, BP: 102/60, HR: 71, O2 Sat: 99% on RA, Nurse: SHADY, Ht: 64, BMI:25.06. * Examination: G eneral Examination: General Appearance: [...] o leg edema. Assessment: * Assessment: 1. U pper respiratory tract infection, unspecified type - J06.9 (Primary) 2 .?Bronchitis - J40 3 . D izziness - R42 Plan: * Treatment: Value Reference Range r esults neg * Laura Mosher 05/26/2025 04: 35:41 PM EDT > Provider reviewed results while patient in office. ?LAB: Covid test (in house) (Collection Date & Time - 05/26/2025)* Value Reference Range R esult: neg * Laura Mosher 05/26/2025 04: 35:15 PM EDT > Provider reviewed results while patient in office. 2.?Bronchitis?LAB: CBC Venipuncture (in house) (Collection Date & Time - 05/26/2025)* Value Reference Range w bc 6.4 3.5 - 10 * l ymph 21.9% 15 - 50 * m id 7.2% 2 - 15 * g ran 70.9% 35 - 80 * r bc 3.83 3.5 - 5.5 * h gb 12.8 11.5 - 16.5 * h ct 37.3 35 - 55 * m cv 97.4 75 - 100 * m ch 33.4 25 - 35 * m chc 34.3 31 - 38 * p latlet 177 100 - 400 * Maryanne Knott 05/26/2025 05 :18:44 PM EDT > 3.?Dizziness?LAB: P-Comprehensive Metabolic Panel (CMP) (Collection Date & Time - 05/26/2025 04:00 PM)?bun 32, Cr 1.04, gfr 55* Value Reference Range A /G Ratio 2.2 1.1-2.5 - * A lbumin 4.6 3.5-5.3 - g/dL * A lkaline Phosphatase 64 35-121 - IU/L * A LT (SGPT) 16 <5-47 - IU/L * A ST (SGOT) 20 <5-40 - IU/L * B ilirubin, Total 0.6 <0.2-1.2 - mg/dL * B UN 32 H 8-23 - mg/dL * C alcium 10.1 8.6-10.4 - mg/dL * C hloride 102 97-108 - mmol/L * C O2 28 20-32 - mmol/L * C reatinine 1.04 H 0.50-1.00 - mg/dL * G lucose 86 65-99 - mg/dL * P otassium 4.4 3.5-5.3 - mmol/L * S odium 139 135-145 - mmol/L * P rotein 6.7 6.0-8.3 - g/dL * e GFR by Creatinine 55 L >59 - mL/min/1.73m2 * Keturah Santiago 05/31/2025 05: 02:04 PM EDT > See phone encounter ?LAB: P-TSH (Collection Date & Time - 05/26/2025 04:00 PM)?Normal* Value Reference Range T SH 3.81 0.43-5.25 - mU/L * Keturah Santiago 05/31/2025 05: 02:04 PM EDT > See phone encounter * Procedure Codes: G 2211 Complex e/[place], [address] CBC WITH AUTO DIFF, 33922 VENIPUNCT, ROUTINE*, 89115 Flu Test- Nasal Swab, Modifiers: QW , 26385 COVID TEST IN HOUSE, Modifiers: QW , 1036F TOBACCO NON-USER, 3074F SYST BP LT 130 MM HG, 3078F DIAST BP < 80 MM HG, G8399 PT W/DXA DOCUMENT OR ORDER * Preventive Medicine: Screening / Special Tests: B one mineral Density . * Follow Up: 2 Months * Images: Billing Information: * Visit Code: 53519 Office Visit, Est Pt., Level 4. * Procedure Codes: G2211 Complex e/[place]. [address] CBC WITH AUTO DIFF. 97939 VENIPUNCT, ROUTINE*. 57682 Flu Test- Nasal Swab. Modifiers: QW 13526 COVID TEST IN HOUSE. Modifiers: QW 1036F TOBACCO NON-USER. 3074F SYST BP LT 130 MM HG. 3078F DIAST BP < 80 MM HG. G8399 PT W/DXA DOCUMENT OR ORDER. * Electronic signature of Nemo Echevarria MD on 08/22/2025 at 01:01 PM EST Sign off status: Pending * Provider: Nemo Echevarria M.D. Date: 0 05/26/2025 Generated for Printi ng/Octaviano/eTransmitting on: 1 10/23/2024 01:01 PM EST History and Physical Notes * HPI (History of Present Illness) Category Sub-Category Detail Notes Category Not es Cardiology Dizziness lightheaded Examination Category Sub-Category Detail Notes Category Not [...]
--- OUTSIDE RECORDS SUMMARY | 2025-07-22 06:15 | XMS_ITS ---
Author [facility] [address]10 [facility] 36 [facility] [address] [place] [phone] Care Team Providers Care Editor Map Name Role Phone Nemo Echevarria Primary Care Provider [phone] Allergies Allergen (clinical drug ingredient) Drug/Non Drug Allergy documented on EMR Reaction Allergy Type Onset Date Status clarithromycin Clarithromycin stomach upset Drug Allergy Active REASON FOR VISIT 2 months, Needs flu vaccine Medications Medication SIG (Take, Route, Frequency, Duration) Notes Start Date End Date Status Levothyroxine Sodium 50 MCG 1 tablet in the morning on an empty stomach Orally Once a day; Duration: 30 days Active Bisoprolol Fumarate 5 MG TAKE ONE-HALF T ABLET BY MOUTH ONCE DAILY; Duration: 90 Active Xarelto 20 MG TAKE 1 TABLET BY ONCE DAILY; Duration: 90 Active Rosuvastatin Calcium 5 MG 1 tablet Orall y Once a day; Duration: 90 days Active CoQ10 200 MG as directed orally o nce a day; Duration: 30 day(s) 12/28/2021 Active Citalopram Hydrobromide 10 MG 1 tablet Orally Once a day; Duration: 90 days Active Prolia 60 MG/ML as directed Subcutaneous Active Esomeprazole Magnesium 40 MG 1 cap(s) Orally Once a day; Duration: 90 days Active Albuterol Sulfate HFA 108 (90 Base) MCG/ACT 1-2 puffs Inhalation every 4 hrs, prn 11/21/2023 Active Centrum Silver - 1 tab(s) orally once a day Active B-12 2500 MCG 1 tab(s) sublinguall y once a day Active MiraLax DIRECTED Active Spironolactone 25 MG 1 tab(s) Orally Onc e a day; Duration: 90 days Active Calcium 600 + Minerals 600-200 MG-UNIT 1 tab(s) orally 3 times a day Active Immunizations Vaccine Route Administration Date Status Comme nts Fluzone High Dose (65yr and older) IM Intramuscular 07/22/2025 Administered Problems Problem Type SNOMED Code ICD Code Onset Dates Problem Status W/U Status Risk Notes Problem Chronic obstructive pulmonary disease (05867381) COPD, mild (J44.9) Active confirmed Vital Signs Weight 150.8 lbs 07/22/2025 Blood pressure systolic 104 mm Hg 07/22/20 25 Blood pressure diastolic 70 mm Hg 025 Heart Rate 64 /min 07/22/2025 Height 64 in 07/22/2025 BMI 25.88 kg/m2 07/22/2025 Encounters Encounter Location Date Provider [facility] [address] [phone] 07/22/2025 Nemo Echevarria retirement current us e of anticoagulant Z79.01 ; History of pulmonary embolism Z86.711 ; GERD without esophagitis K21.9 ; Hx of breast cancer Z85.3 ; Osteoporosis M81.0 ; Toenail deformity L60.8 ; Immunization due Z23 ; Carcinoma of right female breast, unspecified estrogen receptor status, unspecified site of breast C50.911 ; COPD, mild J44.9 and BMI 25.0-25.9,adult Z68.25 Assessments Encounter Date Diagnosis (ICD Code) Assessment Notes Treatment Notes Treatment Clinical Notes Section Notes 07/22/2025 retirement current use of anticoagulant (ICD-10 - Z79.01) 07/22/2025 History of pulmonary embolism (ICD-10 - Z86.711) 07/22/2025 GERD without esophagitis (ICD-10 - K21.9) 07/22/2025 Hx of breast cancer (ICD-10 - Z85.3) 07/22/2025 Osteoporosis (ICD-10 - M81.0) 07/22/2025 Toenail deformity (ICD-10 - L60.8) 07/22/2025 Immunization due (ICD-10 - Z23) 07/22/2025 Carcinoma of right female breast, unspecified estrogen receptor status, unspecified site of breast (ICD-10 - C50.911) 07/22/2025 COPD, mild (ICD-10 - J44.9) 07/22/2025 BMI 25.0-25.9,adult (ICD-10 - Z68.25) Plan Of Treatment Next Appt Details Follow Up: 6 Months, Reason: Progress Notes * BELLABENITORUY DDOB:1945 (79 yo F)Acc No.[id number]:07/22/2025 Progress Notes Patient: RUY CHAVEZ Provider: Nemo Echevarria M.D. :1945 A ge:79 Y S ex:Female Date:07/22/2025 Address:[address] [place] [address] , [place] [address] Subjective: * Chief Complaints: * 1 . 2 months. 2. Needs flu vaccine. * HPI: C ardiology: The pt is here for a check up. Pt states she is doing good and denies any new concerns. Pt is not fasting. Pt she is scheduled to see Dr Sheppard in August. 79 year old female presents with c/o Dizziness. Denies : Chest Pain. D enies : Short of Breath. D enies : Palpitations. D ermatology: Left great toenail with black discoloration. Sees Dr. Sheppard August 15. * ROS: C ONSTITUTIONAL: Positive for A nother physician seen since last visit? No, Change in medication since last visit? No, Are you taking antibiotics? No, Are you taking steroids? No. D ERMATOLOGY: no [...] Inhalation every 4 hrs, prn , Taking Esomeprazole Magnesium 40 MG Capsule Delayed Release 1 cap(s) Orally Once a day , Taking Prolia 60 MG/ML Solution Prefilled Syringe as directed Subcutaneous , Taking Citalopram Hydrobromide 10 MG Tablet 1 tablet Orally Once a day , Taking Xarelto 20 MG Tablet TAKE 1 TABLET BY MOUTH ONCE DAILY , Taking Bisoprolol Fumarate 5 MG Tablet TAKE ONE-HALF TABLET BY MOUTH ONCE DAILY , Taking Levothyroxine Sodium 50 MCG Tablet 1 tablet in the morning on an empty stomach Orally Once a day , Taking Rosuvastatin Calcium 5 MG Tablet 1 tablet Orally Once a day , Taking Spironolactone 25 MG Tablet 1 tab(s) Orally Once a day , Discontinued Azithromycin 500 MG Tablet 1 tablet Orally Once a day , Medication List reviewed and reconciled with the patient * Allergies: C larithromycin: stomach upset - Side Effects. Objective: * Vitals: W t: 150.8, Temp: 98.4, BP: 104/70, HR: 64, O2 Sat: 98% on RA, Nurse: SHADY, Ht: 64, BMI:25.88. * Examination: G eneral Examination: General Appearance: [...] ormal. E xtremities: n o leg edema. Left great toenail with discoloration. See photo.. Assessment: * Assessment: 1. L zachery term current use of anticoagulant - Z79.01 (Primary) 2 . H istory of pulmonary embolism - Z86.711 3 . G ERD without esophagitis - K21.9 4 . H x of breast cancer - Z85.3 5 . O steoporosis - M81.0 6. T oenail deformity - L60.8 7 . I mmunization due - Z23 ?8. C arcinoma of right female breast, unspecified estrogen receptor status, unspecified site of breast - C50.911 9 . C OPD, mild - J44.9 1 0. B OK 25.0-25.9,adult - Z68.25 Plan: * Treatment: * Immunizations: Fluzone High Dose (65yr and older) : 0.5 mL (Route: Intramuscular) given by Maryanne Knott on Left Deltoid (Immunization due) * Procedure Codes: G 2211 Complex e/m visit add on, 1036F TOBACCO NON-USER, G8783 BP SCR PRFRM RCMDD DEFIND SCR INTVL, G8752 MOST RECENT SYSTOLIC BP < 140MM HG, G8754 MOST RECENT DIASTOLIC BP < 90MM HG, 3074F SYST BP LT 130 MM HG, 3078F DIAST BP < 80 MM HG * Follow Up: 6 Months * Images: Billing Information: * Visit Code: 73501 Office Visit, Est Pt., Level 3. * Procedure Codes: G2211 Complex e/m visit add on. 1036F TOBACCO NON-USER. G8783 BP SCR PRFRM RCMDD DEFIND SCR INTVL. G8752 MOST RECENT SYSTOLIC BP < 140MM HG. G8754 MOST RECENT DIASTOLIC BP < 90MM HG. 3074F SYST BP LT 130 MM HG. 3078F DIAST BP < 80 MM HG. * Electronic signature of Nemo Echevarria MD on 08/22/2025 at 01:02 PM EST Sign off status: Pending * Provider: Nemo Echevarria M.D. Date: 09/21/2024 Generated for Indirai april/Octaviano/eTransmitting on: 10/23/2024 01:02 PM EST History and Physical Notes * HPI (History of Present Illness) Category Sub-Category Detail Notes Category Not es Cardiology Short of Breath Chest Pain Palpitations Dizziness Examination Category Sub-Category Detail Notes Category Not es General Examination HEENT: unremarkable Heart: RSR, S4 present, no ectopics Lungs: clear to auscultatio n, wheeze right clears Abdomen: soft and nontender Extremities: no leg edema. Left g reat toenail with discoloration. See photo. General Appearance: NAD, note weight los s Skin: normal, no rash Neurologic Exam: Intact, gait normal, subtle if any cogwheeling. Bilateral tremors of the hands Neck: supple, no lymphaden opathy Oral cavity: no lesions, mucosa m oist and WNL, no erythema Peripheral pulses: normal Back: normal Chest: normal shape and exp ansion
[2025-08-22] MEDS: DENOSUMAB 60 MG/ML SYRINGE SUBCUT (13:00)
--- OUTSIDE RECORDS SUMMARY | 2025-08-22 13:01 | XMS_ITS | Encounter Summary ---
Author Organization [facility] ([place], [place], [place], [place], [place]) Address [address] [place] [address] Care Team Providers Care Film Crew Member Name Role Phone Greg Echevarria MD Primary Care Provider + [phone] Encounter Details Date Type Department Care Team (Late st Contact Info) Description 08/15/2021 Transcribed Document [facility] Family Medicine [address] [place] [address] ProviderEmma MD [address] [place] [address] Social History Tobacco Use Types [...] - Emma ProviderMD - 08/15/2021 8:09 AM DIE PRESS OPERATOR [facility] Main OR PACU Summary Primary Physician: ZITA MOBLEY MD-SUR Finalized Date/Time: 08/15/21 09:36:31 Pt. Name: BELLA BING EVAN Cherry/Sex: 1945 Female Med Rec #: [id number] Physician: ZITA MOBLEY MD-SUR Financial #: [id number] Pt. Type: O Room/Bed: [facility] Admit/Disch: 08/15/21 05:49:00 - Institution: [facility] Main OR PACU Case Times Entry 1 In PACU I 08/15/21 08:50:00 Ready for PACU 08/15/21 09:31:00 Discharge Discharge from PACU 08/15/21 09:31:00 I Last Modified By: ZULEIKA VNA 08/15/21 09:36:18 [facility] Main OR PACU Case Times Audit 08/15/21 09:36:18 Animal Ride Manager: ANTHONY Modifier: COLEMAM <+> 1 Ready for PACU Discharge <+> 1 Discharge from PACU I Finalized By: ZULEIKA VAN Document Signatures Signed By: ZULEIKA VAN 08/15/21 09:36 documented in this encounter Plan of Treatment Upcoming Encounters Date Type Department Care Team (Late st Contact Info) Description 09/26/2025 10:30 AM EST Appointment [facility] Breast Care [address] [place] [address] [address] [place] [phone] Zita Mobley MD [address] [facility] [address] [place] [address] 09/26/2025 11:30 AM EST Office Visit [facility] Breast Surgery Clinic [address] [facility] [address] [place] [phone] Zita Mobley MD [address] [place] [address] [address] [place] [address] 09/26/2025 1:30 PM EST Office Visit [facility] [address] [facility] [address] [place] [address] Porsche Sutton MD [address] [place] [address] [place] [address] documented as of this encounter Visit Diagnoses Not on filedocumented in this encounter Care Teams Film Crew Member Relationship Specialty Start Date End Date Greg Echevarria MD [address] [facility] [address] [place] [phone] PCP - General Neurology 08/15/22 documented as of this encounter
--- OUTSIDE RECORDS SUMMARY | 2025-08-22 13:01 | XMS_ITS | Encounter Summary ---
Author Organization [facility] ([place], [place], [place], [place], [place]) Address [address] [place] [address] Care Team Providers Care Manager Project Name Role Phone Greg Echevarria MD Primary Care Provider + [phone] Encounter Details Date Type Department Care Team (Late st Contact Info) Description 08/15/2021 Transcribed Document [facility] [address] [place] [address] ProviderEmma MD [address] [place] [address] Social History Tobacco Use Types [...] Emma Fernandez MD - 08/15/2021 7:33 AM TECHNICAL MANAGER CHEMICAL PLANT Time Out Documentation Entered On: 08/15/2021 8:58 [...] - 08/15/2021 8:57 EST Electronically signed by [facility] Conversion Vessel Liner Cerner at 12/19/2022 5:52 PM CDT documented in this encounter Plan of Treatment Upcoming Encounters Date Type Department Care Team (Late st Contact Info) Description 09/26/2025 10:30 AM EST Appointment [facility] Breast [facility] [address] [facility] [address] [place] [phone] Steve Jeffery MD [address] [place] [address] 09/26/2025 11:30 AM EST Office Visit [facility] [address] [facility] [address] [place] [address] Steve Jeffery MD [address] [place], [place] [address] 09/26/2025 1:30 PM EST Office Visit [facility] [address] [facility] [address] [place] [phone] Porsche Sutton MD [address] [place] [address] documented as of this encounter Visit Diagnoses Not on filedocumented in this encounter Care Teams Manager Project Relationship Specialty Start Date End Date Greg Echevarria MD [address] [place] [phone] PCP - General Neurology 08/15/22 documented as of this encounter
--- OUTSIDE RECORDS SUMMARY | 2025-08-22 13:01 | XMS_ITS | Patient Health Record ---
Author Organization [facility] Address [address] [facility] [address] [place] [address] Care Team Providers Care Wild Animal Caretaker Name Role Phone Miriam Akhtar Unavailable [phone] Allergies Allergen (clinical drug ingredient) Drug/Non Drug Allergy documented on EMR Reaction Allergy Type Onset Date Status Latex latex (uncoded) blister Allergy Acti ve clarithromycin Clarithromycin nausea and vomiting Drug Allergy Active Results Component Value Reference Range Notes Nereyda/Bacterial Vaginosis, BENNETT (Aptima) Reviewed date:01/31/2025 01:04:10 PM Interpretation:Negative Performing Lab:[facility] CLIA ID [id number], [address] [facility], [address], [place] [address], Director - Cliff Gracia MD Notes/Report: Bacterial Vaginosis Negative Negative detection of target organisms. The Aptima BV assay is a real time NAAT TMA assay developed for use on the automated Lomira The Aptima BV assay uses an algorithm for bacterial vaginosis based on system that detects and discriminates RNA markers from the Lactobacillus species group (L. gasseri, L. crispatus and L. jensenii), Gardnerella vaginalis, and Atopobium vaginae. Nereyda species Negative Negative The CV Assay is a real time TMA assay developed for use on the automated Lomira system that detects following Nereyda species organisms [...] W/U Status Risk Notes Problem Heart murmur (85429296) Cardiac murmur (R01.1) 4 Active confirmed Undiagnosed cardiac murmurs Problem Personal history of primary malignant neoplasm of breast (506452209) Personal history of breast cancer (Z85.3) Active confirmed Problem Vaginal odor (988023148) Vaginal odor (N94.9) Active confirmed Vital Signs Blood pressure diastolic 78 mm Hg 01/28/2025 Height 63 in 01/28/2025 Blood pressure systolic 130 mm Hg 01/28/2025 Weight 148.8 lbs 01/28/2025 BMI 26.36 kg/m2 01/28/2025 Encounters Encounter Location Date Provider Diagnosis Psychiatric [address] [address] 01/28/2025 Miriam Giovana Vaginal odor N94.9 and Acute vulvitis N76.2 Assessments Encounter Date Diagnosis (ICD Code) Assessment Notes Treatment Notes Treatment Clinical Notes Section Notes 01/28/2025 Vaginal odor (ICD-10 - N94.9) 01/28/2025 Acute vulvitis (ICD-10 - N76.2) Plan Of Treatment Next Appt Details Provider Name:Miriam Akhtar, 01/30/2026 01:45:00 PM, [address], [place], [address], Insurance Providers Payer Name Payer Address Payer Phone Subscriber Number Group Number Insured Name Patient Relationship to Insured Coverage Start Date Coverage End Date [place] [address] [place] [address] [phone] [id number] Dot Howardlis Self - patient is the insured 2 AAR [address] [place], [place] [id number] Dot Howardlis Self - patient is the insured 2 Medical (General) History Medical History History ICD Code hypercholeterolemia asthma osteoporosis breast cancer invasive poorl y differentiated ductal adenocarcinoma ER/ID/HER2 positive gerdI IBS hyporthyroid anxiety PE/DVT Surgical History Surgery Date(Month/Year) x 2 inflate lung hernia breast bx appendectomy polyp of vocal cord cataract bilaterally torn meniscus partial knee replacement mohs surgery pacemaker PE right lumpectomy Hospitalization History Reason Date(Month/Year) PE?DVT partial knee replacement appendectomy inflate lung childbirth
--- OUTSIDE RECORDS SUMMARY | 2025-08-22 13:01 | XMS_ITS | Encounter Summary ---
Author Organization [facility] ([place], [place], [place], [place], [place]) Address [address] [place] [address] Care Team Providers Care Cut Roll Machine Offbearer Name Role Phone Greg Echevarria MD Primary Care Provider + [phone] Encounter Details Date Type Department Care Team (Late st Contact Info) Description 08/15/2021 Transcribed Document [facility] [place] [facility] [address] [place] [address] ProviderEmma MD [address] [place] [address] Social History Tobacco Use Types [...] Emma Fernandez MD - 08/15/2021 8:58 AM ELECTRIC METER INSTALLER Procedural Documentation Entered On: 08/15/2021 9:01 EST [...] Yes Procedure Case Attendee Role 2 : environmental health technologist Procedure Case Attendee 2 : ADELA DIAMS Procedure Case Attendee Role 3 : glove former Case Attendee 3 : Sofia Soria Rn [...] Info) Description 09/26/2025 10:30 AM EST Appointment [address] [phone] Steve Jeffery MD [address] [place] [address] 09/26/2025 11:30 AM EST Office Visit [facility] [address] [facility] [address] [place] [phone] Steve Jeffery MD [address] [place], [place] [address] 09/26/2025 1:30 PM EST Office Visit [facility] [address] [facility] [address] [place] [address] Porsche Sutton MD [address] [facility] [address] [place] [address] documented as of this encounter Visit Diagnoses Not on filedocumented in this encounter Care Teams Cut Roll Machine Offbearer Relationship Specialty Start Date End Date Greg Echevarria MD [address] [facility] [address] [place] [phone] PCP - General Neurology 08/15/22 documented as of this encounter
--- OUTSIDE RECORDS SUMMARY | 2025-08-22 13:01 | XMS_ITS | Encounter Summary ---
Author Organization [facility] ([place], [place], [place], [place], [place]) Address [address] [place] [address] Care Team Providers Care Radiosonde Specialist Name Role Phone Greg Echevarria MD Primary Care Provider [phone] Encounter Details Date Type Department Care Team (Late st Contact Info) Description 08/17/2021 Transcribed Document [facility] - [employer] [address] [employer] [address] [facility] [address] [place] [address] Steve Jeffery MD [address] [employer] [address] [place] [address] Social History Tobacco Use Types Packs/Day Years [...] 2. Right axillary sentinel lymph node biopsy. CHORE WORKER: Sav Pappas PA-C. ANESTHESIA: General. ESTIMATED BLOOD [...] and taken to PACU in stable condition. /[id number] MD GEMA Izquierdo/ISA / GEMA / MODL /[id number] CC: [facility] documented in this encounter Plan of Treatment Upcoming Encounters Date Type Department Care Team (Late st Contact Info) Description 09/26/2025 10:30 AM EST Appointment [facility] Breast Care [address] [facility] [address] [place] [phone] Steve Jeffery MD [address] [facility] [address] [address] [place] [address] 09/26/2025 11:30 AM EST Office Visit [facility] [address] [facility] [address] [place] [phone] Steve Jeffery MD [address] [facility] [address] [address] [place], [place] [address] 09/26/2025 1:30 PM EST Office Visit [facility] [address] [facility] [address] [place] [address] Porsche Sutton MD [address] [facility] [address] [place] [address] documented as of this encounter Visit Diagnoses Not on filedocumented in this encounter Care Teams Radiosonde Specialist Relationship Specialty Start Date End Date Greg Echevarria MD [address] [facility] [address] [place] [phone] PCP - General Neurology 08/15/22 documented as of this encounter
--- OUTSIDE RECORDS SUMMARY | 2025-08-22 13:01 | XMS_ITS | Clinical Summary ---
Author Organization [employer] ([place], [place], [place], [place], [place]) Address [address] [place] [address] Care Team Providers Care Biscuit Machine Operator Name Role Phone Greg Echevarria MD Primary Care Provider + [phone] Allergies Active Allergy Reactions Criticality Noted Date [...] from 07/02/2021:Stage IIB(cT2, cN0, cM0, G3, ER-, MO-, HER2-) - Unsigned Pathologic stage from 08/15/2021:Stage IIA(pT2, pN0(sn), cM0, G3, ER-, MO-, HER2-) - Signed by Krunal Cash MD on 09/15/2023 Anxiety 08/15/2022 Asthma 08/15/2022 At risk for sleep apnea 08/15/2022 Chronic back pain 08/15/2022 Deep vein thrombosis 08/15/2022 Encounter for general adult medical examination without abnormal findings 08/15/2022 High cholesterol 08/15/2022 Hypertension 08/15/2022 Pulmonary embolus 08/15/2022 Heart murmur 02/15/2014 Immunizations Immunization Administration Dates Next Due Influenza High Dose Preservative Free IM ([id number] ) 05/29/2022,06/12/2021 Influenza, High Dose 06/09/2019 Pneumococcal [...] often do you attend chur ch or gnosticism services? 1 to 4 times per year 09/27/2022 Do you belong to any clubs o r organizations such as jain groups, unions, fraternal or athletic groups, or [...] Date Freddy rded Speak language other than Italian at home Not on file 09/12/2023 Want [...] Info) Description 09/26/2025 10:30 AM EST Appointment [address] [address] Steve Jeffery MD [address] [place] [address] 09/26/2025 11:30 AM EST Office Visit [facility] [address] [facility] [address] [place] [address] Steve Jeffery MD [address] [place] [address] 09/26/2025 1:30 PM EST Office Visit [facility] [address] [facility] [address] [place] [phone] Porsche Sutton MD [address] [facility] [address] [place], [place] [phone] Health Maintenance Due Date Last Done Comments [...] 10/19/2021, 2019 Insurance MEDICARE PART A B [facility] Care Teams Biscuit Machine Operator Relationship Specialty Start Date End Date Greg Echevarria MD [address] [address] PCP - General Neurology 08/15/22
--- OUTSIDE RECORDS SUMMARY | 2025-08-22 13:01 | XMS_ITS | Encounter Summary ---
Author Organization [employer] ([place], [place], [place], [place], [place]) Address [address] [place] [address] Care Team Providers Care Air Hammer Stripper Name Role Phone Greg Echevarria MD Primary Care Provider + [phone] Encounter Details Date Type Department Care Team (Late st Contact Info) Description 08/15/2021 Transcribed Document [facility] [place] [place] Family Medicine [address] [place] [address] ProviderEmma MD [address] [place] [address] Social History Tobacco Use Types [...] - Emma ProviderMD - 08/15/2021 8:09 AM MARGIN CLERK [facility] PostOp Summary Primary Physician: ZITA MOBLEY MD-SUR Finalized Date/Time: 08/15/21 10:02:12 Pt. Name: BELLA BING EVAN Cherry/Sex: 1945 Female Med Rec #: [id number] Physician: ZITA MOBLEY MD-SUR Financial #: [id number] Pt. Type: O Room/Bed: [facility] Admit/Disch: 08/15/21 05:49:00 - Institution: [facility] PostOp Case Times Entry 1 In PACU II 08/15/21 09:33:00 Ready for PACU II 08/15/21 10:02:00 Discharge Discharge from PACU 08/15/21 10:02:00 II Last Modified By: Renea Zendejas RN 08/15/21 10:02:10 Finalized By: Renea Zendejas, RN Document Signatures Signed By: Renea Zendejas RN 08/15/21 10:02 Electronically signed by Sumit Espitia Conversion Supervisor Phosphatic Fertilizer Cerner at 12/19/2022 6:11 PM CDT documented in this encounter Plan of Treatment Upcoming Encounters Date Type Department Care Team (Late st Contact Info) Description 09/26/2025 10:30 AM EST Appointment [facility] Breast Care [address] [place] [address] [address] [place] [phone] Zita Mobley MD [address] [facility] [address] [place] [address] 09/26/2025 11:30 AM EST Office Visit [facility] Breast Surgery Clinic [address] [facility] [address] [place] [phone] Zita Mobley MD [address] [facility] [address] [place] [address] 09/26/2025 1:30 PM EST Office Visit [facility] [address] [facility] [address] [place] [address] Porsche Sutton MD [address] [place] [address] [place] [address] documented as of this encounter Visit Diagnoses Not on filedocumented in this encounter Care Teams Air Hammer Stripper Relationship Specialty Start Date End Date Greg Echevarria MD [address] [place] [phone] PCP - General Neurology 08/15/22 documented as of this encounter
--- OUTSIDE RECORDS SUMMARY | 2025-08-22 13:01 | XMS_ITS | Referral Summary ---
Author Organization [employer] ([place], [place], [place], [place], [place]) Address [address] [place] [address] Care Team Providers Care Dance Artist Name Role Phone Greg Echevarria MD Primary Care Provider + [phone] Allergies Active Allergy Reactions Criticality Noted Date [...] from 07/02/2021:Stage IIB(cT2, cN0, cM0, G3, ER-, [place]-, HER2-) - Unsigned Pathologic stage from 08/15/2021:Stage IIA(pT2, pN0(sn), cM0, G3, ER-, TN-, HER2-) - Signed by Krunal Cash MD on 09/15/2023 Anxiety 08/15/2022 Asthma 08/15/2022 At risk for sleep apnea 08/15/2022 Chronic back pain 08/15/2022 Deep vein thrombosis 08/15/2022 Encounter for general adult medical examination without abnormal findings 08/15/2022 High cholesterol 08/15/2022 Hypertension 08/15/2022 Pulmonary embolus 08/15/2022 Heart murmur 02/15/2014 Immunizations Immunization Administration Dates Next Due Influenza High Dose Preservative Free IM ([id number] ) 05/29/2022,06/12/2021 Influenza, High Dose 06/09/2019 Pneumococcal [...] often do you attend chur ch or druze services? 1 to 4 times per year 09/27/2022 Do you belong to any clubs o r organizations such as congregational groups, unions, fraternal or athletic groups, or [...] Date Freddy rded Speak language other than Gibraltarian at home Not on file 09/12/2023 Want [...] Info) Description 09/26/2025 10:30 AM EST Appointment [facility] Breast Care [address] [place] [address] Steve Jeffery MD [address] [place] [address] [facility] [address] [place] [address] 09/26/2025 11:30 AM EST Office Visit [facility] [address] [facility] [address] [place] [address] Steve Jeffery MD [address] [place] [address] 09/26/2025 1:30 PM EST Office Visit [facility] - [place] [address] [place] [address] Porsche Sutton MD [address] [place] [address] [place] [address] Insurance MEDICARE [place] [address] [place] [address] [place] [phone] Care Teams Dance Artist Relationship Specialty Start Date End Date Greg Echevarria MD [address] [facility] [address] [place] [phone] PCP - General Neurology 08/15/22
--- OUTSIDE RECORDS SUMMARY | 2025-08-22 13:01 | XMS_ITS | Encounter Summary ---
Author Organization [employer] ([place], [place], [place], [place], [place]) Address [address] [place] [address] Care Team Providers Care Business Process Lead Name Role Phone Greg Echevarria MD Primary Care Provider + [phone] Encounter Details Date Type Department Care Team (Late st Contact Info) Description 08/15/2021 Transcribed Document [facility] Family Medicine [address] [place] [address] ProviderEmma MD [address] [place] [address] Social History Tobacco Use Types [...] - Emma ProviderMD - 08/15/2021 8:09 AM BENCH LATHE OPERATOR JIMENA Main OR IntraOp Summary Primary Physician: ZITA JEFFERY MD-SUR Finalized Date/Time: 08/15/21 10:14:30 Pt. Name: BING HOWARD EVAN Cherry/Sex: 1945 Female Med Rec #: [id number] Physician: ZITA JEFFERY MD-SUR Financial #: [id number] Pt. Type: O Room/Bed: [facility] Admit/Disch: 08/15/21 05:49:00 - 08/15/21 10:02:00 Institution[place] [facility] [place] Case Attendance Entry 1 Entry 2 Entry 3 Case Attendee ZITA JEFFERY THOMAS, ELLEN, MIRIAM LOVELL PA MD-SUR Role Performed Surgeon/Proceduralist, ROPING MACHINE TENDER/Nurse Operating Room Manager Physician inventory control assistant First Time In 08/15/21 07:46:00 08/15/21 07:46:00 08/15/21 07:46:00 Time Out 08/15/21 08:50:00 08/15/21 08:50:00 08/15/21 08:50:00 Procedure Breast Lumpectomy Breast Lumpectomy Breast Lumpectomy Woodruff Node Map Biop Woodruff Node Map Biop Woodruff Node Map Biop Other Attendee Superficial Wound Closed By: Last Modified By: Charmaine Schmidt RN Wellnitz, Sara, Charmaine Andrews RN 08/15/21 08:49:31 08/15/21 08:49:31 08/15/21 08:49:31 Entry 4 Entry 5 Entry 6 Case Attendee Charmaine Schmidt RN ANTROBUS, MONICA, Cat Bhatti RN TECH Role Performed Director Law Enforcement, First CHILD CARE SITTER Director Law Enforcement, First Time In 08/15/21 08:00:00 08/15/21 07:46:00 08/15/21 07:46:00 Time Out 08/15/21 08:50:00 08/15/21 08:50:00 08/15/21 08:00:00 Procedure Breast Lumpectomy Breast Lumpectomy Breast Lumpectomy Woodruff Node Map Biop Woodruff Node Map Biop Woodruff Node Map Biop Other Attendee BREAK Superficial Wound Closed By: Last Modified By: Charmaine Schmidt RN Wellnitz, Sara, Charmaine Andrews, NI 08/15/21 08:49:31 08/15/21 08:49:31 08/15/21 08:49:31 [facility] [place] IntraOp Case Attendance Audit 08/15/21 08:49:31 Edge Dyer: STUART Modifier: STUART 1 <+> Time Out 1 <*> Procedure Breast Lumpectomy Woodruff Node Map Biop 2 <+> Time Out 2 <*> Procedure Breast Lumpectomy Woodruff Node Map Biop 3 <+> Time Out 3 <*> Procedure Breast Lumpectomy Woodruff Node Map Biop 4 <+> Time Out 4 <*> Procedure Breast Lumpectomy Woodruff Node Map Biop 5 <+> Time Out 5 <*> Procedure Breast Lumpectomy Woodruff Node Map Biop 6 <*> Procedure Breast Lumpectomy Woodruff Node Map Biop 08/15/21 08:28:19 Edge Dyer: STUART Modifier: STUART 4 <*> Time In 08/15/21 07:46:00 4 <*> Procedure Breast Lumpectomy Woodruff Node Map Biop <+> 6 Case Attendee <+> 6 Role Performed <+> 6 Time In <+> 6 Time Out <+> 6 Procedure <+> 6 Other Attendee 08/15/21 08:20:43 Edge Dyer: STUART Modifier: STUART 1 <+> Time In 1 <*> Procedure Breast Lumpectomy Woodruff Node Map Biop 2 <+> Time In 2 <*> Procedure Breast Lumpectomy Woodruff Node Map Biop 3 <+> Time In 3 <*> Procedure Breast Lumpectomy Woodruff Node Map Biop 4 <+> Time In 4 <*> Procedure Breast Lumpectomy Woodruff Node Map Biop 5 <+> Time In 5 <*> Procedure Breast Lumpectomy Woodruff Node Map Biop [facility] IntraOp Case Times Entry 1 Patient In Room Time 08/15/21 07:46:00 Out Room Time 08/15/21 08:50:00 Anesthesia Start Time 08/15/21 07:46:00 Stop Time 08/15/21 08:50:00 Anesthesia Ready 08/15/21 07:46:00 Surgery / Procedure Times Start Time 08/15/21 08:09:00 Stop Time 08/15/21 08:45:00 Last Modified By: Charmaine Schmidt RN 08/15/21 08:49:26 [facility] IntraOp Case Times Audit 08/15/21 08:49:26 Edge Dyer: STUART Modifier: STUART <+> 1 Out Room Time <+> 1 Stop Time 08/15/21 08:46:44 Edge Dyer: STUART Modifier: STUART <+> 1 Stop Time [...] 08:49:15 [facility] IntraOp Communication Audit 08/15/21 08:49:15 Edge Dyer: STUART Modifier: STUART <+> 2 Communication By <+> 2 Date and Time <+> 2 Communication To <+> 2 Comment [facility] IntraOp Counts Verification Entry 1 Procedure Breast Lumpectomy Woodruff Node Map Biop Count Info Count Type Sponge, Sharps Counts Verification Baseline/pre-procedure Sequence Count Results Not Applicable Counts Performed By Count Performed By ERWIN FANG, OR (Scrub) TECH Count Performed By Charmaine Schmidt, RN (RN) Last Modified By: Charmaine Schmidt RN 08/15/21 08:15:46 [facility] IntraOp Counts Final Entry 1 Procedure Breast Lumpectomy Woodruff Node Map Biop Final Count Info Count [...] RN 08/15/21 08:17:24 S[facility] IntraOp General Case Art History Professor 1 Case Information OR OR 03 SJE [...] SJE IntraOp Intraoperative Equipment Audit 08/15/21 08:46:36 Edge Dyer: STUART Modifier: STUART <+> 1 ID Number [facility] IntraOp Medication Admin Entry 1 Medication/Irrigant lidocaine 1% w/ epinephrine 1:100,000 20ml vial - [id number] Route of LOCAL Administration Dose Dose 20 Unit of Measure ml Administered By ZITA JEFFERY MD-SUR Procedure Irrigation Last Modified By: Charmaine Schmidt RN 08/15/21 10:14:28 S[facility] IntraOp Medication Admin Audit 08/15/21 10:14:28 Edge Dyer: STUART Modifier: STUART 1 <*> Medication/Irrigant lidocaine 1% w/ epinephrine 1:100,000 20ml vial - [id number] 1 <+> Dose SJE IntraOp Patient Positioning Entry 1 Procedure Breast Lumpectomy Woodruff Node Map Biop Body Position Supine Left Arm Position Secured on padded arm board Right Arm Position Secured on padded arm board Left Leg Position Uncrossed, parallel Right Leg Position Uncrossed, parallel Feet Uncrossed Yes Pressure Points Yes Checked Positioning Devices Arm Board, Safety Strap, Thighs, Safety Strap, Arm(s) Positioned By ANUM RGIGINS, SKYE, ZITA JEFFERY MD-SUR, MIRIAM WINTER, DARSHAN, Cat Andrade, RN Position Verified Positioning Yes Verified by Anesthesia Positioning Yes Verified by Surgeon Last Modified By: Charmaine Schmidt RN 08/15/21 08:28:40 S[facility] IntraOp Patient Positioning Audit 08/15/21 08:28:40 Edge Dyer: STUART Modifier: [email or web address] 1 <*> Procedure Breast Lumpectomy Woodruff Node Map Biop 1 <*> Positioned By [...] Intra Op Sign Out Audit 08/15/21 08:42:48 Edge Dyer: STUART Modifier: STUART 1 <*> OUTCOME STATEMENT: Absence of N/A observable signs or symptoms of radiation injury 1 <+> Wound classification reviewed, verified and updated post case in both the General Case Data and Procedure segments SJE IntraOp Skin Prep Entry 1 Procedure Breast Lumpectomy Woodruff Node Map Biop Prescribed Yes Pre-Surgical Prep Completed Prep Area CHEST/BREASTS SHEET TO SHEET, NECK TO MID ABDOMEN. Intraop Prep Integumentary WDL Assessment WDL Prep Agents Chlorhexadine gluconate Prep by Cat Andrade, RN Hair Removal Methods No hair removal performed Last Modified By: Charmaine Schmidt RN 08/15/21 08:41:09 JIMENA IntraOp Skin Prep Audit 08/15/21 08:41:09 Edge Dyer: STUART Modifier: STUART 1 <*> Procedure Breast Lumpectomy Woodruff Node Map Biop 1 <*> Prep by Charmaine Schmidt RN SJE IntraOp Surgical Procedures Entry 1 Procedure Breast Lumpectomy Woodruff Node Map Biopsy Additional RIGHT BREAST LUMPECTOMY Procedure WITH SENTINEL NODE Description BIOPSY Primary Procedure Yes Primary Surgeon ZITA JEFFERY MD-MICHELLE Start 08/15/21 08:09:00 Stop 08/15/21 08:45:00 Anesthesia Type General Specialty General Wound Class 1 - Clean Last Modified By: Charmaine Schmidt RN 08/15/21 08:49:00 SJAlfredo IntraOp Surgical Procedures Audit 08/15/21 08:49:00 Edge Dyer: STUART Modifier: [email or web address] 1 <*> Procedure Breast Lumpectomy Woodruff Node Map Biopsy 1 <+> Wound Class SJE IntraOp Time Out Entry 1 Procedure to be Breast Lumpectomy Performed Woodruff Node Map Biop Time Out Time Out [...] Info) Description 09/26/2025 10:30 AM EST Appointment [facility] [address] [place] [address] Zita Jeffery MD [address] [place] [address] 09/26/2025 11:30 AM EST Office Visit [facility] Surgery [facility] [address] [facility] [address] [place] [address] Zita Jeffery MD [address] [place], [place] [id number] 09/26/2025 1:30 PM EST Office Visit [facility] [address] [facility] [address] [place] [phone] Porsche Sutton MD [address] [place] [address] documented as of this encounter Visit Diagnoses Not on filedocumented in this encounter Care Teams Business Process Lead Relationship Specialty Start Date End Date Greg Echevarria MD [address] [facility] [address] [place] [phone] PCP - General Neurology 08/15/22 documented as of this encounter
--- OUTSIDE RECORDS SUMMARY | 2025-08-22 13:01 | XMS_ITS | Encounter Summary ---
Author Organization [employer] ([place], [place], [place], [place], [place]) Address [address] [place] [address] Care Team Providers Care No Bake Molder Name Role Phone Greg Echevarria MD Primary Care Provider + [phone] Encounter Details Date Type Department Care Team (Late st Contact Info) Description 08/15/2021 Transcribed Document [facility] Family Medicine [facility] [place] [address] Emma Fernandez MD [address] [place], [place] [id number] Social History Tobacco Use Types Packs/Day Years Used Date Smoking Tobacco: Never Assessed Comments Unknown Sex and Gender Information Value Date Recorded Sex Assigned at Not on file Legal Sex Female 4:56 PM CDT Gender Identity Not on file Sexual Orientation Not on file documented as of this encounter Miscellaneous Notes * Cerner Conversion Note - Emma Fernandez MD - 08/15/2021 9:08 AM 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 Take wfbi-imm-bdhyedf and prescription medicines only as told by [...] keep your urine pale yellow. ? Take ctyt-fjf-rfccwgf or prescription medicines. ? Eat foods that [...] and water are not available, use hand planting material remover. ? Change your dressing as told by [...] provider. Document Revised: 02/21/2020 Document Reviewed: 02/21/2020 [employer] Patient Education ? 2020 [employer]. Oncology [place] Lymph Node Biopsy, Care After This sheet [...] and water are not available, use hand planting material remover. ? Change your dressing as told by [...] safe for you. General instructions ??? Take cwlf-okp-qejylsx and prescription medicines only as told by [...] day for signs of infection. ??? Take qxsa-knl-papjxuc and prescription medicines only as told by your health care provider. ??? Ask your health care provider when you can return to your normal activities. This information is not intended to replace advice given to you by your health care provider. Make sure you discuss any questions you have with your health care provider. Document Revised: 09/04/2018 Document Reviewed: 08/31/2018 [employer] Patient Education ? 2020 [employer]. Pharmacology General Anesthesia, Adult, Care After [...] activities are safe for you. ??? Take muxh-asa-bpoichv and prescription medicines only as told by [...] Reviewed: 04/03/2018 Elsevier Patient Education ? 2020 [employer] documented in this encounter Plan of Treatment Upcoming Encounters Date Type Department Care Team (Late st Contact Info) Description 09/26/2025 10:30 AM EST Appointment [facility] [address] [facility] [address] [place] [phone] Steve Jeffery MD [address] [place] [address] 09/26/2025 11:30 AM EST Office Visit [facility] [address] [facility] [address] [place] [phone] Steve Jeffery MD [address] [facility] [address] [place], [place] [id number] 09/26/2025 1:30 PM EST [facility] [address] [facility] [address] [place] [phone] Porsche Sutton MD [address] [facility] [address] [place] [address] documented as of this encounter Visit Diagnoses Not on filedocumented in this encounter Care Teams No Bake Molder Relationship Specialty Start Date End Date Greg Echevarria MD [address] [facility] [address] [place] [address] PCP - General Neurology 08/15/22 documented as of this encounter
--- OUTSIDE RECORDS SUMMARY | 2025-08-22 13:01 | XMS_ITS | Encounter Summary ---
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 [address] [address] BING BLANCO :1945 Visit Time:08/15/2021 [...] When 08/27/2021 10:00 AM EST Comments @ [facility] Where: [address] [place] [address]- Medications What How Much When Instructions Next Dose calcium-vitamin D (Caltrate 600 + D) Oral Every Day cyanocobalamin (Vitamin B12) 5,000 Microgram(s) Oral Every Day levothyroxine 75 Microgram(s) Oral Every Day albuterol (Albuterol (Eqv-ProAir HFA) 90 mcg/ inh inhalation aerosol) Inhalation Every 6 Hours bifidobacterium-lactobacillus (Abakus's Bounty Probiotic oral tablet) Oral Every Day [...] these instructions at home: Medicines ??? Take vzci-uvz-lvozzqe and prescription medicines only as told by [...] keep your urine pale yellow. ? Take lruc-wea-ishqoiy or prescription medicines. ? Eat foods that [...] and water are not available, use hand tilt wall supervisor. ? Change your dressing as told by [...] provider. Document Revised: 02/21/2020 Document Reviewed: 02/21/2020 ElseRockerbox Patient Education ?? 2020 Elsevier Inc. [place] Lymph Node Biopsy, Care After This sheet [...] and water are not available, use hand tilt wall supervisor. ? Change your dressing as told by [...] safe for you. General instructions ??? Take ceas-cjq-vpkavpc and prescription medicines only as told by [...] day for signs of infection. ??? Take fkac-fqr-rsnuilw and prescription medicines only as told by your health care provider. ??? Ask your health care provider when you can return to your normal activities. This information is not intended to replace advice given to you by your health care provider. Make sure you discuss any questions you have with your health care provider. Document Revised: 09/04/2018 Document Reviewed: 08/31/2018 Avogy Patient Education ?? 202 [employer]. General Anesthesia, Adult, Care After This [...] activities are safe for you. ??? Take cfix-gqq-vemtikt and prescription medicines only as told by [...] provider. Document Revised: 08/21/2018 Document Reviewed: 04/03/2018 [employer] Patient Education ?? 2020 [employer]. acetaminophen and oxycodone (a SEET a MIN [...] may report side effects to FDA at 9-364-TRT-7502. What other drugs will affect acetaminophen and [...] affect acetaminophen and oxycodone, including prescription and zwyr-nua-rjxdulf medicines, vitamins, and herbal products. Not all [...] to ensure that the information provided by [employer]. ('[employer]') is accurate, up-to-date, and complete, but no guarantee is made to that effect. Drug information contained herein may be time sensitive. [employer] information has been compiled for use by healthcare practitioners and consumers in the [place] and therefore [employer] does not warrant that uses outside of the [place] are appropriate, unless specifically indicated otherwise. [employer] drug information does not endorse drugs, diagnose patients or recommend therapy. [employer] drug information is an informational resource designed [...] effective or appropriate for any given patient. [employer] does not assume any responsibility for any aspect of healthcare administered with the aid of information [employer] provides. The information contained herein is not intended to cover all possible uses, directions, precautions, warnings, drug interactions, allergic reactions, or adverse effects. If you have questions about the drugs you are taking, check with your doctor, nurse or pharmacist. Copyright 5513-1828 [employer]. Version: 20.03. Revision Date: 10/06/2020. Emergency Awareness [...] Assistance with quitting is available by contacting 5-978-QRSR-NOW. This is a free resource providing counseling, [...] visit) Nuclear Medicine 08/15/2021 7:47 AM NM Stockett Node Inj: NM Stockett Node Inj Patient Name:BING BLANCO I have received this information and was given the opportunity to ask questions. Patient/Motor Vehicle License Clerk Name: Patient/Motor Vehicle License Clerk Signature: Relationship to Patient: Clinician/Hospital Motor Vehicle License Clerk Signature: Date: documented in this encounter Plan of Treatment Upcoming Encounters Date Type Department Care Team (Late st Contact Info) Description 09/26/2025 10:30 AM EST Appointment [facility] Breast Care [address] [facility] [address] [place] [address] Zita Mobley MD [address] [place] [address] [address] [place], [place] [id number] 09/26/2025 11:30 AM EST Office Visit [facility] [address] [facility] [address] [place] [address] Zita Mobley MD [address] [facility] [address] [place], [place] [id number] 09/26/2025 1:30 PM EST Office Visit [facility] [facility] [address] [place] [address] Porsche Sutton MD [address] [place] [address] documented as of this encounter Visit Diagnoses Not on filedocumented in this encounter Care Teams Regional Operations Director Relationship Specialty Start Date End Date Greg Echevarria MD [address] [facility] [address] [place] [phone] PCP - General Neurology 08/15/22 documented as of this encounter
--- OUTSIDE RECORDS SUMMARY | 2025-08-22 13:01 | XMS_ITS | Encounter Summary ---
Author Organization [employer] ([place], [place], [place], [place], [place]) Address [address] [place] [address] Care Team Providers Care Senior Patrol Agent Name Role Phone Greg Echevarria MD Primary Care Provider + [phone] Encounter Details Date Type Department Care Team (Late st Contact Info) Description 08/15/2021 Transcribed Document [facility] Family Medicine [address] [place] [address] ProviderEmma MD [address] [place], [place] [phone] Social History Tobacco Use Types Packs/Day Years Used Date Smoking Tobacco: Never Assessed Comments Unknown Sex and Gender Information Value Date Recorded Sex Assigned at Not on file Legal Sex Female 4:56 PM CDT Gender Identity Not on file Sexual Orientation Not on file documented as of this encounter Miscellaneous Notes * Cerner Conversion Note - Historical ProviderMD - 08/15/2021 6:52 AM 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 Adult Entered On: 08/15/2021 6:56 EST Performed On: 08/15/2021 6:52 EST by Sofia Soria Rn Height and Weight, Clinical Dosing Height Source : Measured Height Entry Format : R[place]con Height, Feet : 5 ft(Converted to: 152 cm, 60 Inch) Height, Inches : 3 Inch(Converted to: 0 ft 3 Inch, 7.62 cm) Clinical Height : 160.02 cm Weight Source : Standing scale Weight Entry Format : Rincon Clinical Dosing Weight : 80 kg Weight, Pounds : 176 lb Body Surface Area (BSA) : 1.83 m2 Body Mass Index : 31.2 kg/m2 (HI) [place] Body Weight : 52 kg Sofia Soria [...] Sofia Soria Rn - 08/15/2021 6:52 EST [place] Suicide Severity Rating Scale (C-SSRS) CSSRS Past [...] Contact #2 Relationship : Primary Language : Sami Communication Barrier : None Mri Special Procedures Technologist Needed : No Sofia Soria Rn - [...] 08/15/2021 6:52 EST Electronically signed by [facility] Conversion Hydrographer Cerner at 12/19/2022 6:06 PM CDT documented in this encounter Plan of Treatment Upcoming Encounters Date Type Department Care Team (Late st Contact Info) Description 09/26/2025 10:30 AM EST Appointment [facility] Breast Care [address] [facility] [address] [place] [phone] Steve Jeffery MD [address] [place] [address] 09/26/2025 11:30 AM EST Office Visit [facility] [address] [facility] [address] [place] [phone] Steve Jeffery MD [address] [place], [place] [phone] 09/26/2025 1:30 PM EST Office Visit [facility] [place] [address] [facility] [address] [place] [phone] Porsche Sutton MD [address] [facility] [address] [place] [address] documented as of this encounter Visit Diagnoses Not on filedocumented in this encounter Care Teams Senior Patrol Agent Relationship Specialty Start Date End Date Greg Echevarria MD [address] [facility] [address] [place] [phone] PCP - General Neurology 08/15/22 documented as of this encounter
--- OUTSIDE RECORDS SUMMARY | 2025-08-22 13:02 | XMS_ITS | Patient Health Record ---
Author Organization [facility] Address [address] [facility] [address] [place] [id number] Care Team Providers Care Snubber Name Role Phone [place] Echevar[place] Primary Care Provider [phone] Mckenzie Singh Unavailable [phone] Rosa Underwood Unavailable [phone] Allergies Allergen (clinical drug ingredient) Drug/Non Drug [...] Interpretation:satisfactory Performing Lab: Notes/Report: Test performed by [facility] [address] [place], [place] [address] , [address], [place] [address] Manny Fountain MD, Data Security Consultant CLIA: [id number] Sodium 139 135-145 mmol/L Potassium 4.4 3.5-5.3 [...] Interpretation:Normal Performing Lab: Notes/Report: Test performed by [facility] [address] [place] [address] , [address], [place] [address] Manny Fountain MD, Data Security Consultant CLIA: [id number] TSH 4.41 0.43-5.25 mU/L P-Antinuclear Antibodies (AN A) Screen Reviewed date:09/03/2024 03:16:47 PM Interpretation: Normal Performing Lab: Notes/Report: Test performed by [facility] [address] , [address], [place] [address] Manny Fountain MD, Data Security Consultant CLIA: [id number] Antinuclear Antibodies (HANNAH) Screen Negative Negative This test is performed by Multiplex Bead Immunoassay methodology. P-Comprehensive Metabolic Pa laura (CMP) Reviewed date:09/03/2024 03:16:47 PM Interpretation:bun 25 Performing Lab: Notes/Report: Test performed by [facility] [address] , [address], [place] [address] Manny Fountain MD, Data Security Consultant CLIA: [id number] Sodium 142 135-145 mmol/L Potassium 4.3 3.5-5.3 [...] Normal Performing Lab: Notes/Report: Test performed by [facility] [address] [place] [address] , [place] [address] Manny Fountain MD, Data Security Consultant CLIA: [id number] Creatine Kinase 66 20-180 U/L P-Sed Rate (ESR) Reviewed date:09/03/2024 03:16:47 PM Interpretation: Normal Performing Lab: Notes/Report: Test performed by [facility] [address] , [address], [place] [address] Manny Fountain MD, Data Security Consultant CLIA: [id number] Erythrocyte Sedimentation Rate (ESR), Automated 14 <31 mm/hr P-TSH Reviewed date:09/03/2024 03:16:47 PM Interpretation:0.11 Performing Lab: Notes/Report: Test performed by [facility] [address] [place] [address] , [address], [place] [address] aMnny Fountain MD, Data Security Consultant CLIA: [id number] TSH 0.11 0.43-5.25 mU/L P-HANNAH Reviewed date:09/03/2024 03:16:01 PM Interpretation: Performing Lab: Notes/Report: [facility] Spine Reviewed date:09/17/2024 09:03:24 AM Interpretation:osteopenia of spine and right hip, osteoporosis left hip Performing Lab: Notes/Report: osteopenia of spine and right hip, osteoporosis left hip Dexa results osteopenia of spine and right hip, osteoporosis left hip Influenza Screen (in house) Reviewed date:05/27/2025 12:38:34 [...] 55 Performing Lab: Notes/Report: Test performed by [facility] [address] [place] [address] , [address], [place] [address] Manny Fountain MD, Data Security Consultant CLIA: [id number] Sodium 139 135-145 mmol/L Potassium 4.4 3.5-5.3 [...] Interpretation:Normal Performing Lab: Notes/Report: Test performed by [facility] [address] , [address], [place] [address] Manny Fountain MD, Data Security Consultant CLIA: [id number] TSH 3.81 0.43-5.25 mU/L Covid test (in house) Reviewed date:05/27/2025 12:38:45 PM Interpretation: Performing Lab: Notes/Report: Result: neg Medications Medication SIG (Take, Route, Frequency, Duration) [...] Status Risk Notes Problem Raynaud's disease (disorder) (584244937) Raynaud's syndrome (443.0) Active confirmed Problem Pain of right shoulder region (finding) (8031806749) Pain in right shoulder (M25.511) Active confirmed Problem History of pulmonary embolus (303717891) History of pulmonary embolism (Z86.711) Active confirmed Problem Hypothyroidism (21818406) Hypothyroidism (acquired) (E03.9) Active confirmed Problem Anxiety (30232371) Anxiety (F41.9) Active confi rmed Problem Dysuria (94414393) Dysuria (R30.0) Active confi rmed Problem Long-term current us e of anticoagulant (654997725) joint terminal attack controller current use of anticoagulant (Z79.01) Active confirmed Problem Chronic pain (47214968) Other chronic pain (G89.29) Active confirmed Problem Supraventricular tachycardia (6940996) Supraventricular tachycardia (I47.1) Active confirmed Problem Vaccination given (745387820) Encounter for immunization (Z23) Active confirmed Problem Gastroesophageal reflux disease (133659378) GERD without esophagitis (K21.9) Active confirmed Problem Acquired hypothyroidism (379117497) Acquired hypothyroidism (E03.9) Active confirmed Problem Osteoporosis (60394225) Osteoporosis (M81.0) Active confirmed Problem Hyperlipidaemia (27842304) Hyperlipidemia, unspecified hyperlipidemia type (E78.5) Active confirmed Problem History of malignant neoplasm of breast (811268657) Hx of breast cancer (Z85.3) Active confirmed Problem Pure hypercholesterolemia (374372963) Pure hypercholesterolemia (E78.00) Active confirmed Problem Osteopenia of sondra mbar spine (M85.88) Active confirmed Problem Localized, primary osteoarthritis of the hand (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) Arthropathy of hand (M19.049) Active confirmed Problem 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 Problem Acute cor pulmonale co-occurrent and due to saddle embolus of pulmonary artery (disorder) (36507601965464671) Acute saddle pulmonary embolism with acute cor pulmonale (I26.02) Active confirmed Problem Osteopenia (disorder ) (530946043) Osteopenia of right hip (M85.851) Active confirmed Problem Bleeding (912546071) Multiple ec chymoses of both upper arms (R58) Active confirmed Problem Chronic deep venous thrombosis of popliteal vein (894247582593643) Chronic deep vein thrombosis (DVT) of popliteal vein of left lower extremity (I82.532) Active confirmed Problem Malignant neoplasm o f female breast (462664603) Carcinoma of right female breast, unspecified estrogen receptor status, unspecified site of breast (C50.911) Active confirmed Problem Chronic obstructive pulmonary disease (72621938) COPD, mild (J44.9) Active confirmed Vital Signs Heart Rate 64 /min 07/22/2025 Blood pressure diastolic 70 mm Hg 07/22/2025 Height 64 in 07/22/2025 Blood pressure systolic 104 mm Hg 07/22/2025 Weight 150.8 lbs 07/22/2025 BMI 25.88 kg/m2 07/22/2025 Encounters Encounter Location Date Provider Diagnosis [facility] [address] [place], [place] [id number] 09/02/2024 [place] Echevarria History of pulmonary embolism Z86.711 ; retirement current use of anticoagulant Z79.01 ; Hx of breast cancer Z85.3 ; Acquired hypothyroidism E03.9 ; Pure hypercholesterolemia E78.00 ; Generalized body aches R52 and Osteopenia, unspecified location M85.80 [facility] [address] [place], [place] [id number] 11/29/2024 Mckenzie Singh URI (upper respiratory infection) J06.9 [facility] [address] [facility] [address] [place], [place] [id number] 12/09/2024 Rosa Crowdy Bronchitis J40 and B GA 24.0-24.9, adult Z68.24 [facility] [address] [place], [place] [id number] 12/14/2024 Mckenzie Singh Bronchitis J40 ; Hyperlipidemia, unspecified hyperlipidemia type E78.5 ; Anxiety F41.9 ; Acquired hypothyroidism E03.9 and BMI 24.0-24.9, adult Z68.24 [facility] [address] [place], [place] [id number] 01/27/2025 [place] Echevarria Acquired hypothyroid ism E03.9 ; GERD without esophagitis K21.9 ; Chronic deep vein thrombosis (DVT) of popliteal vein of left lower extremity I82.532 ; History of pulmonary embolism Z86.711 ; retirement current use of anticoagulant Z79.01 ; Hx of breast cancer Z85.3 ; Osteoporosis M81.0 and BMI 25.0-25.9,adult Z68.25 [facility] [address] [place], [place] [id number] 05/26/2025 [place] Echevarria Upper respiratory tr act infection, unspecified type J06.9 ; Bronchitis J40 and Dizziness R42 [facility] [address] [place], [place] [id number] 07/22/2025 [place] Echevarria retirement current us e of anticoagulant Z79.01 ; History of pulmonary embolism Z86.711 ; GERD without esophagitis K21.9 ; Hx of breast cancer Z85.3 ; Osteoporosis M81.0 ; Toenail deformity L60.8 ; Immunization due Z23 ; Carcinoma of right female breast, unspecified estrogen receptor status, unspecified site of breast C50.911 ; COPD, mild J44.9 and BMI 25.0-25.9,adult Z68.25 [facility] [address] [place], [place] [id number] 09/03/2024 [place] Echevarria [facility] [address] [place], [place] [id number] 09/16/2024 [place] Echevarria [facility] [address] [place], [place] [id number] 09/17/2024 [place] Echevarria [facility] [address] [place], [place] [id number] 10/20/2024 [place] Echevarria [facility] [address] [place], [place] [id number] 10/22/2024 [place] Echevarria [facility] [address] [place], [place] [id number] 11/09/2024 [place] Echevarria [facility] [address] [place], [place] [id number] 11/26/2024 [place] Echevarria [facility] [address] [place], [place] [id number] 12/13/2024 Rosa Underwood [facility] [address] [place], [place] [id number] 01/28/2025 [place] Garza Wale [facility] [address] [place], [place] [id number] 02/17/2025 [place] Echevarria [facility] [address] [place], [place] [id number] 03/11/2025 [place] Echevarria [facility] [address] [place], [place] [id number] 05/31/2025 [place] Greg Echevarria [facility] [address] [place], [place] [id number] 07/14/2025 [place] AlanisGregmyles Echevarria [facility] [address] [place], [place] [id number] 08/11/2025 [place] Garza Wale GERD without esophag itis K21.9 Assessments Encounter Date Diagnosis (ICD Code) Assessment Notes Treatment Notes Treatment Clinical Notes Section Notes 09/02/2024 History of pulmonary embolism (ICD-10 - Z86.711) continue current therapy 09/02/2024 joint terminal attack controller current us e of anticoagulant (ICD-10 - [...] of pulmonary embolism (ICD-10 - Z86.711) 07/22/2025 retirement current us e of anticoagulant (ICD-10 - [...] 09/02/2024 Pure hypercholesterolemia (ICD-10 - E78.00) 01/27/2025 joint terminal attack controller current us e of anticoagulant (ICD-10 - [...] Date MEDICARE PART B [address] [address] [place] [id number] [phone] [id number] RUY BLANCO Self - patient is the insured [facility] [employer] [address] [place] [id number] RUY BLANCO Self - patient is the [...]
[2025-08-22 13:05] VITALS: BP 113/68; PULSE 68; RESP 18; O2SAT 99
== END 2025-08-22 23:59 | disposition home or self-care (01) ==
PROVIDERS: PCP Family Medicine; Visit Provider Family Medicine
DX: M81.0 Age-related osteoporosis without current pathological fracture (principal); M85.851 Other specified disorders of bone density and structure, right thigh
CPT/HCPCS: 96372; J0897